=== PATIENT | female | born 1975 | race Caucasian/White ===

== ENCOUNTER → 2016-04-01 | Outpatient (CLI) | payer BC, OTHER ==
[~2016-04-01] MED LIST: CALC0.2510 PO; CIPR1TAB11 PO; DOXY100C76 PO; ENAL10TA88 PO; FERR325T51 PO; OXYC-643 PO; WARF5TAB90 PO
[2016-04-01 17:37] LABS: BLOOD UREA NITROGEN 55 mg/dl (7-18); BUN/CREATININE RATIO 13.8 (10-20); CALCIUM 8.4 mg/dl (8.5-10.1); CARBON DIOXIDE 19 mmol/L (21-32); CHLORIDE 110 mmol/L (98-107); GLUCOSE 78 mg/dl (70-99); PHOSPHORUS 4.1 mg/dl (2.5-4.9); POTASSIUM 5.2 mmol/L (3.5-5.1); SODIUM 139 mmol/L (136-145)
== END | disposition home or self-care (01) ==
LOC: C.LAB1850 13:50
PROVIDERS: ATTEND Internal Medicine
DX: N18.9 Chronic kidney disease, unspecified (principal)

== ENCOUNTER → 2016-05-02 | Outpatient (CLI) | payer BC, OTHER ==
[2016-05-02 17:46] LABS: INR 3.1 (0.9-1.1); PROTHROMBIN TIME (PATIENT) 35.3 SECONDS (9.0-12.0)
[2016-05-02 17:58] LABS: BLOOD UREA NITROGEN 60 mg/dl (7-18); BUN/CREATININE RATIO 15.4 (10-20); CALCIUM 9.6 mg/dl (8.5-10.1); CARBON DIOXIDE 20 mmol/L (21-32); CHLORIDE 110 mmol/L (98-107); GLUCOSE 83 mg/dl (70-99); PHOSPHORUS 5.1 mg/dl (2.5-4.9); POTASSIUM 5.2 mmol/L (3.5-5.1); SODIUM 141 mmol/L (136-145)
== END | disposition home or self-care (01) ==
LOC: C.LAB1850 17:03
PROVIDERS: ATTEND Internal Medicine
DX: N18.9 Chronic kidney disease, unspecified (principal); E21.3 Hyperparathyroidism, unspecified

== ENCOUNTER → 2016-09-05 | Outpatient (CLI) | payer BC, OTHER ==
[2016-09-05 18:15] LABS: BLOOD UREA NITROGEN 59 mg/dl (7-18); BUN/CREATININE RATIO 15.4 (10-20); CALCIUM 8.6 mg/dl (8.5-10.1); CARBON DIOXIDE 19 mmol/L (21-32); CHLORIDE 113 mmol/L (98-107); GLUCOSE 92 mg/dl (70-99); POTASSIUM 4.8 mmol/L (3.5-5.1); SODIUM 141 mmol/L (136-145)
[2016-09-05 18:16] LABS: PHOSPHORUS 5.9 mg/dl (2.5-4.9)
== END | disposition home or self-care (01) ==
LOC: C.LAB1850 16:40
PROVIDERS: ATTEND Physician Assistant
DX: N18.9 Chronic kidney disease, unspecified (principal); D64.9 Anemia, unspecified

== ENCOUNTER → 2016-10-10 | Outpatient (CLI) | payer BC, OTHER ==
[2016-10-10 15:10] LABS: BLOOD UREA NITROGEN 94 mg/dl (7-18); BUN/CREATININE RATIO 21.9 (10-20); CARBON DIOXIDE 19 mmol/L (21-32); CHLORIDE 111 mmol/L (98-107); GLUCOSE 121 mg/dl (70-99); PHOSPHORUS 5.4 mg/dl (2.5-4.9); POTASSIUM 5.5 mmol/L (3.5-5.1); SODIUM 139 mmol/L (136-145)
[2016-10-10 15:41] LABS: RATIO 2312.5 mcg/mg (0-30.0)
== END | disposition home or self-care (01) ==
LOC: C.LAB1850 13:34
PROVIDERS: ATTEND Internal Medicine
DX: R79.89 Other specified abnormal findings of blood chemistry (principal); N18.9 Chronic kidney disease, unspecified; D64.9 Anemia, unspecified

== ENCOUNTER → 2016-10-28 | Outpatient (CLI) | payer BC, OTHER ==
[2016-10-28 15:54] LABS: BASO % 0.2 %; BASO ABS # 0.01 K/uL (0-0.2); EOS % 1.7 %; HEMATOCRIT 24.9 % (37-47); IG% 1.4 %; LYMPH % 16.2 %; LYMPH ABS # 0.96 K/uL (1.2-3.4); MEAN CELL VOLUME 93.3 fL (80-100); MEAN CORPUSCULAR HEMOGLOBIN 30.7 pg (25-34); MEAN CORPUSCULAR HGB CONC 32.9 g/dl (32-36); MONO % 5.8 %; NEUT % 74.7 %; PLATELET COUNT 190 K/uL (130-400); RED BLOOD COUNT 2.67 M/uL (4.2-5.4); WHITE BLOOD COUNT 5.91 K/uL (4.8-10.8)
[2016-10-28 16:16] LABS: BLOOD UREA NITROGEN 61 mg/dl (7-18); BUN/CREATININE RATIO 16.2 (10-20); CARBON DIOXIDE 24 mmol/L (21-32); CHLORIDE 109 mmol/L (98-107); GLUCOSE 92 mg/dl (70-99); POTASSIUM 5.2 mmol/L (3.5-5.1); SODIUM 140 mmol/L (136-145)
[2016-10-28 16:21] LABS: FERRITIN 171.1 ng/ml (8.0-388.0); PHOSPHORUS 4.5 mg/dl (2.5-4.9); TOTAL IRON BINDING CAPACITY 217 mcg/dl (250-450)
[2016-10-28 16:28] LABS: COMPLETE YES
== END | disposition home or self-care (01) ==
LOC: C.LAB1850 15:05
PROVIDERS: ATTEND Physician Assistant
DX: N18.9 Chronic kidney disease, unspecified (principal)

== ENCOUNTER → 2016-11-18 | Outpatient (CLI) | payer BC, OTHER | END | disposition home or self-care (01) | LOC: C.LAB1850 14:12 | PROVIDERS: ATTEND Physician Assistant | DX: E21.3 Hyperparathyroidism, unspecified (principal) ==

== ENCOUNTER → 2017-01-10 | Outpatient (CLI) | payer BC, OTHER ==
[2017-01-10 13:57] LABS: BLOOD UREA NITROGEN 58 mg/dl (7-18); BUN/CREATININE RATIO 15.8 (10-20); CARBON DIOXIDE 18 mmol/L (21-32); CHLORIDE 112 mmol/L (98-107); CREATININE 3.66 mg/dl (0.60-1.20); GLUCOSE 81 mg/dl (70-99); PHOSPHORUS 5.1 mg/dl (2.5-4.9); POTASSIUM 5.7 mmol/L (3.5-5.1); SODIUM 139 mmol/L (136-145)
== END | disposition home or self-care (01) ==
LOC: C.LAB1850 10:19
PROVIDERS: ATTEND Physician Assistant
DX: M32.9 Systemic lupus erythematosus, unspecified (principal)

== ENCOUNTER → 2017-04-24 | Outpatient (CLI) | payer BC, OTHER ==
[~2017-04-24] MED LIST changes: -CIPR1TAB11 PO; -DOXY100C76 PO
[2017-04-24 18:04] LABS: ALBUMIN 3.4 gm/dl (3.4-5.0); BLOOD UREA NITROGEN 59 mg/dl (7-18); CARBON DIOXIDE 20 mmol/L (21-32); CREATININE 4.39 mg/dl (0.60-1.20); GLUCOSE 91 mg/dl (70-99); POTASSIUM 4.6 mmol/L (3.5-5.1); SODIUM 138 mmol/L (136-145)
[2017-04-24 18:09] LABS: PHOSPHORUS 5.6 mg/dl (2.5-4.9)
[2017-04-24 18:13] LABS: HEMATOCRIT 29.8 % (37-47); HEMOGLOBIN 10.3 g/dL (12.0-16.0); MEAN CELL VOLUME 89.5 fL (80-100); MEAN CORPUSCULAR HEMOGLOBIN 30.9 pg (25-34); MEAN CORPUSCULAR HGB CONC 34.6 g/dl (32-36); MEAN PLATELET VOLUME 11.2 fL (7.4-10.4); PLATELET COUNT 79 K/uL (130-400); RED CELL DISTRIBUTION WIDTH CV 13.8 % (11.5-14.5); RED CELL DISTRIBUTION WIDTH SD 45.5 fL (36.4-46.3); WHITE BLOOD COUNT 6.13 K/uL (4.8-10.8)
[2017-04-24 18:14] LABS: BASO % 0.5 %; BASO ABS # 0.03 K/uL (0-0.2); EOS ABS # 0.12 K/uL (0-0.5); IG# 0.02 K/uL (0.00-0.02); LYMPH % 24.3 %; LYMPH ABS # 1.49 K/uL (1.2-3.4); MONO % 5.2 %; MONO ABS # 0.32 K/uL (0.11-0.59); NEUT % 67.7 %; NEUT ABS # 4.15 K/uL (1.4-6.5)
== END | disposition home or self-care (01) ==
LOC: C.LAB1850 16:22
PROVIDERS: ATTEND Internal Medicine
DX: I10 Essential (primary) hypertension (principal)

== ENCOUNTER → 2017-04-25 | Outpatient (CLI) | payer BC, OTHER ==
--- NOTE | 2017-04-28 08:07 | MAMMOGRAPHY REPORT ---
BILATERAL DIGITAL SCREENING MAMMOGRAM TOMOSYNTHESIS WITH CAD: 04/25/2017 CLINICAL HISTORY: Routine screening. Patient has no complaints. TECHNIQUE: Breast tomosynthesis in addition to standard 2D mammography was performed. Current study was also evaluated with a Computer Aided Detection (CAD) system. COMPARISON: Comparison is made to exams dated: 02/23/2016 mammogram and 01/27/2015 mammogram - [facility]. BREAST COMPOSITION: There are scattered areas of fibroglandular density in both breasts. FINDINGS: There is a grouping of microcalcifications in the upper outer posterior right breast, for which additional spot magnification views are recommended. There are scattered vascular calcifications in both breasts. No other suspicious mass, architectural distortion or cluster of microcalcifications is seen. IMPRESSION: ACR BI-RADS CATEGORY 0: INCOMPLETE EVALUATION: NEED ADDITIONAL IMAGING EVALUATION The grouping of microcalcifications in the right upper outer posterior breast needs additional evalua tion. The patient will be called to schedule an appointment. Approximately 10% of breast cancers are not detected with mammography. A negative mammographic report should not delay biopsy if a clinically suggestive mass is present. Kathy Baeza M.D. ay/:04/25/2017 16:18:53 Senior Climate Advisor: Gladis PASTOR(Ketty)(Tracy), [facility] letter sent: Addl Imaging 0 BI-RADS Code: ACR BI-RADS Category 0: Incomplete Evaluation: Need Additional Imaging Evaluation
== END | disposition home or self-care (01) ==
LOC: C.MAMM 15:08
PROVIDERS: ATTEND Internal Medicine
DX: Z12.31 Encounter for screening mammogram for malignant neoplasm of breast (principal)

== ENCOUNTER → 2017-04-30 | Outpatient (CLI) | payer BC, OTHER | END | disposition home or self-care (01) | LOC: C.LAB1850 16:14 | PROVIDERS: ATTEND Internal Medicine | DX: R39.9 Unspecified symptoms and signs involving the genitourinary system (principal) ==

== ENCOUNTER → 2017-05-06 | Outpatient (CLI) | payer BC, OTHER | END | disposition home or self-care (01) | LOC: C.LAB1850 15:49 | PROVIDERS: ATTEND Internal Medicine | DX: R39.9 Unspecified symptoms and signs involving the genitourinary system (principal) ==

== ENCOUNTER → 2017-05-07 | Outpatient (CLI) | payer BC, OTHER ==
--- NOTE | 2017-05-08 08:04 | MAMMOGRAPHY REPORT ---
UNILATERAL RIGHT DIGITAL DIAGNOSTIC MAMMOGRAM: 05/07/2017 CLINICAL HISTORY: 42-year-old woman called back from screening mammography for a small grouping of li near microcalcifications in the upper outer posterior right breast. Patient is currently on the dinorah l transplant list. TECHNIQUE: Spot magnification right CC and MLO views were obtained. COMPARISON: Comparison is made to exams dated: 02/23/2016 mammogram, 04/25/2017 mammogram, and 2014 mammogram - [facility]. BREAST COMPOSITION: There are scattered areas of fibroglandular density in the right breast. FINDINGS: There are curvilinear vascular calcifications in the right upper outer posterior breast bu t there are adjacent linear microcalcifications in a somewhat linear distribution posterior to the va scular calcification. When comparing back to prior available mammograms, the nonvascular calcificati ons are new since 2014 and therefore indeterminate. No associated asymmetry, mass or architectural d istortion. Given that there are only approximately 4 calcifications in the grouping this is a low scott spicion although given the interval development of the remain indeterminate. We discussed options of follow-up imaging with spot magnification views versus tissue sampling and will opt to sample the ca lcifications at this time given the patient's impending renal transplant. IMPRESSION: ACR BI-RADS CATEGORY 4: SUSPICIOUS 1. Right breast stereotactic guided biopsy is recommended for 4 microcalcifications in a linear dist ribution in the upper outer posterior right breast. These results and recommendations were discussed with the patient at the time of the exam. Approximately 10% of breast cancers are not detected with mammography. A negative mammographic report should not delay biopsy if a clinically suggestive mass is present. Kathy Baeza M.D. ay/:05/07/2017 15:31:28 Prevention Rn: Gladis PASTOR(Ketty)(Tracy), [facility] letter sent: Abnormal 4/5 BI-RADS Code: ACR BI-RADS Category 4: Suspicious
== END | disposition home or self-care (01) ==
LOC: C.MAMM 14:05
PROVIDERS: ATTEND Internal Medicine
DX: R92.0 Mammographic microcalcification found on diagnostic imaging of breast (principal)

== ENCOUNTER → 2017-05-14 | Outpatient (CLI) | payer BC, OTHER ==
--- NOTE | 2017-05-14 14:57 | Discharge Instructions ---
Discharge Instructions Procedure Procedure Date: May 14, 2017. Reason for visit: Right Calcs. Discharge Discharge Date: May 14, 2017. Discharge Diagnosis: post right breast stereotactic guided biopsy Instructions Activity Recommendations: Additional Limitations (see below) Return to School/Work: no limitations Recommended Home Diet: No Limitations Provider Instructions: ACTIVITY RECOMMENDATIONS: * No lifting, pushing, pulling or exercising the affected side for three days. RETURN TO SCHOOL/WORK: * You may return to work/school after the procedure, but do not perform any strenuous activities for 24 to 48 hours. MEDICATIONS: * Tylenol (two 325 mg) every four to six hours if needed for mild pain (if not allergic to Tylenol). DIET: * Resume previous diet. SPECIAL CARE INSTRUCTIONS: * Keep biopsy site dry for 24 hours. May shower after 24 hours, but do not soak (bathe) incision. * May remove Tegaderm (plastic patch) tomorrow AFTER showering. * Leave the steri-strips on for one week. Allow the steri-strips to fall off by themselves. If not off after one week, you may remove them. You may place a Bandaid crosswise over the strips, if desired. * Apply ice 10 minutes on and 10 minutes off as needed. * Wear a bra at bedtime to sleep more comfortably for 2-3 days. * Your referring physician should have the results after approximately 5 to 7 business days. * Call for unusual bleeding, fever, drainage, etc or if you have any questions call [phone] during normal business hours or after hours call Dr Baeza, . FOLLOW UP VISIT: Follow-up with Referring Physician as scheduled. Allergies Coded Allergies: Sulfamethoxazole w/Trimethoprim (Verified Allergy, Mild, RASH, 01/30/17) Penicillins (Verified Allergy, Unknown, 04/07/09) Cephalexin (Verified Adverse Reaction, Unknown, GI SYMPTOMS, 03/27/16) effects lupus [place] Recommendations: Call your doctor if: * Temperature above 101 degrees * Pain not relieved by pain medicine ordered * There is increased drainage or redness from any incision * You have any unanswered questions or concerns. Your Doctors Instructions noted above were prepared by provider Kathy Baeza. Patient Signature Section: Patient Instructions Signature Page Jayla Casillas Patient (or Guardian) Signature/Date: I have read and understand the instructions given to me by my caregivers. Caregiver/RN/Doctor Signature/Date: The above-named patient and/or guardian has received patient instructions on this date. + Original Patient Signature Page (only) stays with chart. Please make copy for patient.
== END | disposition home or self-care (01) ==
LOC: C.MAMM 14:18
PROVIDERS: ATTEND Internal Medicine
DX: R92.0 Mammographic microcalcification found on diagnostic imaging of breast (principal)

== ENCOUNTER → 2017-06-03 | Outpatient (CLI) | payer BC, OTHER ==
[~2017-06-03] MED LIST changes: +ATROPINE SULFATE 0.1 MG/ML 5ML SYR ONE; +DOBUTamine HCL 12.5 MG/ML 20 ML VIAL ONE; +METOPROLOL TARTRATE 1 MG/ML VIAL ONE
--- NOTE | 2017-06-03 17:15 | DOBUTAMINE ECHO ---
*NOTICE TO RECEIVING REPUBLICAN AGENCY This information is strictly Confidential and protected under [place] law. [place] law prohibits you from making any further disclosure of this information unless further disclosure is expressly permitted by the written consent of the person to whom it pertains or is authorized by law. A general authorization for the release of medical or other information is not sufficient for this purpose. Hospital accepts no responsibility if the information is made available to any other person, INCLUDING THE PATIENT. Interpretation Summary * Name: DANYELL SANDS Study Date: 06/03/2017 11:02 AM BP: 153/87 mmHg * Patient Location: [facility] HR: 57 * : 1975 (M/d/yyyy) Gender: Female Height: 66 in * Age: 42 yrs Ethnicity: [place] Weight: 160 lb * Ordering Physician: Jamie Victoria * Referring Physician: John Esteves * Performed By: Neelima Conroy RDCS * * Reason For Study: PRE-OP EVAL RENAL TRANSPLANT * BSA: 1.8 m2 * -- Conclusions -- * 1. Negative dobutamine stress echocardiogram for myocardial ischemia at 85% maximum predicted heart rate. * 2. No dobutamine induced chest pain. * 3. No EKG changes. * 4. Baseline echocardiogram notes normal left ventricular systolic function. Procedure Details * DOBUTAMINE ECHO, CPT#07580 Left Ventricle * The left ventricle is normal in size. * There is mild concentric left ventricular hypertrophy. * Left ventricular systolic function is normal. * Resting wall motion: Normal. Stress wall motion: Appropriate increase in Left ventricular systolic function and decrease in cavity size. No stress induced segmental wall motion abnormalities. Stress Parameters * Normal baseline electrocardiogram. * Stress ECG: No ST changes. No arrhythmias. * Rest heart rate was '57' BPM. * Rest blood pressure was '153/87' * Maximum heart rate achieved was 151 bpm. * Maximum heart rate was 85 % of maximum age-predicted heart rate. * Maximum blood pressure was '256/128' * Maximum Dobutamine infusion rate was '40' mcg/kg/min. * A total of .5 mg of intravenous Atropine was used to supplement Dobutamine for heart rate response. * Dobutamine infusion was terminated due to achieving target heart rate
== END | disposition home or self-care (01) ==
LOC: C.CPL 10:51
PROVIDERS: ATTEND Internal Medicine
DX: Z01.818 Encounter for other preprocedural examination (principal)

== ENCOUNTER → 2017-06-11 | Outpatient (CLI) | payer BC, OTHER ==
[~2017-06-11] MED LIST changes: -ATROPINE SULFATE 0.1 MG/ML 5ML SYR ONE; -DOBUTamine HCL 12.5 MG/ML 20 ML VIAL ONE; -METOPROLOL TARTRATE 1 MG/ML VIAL ONE
== END | disposition home or self-care (01) ==
LOC: C.LAB1850 16:18
PROVIDERS: ATTEND Internal Medicine
DX: R39.9 Unspecified symptoms and signs involving the genitourinary system (principal)

== ENCOUNTER → 2017-10-24 | Outpatient (CLI) | payer BC, OTHER ==
[2017-10-24 15:45] LABS: BLOOD UREA NITROGEN 60 mg/dl (7-18); CALCIUM 8.5 mg/dl (8.5-10.1); CARBON DIOXIDE 19 mmol/L (21-32); CREATININE 4.47 mg/dl (0.60-1.20); GLUCOSE 94 mg/dl (70-99); PHOSPHORUS 4.8 mg/dl (2.5-4.9); POTASSIUM 4.5 mmol/L (3.5-5.1); SODIUM 139 mmol/L (136-145)
== END | disposition home or self-care (01) ==
LOC: C.LAB1850 13:37
PROVIDERS: ATTEND Physician Assistant
DX: N18.9 Chronic kidney disease, unspecified (principal)

== ENCOUNTER 2019-02-15 10:05 | Inpatient (IN) ==
[2019-02-15] MEDS ORDERED: HYDROmorphone INJ 1 MG/ML SYRINGE IV STA (10:20)
[2019-02-15] MEDS ORDERED: SODIUM CHLORIDE 0.9% 1000ML 1,000 ML IV PRN (11:07)
[2019-02-15] MEDS ORDERED: HEPARIN SOD (PORCINE) 1000 UNIT/ML 10 ML VIAL IV ONE (11:07)
[2019-02-15 11:31] LABS: Hematocrit (blood only) 35.7 % (37-47); Hemoglobin 11.4 g/dL (12.0-16.0); Mean Corpuscular Hemoglobin 30.1 pg (25-34); Mean Corpuscular Hgb Conc 31.9 g/dL (32-36); Mean Corpuscular Volume 94.2 fL (80-100); RDW Coefficient of Variation 19.1 % (11.5-14.5); RDW Standard Deviation 61.1 fL (36.4-46.3); Red Blood Count 3.79 M/uL (4.2-5.4)
[2019-02-15 11:32] LABS: Basophils # (auto) 0.01 K/uL (0-0.2); Basophils % (auto) 0.2 %; Eosinophils # (auto) 0.06 K/uL (0-0.5); Eosinophils % (auto) 1.2 %; Immature Granulocytes # (auto) 0.05 K/uL (0.00-0.02); Lymphocytes # (auto) 0.66 K/uL (1.2-3.4); Lymphocytes % (auto) 12.9 %; Monocytes # (auto) 0.61 K/uL (0.11-0.59); Neutrophils # (auto) 3.71 K/uL (1.4-6.5); Neutrophils % (auto) 72.7 %; Platelet Count 55 K/uL (130-400)
[2019-02-15 12:11] LABS: Alanine Aminotransferase 30 U/L (12-78); Albumin Globulin Ratio 0.6 (0.9-2); Albumin Level 2.8 gm/dl (3.4-5.0); Alkaline Phosphatase 93 U/L (45-117); BUN Creatinine Ratio 3.8 (10-20); Bilirubin,Total 0.6 mg/dl (0.2-1); Blood Urea Nitrogen 20 mg/dl (7-18); Calcium 8.5 mg/dl (8.5-10.1); Carbon Dioxide 27 mmol/L (21-32); Chloride 97 mmol/L (98-107); Creatinine Clr Calc Pharmacy 12.8 ml/min; Est GFR (African American) 10.8; Est GFR (Non-African American) 9.3; Globulin 4.6 gm/dl (2.5-4.0); Glucose 75 mg/dl (70-99); Lipase 66 U/L (73-393); Phosphorus 3.9 mg/dl (2.5-4.9); Sodium 131 mmol/L (136-145); Total Protein 7.4 gm/dl (6.4-8.2); Troponin I < 0.015 ng/ml (0-0.045)
--- NOTE | 2019-02-15 12:25 | XRay Report ---
PA CHEST RADIOGRAPH AND UPRIGHT AND SUPINE AP RADIOGRAPHS OF THE ABDOMEN CLINICAL HISTORY: Pd cath, L CP COMPARISON STUDY: KUB January 14, 2019. Chest CT February 14, 2019. FINDINGS: Right internal jugular dual lumen catheter is noted. Peritoneal dialysis catheter is noted . This is coiled within the right hemipelvis. A small pleural effusion with left basilar opacity is u nchanged. There is no evidence for pulmonary edema. No free air is present. Calcified granulomas with in the spleen are noted. There are bilateral hip arthroplasties. Mild to moderate stool within colon and rectum is noted. IMPRESSION: 1. No free air or evidence of bowel obstruction. 2. Small left pleural effusion with left basilar opacity that favors atelectasis. Electronically signed by: Wilder Lloyd M.D. 02/15/2019 12:23 PM
[2019-02-15] MEDS ORDERED: HYDROmorphone INJ 0.5 MG/0.5 ML SYR IV STA (12:34)
[2019-02-15 12:51] LABS: Potassium 3.6 mmol/L (3.5-5.1)
[2019-02-15] MEDS ORDERED: LORazepam 0.25 MG/0.5 ML VIAL IV STA (13:36)
--- NOTE | 2019-02-15 13:48 | Emergency Department Note ---
Entered by Ella Corral acting as a scribe for History of Present Illness General Chief complaint: Abdominal Pain Stated complaint: ABD PAIN, SENT BY Time Seen by Provider: 02/15/19 10:13 Source: patient History of Present Illness Onset (ago): day(s) 3 Location: abdomen Radiation: other (collar bone) Severity: similar to prior episodes Pain Consistency: + other (worsening) Maximum Pain Intensity: 10 Quality: + other (abdominal pain) Relieved By: not by medication (pain medication) Exacerbated By: + other (deep breathing) Associated symptoms: + other (abdominal pain); no cough, no nausea/vomiting, no rash and no shortness of breath Treatments prior to arrival: other (pain medication) The patient is a 44 year old female presenting to the Emergency Department complaining of worsening abdominal pain starting 3 days ago. The patient reports that the left side of her abdomen is painful. She states that this pain started in her collar bone and radiated down to her abdomen. She explains that deep breathing worsens her abdominal pain. She notes that she was in the hospital 1 day ago for this same pain and was given pain medication to take home. She adds that she took this pain medication BISQUE PLACER today and that it didnt improve her pain. The patient reports that when she came into the ED 1 day ago for abdominal pain she received blood work and imaging. She states that she is a dialysis patient and went to dialysis this morning BISQUE PLACER but wasnt able to last through her entire treatment. She notes that she was last dialyzed on 02/13/19. The patient denies rash, shortness of breath, nausea, vomiting, cough and shortness of breath. Home Medications Home Medications Medication Instructions Recorded Confirmed Type alprazolam 0.25 mg PO TID PRN 10/02/18 02/15/19 History bupropion HCl 150 mg PO DAILY 10/02/18 02/15/19 History calcitriol 0.25 mcg PO DAILY 10/02/18 02/15/19 History sevelamer carbonate 1,600 mg PO TIDM 10/02/18 02/15/19 History enalapril maleate 20 mg tablet 20 mg PO BID #180 tab 01/08/19 02/15/19 Rx docusate sodium [Colace] 100 mg PO BID #60 cap 02/14/19 02/15/19 Rx doxycycline hyclate 100 mg PO BID 10 Days #20 tab 02/14/19 02/15/19 Rx oxycodone 5 mg PO Q6H PRN #14 tab 02/14/19 02/15/19 Rx sennosides [Senokot] 8.6 mg PO HS #30 tab 02/14/19 02/15/19 Rx Allergies Allergy/AdvReac Type Severity Reaction Status Date / Time Bactrim Allergy Mild RASH Verified 01/30/17 13:24 sulfamethoxazole Allergy Mild RASH Verified 02/15/19 10:12 trimethoprim Allergy Mild RASH Verified 02/15/19 10:12 Penicillins Allergy Unknown Unknown Verified 02/15/19 10:12 Sulfa (Sulfonamide Allergy Rash Verified 02/15/19 10:12 Antibiotics) cephalexin AdvReac Mild GI SYMPTOMS Verified 02/15/19 10:12 Past Med/Surg History Medical History Anemia (Acute) Cellulitis of left leg (Acute) Chronic kidney disease (Chronic) 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) Elevated INR (Acute) End stage renal disease Epistaxis GI bleed (Acute) Hypertension (Chronic) Hypertension (Chronic) Lupus (Chronic) Lupus (systemic lupus erythematosus) (Chronic) Renal failure (Chronic) Traumatic wound (Acute) Surgical History History of hip replacement (Chronic) S/P arteriovenous (AV) fistula creation (Resolved) S/P bilateral hip replacements (Resolved) S/P (Resolved) Social History Preferred Language: Wolof Communication Ability: Effective Visual Impairment: Limited Hearing Ability: Normal Mechanical Meter Tester Required: No Beliefs That Will Affect Care: None marital status: seperated Current Living Situation: Family Current Living Situation Comment: daughter and fried current occupational status: disabled Feels Safe at Home: Yes Safety Concerns: Feels Safe At This Time Smoking Status: Never smoker Second Hand Exposure: No ; Hx Alcohol Use: No Hx Substance Use: No Review of Systems See HPI for pertinent positives & negatives. and A total of 10 systems reviewed and were otherwise negative Physical Exam Vital Signs Vital Signs - 24 hr 02/15/19 10:08 02/15/19 11:32 12/16/19 13:30 Temperature 36.5 C Temperature Source Oral Pulse Rate 111 H Pulse Rate [Right Finger] 97 H 89 Pulse Rhythm [Right Finger] Regular Respiratory Rate 20 20 20 Respiratory Effort / Characteristics Non-Labored Non-Labored Spontaneous Non-Labored Spontaneous Respiratory Depth Normal Normal Normal Respiratory Pattern Regular Blood Pressure 133/81 Blood Pressure [Right Arm] 121/81 118/75 Blood Pressure Mean 98 Blood Pressure Mean [Right Arm] 94 89 Blood Pressure Position Sitting Blood Pressure Position [Right Arm] Lying Lying Pulse Oximetry 97 95 97 Oxygen Delivery Method Room Air Room Air Room Air Sepsis Recent Fever Within 48 Hours No Sepsis New/Unexplained Change in Mental Status No Sepsis Action Taken by Nursing No Action Required GENERAL: Patient appears uncomfortable. Awake, alert. HENT: Normocephalic, atraumatic. EYES: Normal conjunctiva. Sclera non-icteric. RESPIRATORY: Clear to auscultation. Normal respiratory effort. CARDIAC: Normal rate. Normal rhythm. Extremities warm and well perfused. GI: Lower abdominal PD catheter in place. Soft, non-distended. No tenderness to palpation. No rebound or guarding. MUSCULOSKELETAL: Atraumatic. Left chest wall tenderness. Right upper chest port. There is no CVA tenderness to palpation. LOWER EXTREMITIES: Calves are equal size bilaterally and non-tender. No edema NEURO: Normal sensorium. No sensory or motor deficits noted. No facial droop. SKIN: Warm and dry. No rash or jaundice noted. Course Course 1015: The patient was evaluated in room A11B, and a complete history and physical examination were performed. 1055: I discussed the patients case with Dr. Victoria Mens Locker Room Attendant. 1130: I discussed the patients case with Deloris Delcid PA-C Vascular surgery. 1230: I reevaluated the patient at this time. I updated her. 1239: I discussed the patients case with Dr. Escobar CRAFT hospitalist. He will evaluate the patient for further management. Administered Medications Discontinued Medications Hydromorphone HCl (Dilaudid) 1 mg IV NOW STA Stop: 02/15/19 10:21 Last Admin: 02/15/19 11:17 Dose: 1 mg Documented by: [id number] Hydromorphone HCl (Dilaudid) 0.5 mg IV NOW STA Stop: 02/15/19 12:35 Last Admin: 02/15/19 12:49 Dose: 0.5 mg Documented by: [id number] Lorazepam (Ativan) 0.25 mg in 0.5 mls @ 0.5 mls/min IV NOW STA Stop: 02/15/19 13:37 Last Admin: 02/15/19 14:23 Dose: 0.5 mls/min Documented by: [id number] Medical Decision Making Differential Diagnosis Differential diagnoses includes but is not limited to acute coronary syndrome, myocardial infarction, pericarditis, pulmonary embolus, aortic dissection, pneumonia, pneumothorax, musculoskeletal, shingles, esophageal. Medical Records Attestation: I reviewed the patient's medical records. Home Medications Current Medication List: was personally reviewed by me Laboratory Data Attestation: I reviewed the patient's lab results. Result diagrams: 02/15/19 11:02/15/19 12:28 Lab Results 02/15/19 02/15/19 02/15/19 Range/Units 11:19 11:19 12:28 WBC 5.10 (4.8-10.8) K/uL RBC 3.79 L (4.2-5.4) M/uL Hgb 11.4 L (12.0-16.0) g/dL Hct 35.7 L (37-47) % MCV 94.2 (80-100) fL MCH 30.1 (25-34) pg MCHC 31.9 L (32-36) g/dL RDW Std Deviation 61.1 H (36.4-46.3) fL RDW Coeff of Negrito 19.1 H (11.5-14.5) % Plt Count 55 L (130-400) K/uL MPV 11.0 H (7.4-10.4) fL Immature Gran % (Auto) 1.0 % Neut % (Auto) 72.7 % Lymph % (Auto) 12.9 % [place] % (Auto) 12.0 % Eos % (Auto) 1.2 % Baso % (Auto) 0.2 % Immature Gran # (Auto) 0.05 H (0.00-0.02) K/uL Neut # (Auto) 3.71 (1.4-6.5) K/uL Lymph # (Auto) 0.66 L (1.2-3.4) K/uL [place] # (Auto) 0.61 H (0.11-0.59) K/uL Eos # (Auto) 0.06 (0-0.5) K/uL Baso # (Auto) 0.01 (0-0.2) K/uL Sodium 131 L (136-145) mmol/L Potassium 3.6 (3.5-5.1) mmol/L Chloride 97 L (98-107) mmol/L Carbon Dioxide 27 (21-32) mmol/L Anion Gap 7.0 (3-11) BUN 20 H (7-18) mg/dl Creatinine 5.16 H* D (0.6-1.2) mg/dl Est Cr Clr Drug Dosing 12.8 ml/min Est GFR ( Amer) 10.8 Est GFR (Non-Af Amer) 9.3 BUN/Creatinine Ratio 3.8 L (10-20) Glucose 75 (70-99) mg/dl Calcium 8.5 (8.5-10.1) mg/dl Phosphorus 3.9 (2.5-4.9) mg/dl Magnesium 2.0 (1.8-2.4) mg/dl Total Bilirubin 0.6 (0.2-1) mg/dl AST 19 (15-37) U/L ALT 30 (12-78) U/L Alkaline Phosphatase 93 (45-117) U/L Troponin I < 0.015 (0-0.045) ng/ml Total Protein 7.4 (6.4-8.2) gm/dl Albumin 2.8 L (3.4-5.0) gm/dl Globulin 4.6 H (2.5-4.0) gm/dl Albumin/Globulin Ratio 0.6 L (0.9-2) Lipase 66 L (73-393) U/L Imaging Data Radiologist's Impression: Radiology results as stated below per my review and the radiologist's interpretation: PA CHEST RADIOGRAPH AND UPRIGHT AND SUPINE AP RADIOGRAPHS OF THE ABDOMEN CLINICAL HISTORY: Pd cath, L CP COMPARISON STUDY: KUB January 14, 2019. Chest CT February 14, 2019. FINDINGS: Right internal jugular dual lumen catheter is noted. Peritoneal dialysis catheter is noted. This is coiled within the right hemipelvis. A small pleural effusion with left basilar opacity is unchanged. There is no evidence for pulmonary edema. No free air is present. Calcified granulomas within the spleen are noted. There are bilateral hip arthroplasties. Mild to moderate stool within colon and rectum is noted. IMPRESSION: 1. No free air or evidence of bowel obstruction. 2. Small left pleural effusion with left basilar opacity that favors atelectasis. Electronically signed by: Wilder Lloyd M.D. 02/15/2019 12:23 PM ECG Data Attestation: I personally reviewed and interpreted this ECG as follows: Indication: + abdominal pain Rate (beats per minute): 97 Rhythm: + normal sinus ECG ST segments: no ST depression and no ST elevation ECG Findings: no PVCs Comparison ECG Date: from (02/14/19) Change: no significant change Blood Pressure Blood Pressure Findings: Elevated blood pressure Blood Pressure Disposition: further management by hospitalist RIANNA Narrative Patient is a 44-year-old female with a past medical history of end-stage renal disease, lupus presenting today referred by her doctor due to left lower rib pain and problems with her dialysis catheter. Was evaluated here last night in the emergency department for similar pain complaints. Had a CT of the chest at that time without acute findings of PE; was some question of atelectasis greater on the left and was empirically started on antibiotics for this. Laboratory studies last night showed no significant leukocytosis and baseline if actually somewhat improved anemia. Has stigmata of mild electrolyte abnormalities and creatinine elevation and consistent with her history of end-stage renal disease. Evidently tunnel catheter is not working for dialysis today. Dr. Victoria states he already talked to the vascular team about this patient will need admitted for this to be corrected and also for pain control. He did recommend a two-view abdominal x-ray which was obtained showing no acute discontinuity of the gregorio lysis catheter, PD catheter not currently being utilized. Basic repeat laboratory studies were obtained here without significant abnormality beyond known dialysis changes. Do not see an emergent indication for dialysis at this point.. Discussed with the vascular surgeon physician curriculum assistant who states as nonemergent need, they can evaluate for replacement and repair tomorrow. Discussed with the hospitalist for admission for need for dialysis as well as pain control. Given additional Dilaudid here for pain control. Hospitalist contacted. Impression & Plan Left-sided chest wall pain, Hemodialysis catheter malfunction Discharge Plan Visit Data *Final* Discharge Date/Time: 02/15/19 15:52 Chief Complaint: Abdominal Pain Stated Complaint: ABD PAIN, SENT BY ED Provider: Alex Bee Discharge Problem: Left-sided chest wall pain, Hemodialysis catheter malfunction Patient Disposition: Admitted As Inpatient Discharge Instructions Interventions: ED Discharge Assessment Last Done: 02/15/19 15:52 Discharge Problem: Hemodialysis catheter malfunction Qualifiers: Encounter type: initial encounter Qualified Code(s): T82.41XA - Breakdown (mechanical) of vascular dialysis catheter, initial encounter The scribe's documentation has been prepared under my direction and personally reviewed by me in its entirety. I confirm that the note above accurately reflects all work, treatment, procedures, and medical decision making performed by me.
--- NOTE | 2019-02-15 14:36 | History & Physical Report ---
Date of Service February 15, 2019 Assessment & Plan (1) Hemodialysis catheter malfunction: 44-year-old female was admitted on 15 February 2019 for a clotted dialysis catheter. Hemodialysis catheter malfunction, ESRD: Has a tunneled right IJ catheter placed in October 2018. Reportedly nonfunctional after attempted dialysis earlier this morning. Still does make urine. - In ED, admit K 3.6. Given a dose of heparin 4000 units IV x 1 (? at time of attempted dialysis earlier this am). - Formal consult to vascular surgery and nephrology. Continue home sevelamer here. NPO at midnight for planned surgery tomorrow. Keep on heparin. Chest pain versus muscle spasm: New onset three days prior. Primarily under her left costal margin. Denies known fevers, cough, shortness of breath. Do not suspect current infection. Do suspect musculoskeletal component, though why exactly there is unclear. Perhaps it is related to attempted access of her peritoneal dialysis catheter this past Friday. - In ED yesterday (15Dec), negative TnI. CTA chest showed no evidence of PE but positive bibasilar atelectasis greater on the left. Blood cultures drawn then are pending. ? diagnosis of PNA, started on doxycycline. - In ED today, afebrile, borderline tachycardia, with a rather normal BP + room SpO2. Troponin negative. Admit EKG NSR 97 with normal intervals. Chest X-ray with abdomen notes no free air or evidence of bowel obstruction. - In ED, treated with Dilaudid. - Continue symptomatic control with small doses of morphine and lorazepam. Watch for respiratory issues. Discontinuing doxycycline. Acute on chronic thrombocytopenia: Admit platelets 55. INR 1.0. Monitor for now. Hyponatremia: Admit sodium 131. May be due to volume shifts pre-dialysis. Monitor for now. Ongoing medical issues: - Hypertension: Continue home enalapril. - Lupus, antiphospholipid syndrome: No known acute issues. - Anemia of chronic disease: Admit hemoglobin 11.4. - Recent cellulitis of left leg: Patient notes has completely resolved. - PMH right foot wound, MRSA infection: Underwent epidermal grafting in late October 2018. Followed by wound clinic. Previously followed by ID. Presently appears healed. - Depression: Continue home bupropion and as needed alprazolam. Code status: Full code. Diet: Renal, then NPO at midnight. DVT prophy: Heparin as above. PT/OT: Deferred. Disbo: Admit to [facility] telemetry. (2) End stage renal disease: (3) Left-sided chest wall pain: (4) Thrombocytopenia: (5) Hyponatremia: (6) Hypertension: (7) Lupus: (8) Antiphospholipid antibody syndrome: (9) Anemia: (10) Depression: History of Present Illness Primary Care Provider: Jamie Victoria MD 44-year-old female presents with a second time for evaluation of left-sided chest pain as well as now concerns for hemodialysis catheter obstruction. - Patient states that this past Friday 13Dec there was some attempt in accessing her peritoneal dialysis catheter. Although the details are unclear, patient says it was not successful. Normally she states she gets hemodialysis through her tunneled right IJ catheter on Friday, , and Friday. [Most recent dialysis this past Friday 14Dec.] - She says beginning Friday evening she began to feel some pain along her left collarbone. By Friday this transitioned to underneath her left ribcage where the pain has remained ever since. She says that it feels like waves of muscle spasms that get quite severe, taking her breath away. Feels worse with movement, nothing makes it better. She denies any history of the same. No known radiation or central chest symptoms. Denies recent concurrent fever, cough, shortness of breath, or other concurrent symptoms. At home initially she tried some Percocet and an undetermined muscle relaxer without any relief. - Patient says she presented to the emergency department last night for evaluation of this pain. [At present, related ED notes are not available in the EMR.] Per the patient, she was ultimately diagnosed with pneumonia and placed on doxycycline. Patient says she does not think she has pneumonia as she denies any particular respiratory symptoms. This morning, patient says she was due to have [id number] dialysis due to the contrast load from her CTA chest. At that time she was told the dialysis catheter was not working and referred here for further care. - At present, patient says she continues to get severe waves of left subcostal chest pain that feels like a spasm. She denies any new or interval symptoms to include vomiting, diarrhea, abdominal pain, extremity pain or muscle spasms, or other acute concerns. - Past medical history includes ESRD, anemia of chronic disease, GI bleed, traumatic wounds, lupus, hypertension, antiphospholipid antibody syndrome, hyperparathyroidism, depression, epistaxis - Past surgical history includes , AV fistula placement, bilateral hip replacement - Social history includes former smoker. Denies alcohol use. Is disabled and lives with a friend. Allergies Allergy/AdvReac Type Severity Reaction Status Date / Time Bactrim Allergy Mild RASH Verified 01/30/17 13:24 sulfamethoxazole Allergy Mild RASH Verified 02/15/19 10:12 trimethoprim Allergy Mild RASH Verified 02/15/19 10:12 Penicillins Allergy Unknown Unknown Verified 02/15/19 10:12 Sulfa (Sulfonamide Allergy Rash Verified 02/15/19 10:12 Antibiotics) cephalexin AdvReac Mild GI SYMPTOMS Verified 02/15/19 10:12 Home Medications Home Medications Medication Instructions Recorded Confirmed Type alprazolam 0.25 mg PO TID PRN 10/02/18 02/15/19 History bupropion HCl 150 mg PO DAILY 10/02/18 02/15/19 History calcitriol 0.25 mcg PO DAILY 10/02/18 02/15/19 History sevelamer carbonate 1,600 mg PO TIDM 10/02/18 02/15/19 History enalapril maleate 20 mg tablet 20 mg PO BID #180 tab 01/08/19 02/15/19 Rx docusate sodium [Colace] 100 mg PO BID #60 cap 02/14/19 02/15/19 Rx doxycycline hyclate 100 mg PO BID 10 Days #20 tab 02/14/19 02/15/19 Rx oxycodone 5 mg PO Q6H PRN #14 tab 02/14/19 02/15/19 Rx sennosides [Senokot] 8.6 mg PO HS #30 tab 02/14/19 02/15/19 Rx Past Med/Surg History Medical History Anemia (Acute) Cellulitis of left leg (Acute) Chronic kidney disease (Chronic) 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) Elevated INR (Acute) End stage renal disease Epistaxis GI bleed (Acute) Hypertension (Chronic) Hypertension (Chronic) Lupus (Chronic) Lupus (systemic lupus erythematosus) (Chronic) Renal failure (Chronic) Traumatic wound (Acute) Surgical History History of hip replacement (Chronic) S/P arteriovenous (AV) fistula creation (Resolved) S/P bilateral hip replacements (Resolved) S/P (Resolved) Social History Preferred Language: Macanese Communication Ability: Effective Visual Impairment: Limited Hearing Ability: Normal Environmental Marketer Required: No Beliefs That Will Affect Care: None marital status: seperated Current Living Situation: Family Current Living Situation Comment: daughter and fried current occupational status: disabled Feels Safe at Home: Yes Safety Concerns: Feels Safe At This Time Smoking Status: Never smoker Second Hand Exposure: No ; Hx Alcohol Use: No Hx Substance Use: No Review of Systems Review of Systems: Constitutional: Denies fevers, chills, focal weakness Eyes: Denies any visual loss or diplopia ENT: Denies any ear/nose/throat pain or difficulty speaking or swallowing Respiratory: Denies any dyspnea, cough, hemoptysis Cardiovascular: Positive left lower subcostal regional chest pain. Denies feeling of edema. Gastrointestinal: Denies any abdominal pain, nausea/vomiting/diarrhea Musculoskeletal: Denies any acute extremity pains, myalgias, or focal weakness Skin: Denies any known acute rashes or lesions Neuro: Denies any headache, acute focal weakness or numbness, or difficulties with speech or swallow. Physical Exam Physical Exam: GENERAL: Awake, alert, overall well-appearing but at times appears in severe pain and is crying. HENT: Normocephalic, atraumatic. Oropharynx unremarkable. EYES: Normal conjunctiva. Sclera non-icteric. NECK: Inspection normal. Supple and full ROM. No nuchal rigidity. CARDIAC: +S1S2 RRR, no murmurs. There is a tunneled hemodialysis catheter along the right sternal border with an overlying dressing. There is a peritoneal dialysis access site just to the left of this area. No rashes seen on the left chest wall / lower costal margin. RESPIRATORY: Very shallow respiratory effort (due to pain). Is clear to auscultation. GI: +BS, soft, non-distended. No tenderness to palpation. No rebound or gua rding. EXTREMITIES: No pedal edema or calf tenderness. Moving all extremities naturally and easily. There are areas on the bilateral distal extremities as well as feet consistent with long-term healed wounds/scars. NEURO: No gross neuro deficits. Results & Data Vital Signs (Past 12 Hours) Vital Signs Temp Pulse Pulse Resp BP BP Pulse Ox 02/15/19 11:32 97 H 20 121/81 95 02/15/19 10:08 36.5 C 111 H 20 133/81 97 Laboratory Results 02/15/19 02/15/19 02/15/19 Range/Units 12:28 11:19 11:19 WBC 5.10 (4.8-10.8) K/uL RBC 3.79 L (4.2-5.4) M/uL Hgb 11.4 L (12.0-16.0) g/dL Hct 35.7 L (37-47) % MCV 94.2 (80-100) fL MCH 30.1 (25-34) pg MCHC 31.9 L (32-36) g/dL RDW Std Deviation 61.1 H (36.4-46.3) fL RDW Coeff of Negrito 19.1 H (11.5-14.5) % Plt Count 55 L (130-400) K/uL MPV 11.0 H (7.4-10.4) fL Immature Gran % (Auto) 1.0 % Neut % (Auto) 72.7 % Lymph % (Auto) 12.9 % Catron % (Auto) 12.0 % Eos % (Auto) 1.2 % Baso % (Auto) 0.2 % Immature Gran # (Auto) 0.05 H (0.00-0.02) K/uL Neut # (Auto) 3.71 (1.4-6.5) K/uL Lymph # (Auto) 0.66 L (1.2-3.4) K/uL Catron # (Auto) 0.61 H (0.11-0.59) K/uL Eos # (Auto) 0.06 (0-0.5) K/uL Baso # (Auto) 0.01 (0-0.2) K/uL Sodium 131 L (136-145) mmol/L Potassium 3.6 (3.5-5.1) mmol/L Chloride 97 L (98-107) mmol/L Carbon Dioxide 27 (21-32) mmol/L Anion Gap 7.0 (3-11) BUN 20 H (7-18) mg/dl Creatinine 5.16 H* D (0.6-1.2) mg/dl Est Cr Clr Drug Dosing 12.8 ml/min Est GFR ( Amer) 10.8 Est GFR (Non-Af Amer) 9.3 BUN/Creatinine Ratio 3.8 L (10-20) Glucose 75 (70-99) mg/dl Calcium 8.5 (8.5-10.1) mg/dl Phosphorus 3.9 (2.5-4.9) mg/dl Magnesium 2.0 (1.8-2.4) mg/dl Total Bilirubin 0.6 (0.2-1) mg/dl AST 19 (15-37) U/L ALT 30 (12-78) U/L Alkaline Phosphatase 93 (45-117) U/L Troponin I < 0.015 (0-0.045) ng/ml Total Protein 7.4 (6.4-8.2) gm/dl Albumin 2.8 L (3.4-5.0) gm/dl Globulin 4.6 H (2.5-4.0) gm/dl Albumin/Globulin Ratio 0.6 L (0.9-2) Lipase 66 L (73-393) U/L Medications Administered Discontinued Medications Hydromorphone HCl (Dilaudid) 1 mg IV NOW STA Stop: 02/15/19 10:21 Last Admin: 02/15/19 11:17 Dose: 1 mg Documented by: [id number] Hydromorphone HCl (Dilaudid) 0.5 mg IV NOW STA Stop: 02/15/19 12:35 Last Admin: 02/15/19 12:49 Dose: 0.5 mg Documented by: [id number] Lorazepam (Ativan) 0.25 mg in 0.5 mls @ 0.5 mls/min IV NOW STA Stop: 02/15/19 13:37 Last Admin: 02/15/19 14:23 Dose: 0.5 mls/min Documented by: [id number] Code Status & VTE Plan Code Status Full code VTE Prophylaxis Plan VTE Prophylaxis will be ordered: Yes Supervising Physician Co-Signing Physician Notes Patient was seen and examined by me personally. I reviewed the chart, the orders and discussed the case in detail with Dr. Mahad Moreno MD . I read this H&P and agree with its contents to entirety. Resident Activity Tracking Resident Involvement: Resident Care Provided Care Provided: Adult Hospital Medicine (1) Hemodialysis catheter malfunction Encounter type: initial encounter Qualified Code(s): T82.41XA - Breakdown (mechanical) of vascular dialysis catheter, initial encounter
[2019-02-15] MEDS ORDERED: HEPARIN SODIUM/DEXTROSE 25,000 UNITS/500 ML BAG IV SCH (16:33)
[2019-02-15] MEDS ORDERED: LORazepam 0.25 MG/0.5 ML VIAL IV PRN (16:33)
[2019-02-15] MEDS ORDERED: Heparin IV Standard *NO* Bolus IV SCH (16:50)
[2019-02-15] MEDS: SEVELAMER HCL 800 MG TABLET PO SCH (17:53)
[2019-02-15] MEDS: MoRPHine SULFATE 2 MG/ML CARP IV PRN ×2 (18:07→20:45)
--- NOTE | 2019-02-15 19:19 | Consultation Report ---
DATE OF CONSULTATION: 02/15/2019 RENAL CONSULTATION SUBJECTIVE: Ms. Casillas is a 44-year-old white female well known to me. I have cared for her for many years. She has a history of systemic lupus erythematosus diagnosed during her teenage years. She was initially evaluated at the [facility] and transferred [place] for maintenance dialysis. However, her systemic lupus was not treated at that time. Although she was started on dialysis at that time, I also treated her systemic lupus and she did get a reasonable remission, although she continued to have a degree of chronic renal insufficiency. Her treatment included immunosuppressive drugs and steroids. 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 Nonetheless, she was able to lead a reasonably active life. She was , although recently . She had 2 children. She continues to be active. Her chronic renal disease has been associated with hypertension, although that was always controlled with enalapril and diuretics. For many years, she has been anticoagulated with Coumadin because of her antiphospholipid syndrome. Over the course of the past few years, her renal function has begun to decline. Finally, she developed symptomatic uremia related to end-stage renal disease. She was begun on maintenance dialysis in October of this year. Her dialysis access has been a tunneled hemodialysis catheter in the right internal jugular vein. She has had attempts at AV fistulas in the past, but none of these have functioned as her venous system was seemingly inadequate and her arteries were felt to be small by surgery. It has been her desire to start on peritoneal dialysis and that has been her plan. She is also on the active transplant list at [facility]. She did have a peritoneal catheter placed at [facility] several weeks ago. However, that catheter has not functioned well. She is to have the catheter repositioned and perhaps exchanged in the near future. Dr. Sujit Casas is the surgeon at [facility] that has been helping to care for her. Ms. Casillas was dialyzed 3 times a week for 4 hours with each visit. She is dialyzed using a 180 dialyzer. She is anticoagulated with heparin at the onset of her treatment. She has been using Aranesp as SHE IS INTOLERANT TO THE USE OF A REGULAR ERYTHROPOIETIN. Her regular outpatient medications include alprazolam 0.25 mg t.i.d. p.r.n., bupropion 150 mg twice daily, calcitriol 0.25 mcg daily, enalapril 20 mg twice daily and sevelamer carbonate 800 mg 2 tablets with each meal. She also takes a multivitamin. Her current issues seem to begin on Friday, 02/12. She felt as if she had a discomfort in her left shoulder like there was a bubble in her left shoulder, chest and left upper quadrant of her abdomen. She assumed that this was related to attempts to use her peritoneal dialysis catheter. However, over the course of the next 24-36 hours, the pain became increasingly intense. It seemed to be worse when she was lying down. She would get relief when she was sitting up. The pain, again, was predominantly on the left side of her chest, including the left pectoral area as well as the left side of her ribs as well as the left upper quadrant of her abdomen extending around to the left flank area. No rashes were noted in that area. She was seen in the Emergency Room on the night of February 14. There was concern about the possibility of a pulmonary embolism. A CTA was done and showed no evidence of a pulmonary embolism. She continued to have fairly intense pain. Admission was advised. There was concern about pneumonia. She did receive reportedly 1 dose of an IV antibiotic. No antibiotics were prescribed as an outpatient. Again, she refused admission and was discharged from the Emergency Room with the proviso that she would go directly to dialysis which she did. At the dialysis unit, she continued to have significant pain and it did tend to increase as she was lying in the dialysis chair. Her tunneled hemodialysis catheter was not working. Because of the increase in pain and the need to change her catheter, it was decided that she should be admitted for pain control to change her catheter and possibly to check on the position of her peritoneal catheter to see why it was not working. The position of that catheter has been checked on multiple occasions and has always been coiled in her pelvis just on the right side. The remainder of her past history is documented on other admission notes. MEDICATIONS: Are listed as above. ALLERGIES: INCLUDE HISTORY OF ALLERGIES TO CEPHALOSPORINS, PENICILLINS, SULFA AND TRIMETHOPRIM. The remainder of her past medical history, family history, social history and review of systems is found elsewhere in the chart and I have nothing to add to that information. OBJECTIVE: GENERAL: On physical exam, she appears as a somewhat chronically ill, middle-aged woman who was intermittently crying with extreme discomfort particularly with any attempts to change position or any attempts to palpation of her left chest and left upper quadrant of her abdomen. VITAL SIGNS: Her blood pressure was 118/75, her pulse 89 and regular, respiratory rate 20 and nonlabored. She is afebrile (36.5). Her oxygen saturation is 97% on room air. SKIN: Shows scars from prior surgical procedures, particularly over her hips. She has a tunneled hemodialysis catheter in the right IJ exiting beneath the distal right clavicle. She has a peritoneal catheter implanted just beneath xiphisternum. Her skin turgor is normal. She has no rash or infiltrative skin disease other than some minimal changes of venous stasis dermatitis and livedo involving her distal lower extremities. LYMPHATICS: Show no palpable lymphadenopathy. HEAD: Normal. EYES: Grossly normal. The ocular fundi were not examined. EARS, NOSE, MOUTH, AND THROAT: All unremarkable. Her oral mucous membranes are moist. NECK: Supple. She has no jugular venous distention, carotid bruit or thyromegaly. CHEST: Shows some splinting on respirations on the left side because of pain. She has a few atelectatic rales at the left base. Her chest is otherwise clear. CARDIAC: Shows a regular rhythm. S1 and S2 seem normal. I hear no definite murmur or gallop. ABDOMEN: Tender in the left upper quadrant without guarding. From time to time, there is no tenderness at all. The remainder of her abdomen is soft and not particularly tender. She has no obvious organomegaly or mass. Bowel sounds are normal. I hear no abdominal bruits. EXTREMITIES: Show no cyanosis, clubbing or peripheral edema. She has minimal changes of livedo on her distal lower extremities. NEUROLOGIC: Shows no lateralizing changes. PERTINENT LABORATORY WORK: From today shows a white count of 5100 with an essentially normal differential. Her hemoglobin is 11.4 with a hematocrit of 35.7. Her platelet count is 55,000. Her clinical chemistries show a sodium of 131 mmol/L, potassium of 3.6 mmol/L, chloride of 97 mmol/L, and CO2 content of 27 mmol/L. Her BUN is 20 and her creatinine is 5.16. Her random blood sugar was 75. Her serum calcium is 8.5. Her phosphate 3.9. Her serum magnesium 2.0. Her total bilirubin 0.6. Her AST is 19, her ALT is 30 and her alkaline phosphatase 93. Her troponin is less than 0.015. Her total protein 7.4 with an albumin of 2.8. Her lipase is 66. Imaging studies done today and last night included chest x-ray, which showed no evidence of free air in the abdomen. She has a small left pleural effusion and a left basilar opacity consistent with atelectasis. Her abdominal films show her peritoneal catheter to be coiled in the right hemipelvis. A CTA of her chest done last night did not show evidence of a pulmonary embolism or significant pulmonary infiltrate. ASSESSMENT: A 44-year-old woman with a history of systemic lupus erythematosus since her teenage years. She now has end-stage renal disease. Her dialysis access has been through a tunneled hemodialysis catheter in the right internal jugular. It is currently nonfunctional and Dr. Quezada has been asked to see the patient to exchange the catheter. I was under the impression that this would be done today, but because of his scheduled, had to be put off until tomorrow. She has significant pain in her abdomen on the left side of her body. The etiology is unclear. With the current position of the catheter, I doubt that it has anything to do with her discomfort. Her abdomen is soft and I doubt that she has peritonitis. Additionally, the absence of fever or an elevated white count makes peritonitis most unlikely. Her pain does seem more musculoskeletal. She has no rashes to suggest herpes zoster. PLAN: Pain control with IV analgesics if necessary. Tomorrow morning, she will have a new tunneled dialysis catheter placed or her current one revised. Dialysis orders have been placed to be done as soon as this is complete. I have spoken with Dr. Casas at [facility]. Ms. Casillas is to go there possibly later this week to have her peritoneal dialysis catheter repositioned or possibly replaced. That remains an option, but not until we have reestablished access for hemodialysis. I suspect that injectable analgesics will be necessary to control her pain. Muscle relaxants might be helpful as well as local heat. She will continue with all of her routine outpatient oral medications. It is highly doubtful that any of them are contributing to her current discomfort. Thank you for allowing me to continue to participate in her inpatient care. I will follow her with you.
--- NOTE | 2019-02-15 19:37 | Billing Data ---
Date of Service February 15, 2019 Coding Level of Care Code 20949 Initial Inpt Care Lvl 2
[2019-02-15] MEDS: DOCUSATE SODIUM 100 MG CAP PO SCH (20:48)
[2019-02-15] MEDS: SENNA 8.6 MG TAB PO SCH (20:48)
[2019-02-15] MEDS: ENALAPRIL MALEATE 10 MG TAB PO SCH (20:49)
[2019-02-15 23:37] LABS: Partial Thromboplastin Ratio 2.4
[2019-02-15 23:44] LABS: Partial Thromboplastin Time 66.2 Seconds (21.0-31.0)
[2019-02-16 05:52] LABS: Hematocrit (blood only) 32.8 % (37-47); Hemoglobin 10.4 g/dL (12.0-16.0); Mean Corpuscular Hemoglobin 30.5 pg (25-34); Mean Corpuscular Hgb Conc 31.7 g/dL (32-36); Mean Corpuscular Volume 96.2 fL (80-100); RDW Coefficient of Variation 19.1 % (11.5-14.5); RDW Standard Deviation 64.6 fL (36.4-46.3); Red Blood Count 3.41 M/uL (4.2-5.4); White Blood Count 3.98 K/uL (4.8-10.8)
[2019-02-16] MEDS ORDERED: CLINDAMYCIN 600 MG/54 ML BAG IV SCH (06:00)
[2019-02-16 06:01] LABS: Mean Platelet Volume 10.2 fL (7.4-10.4); Platelet Count 63 K/uL (130-400)
[2019-02-16 06:12] LABS: Basophils # (auto) 0.01 K/uL (0-0.2); Basophils % (auto) 0.3 %; Immature Granulocytes # (auto) 0.05 K/uL (0.00-0.02); Immature Granulocytes % (auto) 1.3 %; Lymphocytes # (auto) 0.87 K/uL (1.2-3.4); Lymphocytes % (auto) 21.9 %; Monocytes # (auto) 0.39 K/uL (0.11-0.59); Monocytes % (auto) 9.8 %; Neutrophils # (auto) 2.66 K/uL (1.4-6.5); Neutrophils % (auto) 66.7 %
[2019-02-16 06:18] LABS: Partial Thromboplastin Ratio 4.8
[2019-02-16 06:27] LABS: Partial Thromboplastin Time 129.5 Seconds (21.0-31.0)
[2019-02-16 06:33] LABS: BUN Creatinine Ratio 4.4 (10-20); Calcium 8.9 mg/dl (8.5-10.1); Creatinine Clr Calc Pharmacy 9.8 ml/min; Est GFR (African American) 7.8; Est GFR (Non-African American) 6.7; Magnesium 2.2 mg/dl (1.8-2.4); Phosphorus 7.3 mg/dl (2.5-4.9); Potassium 4.2 mmol/L (3.5-5.1)
--- NOTE | 2019-02-16 07:26 | Consultation ---
Date of Consultation February 16, 2019 Assessment & Plan (1) Hemodialysis catheter malfunction: Patient for exchange of dialysis catheter today. I have discussed the risks options and benefits of the procedure with the patient. The patient understands the risks options and benefits and agrees to the procedure. Encounter type: initial encounter Qualified Code(s): T82.41XA - Breakdown (mechanical) of vascular dialysis catheter, initial encounter History of Present Illness Reason for Consultation: Malfunctioning permcath Attending Physician: Kishan Cody, History of Present Illness Patient with a permcath in place which in nonfunctional. Recommend exchange of the catheter. Allergies Allergy/AdvReac Type Severity Reaction Status Date / Time Bactrim Allergy Mild RASH Verified 01/30/17 13:24 sulfamethoxazole Allergy Mild RASH Verified 02/15/19 10:12 trimethoprim Allergy Mild RASH Verified 02/15/19 10:12 Penicillins Allergy Unknown Unknown Verified 02/15/19 10:12 Sulfa (Sulfonamide Allergy Rash Verified 02/15/19 10:12 Antibiotics) cephalexin AdvReac Mild GI SYMPTOMS Verified 02/15/19 10:12 Home Medications Home Medications Medication Instructions Recorded Confirmed Type alprazolam 0.25 mg PO TID PRN 10/02/18 02/15/19 History bupropion HCl 150 mg PO DAILY 10/02/18 02/15/19 History calcitriol 0.25 mcg PO DAILY 10/02/18 02/15/19 History sevelamer carbonate 1,600 mg PO TIDM 10/02/18 02/15/19 History enalapril maleate 20 mg tablet 20 mg PO BID #180 tab 01/08/19 02/15/19 Rx docusate sodium [Colace] 100 mg PO BID #60 cap 02/14/19 02/15/19 Rx doxycycline hyclate 100 mg PO BID 10 Days #20 tab 02/14/19 02/15/19 Rx oxycodone 5 mg PO Q6H PRN #14 tab 02/14/19 02/15/19 Rx sennosides [Senokot] 8.6 mg PO HS #30 tab 02/14/19 02/15/19 Rx Patient History Medical History Anemia (Acute) Cellulitis of left leg (Acute) Chronic kidney disease (Chronic) 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) Elevated INR (Acute) End stage renal disease Epistaxis GI bleed (Acute) Hypertension (Chronic) Hypertension (Chronic) Lupus (Chronic) Lupus (systemic lupus erythematosus) (Chronic) Renal failure (Chronic) Traumatic wound (Acute) Surgical History History of hip replacement (Chronic) S/P arteriovenous (AV) fistula creation (Resolved) S/P bilateral hip replacements (Resolved) S/P (Resolved) Social History Preferred Language: Mohawk Communication Ability: Effective Visual Impairment: Limited Hearing Ability: Normal Voice Studies Director Required: No Beliefs That Will Affect Care: None marital status: seperated Current Living Situation: Family Current Living Situation Comment: daughter and shelby current occupational status: disabled Feels Safe at Home: Yes Safety Concerns: Feels Safe At This Time Smoking Status: Never smoker Second Hand Exposure: No ; Hx Alcohol Use: No Hx Substance Use: No Review of Systems Review of Systems: All systems reviewed & are unremarkable except as noted in HPI & below left lower chest discomfort Physical Exam Respiratory: no respiratory distress Auscultation: lungs clear to auscultation bilaterally Cardiovascular: Rate/Rhythm: regular rate and regular rhythm Chest (Breasts): Additional Comments: permcath in place Gastrointestinal (Abdomen): Inspection/Auscultation: abdomen normal to inspection Percussion/Palpation: abdomen soft; abdomen nontender Neurologic: patellar DTR's 2+ bilat, sensation intact Psychiatric: Orientation: alert and oriented x 3 Results & Data Vital Signs (Past 12 Hours) Vital Signs Temp Pulse Pulse Resp BP Pulse Ox 02/16/19 04:58 37.0 C 81 20 141/95 H 97 02/16/19 00:37 85 02/15/19 23:51 37.0 C 78 18 126/86 96 02/15/19 19:51 37.2 C 97 H 20 140/99 98
[2019-02-16] MEDS ORDERED: HEPARIN SOD (PORCINE) 5,000 UNITS/ML VIAL ONE (07:33)
[2019-02-16] MEDS ORDERED: LIDOCAINE HCL 1% 20 ML VIAL ONE (07:33)
[2019-02-16] MEDS ORDERED: CLINDAMYCIN 600 MG in DEXTROSE 5% 50 ML IV ONE (07:33)
[2019-02-16] MEDS ORDERED: MIDAZOLAM HCL 1 MG/ML 2ML VIAL ONE (08:11)
[2019-02-16] MEDS ORDERED: fentaNYL citrate 100 MCG/2 ML VIAL ONE (08:11)
--- NOTE | 2019-02-16 08:40 | Procedure Note ---
Angiogram Post Procedure Fluoroscopy Time (minutes): 0.5 Radiation (mGy): 3.62 Contrast: 0cc Post Operative Report Pre & Post Diagnosis Operation Date: 02/16/19 08:00 Pre-Op Diagnosis: Malfunctioning Perm Catheter Post-Op Diagnosis: Malfunctioning Perm Catheter Procedure Operation Date: 02/16/19 08:00 Actual Procedures p Exchange of Perm Catheter; Insertion of Perm Catheter, Right Internal Jugular Approach, Ultrasound Localization of Right Internal Jugular Vein, Fluoroscopy for Positioning; Moderate Sedation From 0823 to (Right) - Edgardo Quezada MD Surgeon Edgardo Quezada MD Circuit Board Repair Technician Ya Leary MD Estimated Blood Loss 0 Findings Consistent with Post-Op Diagnosis Specimens None Anesthesia Type RN Sedation Complications none Disposition Accompanied Patient To Recovery: No Disposition: Recovery Room Indications Jayla Casillas is a 44-year-old female with malfunctioning permcath. She presents for permcath exchange. The procedure and its associated risks were discussed with patient and she wishes to proceed with the procedure. Surgical consent was obtained. Description of Procedure The patient was taken to the angio suite and placed in the supine position. The right side of the neck, chest wall and catheter were prepped and draped in a sterile manner. A timeout was performed. The patient's identity, procedure, and procedure site were verified. A wire was advanced through one of the ports of the permcath. It advanced without difficulty. Under fluoroscopic imaging the wire was advanced to the atriocaval junction. Local anesthesia was then accomplished. Using blunt dissection, the cuff of the permcath was freed up from the surrounding fibrous tissue. The permcath and cuff were completely removed. Over the wire a new permcath was placed. The permcath was advanced over a wire to a central position in the distal superior vena cava. The catheter was then sutured in place using nylon sutures. Both ports aspirated and flushed easily and were then packed with heparin. A sterile dressing was applied to the catheter. The patient left the angio suite in good condition and tolerated the procedure well. At the conclusion of the procedure all needle, sponge, and instrument counts were correct. Dr. Quezada was present and scrubbed for the entire procedure. I attest to the content of the Intraoperative Record and any orders documented therein. Any exceptions are noted below.
--- NOTE | 2019-02-16 08:44 | Post Operative Brief Note ---
Immediate Post Op Note v1 Date of Surgery February 16, 2019 Pre & Post Diagnosis Operation Date: 02/16/19 08:00 Pre-Op Diagnosis: Malfunctioning Perm Catheter Post-Op Diagnosis: Malfunctioning Perm Catheter I identified the patient and participated in the time-out.: Yes Procedure Operation Date: 02/16/19 08:00 Actual Procedures p Exchange of Perm Catheter; Fluoroscopy for Positioning; Moderate Sedation From 0823 to 0846(Right) - Edgardo Quezada MD Surgeon Edgardo Quezada MD Field Nurse Case Manager MD Meri Estimated Blood Loss 0 Findings Consistent with Post-Op Diagnosis Anesthesia Type RN Sedation Complications none Disposition Accompanied Patient To Recovery: No Disposition: Recovery Room
[2019-02-16] MEDS ORDERED: Nursing to Pharmacy Communication ONE (09:16)
[2019-02-16] MEDS: SEVELAMER HCL 800 MG TABLET PO SCH ×3 (09:47→17:45)
[2019-02-16] MEDS: CALCITRIOL 0.25 MCG CAPSULE PO SCH (09:48)
[2019-02-16] MEDS: BuPROPion SR 150 MG TABCR PO SCH (09:48)
[2019-02-16] MEDS: ENALAPRIL MALEATE 10 MG TAB PO SCH ×2 (09:48→20:45)
--- NOTE | 2019-02-16 09:50 | Progress Note ---
DATE: 02/16/2019 SUBJECTIVE: Mrs. Casillas seems more comfortable this morning. I cannot find documented in the chart that she has received any medications for pain since late last night when she did receive more pain. She also received Ativan last night. This morning, she did have her tunneled dialysis catheter changed by Dr. Quezada. I cannot find documentation that she was premedicated for that. She seems to be somewhat sleepy. She said that she spent the night sitting up to sleep. She is not complaining of any muscular pain or discomfort in the left flank or left chest currently. She denies having any shortness of breath. She has been eating. She has no abdominal pain and again no chest pain. She has no symptoms of uremia or volume overload. She is in isolation because of a history of an MRSA infection involving a wound that she had last summer. There has been no documentation that she is now clear of MRSA. OBJECTIVE: GENERAL: On physical exam when seen, she seems as if she was comfortable and well. She was lying in bed at about 30 degrees. VITAL SIGNS: Her blood pressure 120/86, her pulse 84 and regular, respiratory rate 20 and nonlabored, her pulse ox 94% on room air. She has a temperature of 37.1. SKIN: Warm and dry. She has no rash or infiltrative skin disease other than some minimal changes of venous stasis on her distal lower extremities and a pattern of livedo on her distal lower extremities as well. She has a PermCath in the right IJ exiting beneath the distal right clavicle. The dressing is minimally blood tinged. She has some minimal tenderness along the subcutaneous tunnel, but no obvious erythema. She also has a peritoneal dialysis catheter entering just beneath the xiphisternum. LYMPHATICS: Show no palpable adenopathy. HEAD: Normal. EYES: Grossly normal. The ocular fundi were not examined. EARS, NOSE, MOUTH, AND THROAT: Unremarkable. Oral mucous membranes are moist. NECK: Supple. There is no jugular venous distention, carotid bruit or thyromegaly. CHEST: Clear to auscultation. She has no wheezes, rales or rhonchi. CARDIAC: Shows a regular rhythm. S1 and S2 are normal. I hear no definite murmur or gallop. ABDOMEN: Soft. It is nontender. She has no obvious organomegaly or mass. Bowel sounds are present. There are no abdominal bruits. EXTREMITIES: Show no cyanosis or edema. NEUROLOGIC: Shows her to be a bit lethargic this morning, but she has no lateralizing neurologic changes. She is easily aroused and is oriented in 3 spheres. PERTINENT LABORATORY WORK: From today shows a white count of 3980. Her hemoglobin is 10.4, her hematocrit 32.8, her platelet count 63,000. Clinical chemistries from today show a sodium of 134 mmol/L, potassium 4.2 mmol/L, chloride is 97 mmol/L, and CO2 content 26 mmol/L. Her BUN is 29, creatinine 6.72. Her phosphate is 7.3. Her serum calcium is 8.9, her magnesium 2.2. ASSESSMENT: Seems to be stable at the current time. Apparently, she is not using that much in the way of analgesics at the current time and her pain seems to be lessened. PLAN: Hemodialysis this morning. We will assess her pain. I would then try to get her to ambulate. We can consider referring her to [place] for repositioning or replacement of her peritoneal catheter when we were sure that of her stability and comfort.
[2019-02-16] MEDS: DOCUSATE SODIUM 100 MG CAP PO SCH ×2 (09:51→20:44)
--- NOTE | 2019-02-16 10:20 | Post Anesthesia Assessment ---
Date of Service February 16, 2019 Post Sedation Assessment Vital Signs Temp Pulse Pulse Resp BP Pulse Ox 02/16/19 10:13 37.3 C 93 H 18 151/97 H 94 02/16/19 09:28 37.1 C 84 20 120/86 94 02/16/19 09:26 86 02/16/19 08:59 86 18 125/86 95 02/16/19 08:46 94 H 15 127/91 95 02/16/19 08:41 97 H 14 133/90 96 02/16/19 08:38 95 H 15 131/93 100 02/16/19 08:33 92 H 16 126/101 H 100 02/16/19 08:28 95 H 18 129/95 100 02/16/19 08:23 12 147/107 H 100 02/16/19 08:16 12 157/126 H 100 02/16/19 07:53 37.1 C 84 18 121/84 94 02/16/19 07:43 37 C 88 18 149/107 H 97 02/16/19 07:33 78 02/16/19 04:58 37.0 C 81 20 141/95 H 97 02/16/19 00:37 85 02/15/19 23:51 37.0 C 78 18 126/86 96 02/15/19 19:51 37.2 C 97 H 20 140/99 98 02/15/19 17:15 89 02/15/19 13:30 89 20 118/75 97 02/15/19 11:32 97 H 20 121/81 95 Recovery Score Activity: Moves 4 extremities Respiration: Deep Breath/Cough Circulation: +/-20% PreAnes Value Consciousness: Arouseable (by name) Oxygen Saturation: > 92% On Room Air Post Anesthesia Score: 9 Discharge Sedation Level of Care: Fast Track Phase II Post Sedation Plan On clinical assessment, the patient appears to have tolerated the sedation without complications. Patient is recovering as anticipated. Patient will continue to be monitored by nursing and may be discharged when sedation discharge criteria are met per below protocol. Upon Completions of procedure up to 15 minutes continue every 5 minute vital signs and the P.A.R. score; then discharge to a Phase I or Fast Track to Phase II per the following guidelines: * Discharge Patient to appropriate Phase II area if PAR is 8 or greater or return to pre- procedure baseline. The post - procedure orders will be as directed. * If PAR score is less than 8 or not return to pre-procedure baseline then patient will follow Phase I monitoring till PAR is reached for Phase II. The Phase I may be done in procedure room or may call to secure a Phase I area. * If naloxone or flumazenil are used for reversal, hold in Phase I for continued monitoring from when last reversal dose was given for a minimum of 60 minutes or longer pending the nurse and/or physician discretion of patient condition before discharge to Phase II. Please call the Sedation Physician to re-evaluate and complete post-note for discharge to Phase II area. Do NOT discharge from procedure sedation or Phase 1 until post- sedation evaluation note is complete by procedure /sedation MD Sedation Discharge Instructions to be given to the patient at discharge to home.
[2019-02-16] MEDS ORDERED: HEPARIN SOD (PORCINE) 1000 UNIT/ML 10 ML VIAL IV ONE (10:49)
[2019-02-16] MEDS ORDERED: SODIUM CHLORIDE 0.9% 1000ML 1,000 ML IV PRN (10:49)
[2019-02-16] MEDS ORDERED: KETOROLAC TROMETHAMINE 15 MG/ML VIAL IV ONE (11:22)
[2019-02-16] MEDS ORDERED: SODIUM CHLORIDE 0.65% NA SOLN 45 ML (OCEAN) ONE (20:11)
[2019-02-16] MEDS ORDERED: NURSING DECISION MEDICATION ONE (20:30)
[2019-02-16] MEDS ORDERED: SODIUM CHLORIDE 0.65% NA SOLN 45 ML (OCEAN) PRN (20:32)
--- NOTE | 2019-02-16 20:51 | Hospitalist Progress Note ---
Date of Service February 16, 2019 Assessment & Plan (1) Hemodialysis catheter malfunction: s/p exchange of catheter today by Dr Quezada. new catheter functioning well; had HD immediately following w/o incident. appreciate vascular consultation. (2) Left-sided chest wall pain: differential - pericarditis vs pain related to PD catheter as the latter is high up in the abdomen (diaphragmatic irritation? other?). pain is much worse laying down; improved w/ sitting up; pain is pleuritic. CTA chest was negative for PE. EKG w/o typical pericarditis findings however. echo ordered today - normal; no pericardial effusion. gave toradol 15mg IV x 1 with immediate relief of this pain. plan - check sed rate/crp in am. if markedly elevated then this could be pericarditis (early on you can have normal echo, normal EKG, etc). if any concern the PD catheter is the cause of pain strongly consider CT abd/pelvis. consider cardiology consultation. (3) PD catheter dysfunction: placed this fall at [facility] [place]. able to give fluid through the catheter but can't withdraw fluid. thus, catheter not being used for PD sessions at this time. see discussion above in "chest wall pain". (4) End stage renal disease: managed by Dr Victoria. schedule - //Fri. ESRD on basis of SLE. (5) Thrombocytopenia: 2nd to SLE? other? CBC am for stability. (6) Hyponatremia: 2nd ESRD status. follow. (7) Hypertension: controlled (8) Lupus: dx teenage years. currently not on treatment. check sed rate/crp am. (9) Antiphospholipid antibody syndrome: noted. apparently was on coumadin up until this fall - now off Rx. was on heparin infusion overnight - can d/c. if patient stays beyond tomorrow start DVT proph with heparin SC at minimum. (10) Anemia: likely multifactorial - ACD due to ESRD, ?SLE, other factors. (11) Depression: noted cont home meds (12) Pancytopenia: TSH this summer was wnl. B12 level 05/2018 was wnl. consider folate level. cause? SLE? liver disease? primary bone marrow? other? cbc am for stability. care d/w DR Victoria extensively total time today - 45 min Subjective I saw the patient this am while she was getting her HD session. The HD session was in her room as opposed to the HD unit. During the session she kept getting waves of pain over the left lower costal margin, just above the last rib. The pain was stabbing and would radiate through her body to the back. Episodes were sometimes grouped together, and sometimes by several minutes in duration. Episodes are brief (seconds). Denies any recent overuse injury, heavy lifting, etc. She reported the pain was quite severe with laying flat; pain would worsen within seconds of laying flat. Sitting up made the pain much better. Taking deep breaths made the pain worse. Denied any dermatomal distribution of the pain. No pain on the right chest. No true abdominal pain. Pain not worsened by eating. No nausea. Last BM 2 days ago. No obvious fevers or recent illness. Reports SLE "had been in remission" of late. Review of Systems Constitutional: no fever, no chills and no sweats Respiratory: + pain on inspiration; no cough, no dyspnea and no dyspnea on exertion Cardiovascular: as per Subjective / HPI; no orthopnea, no paroxysmal nocturnal dyspnea and no edema Gastrointestinal: no abdominal pain, no vomiting, no constipation and no diarrhea/loose stools Musculoskeletal: no radicular pain Integumentary: no rash Physical Exam Constitutional: + acute distress (due to pain over left chest near the costal margin ) and average body habitus; no altered mental status ENMT: external ear and nose normal, oropharynx normal Respiratory: normal respiratory effort, lungs clear to auscultation Cardiovascular: Rate/Rhythm: regular rate and regular rhythm Heart Sounds: normal S1 and normal S2; no murmur and no cardiac rub Vessels: posterior tibial pulses present and dorsalis pedis pulses present; no JVD Extremities: + vascular access device (right upper chest - clean); no edema Chest (Breasts): Additional Comments: no tenderness to palpation over left costal margin or lower chest Gastrointestinal (Abdomen): normal bowel sounds, soft, nontender, no hepatosplenomegaly PD catheter site - upper abdomen - clean Skin: no rashes, warm and dry Psychiatric: A+Ox3, euthymic affect Results & Data Vital Signs (Past 12 Hours) Vital Signs Temp Pulse Pulse Resp BP BP Pulse Ox 02/16/19 20:15 38.0 C H 97 H 17 123/82 97 02/16/19 15:00 36.9 C 93 H 18 115/85 98 02/16/19 14:30 37.2 C 96 H 121/72 02/16/19 14:15 95 H 121/75 02/16/19 14:00 97 H 129/80 02/16/19 13:40 89 136/87 02/16/19 13:20 87 135/85 02/16/19 13:00 92 H 130/85 02/16/19 12:40 89 136/89 02/16/19 12:20 91 H 129/80 02/16/19 12:00 99 H 147/93 H 02/16/19 11:40 99 H 150/97 H 02/16/19 11:20 93 H 119/64 02/16/19 11:00 97 H 137/73 02/16/19 10:44 90 149/92 H 02/16/19 10:15 89 166/102 H 02/16/19 10:13 37.3 C 93 H 18 151/97 H 94 02/16/19 10:00 37.3 C 94 H 02/16/19 09:28 37.1 C 84 20 120/86 94 02/16/19 09:26 86 02/16/19 08:59 86 18 125/86 95 Laboratory Results Laboratory Results - last 24 hr 02/15/19 02/16/19 02/16/19 23:04 05:34 05:34 WBC 3.98 L RBC 3.41 L Hgb 10.4 L Hct 32.8 L MCV 96.2 MCH 30.5 MCHC 31.7 L RDW Std Deviation 64.6 H RDW Coeff of [place]gr[place] 19.1 H Plt Count 63 L MPV 10.2 Immature Gran % (Auto) 1.3 Neut % (Auto) 66.7 Lymph % (Auto) 21.9 [place] % (Auto) 9.8 Eos % (Auto) 0.0 Baso % (Auto) 0.3 Immature Gran # (Auto) 0.05 H Neut # (Auto) 2.66 Lymph # (Auto) 0.87 L [place] # (Auto) 0.39 Eos # (Auto) 0.00 Baso # (Auto) 0.01 APTT 66.2 H* PTT Ratio 2.4 Sodium 134 L Potassium 4.2 D Chloride 97 L Carbon Dioxide 26 Anion Gap 11.0 BUN 29 H Creatinine 6.72 H* D Est Cr Clr Drug Dosing 9.8 Est GFR ( Amer) 7.8 Est GFR (Non-Af Amer) 6.7 BUN/Creatinine Ratio 4.4 L Glucose 81 Calcium 8.9 Phosphorus 7.3 H D Magnesium 2.2 02/16/19 05:34 WBC RBC Hgb Hct MCV MCH MCHC RDW Std Deviation RDW Coeff of [place] Plt Count MPV Immature Gran % (Auto) Neut % (Auto) Lymph % (Auto) [place] % (Auto) Eos % (Auto) Baso % (Auto) Immature Gran # (Auto) Neut # (Auto) Lymph # (Auto) [place] # (Auto) Eos # (Auto) Baso # (Auto) APTT 129.5 H* PTT Ratio 4.8 Sodium Potassium Chloride Carbon Dioxide Anion Gap BUN Creatinine Est Cr Clr Drug Dosing Est GFR ( Amer) Est GFR (Non-Af Amer) BUN/Creatinine Ratio Glucose Calcium Phosphorus Magnesium PG Care Time/CCT Total # of Minutes Spent Total Time Spent with Patient: Total time spent is greater than 50% in coordination of care (as documented) at patient's floor/unit and/or counseling patient: (1) Hemodialysis catheter malfunction Encounter type: initial encounter Qualified Code(s): T82.41XA - Breakdown (mechanical) of vascular dialysis catheter, initial encounter (2) Anemia Anemia type: other cause Other causes of anemia: other cause, not classified Qualified Code(s): D64.89 - Other specified anemias (3) Depression Depression Type: other depression Qualified Code(s): F32.89 - Other specified depressive episodes (4) Lupus Lupus erythematosus form: unspecified Qualified Code(s): L93.0 - Discoid lupus erythematosus (5) Hypertension Hypertension type: essential hypertension Qualified Code(s): I10 - Essential (primary) hypertension (6) PD catheter dysfunction Encounter type: sequela Qualified Code(s): T85.611S - Breakdown (mechanical) of intraperitoneal dialysis catheter, sequela
[2019-02-16] MEDS: SENNA 8.6 MG TAB PO SCH (21:35)
[2019-02-17] MEDS ORDERED: KETOROLAC TROMETHAMINE 15 MG/ML VIAL IV PRN
[2019-02-17 06:44] LABS: Hematocrit (blood only) 33.2 % (37-47); Hemoglobin 10.2 g/dL (12.0-16.0); Mean Corpuscular Hemoglobin 29.4 pg (25-34); Mean Corpuscular Hgb Conc 30.7 g/dL (32-36); Mean Corpuscular Volume 95.7 fL (80-100); RDW Standard Deviation 64.9 fL (36.4-46.3); Red Blood Count 3.47 M/uL (4.2-5.4); White Blood Count 4.18 K/uL (4.8-10.8)
[2019-02-17 06:47] LABS: Mean Platelet Volume 10.6 fL (7.4-10.4); Platelet Count 87 K/uL (130-400)
[2019-02-17 07:12] LABS: Immature Granulocytes # (auto) 0.03 K/uL (0.00-0.02); Immature Granulocytes % (auto) 0.7 %; Lymphocytes # (auto) 0.47 K/uL (1.2-3.4); Lymphocytes % (auto) 11.2 %; Monocytes # (auto) 0.14 K/uL (0.11-0.59); Monocytes % (auto) 3.3 %; Neutrophils # (auto) 3.54 K/uL (1.4-6.5); Neutrophils % (auto) 84.8 %
[2019-02-17] MEDS: DOCUSATE SODIUM 100 MG CAP PO SCH (08:26)
[2019-02-17] MEDS: ENALAPRIL MALEATE 10 MG TAB PO SCH (08:27)
[2019-02-17] MEDS: BuPROPion SR 150 MG TABCR PO SCH (08:27)
[2019-02-17] MEDS: SEVELAMER HCL 800 MG TABLET PO SCH (08:27)
[2019-02-17] MEDS: CALCITRIOL 0.25 MCG CAPSULE PO SCH (08:27)
--- NOTE | 2019-02-17 10:35 | Progress Note ---
DATE: 02/17/2019 SUBJECTIVE: Ms. Casillas is feeling perfectly fine this morning. She had a single dose of Toradol yesterday. Since that time, she has had no pain. It has certainly been well over 12 hours since she did have the discomfort. Changing of positions does not bring on the pain. She has no associated shortness of breath. She has not developed a rash. She has no symptoms of uremia or volume overload. She has no pulmonary, cardiac or GI symptoms. OBJECTIVE: GENERAL: On examination, she looks perfectly well and quite healthy and not at all chronically ill. She was certainly in no discomfort. VITAL SIGNS: Her blood pressure 134/90, her pulse 84 and regular, respiratory rate 16, her pulse ox 95% on room air. She is afebrile. SKIN: Shows no rash or infiltrative skin disease. She does have minimal changes of livedo on her distal lower extremities and some minor changes of venous stasis dermatitis on her distal lower extremities. Her PermCath site appears relatively dry, although there is a slight blood tinge on her dressing. She has the peritoneal dialysis catheter in place just beneath the xiphisternum. She has no palpable lymphadenopathy. HEAD: Normal. EYES: Grossly normal. The ocular fundi were not examined. EARS, NOSE, MOUTH, AND THROAT: Unremarkable. Oral mucous membranes are moist. NECK: Supple. She has no jugular venous distention, carotid bruit or thyromegaly. CHEST: Clear to auscultation. CARDIAC: Shows a regular rhythm. S1 and S2 are normal. I hear no murmur or gallop. She does not have a pericardial friction rub at least not one that I can hear. ABDOMEN: Nontender. She has no organomegaly or mass. Bowel sounds are normal. She has no peripheral edema. NEUROLOGIC: Shows no lateralizing changes. PERTINENT LABORATORY WORK: From today shows a white count of 4180 with 84.8% neutrophils, 11.2% lymphocytes, 3.3% monocytes. Her hemoglobin is 10.2 with a hematocrit of 33.2. Her platelet count is 87,000. Clinical chemistries were not drawn this morning. Other laboratory work shows a sedimentation rate that has varied between 70 and 81. Her C-reactive protein was 13.30. ASSESSMENT: Her pain is resolved. The etiology of the pain is not clear. The elevated sedimentation rate and C-reactive protein are certainly suggestive of an inflammatory disorder. It could be that some of her symptoms may be related to an impending flare of her systemic lupus. I think pericarditis as a cause of her pain is in my mind not terribly likely, particularly given the fact that no one has heard a pericardial friction rub and that her electrocardiogram did not show typical changes of pericarditis. Additionally, an echocardiogram done showed no fluid accumulation in the pericardial sac. RECOMMENDATIONS: I have followed her lupus activity profile as an outpatient in the past, but she has not had recent studies done. It may help to get a lupus activity profile. However, I think she can be discharged to home. I will follow her in the dialysis unit and make plans for her to go to [place] to have a peritoneal catheter taken care of. In the meantime, if it appears as if her laboratory studies confirm a flare of her lupus, we can deal with that at the time perhaps with immunosuppressive agents. No other immediate recommendations. However, other thoughts included the possibility of a thoracic spine lesion. However, I think that that is unlikely to come and go so dramatically and be present without a significant fever or some changes noted in the bones of her vertebral column on her chest x-ray. As noted, she can be discharged on her usual medications with a small supply of Toradol for her ____ she develop acute pain. She was told to contact me should that recur and we would consider placing her on steroids.
--- NOTE | 2019-02-17 10:56 | Discharge Summary ---
Date of Service date of admission - February 15, 2018 date of discharge - February 17, 2019 Admission HPI Per Admitting Provider 44-year-old female presents with a second time for evaluation of left-sided chest pain as well as now concerns for hemodialysis catheter obstruction. - Patient states that this past Friday 13De there was some attempt in accessing her peritoneal dialysis catheter. Although the details are unclear, patient says it was not successful. Normally she states she gets hemodialysis through her tunneled right IJ catheter on Friday, , and Friday. [Most recent dialysis this past Friday 14Dec.] - She says beginning Friday evening she began to feel some pain along her left collarbone. By Friday this transitioned to underneath her left ribcage where the pain has remained ever since. She says that it feels like waves of muscle spasms that get quite severe, taking her breath away. Feels worse with movement, nothing makes it better. She denies any history of the same. No known radiation or central chest symptoms. Denies recent concurrent fever, cough, shortness of breath, or other concurrent symptoms. At home initially she tried some Percocet and an undetermined muscle relaxer without any relief. - Patient says she presented to the emergency department last night for evaluation of this pain. [At present, related ED notes are not available in the EMR.] Per the patient, she was ultimately diagnosed with pneumonia and placed on doxycycline. Patient says she does not think she has pneumonia as she denies any particular respiratory symptoms. This morning, patient says she was due to have hhjawkv-gxlo-[id number] dialysis due to the contrast load from her CTA chest. At that time she was told the dialysis catheter was not working and referred here for further care. - At present, patient says she continues to get severe waves of left subcostal chest pain that feels like a spasm. She denies any new or interval symptoms to include vomiting, diarrhea, abdominal pain, extremity pain or muscle spasms, or other acute concerns. Principal Diagnosis hemodialysis catheter malfunction s/p replacement; left-sided chest pain - resolved, exact etiology uncertain Discharge Exam Constitutional average body habitus; no acute distress and no altered mental status ENMT external ear and nose normal, oropharynx normal Respiratory normal respiratory effort, lungs clear to auscultation Cardiovascular Rate/Rhythm: regular rate and regular rhythm Heart Sounds: normal S1 and normal S2; no murmur and no cardiac rub Vessels: posterior tibial pulses present and dorsalis pedis pulses present; no JVD Extremities: + vascular access device (right upper chest - clean); no edema Gastrointestinal (Abdomen) normal bowel sounds, soft, nontender, no hepatosplenomegaly PD catheter present; Skin no rashes, warm and dry Psychiatric A+Ox3, euthymic affect Discharge Data Allergies Allergy/AdvReac Type Severity Reaction Status Date / Time Bactrim Allergy Mild RASH Verified 01/30/17 13:24 sulfamethoxazole Allergy Mild RASH Verified 02/15/19 10:12 trimethoprim Allergy Mild RASH Verified 02/15/19 10:12 Penicillins Allergy Unknown Unknown Verified 02/15/19 10:12 Sulfa (Sulfonamide Allergy Rash Verified 02/15/19 10:12 Antibiotics) cephalexin AdvReac Mild GI SYMPTOMS Verified 02/15/19 10:12 Consultations Consult Nephrology - Misha Victoria MD Consult Vascular Surgery - Edgardo Quezada MD Procedures Performed Operation Date: 02/16/19 Actual Procedures Exchange of Perm Catheter, Right Internal Jugular Approach, Fluoroscopy for Positioning; Moderate Sedation From 0823 to 0846.(Left) - Edgardo Quezada MD Ordered Studies echocardiogram - * EF 60-65% * normal valve function * no pericardial effusion CTA chest - IMPRESSION: 1. No evidence of pulmonary embolus. 2. Bibasilar atelectasis greater on the left. Hospital Course (1) Hemodialysis catheter malfunction: s/p exchange of catheter by Dr Quezada during the admission. new catheter functioning well; had HD immediately following w/o incident. (2) Left-sided chest wall pain: Differential - pericarditis vs pain related to PD catheter as the latter is high up in the abdomen (diaphragmatic irritation? other?) vs pleurisy vs other. Pain was much worse laying down; improved w/ sitting up; pain was pleuritic. CTA chest was negative for PE. EKG w/o typical pericarditis findings however. Echo was normal; no pericardial effusion. Sed rate was 70; crp was 13.3. Gave toradol 15mg IV x 1 with immediate relief of this pain. Following relief of the pain the left-sided discomfort did not return. At discharge we recommended prn use of toradol orally for a few days. She will need close f/u to determine if the pain returns. In light of the high inflammatory markers I do question if she could have early pericarditis. Additionally, with her past history of Lupus, could she have an early Lupus flare? Again close f/u with her PCP, Dr Victoria, will be needed. (3) PD catheter dysfunction: Placed this fall at [facility] [place]. Able to give fluid through the catheter but can't withdraw fluid. Thus, catheter is not being used for PD sessions at this time. If patient's left sided chest pain persists could consider CT of abd/pelvis to determine if PD catheter is contributing to that pain. (4) End stage renal disease: managed by Dr Victoria. schedule - //Sat. ESRD on basis of SLE. (5) Thrombocytopenia: 2nd to SLE? other? Discharge platelet count - 87. (6) Hyponatremia: 2nd ESRD status. 131-134 while here. (7) Hypertension: controlled during the visit (8) Lupus: diagnosed in her teenage years. currently not on treatment. sed rate/crp both elevated - see discussion above in "chest pain". (9) Antiphospholipid antibody syndrome: apparently was on coumadin up until this fall - now off Rx. no evidence of PE on CTA chest. (10) Anemia: likely multifactorial - ACD due to ESRD, ?SLE, other factors. Hb 10.2 while here. (11) Depression: cont home meds (12) Pancytopenia: TSH this summer was wnl. B12 level 05/2018 was wnl. cause? SLE? liver disease? primary bone marrow? other? outpatient CBC needed for stability. Total Time Total Time Spent Total Time Spent (In Minutes): 40 Total Time Includes: Examination of the Patient, Discharge Planning, Medication Reconciliation and Communication With Other Providers Discharge Plan Discharge Items Patient Disposition: Home - Self-Care Reason For Visit: HEMODIALYSIS CATHETER MALFUNCTION, LEFT CHEST PAIN Discharge Diagnosis: 1. hemodialysis catheter malfunction - resolved. Removal of old catheter and placement of new one by Dr Edgardo Quezada. 2. left-sided chest pain - improved with anti-inflammatory medications. pericarditis? inflammation due to PD catheter? muscle strain? other? Activity: As commented below Activity Comment: avoid activities that might aggravate your chest wall discomfort Lifting: Gradually increase as tolerated Bathing Comment: keep HD and PD catheters clean/dry at all times Exercise/Sports: Gradually increase as tolerated Driving/Machine Use: Resume 1 day after discharge Non-emergency contact: Primary Care Provider, Surgeon and Paranormal Investigator Call non-emergency contact if: you have any medication questions, your symptoms worsen, your pain is not controlled, your pain is worsening, your pain is unusual for you, your pain is concerning for you and you have a fever Follow-up/Referrals: Jamie Victoria MD [Primary Care Provider] - (see Dr Victoria at dialysis on , 02/18/19 ) Diet: Dialysis Renal Fluids: 1500ml (6 cups) Addtl Attending Provider Instructions: You were seen and treated for a nonfunctioning dialysis catheter in your right chest as well as left-sided chest discomfort. The HD catheter was removed and exchanged by Dr Quezada on 02/16. The new catheter worked well during your dialysis session on that date. The left-sided chest pain improved with IV anti-inflammatory medication. We are sending you home with ketoralac 10mg every 12 hours as needed for pain; maximum duration 5 days of treatment. The pain could be inflammation of the sac of the heart (pericarditis) or a muscle strain on the chest wall or inflammation due to your peritoneal dialysis catheter vs some other entity. We checked your inflammatory markers (sed rate and crp) -- both were elevated. The echocardiogram was normal; we did not see fluid in the sac of the heart and your heart function was normal. Dr Victoria will follow-up with you to ensure the pain stays away. If it returns there will likely be additional work-up and investigation. We would also need to rule out active lupus. If the pain does return please take the ketoralac and let Dr Victoria know about the discomfort. Return to [facility] if -- * you have persistent fevers over 100.5 degrees * you have recurrent chest pain that does not respond/improve with the ketoralac * you have shortness of breath * you have severe abdominal pain * any other concerns Pending Studies at Discharge: No Stand-Alone Forms: Call Back Authorization, [facility], Smoking Cessation Medications and DC Order Prescriptions: Continued enalapril maleate 20 mg tablet 20 mg PO BID Qty: 180 RF: 1 oxycodone 5 mg tablet 5 mg PO Q6H PRN (Reason: pain) Qty: 14 RF: 0 sennosides [Senokot] 8.6 mg tablet 8.6 mg PO HS Qty: 30 RF: 0 docusate sodium [Colace] 100 mg capsule 100 mg PO BID Qty: 60 RF: 0 alprazolam 0.25 mg Tablet 0.25 mg PO TID PRN (Reason: Anxiety) RF: 0 bupropion HCl 150 mg Tablet Sustained-Release 12 Hr 150 mg PO DAILY RF: 0 calcitriol 0.25 mcg Capsule 0.25 mcg PO DAILY RF: 0 sevelamer carbonate 800 mg Tablet 1,600 mg PO TIDM RF: 0 Discontinued doxycycline hyclate 100 mg tablet 100 mg PO BID 10 Days Qty: 20 RF: 0 Discharge Orders: Discharge Order (Routine); Ordered 02/17/19 Ordered By: Jamie Bianchi Admission Data Admit Date/Time: 02/15/19 14:30 Attending Provider: Jamie Bianchi Admit Provider: Mahad Moreno Primary Care Provider: Jamie Vcitoria Other Providers: Kishan Cody ; Maxim Bridges ; Edgardo Quezada Other Interventions: Discharge Summary Assessment (RN) Last Done: 02/17/19 11:07 DC Date/Time DO NOT enter until pt leaves facility: 02/17/19 12:28
== END 2019-02-17 12:28 | disposition home or self-care (01) | DRG 314 ==
LOC: ED 10:05 → SUATTDRO 14:30 → 2N 14:30

== ENCOUNTER 2024-01-23 09:42 | Inpatient (IN) ==
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
[2024-01-23 11:01] LABS: Hematocrit (blood only) 30.1 % (37.0-47.0); Hemoglobin 10.1 g/dl (12.0-16.0); Mean Corpuscular Hemoglobin 32.2 pg (25.0-34.0); Mean Corpuscular Hgb Conc 33.6 g/dL (32.0-36.0); Mean Corpuscular Volume 95.9 fL (80.0-100.0); Mean Platelet Volume 11.9 fL (9.4-12.4); Platelet Count 36 K/uL (130-400); RDW Coefficient of Variation 14.4 % (11.5-14.5); RDW Standard Deviation 50.3 fL (36.4-46.3); Red Blood Count 3.14 M/uL (4.20-5.40); White Blood Count 6.89 K/ul (4.8-10.8)
[2024-01-23] MEDS: AMPICILLIN 2,000 MG in SODIUM CHLOR 0.9% MINI-B 100 ML IV STA (11:09)
[2024-01-23 11:15] LABS: Albumin Level 3.6 gm/dl (3.4-5.0); Bilirubin,Total 0.4 mg/dl (0.2-1.0); Calcium 8.7 mg/dl (8.6-10.3)
[2024-01-23 11:24] LABS: Albumin Globulin Ratio 1.3 (0.9-2); BUN Creatinine Ratio 4.1 (10-20); C Reactive Protein 10.44 mg/dl (0-0.5); Creatinine Clr Calc Pharmacy 7.7 ml/min; Globulin 2.7 gm/dl (2.5-4.0); Total Protein 6.3 gm/dl (6.0-8.3)
[2024-01-23 11:38] LABS: Basophils # (auto) 0.01 K/uL (0.00-0.20); Basophils % (auto) 0.1 %; Immature Granulocytes # (auto) 0.03 K/uL (0.01-0.20); Immature Granulocytes % (auto) 0.4 %; Lymphocytes # (auto) 0.29 K/uL (1.20-3.40); Lymphocytes % (auto) 4.2 %; Monocytes # (auto) 0.33 K/uL (0.11-0.59); Monocytes % (auto) 4.8 %; Neutrophils # (auto) 6.23 K/uL (1.40-6.50); Neutrophils % (auto) 90.5 %; Polychromasia 1+
[2024-01-23] MEDS: cefTRIAXone SODIUM 2,000 MG/50 ML BAG IV STA (12:13)
--- NOTE | 2024-01-23 13:50 | XCELERA ---
[id number]
[2024-01-23] MEDS ORDERED: GABAPENTIN 100 MG CAP PO PRN (14:35)
[2024-01-23] MEDS ORDERED: ALPRAZolam 0.25 MG TABLET PO PRN (14:35)
[2024-01-23] MEDS ORDERED: AMPICILLIN SOD 1 GM VIAL IV SCH (15:00)
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
[2024-01-23 18:21] VITALS: BP 145/100; TEMP 98.2
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
[2024-01-23] MEDS: HYDROXYCHLOROQUINE SULFATE 200 MG TAB PO SCH (20:12)
[2024-01-23] MEDS: CINACALCET HCL 30 MG TAB PO SCH (20:12)
[2024-01-23] MEDS: NEPHROCAPS PO SCH (20:12)
[2024-01-23] MEDS: Nursing to Pharmacy Communication SCH (20:14)
[2024-01-23 20:17] VITALS: PULSE 89; RESP 20; O2SAT 96
[2024-01-23] MEDS ORDERED: AMPICILLIN 2,000 MG in SODIUM CHLOR 0.9% MINI-B 100 ML IV SCH (21:00)
[2024-01-24 01:53] LABS: A calco-baum cmplx NotReported Not Detected (NotDetected); Bact fragilis Not Reported Not Detected (NotDetected); Blood Culture Id Panel See PCR Comment (NotDetected); C auris Not Reported Not Detected (NotDetected); Calbicans Not Reported Not Detected (NotDetected); Candida glabrata Not Reported Not Detected (NotDetected); Candida krusei Not Reported Not Detected (NotDetected); Cneoformans/gatti Not Reported Not Detected (NotDetected); Cparapsilosis Not Reported Not Detected (NotDetected); E cloacae compx Not Reported Not Detected (NotDetected); Efaecalis Not Reported DETECTED (NotDetected); Efaecium Not Reported Not Detected (NotDetected); Enterobacterales Not Reported Not Detected (NotDetected); Escherichia coli Not Reported Not Detected (NotDetected); H influenzae Not Reported Not Detected (NotDetected); K aerogenes Not Reported Not Detected (NotDetected); Koxytoca Not Reported Not Detected (NotDetected); Kpneumoniae grp Not Reported Not Detected (NotDetected); Lmonocyt Not Reported Not Detected (NotDetected); N meningitidis Not Reported Not Detected (NotDetected); P aeruginosa Not Reported Not Detected (NotDetected); Proteus spp Not Reported Not Detected (NotDetected); Salmonella spp Not Reported Not Detected (NotDetected); Staph lugdunensis Not Reported Not Detected (NotDetected); Staph spp. Not Reported Not Detected (NotDetected); Staphaureus Not Reported Not Detected (NotDetected); Staphepi Not Reported Not Detected (NotDetected); Stenmaltophilia Not Reported Not Detected (NotDetected); Strep agal(GrpB) Not Reported Not Detected (NotDetected); Strep pneum Not Reported Not Detected (NotDetected); Strep pyog (GrpA) Not Reported Not Detected (NotDetected); Strep spp Not Reported Not Detected (NotDetected); VanAB Resistant Gene VRE Not Detected (NotDetected)
[2024-01-24 02:09] LABS: Enterococcus faecalis DETECTED (NotDetected)
--- NOTE | 2024-01-24 07:21 | Hospitalist Progress Note ---
Date of Service January 24, 2024 Assessment & Plan Plan (1) Enterococcus faecalis infection: Plan: Patient with fever 99 F, rigors 1 day prior to evaluation Blood cultures outpatient positive for GPC, PCR positive for Enterococcus faecalis Procalcitonin 4.61, CRP 10.44 with additional underlying chronic osteo as noted. No leukocytosis. VSS and normotensive Received ampicillin/Rocephin on admission Echo is pending. Repeat blood cultures are pending. If no valve vegetation is seen reasonable to pursue ampicillin therapy alone. Note that TTE is not sufficient to exclude endocarditis, if patient were to have persistently positive cultures despite antibiotic therapy and appropriate catheter management would need follow-up for PHYLLIS Right IJ tunneled catheter is without erythema, warmth, tenderness, crepitus, or discharge. Continue ampicillin. Will need her tunnel catheter exchanged +/- line holiday however this does not need to be done emergently as patient is not septic, does not appear toxic, and line is intact and well-appearing as noted Patient wished to be seen by vascular surgery at our institution. Has had line management done in [place] in the past. Have reached out to [facility] vascular [facility]. Patient may have expedited outpatient follow-up versus elective transfer, will continue to coordinate (2) Lupus (systemic lupus erythematosus): Plan: History of SLE and lupus nephritis with ESRD Continue hydroxychloroquine. This was recently dose reduced with next levels due in March No signs of acute lupus flare on admission No acute change in management (3) End stage renal disease: Plan: 5 days a week dialysis through her right tunneled IJ catheter Discussed with Dr. Cook who follows her as an outpatient. Generally patient does well and could likely go several days without dialysis when optimized if needed for a line holiday. Potassium 3.0, repletion deferred due to ESRD. No critical volume overload; no need for acute dialysis at time of admission Nephrology consulted to follow while inpatient (4) Chronic osteomyelitis: Plan: Surgical pathology report from [facility] system 01/24: Chronic osteomyelitis's, fibroadipose tissue with chronic reactive changes. Patient with a prior wound culture 12/2023 from the left toe with commensal skin lexy. No other microbiology data available - Patient has discussed revision/amputation with her tallow refiner and would like to pursue 6 to 8-week treatment of antibiotics first if at all possible. ID consulted Likely/possible source of her bacteremia Plan DVT prophylaxis: Heparin Disposition: Medical telemetry due to ESRD with electrolyte abnormalities CODE STATUS: Full code Diet: Dialysis Admission and Anticipated Discharge Date Admission Date: January 23, 2024 Subjective Pt is a 48 yo female with history of SLE with complications of ESRD requiring 5 d/wk dialysis and chronic osteomyelitis. Pt presents to ED with signs of infection and cultures found Gram Pos cocci. Pt was started on IV ampicillin and ceftriaxone. Ceftriaxone was discontinued as vegetation was not found on echocardiogram.. Review of Systems Review of Systems: As per HPI Results & Data Results & Data Vital Signs (Past 12 Hours) Vital Signs Pulse Resp Pulse Ox O2 Del Method 01/23/24 20:00 89 20 96 Room Air
--- OUTSIDE RECORDS SUMMARY | 2024-01-24 07:31 | External Medical Summary | Continuity of Care Document ---
Author Name Unknown Organization [id number] Address [address] [place] [address] [id number] Care Team Providers Care Debt Collection Specialist Name Role Phone Georgie Schwarz Primary Care Physician [phone] [id number] Date(s): 01/19/24 - 01/19/24 [facility] [place] [id number] Medicine [address] [place] [id number] Encounter Diagnosis S/P foot surgery, left(Discharge Diagnosis) - 01/19/24 Discharge Disposition: Home or Self Care Attending Physician: RONDA Patterson Christina L Referring Physician: MD Chong, Georgie Puentes Allergies, Adverse Reactions, Alerts Substance Criticality Severity Reaction Reaction Severity Status penicillins "agitates lupus" A ctive Keflex "agitates lupus" Act erica Bactrim itchining Active Assessment and Plan Extracted from: Title:Follow Up Visit Author:RONDA Patterson, Patt Siu Date:01/19/24 1.S/P foot surgery, left Discussed with patient theresult of chronic osteomyelitisI discussed with herthelikely need for a distal Symes amputationfor removal of the distal phalanxof the left great toe,it is not that she was totally opposed to it but shewould really like to perhaps have a different optionwhich I can understand,I did hear her concerns and [place] the [place] chronic osteo with IV antibioticsbut we did have also a very open discussion that this may not beviable and that the only option would jocelyn remove the distal phalanxof theleft great toe,patientwasnot open to the idea yet today about a distal Symes amputation becauseit will leave her without a toenail on the great toebut after our discussion further she states that she is open to it if that is the best and most recommended option she just simply wants a second opinion with which I canunderstand. Discussed with patient she can return to her supportive shoe gear Biopsy confirming chronic osteomyelitis dressings removed and incisions cleanedwith Hibiclens dressings re appliedconsisting ofOPTi lock foamdressing sutures removedwithout complications patient to wear supportive shoe no calf pain noted and discussed signs of a DVT continue Tylenol/ibuprofen for pain follow Erica 11 at 11:15 AM Medications ALPRAZolam 0.25 mg oral tablet Start: 06/02/23 8:41:00 AM EDT, 30 each, 0 Refill(s), TAKE 1 TABLET BY MOUTH DAILY NEEDED FOR ANXIETY Start Date: 06/02/23 Status: Ordered gabapentin 100 mg oral capsule Start: 06/02/23 8:41:00 AM EDT, 90 each, 0 Refill(s), TAKE 1-3 CAPSULES BY MOUTH DAILY Start Date: 06/02/23 Status: Ordered hydroxychloroquine 200 mg oral tablet Start: 06/02/23 8:42:00 AM EDT, 1 tab daily except Fri and Friday 2 caps Start Date: 06/02/23 Status: Ordered Medical Marijuana Start: 11/27/23 12:37:00 PM EDT, 1 inh, inhaled Start Date: 11/27/23 Status: Ordered Naprosyn 500 mg oral tablet Start: 11/15/13 12:58:45 PM EDT, See Instructions, Disp# 60, Refills: 1, TAKE 1 TAB TWICE A DAY, Pharmacy: [facility]/pharmacy #[id number], TAKE 1 TAB TWICE A DAY Start Date: 11/15/13 Status: Ordered ProRenal Vital oral tablet Start: 05/16/21 8:00:00 PM EDT, PO, 1 Unknown, 0 Refill(s), Take 1 tablet by mouth daily. Start Date: 05/16/21 Status: Ordered Mental Status 01/19/24 Barriers to Learning one year None evide nt Mandatory Health Literacy Documentation Yes Health Literacy Communication Barriers N ever Primary Language Lao Problem List Condition Confirmation Course Effective Dates Status Health St atus Informant Callus Confirmed Active Cellulitis of left toe Confirmed Active H/O: artificial joint Confirmed Active Hip joint effusion Confirmed Active Hip pain Confirmed Active S/P matrixectomy of toe of left foot Confirmed Active S/P foot surgery, left Confirmed Active HTN (hypertension) Confirmed Active Ingrown left big toenail Confirmed Active Ingrown toenail of left foot Confirmed Active Loosening of prosthetic hip Confirmed Active Toe pain, left Confirmed Active Pre-op exam Confirmed Active Lupus Confirmed Active Diagnosis Diagnosis Type Effective Dates Health Status Cl inical Service Informant S/P foot surgery, left Discharge Diagnosis 01/19/24 Non-Specified Procedures Procedure Date Related Diagnosis Body Site Status Insertion permcath 10/02/18 Comple aaron delivery Complet ed Hip replacement 1 Complet ed 1Left hip done in 1998, right hip pain in 1997 and revised in 2008 Social History Social History Type Response Smoking Status Former Smoker, quit > 1 yr Sex Female Sex Representation Female (finding) Ortho Outpt Note * RONDA Patterson Christina L: PERFORM Event Display: Ortho Outpt Note Authored Date: [id number] Chief Complaint left great toe follow-up Primary Care Provider MD Chong, Georgie Puentes Subjective Patient is a very pleasant 48-year-old female presenting today for follow- upfrom her left hallux bone biopsy, I did obtain more bonefor biopsy [place] is coming back positive for chronic osteomyelitis. -Patient is doing wellinfection has resolved she is completing antibioticsbone biopsy result hardcopy printed and given to patient. Review of Systems Joint swelling depression anxiety allergies to medicationsprevious bloodtransfusion Objective Physical Exam Problem focused left foot: Dorsalis pedis pulse was difficult to palpate but was palpable 1 out of 4, posterior tibial pulse palpable 1 out of 4,capillary refill time is less than 3 seconds skin turgor was good to all digitsof the left footthere is significant blue discoloration secondary to patient's known history of lupus. Pedal hair was present. Gross sensation intact all digits of the left foot. Left hallux and has had resolution of the erythema and swellinghistory of partial nail avulsion with phenol of both medial and lateral nail borderdo not feel therehas been any reoccurrence of the infected toenail. Bone biopsy showing chronic osteomyelitis Images 2024-01-19 13:22:41 Assessment/Plan 1.S/P foot surgery, left Discussed with patient theresult of chronic osteomyelitisI discussed with herthelikely needfor a distal Symes amputationfor removal of the distal phalanxof the left great toe,it is notthat she was totally opposed to it but shewould really like to perhaps have a different optionwhich I can understand,I did hear her concerns and placedan evaluation [place] infectious [place] the [place] of her chronic osteo with IV antibioticsbut we did have also a very open discussion that this may not beviable and that the only option would jocelyn remove the distal phalanxof theleft great toe,patientwasnot open to the idea yet today about a distal Symes amputation becauseit will leave her without a toenail on the great toebut after our discussion further she states that she is open to it if that is the best and most recommended option she just simply wants a second opinion with which I canunderstand. Discussed with patient she can return to her supportive shoe gear Biopsy confirming chronic osteomyelitis dressings removed and incisions cleanedwith Hibiclens dressings re appliedconsisting ofOPTi lock foamdressing sutures removedwithout complications patient to wear supportive shoe no calf pain noted and discussed signs of a DVT continue Tylenol/ibuprofen for pain follow Erica 11 at 11:15 AM Electronic Signature on File CC: Heriberto Weston III, MD, PhD [address] [place] [id number] Electronically Reviewed/Signed by: Myra Patterson DPM Author Signature Dt/Tm:01/19/2024 01:33 PM Division of Sports Medicine CLR Patient Care team information Care Team Personnel Name: MD Schwarz Jenna Lynn Position: Referring Member Role: Primary Care Provider [place] [facility] [place] [facility] [address], [address] [address] [place] Name: JUDITH Delcid Lynn Position: Physician Inventory Manager Exempt - Vasc Surg Member Role: Lifetime Relationship Address: [address] [place] [id number] [place] Care Team Related Persons Name: YI SANDS
[2024-01-24] MEDS ORDERED: buPROPion SR 150 MG TABCR PO SCH (09:00)
[2024-01-24] MEDS ORDERED: HYDROXYCHLOROQUINE SULFATE 200 MG TAB PO SCH (09:00)
[2024-01-24] MEDS ORDERED: PANTOprazole 40 MG TAB PO SCH (09:00)
[2024-01-24] MEDS ORDERED: SERTRALINE HCL 50 MG TABLET PO SCH (09:00)
--- NOTE | 2024-01-24 09:54 | Discharge Summary ---
Discharge Summary Date of Service January 24, 2024 Principal Dx & Hospital Course #1 = Principal Diagnosis (1) Enterococcus faecalis infection: Notified in AM 01/23 that patient had been transferred previous evening by private vehicle to [facility] facility, discharge order not entered. Patient had been accepted to [facility] and was pending transport by BLS when bed and transport was available; was admitted to hospitalist service for treatment of Enterococcal bacteremia and remained in ER as an inpatient bed hold.Reviewed ER documentation, Patient did request to go to private vehicle with her daughter who is a nurse, was evaluated and discharged from the ER. Discharge order entered retrospectively. Last note copied below Patient with fever 99 F, rigors 1 day prior to evaluation Blood cultures outpatient positive for GPC, PCR positive for Enterococcus faecalis Procalcitonin 4.61, CRP 10.44 with additional underlying chronic osteo as noted. No leukocytosis. VSS and normotensive Received ampicillin/Rocephin on admission Echo is pending. Repeat blood cultures are pending. - ID was consulted If no valve vegetation is seen reasonable to pursue ampicillin therapy alone. Note that TTE is not sufficient to exclude endocarditis, if patient were to have persistently positive cultures despite antibiotic therapy and appropriate catheter management would need follow-up for PHYLLIS Right IJ tunneled catheter is without erythema, warmth, tenderness, crepitus, or discharge. Continue ampicillin. Will need her tunnel catheter exchanged +/- line holiday however this does not need to be done emergently as patient is not septic, does not appear toxic, and line is intact and well-appearing as noted Patient wished to be seen by vascular surgery at our institution. Has had line management done in [place] in the past. Patient accepted for transfer to [facility] pending bed and transport availability. Admitted to hospitalist service for treatment until transport and bed are available. (2) Lupus (systemic lupus erythematosus): History of SLE and lupus nephritis with ESRD Continue hydroxychloroquine. This was recently dose reduced with next levels due in March No signs of acute lupus flare on admission No acute change in management (3) End stage renal disease: 5 days a week dialysis through her right tunneled IJ catheter Discussed with Dr. Cook who follows her as an outpatient. Generally patient does well and could likely go several days without dialysis when optimized if needed for a line holiday. Potassium 3.0, repletion deferred due to ESRD. No critical volume overload; no need for acute dialysis at time of admission Nephrology consulted to follow while inpatient and for ongoing HD (4) Chronic osteomyelitis: Surgical pathology report from [facility] 01/24: Chronic osteomyelitis's, fibroadipose tissue with chronic reactive changes. Patient with a prior wound culture 12/2023 from the left toe with commensal skin lexy. No other microbiology data available - Patient has discussed revision/amputation with her single pass soil stabilizer operator and would like to pursue 6 to 8-week treatment of antibiotics first if at all possible. ID consulted Likely/possible source of her bacteremia. No abdominal pain/sx. Plan DVT prophylaxis: Heparin Disposition: Medical telemetry due to ESRD with electrolyte abnormalities CODE STATUS: Full code Diet: Dialysis Admission HPI Per Admitting Provider Jayla is a 48yo F history of severe lupus flare 30 years ago which lead to ESRD 2/2 systemic lupus. Has progressed to home dialysis therapy, deferred AV fistulas int he past. Has been using a permcath for the duration of her dialysis needs. Recently has been treated for LEFT hallux osteomyelitis at toe site. Had a bone biopsy reportedly in [facility], by report positive for chronic osteo. Came in for dialysis yesterday with low grade fevers, rigors. Toe reportedly looked OK. Temp 99*F Blood cultures sent --> E faecalis. Gets dailysis at least 5 days a week at home. Patient seen at the bedside. She reports that she has been evaluated for left hallux osteomyelitis which initially had a part of the toenail revised, subsequently had half her toenail remove, but has a continually worsening redness/wound despite clindamycin which was subsequently found to have chronic osteomyelitis after a podiatry evaluation with bone marrow biopsy. Pt notes she has had a right hallux corn, but NO infection/concerns of the right foot/toes. She reports that she gets home dialysis 5 days a week through tunneled catheter. This was last exchanged 1 year ago by [facility] ("Dr. Molina, I think Akil sounds right"). She reports her catheter site is "great ". She has not had any pain, tenderness, erythema, discharge, purulence at her catheter site h as not had no pain or discomfort with treatments. She did have a borderline fever of 99 at dialysis yesterday with low-grade fever, and some shakes. This resulted in her blood cultures drawn and subs equently returned positive for gram-positive cocci with PCR positive for E faecalis and was referred to the ER for further treatment. No chest pain, chest pressure, shortness of breath, difficulty breathing. No abdominal pain. No dysuria. No fever day of admission. Left toe continues to be dark and "does not look great "but she denies pain and notes that she has neuropathy in her foot. She has a history of systemic lupus on Plaquenil recently dose reduced. Also takes alprazolam, Wellbutrin. Tx 1x 7 day course of clindamycin in October, and completed a second 10 day course of TID clindamycin this past Friday NO PCN allergy. Did not take penicillin as she said aspirin and penicillin with her initial lupus flare as causative agents for her renal failure and avoided this since childhood however subsequently had allergy testing and has no underlying penicillin allergy +some itching with keflex. Feels her anxiety is reasonably well-controlled currently, she had sertraline added to her bupropion. Also takes alprazolam as needed but has not needed this recently Medical History: Reviewed Medications: Reviewed Surgical History: Reviewed Family history: Reviewed Allergies: Reviewed Social History: No tobacco/ETOH use Code Status: Full Code Discharge Exam Pt discharged from ER evening prior. See communication note and same day H&P exam Discharge Plan Discharge Items Patient Disposition: Transfer Acute Care Hospital Reason For Visit: E. FAECALIS BACTEREMIA Discharge Diagnosis: E. Faecalis bacteremia Activity: As commented below Non-emergency contact: Primary Care Provider Call non-emergency contact if: your symptoms worsen Follow-up/Referrals: Georgie Schwarz MD [Primary Care Provider] - Diet: Dialysis Renal Addtl Attending Provider Instructions: (1) Enterococcus faecalis infection: Plan: Patient with fever 99 F, rigors 1 day prior to evaluation Blood cultures outpatient positive for GPC, PCR positive for Enterococcus faecalis Procalcitonin 4.61, CRP 10.44 with additional underlying chronic osteo as noted. No leukocytosis. VSS and normotensive Received ampicillin/Rocephin on admission Echo is pending. Repeat blood cultures are pending. If no valve vegetation is seen reasonable to pursue ampicillin therapy alone. Note that TTE is not sufficient to exclude endocarditis, if patient were to have persistently positive cultures despite antibiotic therapy and appropriate catheter management would need follow-up for PHYLLIS Right IJ tunneled catheter is without erythema, warmth, tenderness, crepitus, or discharge. Continue ampicillin. Will need her tunnel catheter exchanged +/- line holiday however this does not need to be done emergently as patient is not septic, does not appear toxic, and line is intact and well-appearing as noted Patient wished to be seen by vascular surgery at our institution. Has had line management done in [place] in the past. Have reached out to [facility] vascular surgery. Patient may have expedited outpatient follow-up versus elective transfer, will continue to coordinate (2) Lupus (systemic lupus erythematosus): Plan: History of SLE and lupus nephritis with ESRD Continue hydroxychloroquine. This was recently dose reduced with next levels due in March No signs of acute lupus flare on admission No acute change in management (3) End stage renal disease: Plan: 5 days a week dialysis through her right tunneled IJ catheter Discussed with Dr. Cook who follows her as an outpatient. Generally patient does well and could likely go several days without dialysis when optimized if needed for a line holiday. Potassium 3.0, repletion deferred due to ESRD. No critical volume overload; no need for acute dialysis at time of admission Nephrology consulted to follow while inpatient (4) Chronic osteomyelitis: Plan: Surgical pathology report from [facility] system 01/24: Chronic osteomyelitis's, fibroadipose tissue with chronic reactive changes. Patient with a prior wound culture 12/2023 from the left toe with commensal skin lexy. No other microbiology data available - Patient has discussed revision/amputation with her single pass soil stabilizer operator and would like to pursue 6 to 8-week treatment of antibiotics first if at all possible. ID consulted Likely/possible source of her bacteremia Pending Studies at Discharge: No Stand-Alone Forms: My [facility] SSEV Skilled Items Patient informed of condition?: No DNR: No Discharge Level of Care: Other Communicable Disease: No Discharge Prognosis: Stable Lines: Thakkar Urinary Catheter: No Medications and DC Order Prescriptions: Continued alprazolam [Xanax] 0.25 mg tablet 0.25 mg PO DAILY PRN (Reason: anxiety) Qty: 30 0RF ProRenal 8 mg iron-800 mcg-1,000 unit tablet 1 tab PO QAM pantoprazole 40 mg tablet,delayed release (DR/EC) 40 mg PO DAILY cinacalcet 30 mg tablet 30 mg PO .3X WEEK Medical Marijuana 1 dose inhalation DIRECTED PRN (Reason: Pain) Rx Instructions: PER PT "USES 1-2 X DAILY" bupropion HCl [Wellbutrin SR] 150 mg tablet sustained-release 12 hr 150 mg PO QAM gabapentin 100 mg capsule 100 - 300 mg PO DAILY PRN (Reason: Pain) hydroxychloroquine [Plaquenil] 200 mg tablet 200 mg PO QAM Rx Instructions: 2 p.o. every Friday and Friday and 1 p.o. daily all other days. sertraline 50 mg tablet 50 mg PO QAM Patient Comments: Discharge Orders: Discharge Order (Routine); Ordered 01/24/24 Ordered By: Farrukh Charles Admission Data Admit Date/Time: 01/23/24 13:49 Attending Provider: Farrukh Charles Admit Provider: Farrukh Charles Primary Care Provider: Georgie Schwarz Other Providers: Cande Vicente; Syl Mojica; Perla Ramirez; Dexter Purcell; Kimmy Alexander; Laura Preston; Farrukh Charles; Anuj Russo Hospital Stay Data Consultations 01/23/24 10:53 Consult Infectious Diseases Routine 01/23/24 11:09 ED Decision to Admit Stat 01/23/24 13:06 Consult Nephrology Routine Pending Results Patient Have Any Pending Studies at Discharge: No Discharge Instructions Given to Patient (Per Discharging Provider) (1) Enterococcus faecalis infection: Plan: Patient with fever 99 F, rigors 1 day prior to evaluation Blood cultures outpatient positive for GPC, PCR positive for Enterococcus faecalis Procalcitonin 4.61, CRP 10.44 with additional underlying chronic osteo as noted. No leukocytosis. VSS and normotensive Received ampicillin/Rocephin on admission Echo is pending. Repeat blood cultures are pending. If no valve vegetation is seen reasonable to pursue ampicillin therapy alone. Note that TTE is not sufficient to exclude endocarditis, if patient were to have persistently positive cultures despite antibiotic therapy and appropriate catheter management would need follow-up for PHYLLIS Right IJ tunneled catheter is without erythema, warmth, tenderness, crepitus, or discharge. Continue ampicillin. Will need her tunnel catheter exchanged +/- line holiday however this does not need to be done emergently as patient is not septic, does not appear toxic, and line is intact and well-appearing as noted Patient wished to be seen by vascular surgery at our institution. Has had line management done in [place] in the past. Have reached out to [facility] vascular surgery. Patient may have expedited outpatient follow-up versus elective transfer, will continue to coordinate (2) Lupus (systemic lupus erythematosus): Plan: History of SLE and lupus nephritis with ESRD Continue hydroxychloroquine. This was recently dose reduced with next levels due in March No signs of acute lupus flare on admission No acute change in management (3) End stage renal disease: Plan: 5 days a week dialysis through her right tunneled IJ catheter Discussed with Dr. Cook who follows her as an outpatient. Generally patient does well and could likely go several days without dialysis when optimized if needed for a line holiday. Potassium 3.0, repletion deferred due to ESRD. No critical volume overload; no need for acute dialysis at time of admission Nephrology consulted to follow while inpatient (4) Chronic osteomyelitis: Plan: [facility]: Chronic osteomyelitis's, fibroadipose tissue with chronic reactive changes. Patient with a prior wound culture 12/2023 from the left toe with commensal skin lexy. No other microbiology data available - Patient has discussed revision/amputation with her single pass soil stabilizer operator and would like to pursue 6 to 8-week treatment of antibiotics first if at all possible. ID consulted Likely/possible source of her bacteremia Total Time Total Time Spent Total Time Spent (In Minutes): None Coding Level of Care Code None Diagnoses Enterococcus faecalis infection A49.8 Systemic lupus erythematosus, unspecified SLE type, unspecified organ involvement status M32.9 Systemic lupus erythematosus organ involvement: unspecified Systemic lupus erythematosus type: unspecified End stage renal disease N18.6 Chronic osteomyelitis M86.60
== END 2024-01-23 23:59 | disposition short-term general hospital (02) | DRG 871 ==
LOC: ED 09:42 → EDINP 13:49

== ENCOUNTER 2025-01-06 08:27 | Inpatient (IN) ==
--- NOTE | 2025-01-06 09:06 | Emergency Department Note ---
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 right atrium. Fluid and extensive stranding adjacent to catheter is again noted, involving the right upper chest, lower neck as well as the upper mediastinum. No fluid collection is present to suggest abscess. There is no soft tissue gas. Asymmetric enlargement and edema within the right sternocleidomastoid muscle are noted. Prominent adjacent lymph nodes are reactive. Of note, there is severe narrowing of the distal right internal jugular vein, just above the catheter insertion site. The mid right internal jugular vein is patent. There is decreased opacification of the right brachiocephalic vein adjacent to the catheter. Size of the heart is normal. There is no pericardial effusion. No consolidation is identified to suggest pneumonia. There is no pneumothorax or pleural effusion. Calcified granulomas within the spleen are incidentally noted. IMPRESSION: 1. Fluid and extensive stranding adjacent to the right internal jugular dialysis catheter suggestive of cellulitis. Stranding and fluid within the upper mediastinum may represent developing mediastinitis. Sterile edema could appear similar however an infectious process is the diagnosis of exclusion. No fluid collection to suggest abscess. No soft tissue gas. Asymmetric enlargement and edema within the right sternocleidomastoid muscle suggestive of infectious myositis. 2. Patent right mid internal jugular vein. Severe narrowing of the distal right internal jugular vein, just above the catheter insertion site. Decreased opacification of the right brachiocephalic vein could represent thrombus or mixing artifact. ACT 112: Negative or not required by law. Electronically signed by: Wilder Lloyd M.D. 01/06/2025 11:42 AM Discharge Plan Visit Data Chief Complaint: Infection Stated Complaint: CENTRAL VENOUS CATHETER PROBLEM ED Provider: Mary Mann Discharge Problem: Acute mediastinitis, Infection of dialysis vascular access, Cellulitis of chest wall, Elevated troponin Patient Disposition: Admitted As Inpatient Condition: Serious Forms Stand Alone Forms: [facility] [employer] Prescriptions Prescriptions: No Action ondansetron 8 mg tablet,disintegrating 8 mg PO DAILY PRN (Reason: nausea and vomiting) 3 Days Qty: 30 1RF Patient Comments: 01/06- last filled 06/14 29 30 day supply #30 hydroxychloroquine [Plaquenil] 200 mg tablet 200 mg PO QAM Qty: 120 0RF Rx Instructions: 2 p.o. every Friday and Friday and 1 p.o. daily all other days. ProRenal 8 mg iron-800 mcg-1,000 unit tablet 1 tab PO QAM Patient Comments: 01/06- otc unable to verify alprazolam [Xanax] 0.25 mg tablet 0.25 mg PO DAILY PRN (Reason: anxiety) Qty: 30 0RF Patient Comments: 01/06- last filled 03/19 30 day supply #30 hydrocodone-acetaminophen 5-325 mg tablet 1 tab PO BID PRN (Reason: severe pain) Qty: 20 0RF Patient Comments: 01/06- last filled 10/22 10 day supply #20 cinacalcet 30 mg tablet 0 mg PO .3X WEEK Patient Comments: 01/06- last filled 07/29 30 day supply #30 midodrine 5 mg tablet 5 mg PO UD ferric citrate [Auryxia] 210 mg iron tablet 210 mg PO TIDM sertraline 50 mg tablet 0 mg PO DAILY Patient Comments: 01/06- last filled 08/30 30 day supply #30 Medical Marijuana 1 dose inhalation DIRECTED PRN (Reason: Pain) Patient Comments: 01/06- unable to verify Rx Instructions: PER PT "USES 1-2 X DAILY" bupropion HCl [Wellbutrin SR] 150 mg tablet sustained-release 12 hr 0 mg PO QAM Patient Comments: 01/06- last filled 08/30 30 day supply #60 Referrals Referrals: Georgie Barrera MD [Primary Care Provider] -
--- NOTE | 2025-01-06 09:22 | XRay Report ---
XR chest 1V portable CLINICAL HISTORY: Sepsis COMPARISON STUDY: 07/17/2022 FINDINGS: Stable dialysis catheter. Heart size and pulmonary vasculature are normal. No consolidation or pleural effusion. No pneumothorax. IMPRESSION: No acute findings. ACT 112: Negative or not required by law. Electronically signed by: Wilfredo Glover M.D. 01/06/2025 9:20 AM
[2025-01-06 09:38] LABS: Hematocrit (blood only) 30.9 % (37.0-47.0); Hemoglobin 10.5 g/dl (12.0-16.0); Immature Granulocytes # (auto) 0.03 K/uL (0.01-0.20); Immature Granulocytes % (auto) 0.4 %; Mean Corpuscular Hemoglobin 32.5 pg (25.0-34.0); Mean Corpuscular Volume 95.7 fL (80.0-100.0); Platelet Count 56 K/uL (130-400); RDW Standard Deviation 48.2 fL (36.4-46.3); Red Blood Count 3.23 M/uL (4.20-5.40); White Blood Count 8.23 K/ul (4.8-10.8)
[2025-01-06 09:57] LABS: Alanine Aminotransferase 9 U/L (7-52); Albumin Level 3.8 gm/dl (3.4-5.0); Alkaline Phosphatase 105 U/L (34-104); Anion Gap 13 (3-11); Bilirubin,Total 0.5 mg/dl (0.2-1.0); Blood Urea Nitrogen 47 mg/dl (6-23); Calcium 8.2 mg/dl (8.6-10.3); Carbon Dioxide 23 mmol/L (21-32); Chloride 94 mmol/L (98-107); Creatinine Clr Calc Pharmacy 8.4 ml/min; Glucose 102 mg/dl (70-99(Fasting)); Magnesium 2.2 mg/dl (1.7-2.4); Potassium 3.8 mmol/L (3.5-5.1); Sodium 130 mmol/L (136-145); Total Protein 7.2 gm/dl (6.0-8.3)
--- NOTE | 2025-01-06 10:01 | CT Scan Report ---
CT OF THE CHEST WITHOUT IV CONTRAST CLINICAL HISTORY: swelling + erythema around dialysis catheter COMPARISON STUDY: Chest CT August 08, 2022. Chest radiograph performed earlier today. CT DOSE: 236.13 mGy.cm TECHNIQUE: Axial images of the chest were obtained without IV contrast. Images were reviewed in the axial, sagittal, and coronal planes. IV contrast was not administered for this examination. Automat ed exposure control was utilized for the study. A dose lowering technique was utilized adhering to t he principles of ALARA. FINDINGS: Dual lumen right internal jugular catheter is in place. The tip is within the right atrium . The catheter is intact. Note is made of fluid and extensive stranding adjacent to the catheter whic h involves the right upper chest wall, right lower neck and mediastinum. No soft tissue gas is presen t. No associated fluid collection is identified on unenhanced exam. Prominent adjacent lymph nodes ar e likely reactive. However, there is asymmetric enlargement of the adjacent portion of the right ster nocleidomastoid mastoid muscle. There is mild asymmetric prominence of the mid right internal jugular vein on image 6 of 64. Attenuation appears to be within normal limits. Prominent bilateral retropect oral lymph nodes are unchanged. Size of the heart is normal. There is no pericardial effusion. There is no consolidation to suggest pneumonia. No pneumothorax or pleural effusion is present. There are n o pulmonary nodules. Calcified granulomas within the spleen are incidentally noted. Visualized portio ns of the kidneys are atrophic. 9 mm hyperdense left renal lesion is partially imaged. This was shown to represent a proteinaceous cyst on prior abdominal CT. IMPRESSION: 1. Fluid and extensive stranding adjacent to the right internal jugular dialysis catheter. Inflammati on involves the right upper chest, lower neck and mediastinum. The findings suggest an infectious pro cess with cellulitis and developing mediastinitis. Associated infectious myositis of the right sterno cleidomastoid mastoid muscle. No fluid collection identified on unenhanced exam to suggest abscess. 2. Asymmetric prominence of the mid right internal jugular vein. The appearance is not strongly sugge stive of thrombosis however right internal jugular ultrasound is recommended to exclude this possibil ity. ACT 112: Negative or not required by law. Electronically signed by: Wilder Lloyd M.D. 01/06/2025 9:59 AM
[2025-01-06] MEDS ORDERED: VANCOMYCIN CONSULT ACTIVE PRN (10:07)
[2025-01-06] MEDS: PIPERACILLIN/TAZOBACTAM 4.5 GM/100 ML BAG IV ONE (10:44)
[2025-01-06] MEDS: OPTIRAY 320 100ml IV ONE (11:25)
--- NOTE | 2025-01-06 11:44 | CT Scan Report ---
CT SCAN OF THE CHEST WITH IV CONTRAST CLINICAL HISTORY: Swelling and erythema around dialysis catheter. Possible mediastinitis. COMPARISON STUDY: CT of the chest August 08, 2022. Noncontrast chest CT performed earlier today. TECHNIQUE: Following the IV administration of 94 cc of Optiray 320, CT scan of the thorax was perform ed from the thoracic inlet to the upper abdomen. Images are reviewed in the axial, sagittal, and param nal planes. IV contrast was administered without complication. A dose lowering technique was utilize d adhering to the principles of ALARA. CT DOSE: 444.38 mGy.cm FINDINGS: Dual lumen right internal jugular dialysis catheter is intact. The tip is within the right atrium. Fluid and extensive stranding adjacent to catheter is again noted, involving the right upper chest, lower neck as well as the upper mediastinum. No fluid collection is present to suggest abscess . There is no soft tissue gas. Asymmetric enlargement and edema within the right sternocleidomastoid muscle are noted. Prominent adjacent lymph nodes are reactive. Of note, there is severe narrowing of the distal right internal jugular vein, just above the catheter insertion site. The mid right interna l jugular vein is patent. There is decreased opacification of the right brachiocephalic vein adjacent to the catheter. Size of the heart is normal. There is no pericardial effusion. No consolidation is identified to suggest pneumonia. There is no pneumothorax or pleural effusion. Calcified granulomas w ithin the spleen are incidentally noted. IMPRESSION: 1. Fluid and extensive stranding adjacent to the right internal jugular dialysis catheter suggestive of cellulitis. Stranding and fluid within the upper mediastinum may represent developing mediastiniti s. Sterile edema could appear similar however an infectious process is the diagnosis of exclusion. No fluid collection to suggest abscess. No soft tissue gas. Asymmetric enlargement and edema within the right sternocleidomastoid muscle suggestive of infectious myositis. 2. Patent right mid internal jugular vein. Severe narrowing of the distal right internal jugular vein , just above the catheter insertion site. Decreased opacification of the right brachiocephalic vein c ould represent thrombus or mixing artifact. ACT 112: Negative or not required by law. Electronically signed by: Wilder Lloyd M.D. 01/06/2025 11:42 AM
[2025-01-06] MEDS: VANCOMYCIN HCL 1,250 MG in SODIUM CHLORIDE 0.9% 500 ML IV ONE (11:47)
--- NOTE | 2025-01-06 12:49 | Electrocardiogram Report ---
Test Reason : Blood Pressure : */* mmHG Vent. Rate : 79 BPM Atrial Rate : 79 BPM P-R Int : 154 ms QRS Dur : 74 ms QT Int : 390 ms P-R-T Axes : 67 76 60 degrees QTcB Int : 447 ms Normal sinus rhythm Normal ECG When compared with ECG of 08-Oct-2022 09:55, No significant change was found Confirmed by Abel Ocasio ([id number]) on 01/06/2025 12:48:50 PM Referred By: REFERRED SELF Confirmed By: Abel Ocasio
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
[2025-01-06] MEDS ORDERED: DexMEDEtomidine HCL IV 100 MCG/ML VIAL IV ONE (13:50)
[2025-01-06] MEDS ORDERED: ONDANSETRON INJ 2 MG/ML 2 ML VIAL ONE (13:50)
[2025-01-06] MEDS ORDERED: PROPOFOL IV EMULSION 10 MG/ML 20 ML VIAL IV ONE ×2 (13:50→14:44)
[2025-01-06] MEDS ORDERED: MIDAZOLAM HCL 1 MG/ML 2ML VIAL ONE ×2 (13:50→14:05)
[2025-01-06] MEDS ORDERED: LIDOCAINE 2% 2 ML VIAL/AMP(20MG/ML) INFIL ONE (13:50)
[2025-01-06] MEDS ORDERED: ATROPINE SULFATE 0.1 MG/ML 10ML SYR IV PRN (14:09)
[2025-01-06] MEDS ORDERED: ONDANSETRON INJ 2 MG/ML 2 ML VIAL IV PRN (14:09)
[2025-01-06] MEDS ORDERED: SODIUM CHLORIDE 0.9% 1,000 ML IV SCH (14:15)
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
[2025-01-06] MEDS: BUPIVACAINE 0.25% PF 30 ML VIAL ONE (14:55)
[2025-01-06] MEDS: LIDOCAINE 1% LOCAL 20 ML VIAL ONE (14:55)
--- NOTE | 2025-01-06 14:57 | Post Operative Brief Note ---
Immediate Post Op Note Date of Surgery January 06, 2025 Pre & Post Diagnosis Operation Date: 01/06/25 15:55 Pre-Op Diagnosis: (1) Central line insertion site infection (2) Cellulitis of chest wall (3) Mediastinitis due to infection Post-Op Diagnosis: (1) Central line insertion site infection (2) Cellulitis of chest wall (3) Mediastinitis due to infection I identified the patient and participated in the time-out.: Yes Procedure Operation Date: 01/06/25 15:55 Actual Procedures p Right Removal Infected Tunneled Central Line(Right) - Jimmy Zheng MD s with Incision and Drainage of Abscess(Not Applicable) - Jimmy Zheng MD Surgeon Jimmy Zheng MD Recreation Engineer Carmen Avila PA-C Estimated Blood Loss 10 Findings Consistent with Post-Op Diagnosis Specimens Central line tract swab for culture central line tip Anesthesia Type MAC Complications none Disposition Accompanied Patient To Recovery: Yes Disposition: Surgical ICU
--- NOTE | 2025-01-06 15:41 | Operative Report ---
PG Post Operative Report Pre & Post Diagnosis Operation Date: 01/06/25 15:55 Pre-Op Diagnosis: (1) Central line insertion site infection (2) Cellulitis of chest wall (3) Mediastinitis due to infection Post-Op Diagnosis: (1) Central line insertion site infection (2) Cellulitis of chest wall (3) Mediastinitis due to infection I identified the patient and participated in the time-out.: Yes Procedure Operation Date: 01/06/25 15:55 Actual Procedures p Right Removal Infected Tunneled Central Line(Right) - Jimmy Zheng MD s with Incision and Drainage of Abscess - Jimmy Zheng MD Surgeon Jimmy Zheng MD Lab Support Service Tech Carmen Avila PA-C Estimated Blood Loss 10 Findings Consistent with Post-Op Diagnosis Specimens Swab of catheter tract for culture Line tip for culture Anesthesia Type MAC Complications none Disposition Accompanied Patient To Recovery: Yes Disposition: Surgical ICU Indications 49-year-old patient on hemodialysis with right internal jugular tunneled catheter exiting out the chest wall. Approximate 24-hour history of erythema fluctuance and pain associated to catheter exit site. Patient had also developed odynophagia over the last 24 hours. She is brought to the operating room for catheter removal. Risk goals and alternatives were discussed with the patient understood and gave consent to proceed. Description of Procedure A timeout was performed and the patient was identified the procedure verified. Monitored anesthetic care was provided. The right chest and neck were prepped and draped in usual sterile fashion. A mixture of 1% lidocaine and quarter percent Marcaine was used and the exit site of the catheter as well as the associated tissues were anesthetized. The cuff was easily freed up and the catheter was removed intact uneventfully. There was some fat necrosis and purulent drainage from the catheter site. The abscess cavity was 1 x 2 cm wide and approximately 3 to 4 mm deep. I unroofed this by incising the skin along the tract. A culture of this area was taken and the tip of the line was sent for culture as well. Necrotic tissue was debrided involving skin and subcutaneous tissue as well as underlying muscle. The fascia was not involved. Hemostasis was achieved. The wound was packed with gauze and covered with a Bioclusive dressing. The patient was taken the recovery room in stable condition having tolerated the procedure well without immediate complication. I attest to the content of the Intraoperative Record and any orders documented therein. Any exceptions are noted below.
[2025-01-06] MEDS ORDERED: ALBUMIN HUMAN 5% 12.5 GM/250 ML VIAL IV ONE (15:44)
[2025-01-06] MEDS: ALBUMIN 5% 250 ML IV ONE (15:48)
[2025-01-06] MEDS: PHENYLEPHRINE 100MCG/ML 5ML SYR IV PRN (16:15)
--- NOTE | 2025-01-06 17:06 | Anesthesiology Progress Note ---
Date of Service January 06, 2025 Anesthesia Post Procedure Vital Signs Vital Signs: Temp Pulse Pulse Resp BP BP BP 01/06/25 16:30 37.2 C 01/06/25 16:25 76 17 73/49 L 01/06/25 16:15 75 17 78/44 L 01/06/25 16:05 72 17 78/41 L 01/06/25 15:55 78 17 76/53 L 01/06/25 15:45 77 17 99/62 L 01/06/25 15:35 81 17 100/63 01/06/25 15:25 69 17 86/52 L 01/06/25 15:15 72 17 81/51 L 01/06/25 15:06 37.2 C 75 16 86/53 L 01/06/25 13:58 36.7 C 92 H 18 125/88 01/06/25 12:00 78 14 97/70 L 01/06/25 11:00 70 16 101/65 01/06/25 10:45 114/77 01/06/25 10:45 114/77 01/06/25 10:45 114/77 01/06/25 10:45 114/77 01/06/25 10:45 79 19 01/06/25 10:42 82 17 01/06/25 10:30 92/75 L 01/06/25 10:30 92/75 L 01/06/25 10:30 92/75 L 01/06/25 10:30 92/75 L 01/06/25 10:30 92/75 L 01/06/25 10:30 81 20 01/06/25 10:21 68 15 01/06/25 10:15 105/69 01/06/25 10:15 105/69 01/06/25 10:15 105/69 01/06/25 10:15 105/69 01/06/25 10:15 105/69 01/06/25 10:15 68 14 01/06/25 10:12 73 13 01/06/25 10:00 98/64 L 01/06/25 10:00 98/64 L 01/06/25 10:00 98/64 L 01/06/25 10:00 98/64 L 01/06/25 10:00 98/64 L 01/06/25 10:00 72 14 01/06/25 09:54 70 16 11/06/25 09:53 75 01/06/25 09:50 93/63 L 01/06/25 09:50 93/63 L 01/06/25 09:50 93/63 L 01/06/25 09:47 01/06/25 08:38 36.8 C 90 20 86/62 L Pulse Ox O2 Del Method O2 Flow Rate 01/06/25 16:30 01/06/25 16:25 100 Room Air 01/06/25 16:15 100 Room Air 01/06/25 16:05 100 Room Air 01/06/25 15:55 99 Room Air 01/06/25 15:45 100 Room Air 01/06/25 15:35 100 Room Air 01/06/25 15:25 100 Oxymask 5 01/06/25 15:15 100 Oxymask 5 01/06/25 15:06 100 Oxymask 5 01/06/25 13:58 96 Room Air 01/06/25 12:00 94 Room Air 01/06/25 11:00 94 Room Air 01/06/25 10:45 01/06/25 10:45 01/06/25 10:45 01/06/25 10:45 01/06/25 10:45 94 01/06/25 10:42 97 01/06/25 10:30 01/06/25 10:30 01/06/25 10:30 01/06/25 10:30 01/06/25 10:30 01/06/25 10:30 01/06/25 10:21 99 01/06/25 10:15 01/06/25 10:15 01/06/25 10:15 01/06/25 10:15 01/06/25 10:15 01/06/25 10:15 98 01/06/25 10:12 98 01/06/25 10:00 01/06/25 10:00 01/06/25 10:00 01/06/25 10:00 01/06/25 10:00 01/06/25 10:00 97 01/06/25 09:54 97 01/06/25 09:53 01/06/25 09:50 01/06/25 09:50 01/06/25 09:50 01/06/25 09:47 98 Room Air 01/06/25 08:38 99 Room Air Pain Intensity Chest: Pain Intensity: 8 Transfer of Care Handoff Completed per policy Notes Mental Status: alert / awake / arousable and participated in evaluation Patient Amnestic to Procedure: Yes Nausea / Vomiting: adequately controlled Pain: adequately controlled Airway Patency, RR, SpO2: stable & adequate BP & HR: see Notes below Hydration State: stable & adequate Anesthetic Complications: no major complications apparent and Pt Satisfied with anesthetic care Notes: In recovery, patient was reported to have low BP. Upon arrival to PACU, patient supine and conversant without complaint. Denied dizziness, lightheadedness. No CP or SOB. She states her blood pressure today has been running low (90's/60's). Given her dialysis status, did not want to fluid overload patient so instead ordered 250ml of 5% albumin. Also ensured there was an order of phenylephrine doses if needed. Patient required two doses of this. Patient slated to go to ICU and it's possible she may require vasoactive ggt to maintain blood pressure if she is/becomes septic.
--- NOTE | 2025-01-06 17:50 | Pharmacy Report ---
Pharmacy PK ABX Note - Date of Service January 06, 2025 - Assessment and Plan Assessment * 49 year old F w ESRD on HD receiving pip/tazo and vancomycin for treatment of acute mediastinitis, cellulitis of chest wall, and infection of dialysis vascular access and is now s/p removal of infected tunneled central line 01/06 * Pertinent microbiologic data includes: nasal MRSA swab, blood cultures, and intraoperative culture pending Plan Vancomycin * Loading dose: 1250 mg IV x 1 * Will dose via level given ESRD/HD, with target pre-HD level 15-20 mcg/mL * Random level ordered for: 01/07 w AM labs Pharmacy will continue to follow and will adjust dose/frequency as necessary. Thank you. Pharmacy has transitioned to AUC monitoring for vancomycin. AUC/CAPRICE is the preferred PK/PD target and is associated with decreased risk of nephrotoxicity compared to traditional trough targets.
[2025-01-06] MEDS: PIPERACILLIN/TAZOBACTAM 4.5 GM/100 ML BAG IV SCH (17:54)
[2025-01-06 18:20] LABS: Anion Gap 12.0 (3-11); Blood Urea Nitrogen 52.0 mg/dl (6-23); Calcium 8.4 mg/dl (8.6-10.3); Carbon Dioxide 23.0 mmol/L (21-32); Chloride 95.0 mmol/L (98-107); Creatinine Clr Calc Pharmacy 7.7 ml/min; Glucose 85.0 mg/dl (70-99(Fasting)); Potassium 3.8 mmol/L (3.5-5.1); Sodium 130.0 mmol/L (136-145)
[2025-01-06] MEDS: HEPARIN SOD 5,000 UNIT/0.5 ML VIAL SQ SCH (20:19)
[2025-01-06] MEDS ORDERED: MELATONIN 3 MG TAB PO PRN (21:16)
[2025-01-06] MEDS: SODIUM CHLORIDE 0.9% 500 ML IV ONE (21:38)
[2025-01-06] MEDS: PREGABALIN 25 MG CAP PO SCH (21:39)
[2025-01-06] MEDS: GABAPENTIN 300 MG CAP PO SCH (21:39)
[2025-01-07] MEDS: ACETAMINOPHEN 325 MG TAB PO PRN (00:11)
[2025-01-07] MEDS: SODIUM CHLORIDE 0.9% 500 ML IV ONE (04:21)
[2025-01-07] MEDS ORDERED: STAT IV Infusion **Titration per Protocol STA (05:00)
[2025-01-07] MEDS: NOREPINEPHRINE/D5W 4 MG/250 ML PLCT IV SCH (05:14)
[2025-01-07 05:17] LABS: Hematocrit (blood only) 26.3 % (37.0-47.0); Hemoglobin 8.8 g/dl (12.0-16.0); Immature Granulocytes # (auto) 0.03 K/uL (0.01-0.20); Immature Granulocytes % (auto) 0.5 %; Mean Corpuscular Hemoglobin 32.1 pg (25.0-34.0); Mean Corpuscular Volume 96.0 fL (80.0-100.0); Platelet Count 52 K/uL (130-400); RDW Standard Deviation 48.3 fL (36.4-46.3); Red Blood Count 2.74 M/uL (4.20-5.40); White Blood Count 5.88 K/ul (4.8-10.8)
[2025-01-07 05:33] LABS: Magnesium 2.0 mg/dl (1.7-2.4)
[2025-01-07 06:13] LABS: Anion Gap 15.0 (3-11); Blood Urea Nitrogen 55.0 mg/dl (6-23); Calcium 8.2 mg/dl (8.6-10.3); Carbon Dioxide 18.0 mmol/L (21-32); Chloride 98.0 mmol/L (98-107); Creatinine Clr Calc Pharmacy 7.3 ml/min; Glucose 81.0 mg/dl (70-99(Fasting)); Potassium 3.7 mmol/L (3.5-5.1); Sodium 131.0 mmol/L (136-145)
[2025-01-07] MEDS: HYDROXYCHLOROQUINE SULFATE 200 MG TAB PO SCH (09:11)
[2025-01-07] MEDS: POLYETHYLENE (MIRALAX) 17 GM PACK PO SCH (09:11)
[2025-01-07] MEDS: NEPHROCAPS PO SCH (09:11)
[2025-01-07] MEDS: FERROUS SULFATE 325 MG TAB PO SCH (09:13)
--- NOTE | 2025-01-07 09:13 | Vascular Surgery Progress Note ---
Date of Service January 07, 2025 Assessment & Plan (1) Central line insertion site infection: Plan: -Presented with erythema, edema along tunneled catheter, consistent with cellulitis,mediastinitis, now PPD 1 s/p tunneled line removal and I&D right chest wall along the tract. -improved edema and erythema after removal and antibiotics -wound dressing changed this morning, no concerns regarding wound at this time, continue changing daily and as needed. -Continue antibiotics per primary team -Follow up on blood cultures, line cultures. (2) Cellulitis of chest wall: Plan: -Associated with HD line, which is now removed -Continue antibiotics per primary team -Follow up on blood cultures, wound/line cultures (3) Mediastinitis due to infection: Plan: -HD line now removed, continue antibiotics per primary team, follow up on wound cultures, blood cultures, line cultures Admission and Anticipated Discharge Date Admission Date: January 06, 2025 Subjective Doing well this morning. States chest and neck feel less painful and less swollen. Easier to move neck. Did have 2 fevers yesterday evening. Remains on vanco and Zosyn. Blood cultures and cultures from OR pending. Physical Exam Physical Exam: WDWN, in no distress right chest and neck edema improved from prior exam, and overlying erythema improved from prior exam. Less tender to palpation over chest, shoulder and neck on the right. Right chest wall dressing with serosanguinous draingage-this was removed. Wound bed red with bleeding, no purulent material noted. Wound redressed with 4x4 and tegaderm. Results & Data Vital Signs (Past 12 Hours) Vital Signs Temp Pulse Resp BP Pulse Ox O2 Del Method 01/07/25 08:15 82 16 Room Air 01/07/25 08:15 106/69 01/07/25 08:00 86 12 01/07/25 08:00 110/74 01/07/25 07:45 84 17 Room Air 01/07/25 07:45 106/74 01/07/25 07:30 85 12 99 01/07/25 07:30 110/65 01/07/25 07:30 110/65 01/07/25 07:30 110/65 01/07/25 07:30 110/65 01/07/25 07:15 83 16 99 Room Air 01/07/25 07:15 103/65 01/07/25 07:00 101/66 01/07/25 07:00 83 16 97 Room Air 01/07/25 06:45 80 17 100 Room Air 01/07/25 06:45 100/65 01/07/25 06:00 80 14 01/07/25 06:00 10501/07/25 06:00 10501/07/25 06:00 10501/07/25 06:00 10501/07/25 06:00 10501/07/25 05:51 78 14 99 01/07/25 05:45 81 13 100 01/07/25 05:45 105/72 01/07/25 05:45 105/72 01/07/25 05:45 105/72 01/07/25 05:45 105/72 01/07/25 05:45 105/72 01/07/25 05:42 82 17 99 01/07/25 05:30 82 14 01/07/25 05:30 99/64 L 01/07/25 05:30 99/64 L 01/07/25 05:30 99/64 L 01/07/25 05:30 99/64 L 01/07/25 05:30 99/64 L 01/07/25 05:21 79 16 01/07/25 05:15 83 17 01/07/25 05:15 79/46 L 01/07/25 05:15 79/46 L 01/07/25 05:15 79/46 L 01/07/25 05:15 79/46 L 01/07/25 05:15 79/46 L 01/07/25 05:12 86 13 01/07/25 05:00 90 17 01/07/25 05:00 75/50 L 01/07/25 05:00 75/50 L 01/07/25 05:00 75/50 L 01/07/25 05:00 75/50 L 01/07/25 05:00 75/50 L 01/07/25 04:51 85 16 01/07/25 04:43 36.8 C 01/07/25 04:42 80 15 01/07/25 04:38 82/47 L 01/07/25 04:38 82/47 L 01/07/25 04:38 82/47 L 01/07/25 04:38 82/47 L 01/07/25 04:38 82/47 L 01/07/25 04:36 82 15 01/07/25 04:35 82/46 L 01/07/25 04:35 82/46 L 01/07/25 04:35 82/46 L 01/07/25 04:35 82/46 L 01/07/25 04:33 87 15 01/07/25 04:30 93 H 14 01/07/25 04:23 80/50 L 01/07/25 04:23 80/50 L 01/07/25 02:51 100 H 18 99 01/07/25 02:42 94 H 19 98 01/07/25 02:30 92 H 16 98 01/07/25 02:21 94 H 19 99 01/07/25 02:12 93 H 20 98 01/07/25 02:00 89/49 L 01/07/25 02:00 89/49 L 01/07/25 02:00 89/49 L 01/07/25 02:00 89/49 L 01/07/25 02:00 97 H 22 93 01/07/25 01:51 90 20 98 01/07/25 01:42 91 H 23 98 01/07/25 01:30 94 H 23 98 01/07/25 01:21 93 H 18 98 01/07/25 01:12 95 H 19 98 01/07/25 01:00 92/48 L 01/07/25 01:00 92/48 L 01/07/25 01:00 92/48 L 01/07/25 01:00 92/48 L 01/07/25 01:00 93 H 19 96 01/07/25 00:51 93 H 19 96 01/07/25 00:42 92 H 36 H 96 01/07/25 00:30 96 H 18 96 01/07/25 00:21 92 H 19 97 01/07/25 00:12 105 H 17 97 01/07/25 00:01 81/50 L 01/07/25 00:01 81/50 L 01/07/25 00:01 81/50 L 01/07/25 00:01 81/50 L 01/07/25 00:01 81/50 L 01/07/25 00:00 95 H 13 97 01/06/25 23:55 38.5 C H 01/06/25 23:51 94 H 11 L 99 01/06/25 23:42 97 H 21 97 01/06/25 23:30 92 H 39 H 97 01/06/25 23:21 94 H 25 H 98 01/06/25 23:12 88 32 H 99 01/06/25 23:00 88/53 L 01/06/25 23:00 88/53 L 01/06/25 23:00 88/53 L 01/06/25 23:00 88/53 L 01/06/25 23:00 88/53 L 01/06/25 23:00 92 H 25 H 98 01/06/25 22:51 92 H 27 H 98 01/06/25 22:42 92 H 22 98 01/06/25 22:30 90 33 H 99 01/06/25 22:21 83 35 H 100 01/06/25 22:12 88 26 H 98 01/06/25 22:00 89/53 L 01/06/25 22:00 89/53 L 01/06/25 22:00 89/53 L 01/06/25 22:00 89/53 L 01/06/25 22:00 89/53 L 01/06/25 22:00 90 21 100 01/06/25 21:51 84 37 H 97 01/06/25 21:42 90 18 100 01/06/25 21:30 87 18 99 01/06/25 21:21 88 15 98 01/06/25 21:12 87 18 98 PG Care Time/CCT Total # of Minutes Spent Total Time Spent with Patient: Total time spent is greater than 50% in coordination of care (as documented) at patient's floor/unit and/or counseling patient: (1) Central line insertion site infection Encounter type: initial encounter Qualified Code(s): T80.212A - Local infection due to central venous catheter, initial encounter
[2025-01-07] MEDS ORDERED: MIDODRINE HCL 2.5 MG TAB PO SCH (09:15)
[2025-01-07] MEDS ORDERED: CINACALCET HCL 30 MG TAB PO SCH (09:15)
[2025-01-07] MEDS: CINACALCET HCL 30 MG TAB PO SCH (10:12)
[2025-01-07] MEDS: GABAPENTIN 100 MG CAP PO SCH (10:12)
--- NOTE | 2025-01-07 11:31 | Critical Care Progress Note ---
Date of Service January 07, 2025 Assessment & Plan (1) Acute mediastinitis: (2) Cellulitis of chest wall: (3) Infection of dialysis vascular access: (4) Elevated troponin: (5) Lupus (systemic lupus erythematosus): (6) End stage renal disease: (7) Thrombocytopenia: Plan Patient is a 49-year-old female with a history of ESRD on HD (home dialysis 5 days weekly), SLE on Plaquenil, hypertension and anemia. The patient presented to the emergency department today for evaluation of right chest wall pain, erythema and edema at the area of her dialysis catheter site. CT imaging of the chest with IV contrast. This showed extensive stranding adjacent to the right internal jugular dialysis catheter suggestive of cellulitis, stranding within the upper mediastinum representing mediastinitis. No fluid collection appreciated. No soft tissue gas. Asymmetric enlargement and edema of the right sternocleidomastoid muscle suggestive of myositis. IJ was patent however there was severe narrowing of the distal right IJ just above the catheter insertion site. Decreased opacification within the right brachiocephalic vein which could represent thrombus or mixing artifact. Thoracic surgery at [facility] was called, they recommended antibiotics and no transfer for mediastinitis. Vascular surgery was consulted for removal of indwelling catheter. Pulmonary/critical care was consulted due to mediastinitis and need for ICU level of care. The patient went to the OR on 01/06/2025 for dialysis catheter removal. Cultures were obtained. They are growing Staph aureus from the catheter tunnel site. The patient remains on broad-spectrum antibiotics. Nephrology has evaluated the patient, are hopeful for a line free weekend as long as labs do not significantly worsen. Patient is requesting at her home medications be resumed today. She did require some low-dose norepinephrine however she was not on her home midodrine which has been resumed. Reason Critically Ill: Acute mediastinitis Catheter associated infection of indwelling dialysis catheter of right chest wall, removed by vascular surgery 01/06/2025, cultures with Staph aureus Chest wall cellulitis Myositis involving the sternocleidomastoid muscle Sepsis Immunocompromised with SLE on Plaquenil (no longer taking Plaquenil per patient, makes her face well) ESRD with home dialysis Thrombocytopenia Mood disorder Neuro: Nonfocal neurologic exam. Awake and alert. No concerns at this time. Will resume Wellbutrin, Xanax, gabapentin and Lyrica. Cardiac: EKG close shows sinus rhythm without ST elevation or depression. Troponin is elevated. Imaging concerning of mediastinitis. Thoracic surgery does not think it is necessary to transfer her to [facility] at this time and recommend IV antibiotics. Possible brachiocephalic thrombus on imaging. Could be a septic thrombus. Monitor on telemetry. If there are changes in rhythm then repeat EKG. Low threshold for repeat CT imaging of the chest to rule out abscess or worsening mediastinitis. Had some hypotension overnight, required low-dose Levophed. We are resuming her home midodrine today. Respiratory: Airways are patent. I reviewed her CT extensively. No stridor on exam. GI: No GI concerns at this time. Patient has a low sodium low potassium diet. GI prophylaxis not indicated. RENAL/LYTES: ESRD on home dialysis 5 days weekly. The patient most recently did dialysis 01/05/2025. Nephrology has been consulted, appreciate assistance with case. Tentative plan is to wait till Friday for dialysis. We will follow labs daily. Ideally the patient should have a line holiday after dialysis catheter is removed. However we will place a temporary dialysis catheter when nephrology thinks dialysis is indicated. : No [place] catheter indicated. ESRD on HD. ENDO: Blood glucose acceptable. Monitor every 6 hours. HEME: Thrombocytopenia. Fairly stable. No active bleeding. ID: Previously on Plaquenil for SLE, patient is refusing to take this medication. Apparently makes her face well. Catheter site infection of indwelling dialysis catheter on right chest, significant cellulitis, myositis and mediastinitis appreciated on imaging. Possible septic thrombus also appreciated. Thus far cultures are positive for Staph aureus from the catheter tract. Catheter was removed by vascular surgery 01/06/2025. Continue vancomycin and Zosyn, de-escalate as appropriate based on antibiotics. Would recommend infectious disease consult given the catheter infection as well as the possible mediastinitis. Feeding: Low sodium and low potassium diet. Fluids: No maintenance fluids Analgesia: Resume home gabapentin and Lyrica. Activity: May get out of bed, may work with PT and OT. Thromboprophylaxis: Place SCDs Ulcer prophylaxis: Not indicated at this time. Glycemic control: Blood glucose acceptable, monitor every 6 Bowels: MiraLAX daily. Indwelling catheters: Peripheral IVs Antibiotics: Vancomycin and Zosyn Plan: Patient remain in the ICU today. We will try to wean off Levophed as tolerated. We have resumed her home midodrine. Cultures so far growing Staph aureus, additional blood cultures are pending. Sensitivities are pending and further dental fixation is pending. Labs are acceptable today, discussed the case with nephrology at bedside. No immediate indication for dialysis. Will continue to monitor. Vascular surgery removed catheter yesterday, appreciate assistance with case. Resuming home medications today. Patient is not taking Plaquenil. I have personally spent 55 minutes of critical care time in the direct management of this patient. This is a life/limb threatening event. This includes time spent evaluating patient, direct bedside care, chart review, placing orders, interpretation of diagnostic studies, discussion with consultants, patient, and family members, as well as other required patient management activities. This time is exclusive of all separately billable procedures, and teaching time and separate from and in addition to any other critical care service time. Admission and Anticipated Discharge Date Admission Date: January 06, 2025 Subjective Past 24-hour events: Admitted to the ICU yesterday afternoon. Patient presented with catheter associated infection and concern for mediastinitis on imaging. Had indwelling hemodialysis catheter removed by vascular surgery yesterday. Had hypotension overnight requiring low-dose Levophed. Rounding: Patient overall is feeling better today. She is requesting a regular diet. Less pain in her chest. No substernal chest pain appreciated. Sinus rhythm on the monitor. We discussed her home medications, she normally takes gabapentin and then also Lyrica, on Wellbutrin, Xanax and midodrine. We will resume these home indications. Cultures from the central line tract growing Staph aureus. Sensitivities pending. Patient is also refusing her Plaquenil. She does not want to take this anymore. She says it makes her face well. Intake: 2391 mL Output: 10 mL Net: +2381 mL Mechanical ventilation: None, on nasal cannula Feeding: Regular diet, low sodium and low potassium. IV infusions: Norepinephrine Indwelling catheters: Peripheral IVs only Laboratory: CBC: WBC 5.8, hemoglobin 8.8, platelet 52 Chemistry: Sodium 131, potassium 3.7, chloride 98, bicarb 18, BUN 55, creatinine 8.89, glucose 81, lactate 0.8, calcium 8.2, phosphorus 5.2, magnesium 2.0, random cortisol 9.25 Micro: MRSA nares negative, Staph aureus from dialysis catheter tract Review of Systems Review of Systems: Negative except as in HPI. Physical Exam Physical Exam: Physical examination: General: Appears comfortable, appears stated age, resting in bed. HEENT: Normocephalic, atraumatic. Slight edema and erythema appreciated of the right neck. No stridor appreciated. Skin: Significant erythema and edema involving the right upper chest wall. Cardiovascular: Heart is a regular rate and rhythm, no murmurs appreciated on my exam. No significant lower extremity edema. No obvious arrhythmias on telemetry. Lungs: Clear bilaterally, no wheezing appreciated. No crackles. Nontachypneic. Resting comfortably on nasal cannula. Abdomen: Nondistended, nontender to palpation. No masses appreciated. Musculoskeletal: Normal muscle mass and tone. No gross joint deformity abnormalities. No effusions appreciated. Neurologic: Awake and alert, oriented. CN II through XII are grossly intact. Speech is fluent. Nonfocal exam. Psychiatric: appropriate and cooperative during my exam. Results & Data Results & Data Vital Signs (Past 12 Hours) Vital Signs Temp Pulse Resp BP Pulse Ox O2 Del Method O2 Del Method 01/07/25 10:27 Room Air 01/07/25 09:21 36.9 C 01/07/25 08:15 82 16 Room Air 01/07/25 08:15 106/69 01/07/25 08:00 86 12 01/07/25 08:00 110/01/07/25 07:45 84 17 Room Air 01/07/25 07:45 106/01/07/25 07:30 85 12 99 01/07/25 07:30 110/65 01/07/25 07:30 110/65 01/07/25 07:30 110/65 01/07/25 07:30 110/65 01/07/25 07:15 83 16 99 Room Air 01/07/25 07:15 103/65 01/07/25 07:00 101/66 01/07/25 07:00 83 16 97 Room Air 01/07/25 06:45 80 17 100 Room Air 01/07/25 06:45 100/65 01/07/25 06:00 80 14 01/07/25 06:00 10501/07/25 06:00 01/07/25 06:00 10501/07/25 06:00 10501/07/25 06:00 10501/07/25 05:51 78 14 99 01/07/25 05:45 81 13 100 01/07/25 05:45 105/72 01/07/25 05:45 105/72 01/07/25 05:45 105/72 01/07/25 05:45 105/72 01/07/25 05:45 105/72 01/07/25 05:42 82 17 99 01/07/25 05:30 82 14 01/07/25 05:30 99/64 L 01/07/25 05:30 99/64 L 01/07/25 05:30 99/64 L 01/07/25 05:30 99/64 L 01/07/25 05:30 99/64 L 01/07/25 05:21 79 16 01/07/25 05:15 83 17 01/07/25 05:15 79/46 L 01/07/25 05:15 79/46 L 01/07/25 05:15 79/46 L 01/07/25 05:15 79/46 L 01/07/25 05:15 79/46 L 01/07/25 05:12 86 13 01/07/25 05:00 90 17 01/07/25 05:00 75/50 L 01/07/25 05:00 75/50 L 01/07/25 05:00 75/50 L 01/07/25 05:00 75/50 L 01/07/25 05:00 75/50 L 01/07/25 04:51 85 16 01/07/25 04:43 36.8 C 01/07/25 04:42 80 15 01/07/25 04:38 82/47 L 01/07/25 04:38 82/47 L 01/07/25 04:38 82/47 L 01/07/25 04:38 82/47 L 01/07/25 04:38 82/47 L 01/07/25 04:36 82 15 01/07/25 04:35 82/46 L 01/07/25 04:35 82/46 L 01/07/25 04:35 82/46 L 01/07/25 04:35 82/46 L 01/07/25 04:33 87 15 01/07/25 04:30 93 H 14 01/07/25 04:23 80/50 L 01/07/25 04:23 80/50 L 01/07/25 02:51 100 H 18 99 01/07/25 02:42 94 H 19 98 01/07/25 02:30 92 H 16 98 01/07/25 02:21 94 H 19 99 01/07/25 02:12 93 H 20 98 01/07/25 02:00 89/49 L 01/07/25 02:00 89/49 L 01/07/25 02:00 89/49 L 01/07/25 02:00 89/49 L 01/07/25 02:00 97 H 22 93 01/07/25 01:51 90 20 98 01/07/25 01:42 91 H 23 98 01/07/25 01:30 94 H 23 98 01/07/25 01:21 93 H 18 98 01/07/25 01:12 95 H 19 98 01/07/25 01:00 92/48 L 01/07/25 01:00 92/48 L 01/07/25 01:00 92/48 L 01/07/25 01:00 92/48 L 01/07/25 01:00 93 H 19 96 01/07/25 00:51 93 H 19 96 01/07/25 00:42 92 H 36 H 96 01/07/25 00:30 96 H 18 96 01/07/25 00:21 92 H 19 97 01/07/25 00:12 105 H 17 97 01/07/25 00:01 81/50 L 01/07/25 00:01 81/50 L 01/07/25 00:01 81/50 L 01/07/25 00:01 81/50 L 01/07/25 00:01 81/50 L 01/07/25 00:00 95 H 13 97 01/06/25 23:55 38.5 C H 01/06/25 23:51 94 H 11 L 99 01/06/25 23:42 97 H 21 97 01/06/25 23:30 92 H 39 H 97 01/06/25 23:21 94 H 25 H 98 Coding Level of Care Code 55093 CRITICAL CARE 1ST 30-74M Diagnoses Acute mediastinitis J98.51 Cellulitis of chest wall L03.313 Infection of dialysis vascular access T82.7XXA Elevated troponin R79.89 Lupus (systemic lupus erythematosus) M32.9 End stage renal disease N18.6 Thrombocytopenia D69.6
[2025-01-07] MEDS: VANCOMYCIN 750 MG in SODIUM CHLORIDE 0.9% 250 ML IV ONE (11:48)
[2025-01-07] MEDS: MIDODRINE HCL 2.5 MG TAB PO SCH (11:51)
--- NOTE | 2025-01-07 12:09 | Hospitalist Progress Note ---
Date of Service January 07, 2025 Assessment & Plan (1) Cellulitis of chest wall: (2) Infection of dialysis vascular access: (3) Acute mediastinitis: (4) Mediastinitis due to infection: (5) Central line insertion site infection: (6) Elevated troponin: Plan This is a 49 year old female with a PMH of ESRD on HD, SLE on plaquenil, HTN, anemia - coming in with venous catheter infection/cellulitis, mediastinitis, R SCM myositis Septic shock 2/2 central line associated infection with mediastinitis and right SCM myositis S/p infected tunneled catheter removal 01/09. pain improving, remains with erythema over the right chest wall and neck Continue Zosyn/vancomycin Remains on Levophed 0.05. 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 Phenylephrine was weaned 01/06 Midodrine restarted 01/07 1059: Staph aureus. Sensitivities to follow. Continued on Zosyn/vancomycin pending speciations ESRD on hemodialysis Nephrology following Holding on central access for as long as possible for line holiday after line associated infection, anticipate temporary HD cath when dialysis is required possibly 01/10. 01/07 volume status reasonable, potassium 3.7, BUN 55, creatinine 8.9. She is with metabolic anion gap acidosis bicarb 18, AG 15. 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 Troponin 293, repeat 242 around admission in the setting of sepsis. Suspect demand and likely with some degree of impaired clearance. EKG normal sinus rhythm and no territorial ST/T wave changes Chronic Thrombocytopenia -Continue monitoring, PLT 52K without active bleed Chronic, immune. 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 Trend daily Acute on chronic anemia Hemoglobin fluctuating around 910. 8.8 on 01/07 Continue to monitor Likely with underlying medical renal disease Patient does also endorse some hand paresthesias. MCV is upper limit of normal. B12 pending. She also has a history of iron deficiency superimposed on her renal disease. Ferritin/transferrin saturation pending. Ferritin may be elevated as an acute phase reactant Ferric citrate continued both for anemia, and also as a phosphate binder Anxiety/depression Alprazolam daily continued Bupropion 150 mg daily resumed, continue Sertraline 50 mg daily resumed, continue DVT prophylaxis: Heparin subcu continued. Thrombocytopenia stable Admission and Anticipated Discharge Date Admission Date: January 06, 2025 Subjective Seen at the bedside. She reports she has less/overall improved pain overlying her chest at her prior catheter site this morning. She denies fever/chills this morning. Denies shortness of breath. Denies lightheadedness/dizziness. Denies shaking chills/rigors She is curious to know the results of her cultures, the results at time of morning reassessment. Was seen in conjunction with ICU provider, home p.o. medications have been resumed. Slightly limited historian of doses and meds however was verified with external refill prescription. Remains on Levophed Midodrine restarted Pressor titration pending. Remains under ICU care Physical Exam Physical Exam: General: A&Ox3. NAD. Cooperative. HEENT: Atraumatic, normocephalic. Vision and hearing grossly intact. Pupils equal and reactive to light. Thorax: Dressing overlying prior port site C/D/I. Minimal pain on palpation. Remains with erythema of the right upper chest and some of the right neck Pulm: CTAB A&P. -wheezes, -rales, -rhonchi. Symmetrical chest rise. No increase in work of breathing. No respiratory distress. Cardiac: RRR, -mrg. Radial pulses intact and symmetrical. Abdominal: Nontender, nondistended, soft. Extremities: Warm, dry. Does endorse some paresthesias in her palm/hands bilaterally however cap refill is less than 2 seconds in the thumb and palm bilaterally, recycling director strength 5/5, sensation is intact to soft touch, radial pulses intact palpation. Results & Data Results & Data Vital Signs (Past 12 Hours) Vital Signs Temp Pulse Resp BP Pulse Ox O2 Del Method O2 Del Method 01/07/25 10:27 Room Air 01/07/25 09:21 36.9 C 01/07/25 08:15 82 16 Room Air 01/07/25 08:15 106/69 01/07/25 08:00 86 12 01/07/25 08:00 110/74 01/07/25 07:45 84 17 Room Air 01/07/25 07:45 106/74 01/07/25 07:30 85 12 99 01/07/25 07:30 110/65 01/07/25 07:30 110/65 01/07/25 07:30 110/65 01/07/25 07:30 110/65 01/07/25 07:15 83 16 99 Room Air 01/07/25 07:15 103/65 01/07/25 07:00 101/66 01/07/25 07:00 83 16 97 Room Air 01/07/25 06:45 80 17 100 Room Air 01/07/25 06:45 100/65 01/07/25 06:00 80 14 01/07/25 06:00 105/65 01/07/25 06:00 105/65 01/07/25 06:00 105/65 01/07/25 06:00 105/65 01/07/25 06:00 105/65 01/07/25 05:51 78 14 99 01/07/25 05:45 81 13 100 01/07/25 05:45 105/72 01/07/25 05:45 105/72 01/07/25 05:45 105/72 01/07/25 05:45 105/72 01/07/25 05:45 105/72 01/07/25 05:42 82 17 99 01/07/25 05:30 82 14 01/07/25 05:30 99/64 L 01/07/25 05:30 99/64 L 01/07/25 05:30 99/64 L 01/07/25 05:30 99/64 L 01/07/25 05:30 99/64 L 01/07/25 05:21 79 16 01/07/25 05:15 83 17 01/07/25 05:15 79/46 L 01/07/25 05:15 79/46 L 01/07/25 05:15 79/46 L 01/07/25 05:15 79/46 L 01/07/25 05:15 79/46 L 01/07/25 05:12 86 13 01/07/25 05:00 90 17 01/07/25 05:00 75/50 L 01/07/25 05:00 75/50 L 01/07/25 05:00 75/50 L 01/07/25 05:00 75/50 L 01/07/25 05:00 75/50 L 01/07/25 04:51 85 16 01/07/25 04:43 36.8 C 01/07/25 04:42 80 15 01/07/25 04:38 82/47 L 01/07/25 04:38 82/47 L 01/07/25 04:38 82/47 L 01/07/25 04:38 82/47 L 01/07/25 04:38 82/47 L 01/07/25 04:36 82 15 01/07/25 04:35 82/46 L 01/07/25 04:35 82/46 L 01/07/25 04:35 82/46 L 01/07/25 04:35 82/46 L 01/07/25 04:33 87 15 01/07/25 04:30 93 H 14 01/07/25 04:23 80/50 L 01/07/25 04:23 80/50 L 01/07/25 02:51 100 H 18 99 01/07/25 02:42 94 H 19 98 01/07/25 02:30 92 H 16 98 01/07/25 02:21 94 H 19 99 01/07/25 02:12 93 H 20 98 01/07/25 02:00 89/49 L 01/07/25 02:00 89/49 L 01/07/25 02:00 89/49 L 01/07/25 02:00 89/49 L 01/07/25 02:00 97 H 22 93 01/07/25 01:51 90 20 98 01/07/25 01:42 91 H 23 98 01/07/25 01:30 94 H 23 98 01/07/25 01:21 93 H 18 98 01/07/25 01:12 95 H 19 98 01/07/25 01:00 92/48 L 01/07/25 01:00 92/48 L 01/07/25 01:00 92/48 L 01/07/25 01:00 92/48 L 01/07/25 01:00 93 H 19 96 01/07/25 00:51 93 H 19 96 01/07/25 00:42 92 H 36 H 96 01/07/25 00:30 96 H 18 96 01/07/25 00:21 92 H 19 97 01/07/25 00:12 105 H 17 97 01/07/25 00:01 81/50 L 01/07/25 00:01 81/50 L 01/07/25 00:01 81/50 L 01/07/25 00:01 81/50 L 01/07/25 00:01 81/50 L 01/07/25 00:00 95 H 13 97 PG Care Time/CCT Total # of Minutes Spent Total Time Spent with Patient: Total time spent is greater than 50% in coordination of care (as documented) at patient's floor/unit and/or counseling patient: Coding Level of Care Code 46703 SUB INP/OBS CARE 3/50MIN Diagnoses Cellulitis of chest wall L03.313 Infection of dialysis vascular access T82.7XXA Acute mediastinitis J98.51 Mediastinitis due to infection J98.51 Infection of central venous catheter insertion site, initial encounter T80.212A Encounter type: initial encounter Elevated troponin R79.89 (5) Central line insertion site infection Encounter type: initial encounter Qualified Code(s): T80.212A - Local infection due to central venous catheter, initial encounter
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
--- NOTE | 2025-01-07 14:11 | Pharmacy Report ---
Pharmacy PK ABX Note - Date of Service January 07, 2025 - Assessment and Plan Assessment 01/07 * Catheter tip growing S. aureus with sensitivities to follow. Blood cultures pending. * No replacement of access for HD planned today, anticipate restarting early next week * Will dose vancomycin by levels for now, Random level 16.2 mcg/mL this AM 01/06 * 49 year old F w ESRD on HD receiving pip/tazo and vancomycin for treatment of acute mediastinitis, cellulitis of chest wall, and infection of dialysis vascular access and is now s/p removal of infected tunneled central line 01/06 * Pertinent microbiologic data includes: nasal MRSA swab, blood cultures, and intraoperative culture pending Plan Vancomycin * Loading dose: 1250 mg IV x 1 * Will dose via level given ESRD/HD, with target pre-HD level 15-20 mcg/mL * Redosed with 750 mg/mL x 1 * Random level ordered for: 01/08 w AM labs Pharmacy will continue to follow and will adjust dose/frequency as necessary. Thank you. Pharmacy has transitioned to AUC monitoring for vancomycin. AUC/CAPRICE is the preferred PK/PD target and is associated with decreased risk of nephrotoxicity compared to traditional trough targets.
[2025-01-07] MEDS: PREGABALIN 75 MG CAP PO SCH (21:53)
[2025-01-07] MEDS: HYDROmorphone INJ 0.5 MG/0.5 ML SYR IV PRN (21:53)
[2025-01-07 22:02] LABS: Hep B Surface Ag with confirm Negative (Negative)
[2025-01-07] MEDS: diphenhydrAMINE Capsule 25 MG CAP PO ONE (23:01)
[2025-01-08 04:11] LABS: Hematocrit (blood only) 25.1 % (37.0-47.0); Hemoglobin 8.6 g/dl (12.0-16.0); Immature Granulocytes # (auto) 0.02 K/uL (0.01-0.20); Immature Granulocytes % (auto) 0.4 %; Mean Corpuscular Hemoglobin 32.7 pg (25.0-34.0); Mean Corpuscular Volume 95.4 fL (80.0-100.0); Platelet Count 62 K/uL (130-400); RDW Standard Deviation 48.3 fL (36.4-46.3); Red Blood Count 2.63 M/uL (4.20-5.40); White Blood Count 5.32 K/ul (4.8-10.8)
[2025-01-08 04:32] LABS: Alanine Aminotransferase 6 U/L (7-52); Albumin Globulin Ratio 1.0 (0.9-2); Albumin Level 3.0 gm/dl (3.4-5.0); Alkaline Phosphatase 71 U/L (34-104); Anion Gap 14 (3-11); Bilirubin,Total 0.4 mg/dl (0.2-1.0); Blood Urea Nitrogen 66 mg/dl (6-23); Calcium 7.5 mg/dl (8.6-10.3); Carbon Dioxide 19 mmol/L (21-32); Chloride 97 mmol/L (98-107); Creatinine Clr Calc Pharmacy 6.1 ml/min; Globulin 2.9 gm/dl (2.5-4.0); Glucose 82 mg/dl (70-99(Fasting)); Iron 15 mcg/dl (35-150); Magnesium 2.2 mg/dl (1.7-2.4); Potassium 4.0 mmol/L (3.5-5.1); Sodium 130 mmol/L (136-145); Total Protein 5.9 gm/dl (6.0-8.3); Transferrin < 95 mg/dl (200-360)
[2025-01-08 04:53] LABS: Ferritin 539.0 ng/ml (8-388)
--- NOTE | 2025-01-08 08:06 | Nephrology Progress Note ---
Date of Service January 08, 2025 Assessment & Plan (1) End stage renal disease: Plan: * THC removed 01/06/25. Volume status and electrolyte balance remain acceptable at this time * No acute indication for CHARGING MANIPULATOR at this time. Hopefully will be able to monitor over weekend and pursue new IJ THC early next week * Document strict I/O's. * BMP in a.m. (2) Infection of dialysis vascular access: Plan: * IJ THC removed 01/06 with debridement of right chest wall * IJ THC was culture positive for MSSA (3) Anemia in chronic kidney disease: Plan: * Chronic, stable. Will monitor and consider EFRAIN with next HD (4) Systemic lupus erythematosus: Plan: * Maintained on hydroxychloroquine. (5) Secondary hyperparathyroidism of renal origin: Plan: * Continue calcitriol and cinacalcet per home dose. * Auryxia 1 tablet TID with meals. Admission and Anticipated Discharge Date Admission Date: January 06, 2025 Subjective Mrs. Casillas was evaluated in the ICU this morning. She indicated that she feels well. She denied fever, angina or dyspnea. Review of Systems Constitutional: no fever Eyes: no problem reported Ear, Nose, Mouth, Throat: no problem reported Respiratory: no dyspnea Cardiovascular: no chest pain and no edema Gastrointestinal: no abdominal pain, no nausea, no vomiting and no diarrhea/loose stools Physical Exam Constitutional: not in distress Eyes: PERRL, conjunctivae normal, anicteric sclerae ENMT: external ear and nose normal, oropharynx normal Neck: trachea midline, no thyromegaly Respiratory: normal respiratory effort, lungs clear to auscultation Cardiovascular: RRR, no murmur, no edema R IJ THC has been removed. Chest site w/ clean, dry dressing in place Gastrointestinal (Abdomen): normal bowel sounds, soft, nontender, no hepato splenomegaly Musculoskeletal: Extremities: no cyanosis and no clubbing Skin: no rashes, warm and dry Neurologic: no focal motor deficits Results & Data Vital Signs (Past 12 Hours) Vital Signs Temp Pulse Pulse Resp BP BP Pulse Ox 01/08/25 07:10 36.6 C 65 14 93/67 L 98 01/08/25 06:00 68 12 01/08/25 06:00 87/58 L 01/08/25 06:00 87/58 L 01/08/25 06:00 87/58 L 01/08/25 06:00 87/58 L 01/08/25 06:00 87/58 L 01/08/25 05:00 68 13 01/08/25 05:00 100/62 01/08/25 05:00 10062 01/08/25 05:00 10062 01/08/25 05:00 100/62 01/08/25 05:00 62 01/08/25 04:00 84/58 L 01/08/25 04:00 84/58 L 01/08/25 04:00 84/58 L 01/08/25 04:00 84/58 L 01/08/25 04:00 84/58 L 01/08/25 04:00 84/58 L 01/08/25 04:00 84/58 L 01/08/25 04:00 84/58 L 01/08/25 04:00 84/58 L 01/08/25 04:00 64 12 01/08/25 04:00 36.9 C 66 16 95 01/08/25 03:05 78/53 L 01/08/25 03:05 78/53 L 01/08/25 03:05 78/53 L 01/08/25 03:05 78/53 L 01/08/25 03:05 78/53 L 01/08/25 03:03 67 12 01/08/25 03:00 78/52 L 01/08/25 03:00 78/52 L 01/08/25 03:00 78/52 L 01/08/25 03:00 78/52 L 01/08/25 03:00 78/52 L 01/08/25 03:00 78/52 L 01/08/25 03:00 78/52 L 01/08/25 03:00 66 13 01/08/25 02:30 67 13 01/08/25 02:30 76/53 L 01/08/25 02:30 76/53 L 01/08/25 02:30 76/53 L 01/08/25 02:30 76/53 L 01/08/25 02:30 76/53 L 01/08/25 02:00 78/52 L 01/08/25 02:00 78/52 L 01/08/25 02:00 78/52 L 01/08/25 02:00 78/52 L 01/08/25 02:00 78/52 L 01/08/25 02:00 69 12 01/08/25 01:30 71 13 01/08/25 01:30 87/53 L 01/08/25 01:30 87/53 L 01/08/25 01:30 87/53 L 01/08/25 01:30 87/53 L 01/08/25 01:30 87/53 L 01/08/25 01:00 75 15 01/08/25 01:00 95/65 L 01/08/25 01:00 95/65 L 01/08/25 01:00 95/65 L 01/08/25 01:00 95/65 L 01/08/25 01:00 95/65 L 01/08/25 00:30 90/57 L 01/08/25 00:30 90/57 L 01/08/25 00:30 90/57 L 01/08/25 00:30 90/57 L 01/08/25 00:30 90/57 L 01/08/25 00:30 90/57 L 01/08/25 00:30 90/57 L 01/08/25 00:30 90/57 L 01/08/25 00:30 90/57 L 01/08/25 00:30 90/57 L 01/08/25 00:30 90/57 L 01/08/25 00:30 90/57 L 01/08/25 00:30 69 13 01/08/25 00:00 72 01/08/25 00:00 73 14 01/08/25 00:00 87/57 L 01/08/25 00:00 87/57 L 01/08/25 00:00 87/57 L 01/08/25 00:00 87/57 L 01/08/25 00:00 87/57 L 01/08/25 00:00 37.1 C 73 13 94 01/07/25 23:30 92/52 L 01/07/25 23:30 92/52 L 01/07/25 23:30 92/52 L 01/07/25 23:30 92/52 L 01/07/25 23:30 92/52 L 01/07/25 23:30 74 14 01/07/25 23:00 92/55 L 01/07/25 23:00 92/55 L 01/07/25 23:00 92/55 L 01/07/25 23:00 92/55 L 01/07/25 23:00 92/55 L 01/07/25 23:00 79 15 01/07/25 22:30 82 15 01/07/25 22:30 87/51 L 01/07/25 22:30 87/51 L 01/07/25 22:30 87/51 L 01/07/25 22:30 87/51 L 01/07/25 22:30 87/51 L 01/07/25 22:00 85 17 01/07/25 22:00 89/46 L 01/07/25 22:00 89/46 L 01/07/25 22:00 89/46 L 01/07/25 22:00 89/46 L 01/07/25 22:00 89/46 L 01/07/25 21:30 91/60 L 01/07/25 21:30 91/60 L 01/07/25 21:30 91/60 L 01/07/25 21:30 91/60 L 01/07/25 21:30 91/60 L 01/07/25 21:30 85 19 01/07/25 21:00 89 18 01/07/25 21:00 99/64 L 01/07/25 21:00 99/64 L 01/07/25 21:00 99/64 L 01/07/25 21:00 99/64 L 01/07/25 21:00 99/64 L 01/07/25 20:30 89 12 01/07/25 20:30 100/64 O2 Del Method 01/08/25 07:10 Room Air 01/08/25 06:00 01/08/25 06:00 01/08/25 06:00 01/08/25 06:00 01/08/25 06:00 01/08/25 06:00 01/08/25 05:00 01/08/25 05:00 01/08/25 05:00 01/08/25 05:00 01/08/25 05:00 01/08/25 05:00 01/08/25 04:00 01/08/25 04:00 01/08/25 04:00 01/08/25 04:00 01/08/25 04:00 01/08/25 04:00 01/08/25 04:00 01/08/25 04:00 01/08/25 04:00 01/08/25 04:00 01/08/25 04:00 Room Air 01/08/25 03:05 01/08/25 03:05 01/08/25 03:05 01/08/25 03:05 01/08/25 03:05 01/08/25 03:03 01/08/25 03:00 01/08/25 03:00 01/08/25 03:00 01/08/25 03:00 01/08/25 03:00 01/08/25 03:00 01/08/25 03:00 01/08/25 03:00 01/08/25 02:30 01/08/25 02:30 01/08/25 02:30 01/08/25 02:30 01/08/25 02:30 01/08/25 02:30 01/08/25 02:00 01/08/25 02:00 01/08/25 02:00 01/08/25 02:00 01/08/25 02:00 01/08/25 02:00 01/08/25 01:30 01/08/25 01:30 01/08/25 01:30 01/08/25 01:30 01/08/25 01:30 01/08/25 01:30 01/08/25 01:00 01/08/25 01:00 01/08/25 01:00 01/08/25 01:00 01/08/25 01:00 01/08/25 01:00 01/08/25 00:30 01/08/25 00:30 01/08/25 00:30 01/08/25 00:30 01/08/25 00:30 01/08/25 00:30 01/08/25 00:30 01/08/25 00:30 01/08/25 00:30 01/08/25 00:30 01/08/25 00:30 01/08/25 00:30 01/08/25 00:30 01/08/25 00:00 01/08/25 00:00 01/08/25 00:00 01/08/25 00:00 01/08/25 00:00 01/08/25 00:00 01/08/25 00:00 01/08/25 00:00 Room Air 01/07/25 23:30 01/07/25 23:30 01/07/25 23:30 01/07/25 23:30 01/07/25 23:30 01/07/25 23:30 01/07/25 23:00 01/07/25 23:00 01/07/25 23:00 01/07/25 23:00 01/07/25 23:00 01/07/25 23:00 01/07/25 22:30 01/07/25 22:30 01/07/25 22:30 01/07/25 22:30 01/07/25 22:30 01/07/25 22:30 01/07/25 22:00 01/07/25 22:00 01/07/25 22:00 01/07/25 22:00 01/07/25 22:00 01/07/25 22:00 01/07/25 21:30 01/07/25 21:30 01/07/25 21:30 01/07/25 21:30 01/07/25 21:30 01/07/25 21:30 01/07/25 21:00 01/07/25 21:00 01/07/25 21:00 01/07/25 21:00 01/07/25 21:00 01/07/25 21:00 01/07/25 20:30 01/07/25 20:30 Laboratory Results Laboratory Results - last 24 hr 01/07/25 01/08/25 20:10 03:48 WBC 5.32 RBC 2.63 L Hgb 8.6 L Hct 25.1 L MCV 95.4 MCH 32.7 MCHC 34.3 RDW Std Deviation 48.3 H RDW Coeff of Negrito 13.7 Plt Count 62 L MPV 12.2 Immature Gran % (Auto) 0.4 Neut % (Auto) 82.1 Lymph % (Auto) 11.8 Bowman % (Auto) 5.5 Eos % (Auto) 0.0 Baso % (Auto) 0.2 Neut # (Auto) 4.37 Lymph # (Auto) 0.63 L Bowman # (Auto) 0.29 Eos # (Auto) 0.00 Baso # (Auto) 0.01 Immature Gran # (Auto) 0.02 Sodium 130 L Potassium 4.0 Chloride 97 L Carbon Dioxide 19 L Anion Gap 14 H BUN 66 H Creatinine 10.64 H* D Est Cr Clr Drug Dosing 6.1 eGFR 4.00 BUN/Creatinine Ratio 6.2 L Glucose 82 Calcium 7.5 L Phosphorus 5.9 H Magnesium 2.2 Iron 15 L TIBC TNP Transferrin < 95 L Transferrin % Sat TNP Ferritin 539.0 H Total Bilirubin 0.4 AST 9 L ALT 6 L Alkaline Phosphatase 71 Total Protein 5.9 L Albumin 3.0 L Globulin 2.9 Albumin/Globulin Ratio 1.0 Vitamin B12 322 Random Vancomycin 24.5 H Hep Bs Antigen Negative Hep Bs Antibody Immune Hep Bs Antibody, Quant 130.00 Microbiology 01/06/25 Unknown Gram Stain - Final A-Port Aerobic and Anaerobic Culture - Preliminary Staphylococcus aureus 01/06/25 10:25 Aerobic Blood Culture - Preliminary Blood No growth in Aerobic bottle after 24 hours. Anaerobic Blood Culture - Final 01/06/25 09:21 Aerobic Blood Culture - Preliminary Blood No growth in Aerobic bottle after 24 hours. Anaerobic Blood Culture - Preliminary No growth in Anaerobic bottle after 24 hours. PG Care Time/CCT Total # of Minutes Spent Total Time Spent with Patient: 50 minutes provided to review progress notes, laboratory data, blood and catheter tip cultures, interview and examine patient, discussed timing of dialysis catheter replacement with patient, discuss POC with ICU attending, order follow-up laboratory studies for am, update medical record. 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
[2025-01-08] MEDS: HYDROXYCHLOROQUINE SULFATE 200 MG TAB PO SCH (08:30)
--- NOTE | 2025-01-08 10:02 | Critical Care Progress Note ---
Date of Service January 08, 2025 Assessment & Plan (1) Acute mediastinitis: (2) Cellulitis of chest wall: (3) Infection of dialysis vascular access: (4) Elevated troponin: (5) Lupus (systemic lupus erythematosus): (6) End stage renal disease: (7) Thrombocytopenia: Plan Patient is a 49-year-old female with a history of ESRD on HD (home dialysis 5 days weekly), SLE on Plaquenil, hypertension and anemia. The patient presented to the emergency department today for evaluation of right chest wall pain, erythema and edema at the area of her dialysis catheter site. CT imaging of the chest with IV contrast. This showed extensive stranding adjacent to the right internal jugular dialysis catheter suggestive of cellulitis, stranding within the upper mediastinum representing mediastinitis. No fluid collection appreciated. No soft tissue gas. Asymmetric enlargement and edema of the right sternocleidomastoid muscle suggestive of myositis. IJ was patent however there was severe narrowing of the distal right IJ just above the catheter insertion site. Decreased opacification within the right brachiocephalic vein which could represent thrombus or mixing artifact. Thoracic surgery at [facility] was called, they recommended antibiotics and no transfer for mediastinitis. Vascular surgery was consulted for removal of indwelling catheter. Pulmonary/critical care was consulted due to mediastinitis and need for ICU level of care. The patient went to the OR on 01/06/2025 for dialysis catheter removal. Cultures were obtained. They are growing Staph aureus from the catheter tunnel site. The patient remains on broad-spectrum antibiotics. Nephrology has evaluated the patient, are hopeful for a line free weekend as long as labs do not significantly worsen. Patient is requesting at her home medications be resumed today. She did require some low-dose norepinephrine however she was not on her home midodrine which has been resumed. Patient has been weaned off of pressors. Overall she is feeling better. Nephrology is following along, no indications for dialysis yet. Are hoping to wait till early next week. Blood cultures are negative. Her wound culture from the tract of the fistula is growing MSSA. Reason Critically Ill: Acute mediastinitis Catheter associated infection with MSSA of indwelling dialysis catheter of right chest wall, removed by vascular surgery 01/06/2025, cultures with Staph aureus Chest wall cellulitis Myositis involving the sternocleidomastoid muscle Sepsis Immunocompromised with SLE on Plaquenil (no longer taking Plaquenil per patient, makes her face well) ESRD with home dialysis Thrombocytopenia Mood disorder Neuro: Nonfocal neurologic exam. Awake and alert. No concerns at this time. Will resume Wellbutrin, Xanax, gabapentin and Lyrica. Cardiac: EKG close shows sinus rhythm without ST elevation or depression. Troponin mildly elevated on admission. Imaging concerning of mediastinitis. Thoracic surgery does not think it is necessary to transfer her to [facility] at this time and recommend IV antibiotics. Possible brachiocephalic thrombus on imaging. Could be a septic thrombus. Monitor on telemetry. If there are changes in rhythm then repeat EKG. Patient was having some sinus arrhythmia. EKG shows lower voltage. Sinus rhythm with PACs. Ijcbe-rn-egas ultrasound without evidence of pericardial effusion. I will repeat a CT of the chest for monitoring of mediastinitis. Continue midodrine. If there is progression of mediastinitis then patient would need to be transferred for thoracic surgery. Respiratory: Airways are patent. I reviewed her CT extensively. No stridor on exam. GI: No GI concerns at this time. Patient has a low sodium low potassium diet. GI prophylaxis not indicated. RENAL/LYTES: ESRD on home dialysis 5 days weekly. The patient most recently did dialysis 01/05/2025. Nephrology has been consulted, appreciate assistance with case. Tentative plan is to wait till Friday or Friday for dialysis. We will follow labs daily. Ideally the patient should have a line holiday after dialysis catheter is removed. However we will place a temporary dialysis catheter when nephrology thinks dialysis is indicated. : No [place] catheter indicated. ESRD on HD. ENDO: Blood glucose acceptable. Monitor every 6 hours. HEME: Thrombocytopenia. Fairly stable. No active bleeding. ID: Previously on Plaquenil for SLE, patient is refusing to take this medication. Apparently makes her face well. Catheter site infection of indwelling dialysis catheter on right chest, significant cellulitis, myositis and mediastinitis appreciated on imaging. Possible septic thrombus also appreciated. Culture is positive for MSSA from catheter tract. Blood cultures negative. Catheter was removed by vascular surgery 01/06/2025. Was on vancomycin and Zosyn empirically. We will de-escalate to Ancef [address] today for evaluation of mediastinitis. Feeding: Low sodium and low potassium diet. Fluids: No maintenance fluids Analgesia: Continue home gabapentin and Lyrica. Activity: May get out of bed, may work with PT and OT. Thromboprophylaxis: Place SCDs Ulcer prophylaxis: Not indicated at this time. Glycemic control: Blood glucose acceptable, monitor every 6 Bowels: MiraLAX daily. Indwelling catheters: Peripheral IVs Antibiotics: Ancef Plan: Patient can likely transfer out of ICU today. We will obtain a CT chest without contrast to evaluate for progression of mediastinitis. If this is progressing then she would need transferred for thoracic surgery. We have transition antibiotics to Ancef 1 g daily based on sensitivities from culture. Continue to monitor on telemetry. Follow daily labs. Follow nephrology recommendations. I have personally spent 55 minutes of critical care time in the direct management of this patient. This is a life/limb threatening event. This includes time spent evaluating patient, direct bedside care, chart review, placing orders, interpretation of diagnostic studies, discussion with consultants, patient, and family members, as well as other required patient management activities. This time is exclusive of all separately billable procedures, and teaching time and separate from and in addition to any other critical care service time. Admission and Anticipated Discharge Date Admission Date: January 06, 2025 Subjective Past 24-hour events: Patient did well overnight. Tolerating diet well. Cultures positive for MSSA. Blood cultures are negative however. Rounding: Patient is having less pain in her chest and neck. It is still erythematous, slightly tender to palpation and warm to touch. Still some edema present but significantly improved. No fevers or chills. Tolerated breakfast this morning. No chest pain. EKG was sinus rhythm and PACs. Lower voltage EKG however. Bedside POCUS does not show evidence of significantly sized pericardial effusion. Intake: 1738 mL Output: 1 mL Net: 1737 mL Mechanical ventilation: None, on room air Feeding: Low-sodium, low-salt regular diet IV infusions: None Indwelling catheters: Peripheral IVs Laboratory: CBC: WBC 5.3, hemoglobin 8.6, platelet 62 Chemistry: Sodium 130, potassium 4.0, chloride 97, bicarb 19, anion gap 14, BUN 66, creatinine 10.64, glucose 82, calcium 7.5, phosphorus 5.9 Micro: Blood cultures negative to date, right central line tract culture with MSSA Review of Systems Review of Systems: Negative except as in HPI. Physical Exam Physical Exam: Physical examination: General: Appears comfortable, appears stated age, resting in bed. HEENT: Normocephalic, atraumatic. Slight edema and erythema appreciated of the right neck. No stridor appreciated. Skin: Significant erythema and edema involving the right upper chest wall. Cardiovascular: Heart is a regular rate and rhythm, no murmurs appreciated on my exam. No significant lower extremity edema. No obvious arrhythmias on telemetry. Lungs: Clear bilaterally, no wheezing appreciated. No crackles. Nontachypneic. Resting comfortably on nasal cannula. Abdomen: Nondistended, nontender to palpation. No masses appreciated. Musculoskeletal: Normal muscle mass and tone. No gross joint deformity abnormalities. No effusions appreciated. Neurologic: Awake and alert, oriented. CN II through XII are grossly intact. Speech is fluent. Nonfocal exam. Psychiatric: appropriate and cooperative during my exam. Results & Data Results & Data Vital Signs (Past 12 Hours) Vital Signs Temp Pulse Pulse Resp BP BP Pulse Ox 01/08/25 07:10 36.6 C 65 14 93/67 L 98 01/08/25 06:00 68 12 01/08/25 06:00 87/58 L 01/08/25 06:00 87/58 L 01/08/25 06:00 87/58 L 01/08/25 06:00 87/58 L 01/08/25 06:00 87/58 L 01/08/25 05:00 68 13 01/08/25 05:00 100/62 01/08/25 05:00 100/62 01/08/25 05:00 100/62 01/08/25 05:00 100/62 01/08/25 05:00 100/62 01/08/25 04:00 84/58 L 01/08/25 04:00 84/58 L 01/08/25 04:00 84/58 L 01/08/25 04:00 84/58 L 01/08/25 04:00 84/58 L 01/08/25 04:00 84/58 L 01/08/25 04:00 84/58 L 01/08/25 04:00 84/58 L 01/08/25 04:00 84/58 L 01/08/25 04:00 64 12 01/08/25 04:00 36.9 C 66 16 95 01/08/25 03:05 78/53 L 01/08/25 03:05 78/53 L 01/08/25 03:05 78/53 L 01/08/25 03:05 78/53 L 01/08/25 03:05 78/53 L 01/08/25 03:03 67 12 01/08/25 03:00 78/52 L 01/08/25 03:00 78/52 L 01/08/25 03:00 78/52 L 01/08/25 03:00 78/52 L 01/08/25 03:00 78/52 L 01/08/25 03:00 78/52 L 01/08/25 03:00 78/52 L 01/08/25 03:00 66 13 01/08/25 02:30 67 13 01/08/25 02:30 76/53 L 01/08/25 02:30 76/53 L 01/08/25 02:30 76/53 L 01/08/25 02:30 76/53 L 01/08/25 02:30 76/53 L 01/08/25 02:00 78/52 L 01/08/25 02:00 78/52 L 01/08/25 02:00 78/52 L 01/08/25 02:00 78/52 L 01/08/25 02:00 78/52 L 01/08/25 02:00 69 12 01/08/25 01:30 71 13 01/08/25 01:30 87/53 L 01/08/25 01:30 87/53 L 01/08/25 01:30 87/53 L 01/08/25 01:30 87/53 L 01/08/25 01:30 87/53 L 01/08/25 01:00 75 15 01/08/25 01:00 95/65 L 01/08/25 01:00 95/65 L 01/08/25 01:00 95/65 L 01/08/25 01:00 95/65 L 01/08/25 01:00 95/65 L 01/08/25 00:30 90/57 L 01/08/25 00:30 90/57 L 01/08/25 00:30 90/57 L 01/08/25 00:30 90/57 L 01/08/25 00:30 90/57 L 01/08/25 00:30 90/57 L 01/08/25 00:30 90/57 L 01/08/25 00:30 90/57 L 01/08/25 00:30 90/57 L 01/08/25 00:30 90/57 L 01/08/25 00:30 90/57 L 01/08/25 00:30 90/57 L 01/08/25 00:30 69 13 01/08/25 00:00 72 01/08/25 00:00 73 14 01/08/25 00:00 87/57 L 01/08/25 00:00 87/57 L 01/08/25 00:00 87/57 L 01/08/25 00:00 87/57 L 01/08/25 00:00 87/57 L 01/08/25 00:00 37.1 C 73 13 94 01/07/25 23:30 92/52 L 01/07/25 23:30 92/52 L 01/07/25 23:30 92/52 L 01/07/25 23:30 92/52 L 01/07/25 23:30 92/52 L 01/07/25 23:30 74 14 01/07/25 23:00 92/55 L 01/07/25 23:00 92/55 L 01/07/25 23:00 92/55 L 01/07/25 23:00 92/55 L 01/07/25 23:00 92/55 L 01/07/25 23:00 79 15 01/07/25 22:30 82 15 01/07/25 22:30 87/51 L 01/07/25 22:30 87/51 L 01/07/25 22:30 87/51 L 01/07/25 22:30 87/51 L 01/07/25 22:30 87/51 L 01/07/25 22:00 85 17 01/07/25 22:00 89/46 L 01/07/25 22:00 89/46 L 01/07/25 22:00 89/46 L 01/07/25 22:00 89/46 L 01/07/25 22:00 89/46 L O2 Del Method 01/08/25 07:10 Room Air 01/08/25 06:00 01/08/25 06:00 01/08/25 06:00 01/08/25 06:00 01/08/25 06:00 01/08/25 06:00 01/08/25 05:00 01/08/25 05:00 01/08/25 05:00 01/08/25 05:00 01/08/25 05:00 01/08/25 05:00 01/08/25 04:00 01/08/25 04:00 01/08/25 04:00 01/08/25 04:00 01/08/25 04:00 01/08/25 04:00 01/08/25 04:00 01/08/25 04:00 01/08/25 04:00 01/08/25 04:00 01/08/25 04:00 Room Air 01/08/25 03:05 01/08/25 03:05 01/08/25 03:05 01/08/25 03:05 01/08/25 03:05 01/08/25 03:03 01/08/25 03:00 01/08/25 03:00 01/08/25 03:00 01/08/25 03:00 01/08/25 03:00 01/08/25 03:00 01/08/25 03:00 01/08/25 03:00 01/08/25 02:30 01/08/25 02:30 01/08/25 02:30 01/08/25 02:30 01/08/25 02:30 01/08/25 02:30 01/08/25 02:00 01/08/25 02:00 01/08/25 02:00 01/08/25 02:00 01/08/25 02:00 01/08/25 02:00 01/08/25 01:30 01/08/25 01:30 01/08/25 01:30 01/08/25 01:30 01/08/25 01:30 01/08/25 01:30 01/08/25 01:00 01/08/25 01:00 01/08/25 01:00 01/08/25 01:00 01/08/25 01:00 01/08/25 01:00 01/08/25 00:30 01/08/25 00:30 01/08/25 00:30 01/08/25 00:30 01/08/25 00:30 01/08/25 00:30 01/08/25 00:30 01/08/25 00:30 01/08/25 00:30 01/08/25 00:30 01/08/25 00:30 01/08/25 00:30 01/08/25 00:30 01/08/25 00:00 01/08/25 00:00 01/08/25 00:00 01/08/25 00:00 01/08/25 00:00 01/08/25 00:00 01/08/25 00:00 01/08/25 00:00 Room Air 01/07/25 23:30 01/07/25 23:30 01/07/25 23:30 01/07/25 23:30 01/07/25 23:30 01/07/25 23:30 01/07/25 23:00 01/07/25 23:00 01/07/25 23:00 01/07/25 23:00 01/07/25 23:00 01/07/25 23:00 01/07/25 22:30 01/07/25 22:30 01/07/25 22:30 01/07/25 22:30 01/07/25 22:30 01/07/25 22:30 01/07/25 22:00 01/07/25 22:00 01/07/25 22:00 01/07/25 22:00 01/07/25 22:00 01/07/25 22:00 Diagnostic Findings EKG with lower voltage. No heart block. [id number] ultrasound without evidence of large pericardial effusion. Coding Level of Care Code 83613 CRITICAL CARE 1ST 30-74M Diagnoses Acute mediastinitis J98.51 Cellulitis of chest wall L03.313 Infection of dialysis vascular access T82.7XXA Elevated troponin R79.89 Lupus (systemic lupus erythematosus) M32.9 End stage renal disease N18.6 Thrombocytopenia D69.6
--- NOTE | 2025-01-08 10:50 | CT Scan Report ---
CT OF THE CHEST WITHOUT IV CONTRAST CLINICAL HISTORY: Mediastinitis. COMPARISON STUDY: Chest CTs January 06, 2025. CT DOSE: 256.88 mGy.cm TECHNIQUE: Axial images of the chest were obtained without IV contrast. Images were reviewed in the axial, sagittal, and coronal planes. IV contrast was not administered for this examination. Automat ed exposure control was utilized for the study. A dose lowering technique was utilized adhering to t he principles of ALARA. FINDINGS: The right internal jugular catheter has been removed since CT of January 06, 2025. There i s a subtle intraluminal density, measuring approximately 1 cm, which contains a small focus of calcif ication within the right brachiocephalic vein on image 67 of 261. This may represent a fibrin sheath. Skin/subcutaneous soft tissue thickening at the site of catheter is noted. No fluid collection is id entified. Right lower neck and mediastinal stranding and fluid have mildly improved since CT of 2024. Asymmetric right breast edema and skin thickening has mildly increased. There is no soft tissue gas. There is no pneumothorax. Small right and trace left pleural effusions have developed. A ssociated subpleural opacity represents atelectasis. There is no consolidation to suggest pneumonia. Prominent upper mediastinal and bilateral retropectoral lymph nodes are again noted. IMPRESSION: 1. Interval removal of the right internal jugular dialysis catheter. Possible small fibrin sheath wit hin the right brachiocephalic vein. 2. Skin/subcutaneous thickening at catheter site without associated fluid collection. Right lower ne ck/upper mediastinal edema and stranding, mildly improved since CT of January 06, 2025. Increase in e xtent of right breast edema and skin thickening suggestive of cellulitis. No associated fluid collect ion. No soft tissue gas. 3. Interval development of small right and trace left pleural effusions. Associated subpleural opacit ies consistent with atelectasis. ACT 112: Negative or not required by law. Electronically signed by: Wilder Lloyd M.D. 01/08/2025 10:47 AM
--- NOTE | 2025-01-08 12:34 | Hospitalist Progress Note ---
Date of Service January 08, 2025 Assessment & Plan (1) Cellulitis of chest wall: (2) Infection of dialysis vascular access: (3) Acute mediastinitis: (4) Mediastinitis due to infection: (5) Central line insertion site infection: (6) Elevated troponin: Plan This is a 49 year old female with a PMH of ESRD on HD, SLE on plaquenil, HTN, anemia - coming in with venous catheter infection/cellulitis, mediastinitis, R SCM myositis Septic shock 2/2 central line associated infection with mediastinitis and right SCM myositis S/p infected tunneled catheter removal 01/09. pain improving, remains with erythema over the right chest wall and neck Midodrine continued Levophed weaned and discontinued. Normotensive on assessment approximately noon 01/08 Port cultures are positive for MSSA. Vancomycin and Zosyn have been discontinued. Patient has been transitioned to cefazolin renally dosed. Continue to hold Plaquenil - Blood cultures remain negative to date Given MSSA line associated infection limited echo for endocarditis screen is pending ESRD on hemodialysis Nephrology following Holding on central access for as long as possible for line holiday after line associated infection, anticipate temporary HD cath when dialysis is required possibly 01/10. 01/07 volume status reasonable, potassium 3.7, BUN 55, creatinine 8.9. She is with metabolic anion gap acidosis bicarb 18, AG 15. Cinacalcet continued Goal for line holiday over the weekend. Next dialysis anticipated 01/10. Volume status adequate. Potassium 4.0. BUN 66. 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 Troponin 293, repeat 242 around admission in the setting of sepsis. Suspect demand and likely with some degree of impaired clearance. EKG normal sinus rhythm and no territorial ST/T wave changes Chronic Thrombocytopenia -Continue monitoring, PLT 52K without active bleed Chronic, immune. 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 Trend daily Acute on chronic anemia Hemoglobin fluctuating around 910. Remained stable 01/08 Continue to monitor Likely with underlying medical renal disease Ferric citrate continued both for anemia, and also as a phosphate binder Anxiety/depression Alprazolam daily continued Bupropion 150 mg daily resumed, continued Sertraline 50 mg daily resumed, continued DVT prophylaxis: Heparin subcu continued. Thrombocytopenia stable Admission and Anticipated Discharge Date Admission Date: January 06, 2025 Subjective Seen at bedside this morning. Continues to have some pain in her right chest wall but greatly improved from prior. Erythema is greatly improved, resolving. She denies fever/chills/sweats. Was weaned from Levophed earlier. At time of bedside reassessment BP is normal. PCT remains elevated however this has impaired clearance due to her renal status. Repeat CTchest with subcu thickening but no fluid collection. Mediastinal edema and stranding is improving compared to prior. Right breast edema and skin thickening is slightly increased and suggestive of cellulitis. No soft tissue gas or fluid. Discussed with assistant program director, stable for downgrade Physical Exam Physical Exam: General: A&Ox3. NAD. Cooperative. HEENT: Atraumatic, normocephalic. Vision and hearing grossly intact. Pupils equal and reactive to light. Thorax: Dressing overlying prior port site C/D/I. Minimal pain on palpation. Remains with erythema of the right upper chest and some of the right neck, greatly improved today. Tenderness to palpation persists but also greatly improved Pulm: CTAB A&P. -wheezes, -rales, -rhonchi. Symmetrical chest rise. No increase in work of breathing. No respiratory distress. Cardiac: RRR, -mrg. Radial pulses intact and symmetrical. Abdominal: Nontender, nondistended, soft. Extremities: Warm, dry. Moves all extremities equally. Cap refill brisk Results & Data Results & Data Vital Signs (Past 12 Hours) Vital Signs Temp Pulse Pulse Resp BP BP Pulse Ox 01/08/25 10:00 01/08/25 08:00 01/08/25 07:10 36.6 C 65 14 93/67 L 98 01/08/25 06:00 68 12 01/08/25 06:00 87/58 L 01/08/25 06:00 87/58 L 01/08/25 06:00 87/58 L 01/08/25 06:00 87/58 L 01/08/25 06:00 87/58 L 01/08/25 05:00 68 13 01/08/25 05:00 100/62 01/08/25 05:00 100/62 01/08/25 05:00 100/62 01/08/25 05:00 100/62 01/08/25 05:00 100/62 01/08/25 04:00 84/58 L 01/08/25 04:00 84/58 L 01/08/25 04:00 84/58 L 01/08/25 04:00 84/58 L 01/08/25 04:00 84/58 L 01/08/25 04:00 84/58 L 01/08/25 04:00 84/58 L 01/08/25 04:00 84/58 L 01/08/25 04:00 84/58 L 01/08/25 04:00 64 12 01/08/25 04:00 36.9 C 66 16 95 01/08/25 03:05 78/53 L 01/08/25 03:05 78/53 L 01/08/25 03:05 78/53 L 01/08/25 03:05 78/53 L 01/08/25 03:05 78/53 L 01/08/25 03:03 67 12 01/08/25 03:00 78/52 L 01/08/25 03:00 78/52 L 01/08/25 03:00 78/52 L 01/08/25 03:00 78/52 L 01/08/25 03:00 78/52 L 01/08/25 03:00 78/52 L 01/08/25 03:00 78/52 L 01/08/25 03:00 66 13 01/08/25 02:30 67 13 01/08/25 02:30 76/53 L 01/08/25 02:30 76/53 L 01/08/25 02:30 76/53 L 01/08/25 02:30 76/53 L 01/08/25 02:30 76/53 L 01/08/25 02:00 78/52 L 01/08/25 02:00 78/52 L 01/08/25 02:00 78/52 L 01/08/25 02:00 78/52 L 01/08/25 02:00 78/52 L 01/08/25 02:00 69 12 01/08/25 01:30 71 13 01/08/25 01:30 87/53 L 01/08/25 01:30 87/53 L 01/08/25 01:30 87/53 L 01/08/25 01:30 87/53 L 01/08/25 01:30 87/53 L 01/08/25 01:00 75 15 01/08/25 01:00 95/65 L 01/08/25 01:00 95/65 L 01/08/25 01:00 95/65 L 01/08/25 01:00 95/65 L 01/08/25 01:00 95/65 L 01/08/25 00:30 90/57 L 01/08/25 00:30 90/57 L 01/08/25 00:30 90/57 L 01/08/25 00:30 90/57 L 01/08/25 00:30 90/57 L 01/08/25 00:30 90/57 L 01/08/25 00:30 90/57 L 01/08/25 00:30 90/57 L 01/08/25 00:30 90/57 L 01/08/25 00:30 90/57 L 01/08/25 00:30 90/57 L 01/08/25 00:30 90/57 L 01/08/25 00:30 69 13 O2 Del Method O2 Del Method 01/08/25 10:00 Room Air 01/08/25 08:00 Room Air 01/08/25 07:10 Room Air 01/08/25 06:00 01/08/25 06:00 01/08/25 06:00 01/08/25 06:00 01/08/25 06:00 01/08/25 06:00 01/08/25 05:00 01/08/25 05:00 01/08/25 05:00 01/08/25 05:00 01/08/25 05:00 01/08/25 05:00 01/08/25 04:00 01/08/25 04:00 01/08/25 04:00 01/08/25 04:00 01/08/25 04:00 01/08/25 04:00 01/08/25 04:00 01/08/25 04:00 01/08/25 04:00 01/08/25 04:00 01/08/25 04:00 Room Air 01/08/25 03:05 01/08/25 03:05 01/08/25 03:05 01/08/25 03:05 01/08/25 03:05 01/08/25 03:03 01/08/25 03:00 01/08/25 03:00 01/08/25 03:00 01/08/25 03:00 01/08/25 03:00 01/08/25 03:00 01/08/25 03:00 01/08/25 03:00 01/08/25 02:30 01/08/25 02:30 01/08/25 02:30 01/08/25 02:30 01/08/25 02:30 01/08/25 02:30 01/08/25 02:00 01/08/25 02:00 01/08/25 02:00 01/08/25 02:00 01/08/25 02:00 01/08/25 02:00 01/08/25 01:30 01/08/25 01:30 01/08/25 01:30 01/08/25 01:30 01/08/25 01:30 01/08/25 01:30 01/08/25 01:00 01/08/25 01:00 01/08/25 01:00 01/08/25 01:00 01/08/25 01:00 01/08/25 01:00 01/08/25 00:30 01/08/25 00:30 01/08/25 00:30 01/08/25 00:30 01/08/25 00:30 01/08/25 00:30 01/08/25 00:30 01/08/25 00:30 01/08/25 00:30 01/08/25 00:30 01/08/25 00:30 01/08/25 00:30 01/08/25 00:30 PG Care Time/CCT Total # of Minutes Spent Total Time Spent with Patient: Total time spent is greater than 50% in coordination of care (as documented) at patient's floor/unit and/or counseling patient: Coding Level of Care Code 29039 SUB INP/OBS CARE 3/50MIN Diagnoses Cellulitis of chest wall L03.313 Infection of dialysis vascular access T82.7XXA Acute mediastinitis J98.51 Mediastinitis due to infection J98.51 Infection of central venous catheter insertion site, initial encounter T80.212A Encounter type: initial encounter Elevated troponin R79.89 (5) Central line insertion site infection Encounter type: initial encounter Qualified Code(s): T80.212A - Local infection due to central venous catheter, initial encounter
--- NOTE | 2025-01-08 14:49 | XCELERA ---
[id number] [id number]
[2025-01-09 04:28] LABS: Hematocrit (blood only) 25.9 % (37.0-47.0); Hemoglobin 8.8 g/dl (12.0-16.0); Immature Granulocytes # (auto) 0.02 K/uL (0.01-0.20); Immature Granulocytes % (auto) 0.4 %; Mean Corpuscular Hemoglobin 32.4 pg (25.0-34.0); Mean Corpuscular Volume 95.2 fL (80.0-100.0); Platelet Count 75 K/uL (130-400); RDW Standard Deviation 46.9 fL (36.4-46.3); Red Blood Count 2.72 M/uL (4.20-5.40); White Blood Count 4.84 K/ul (4.8-10.8)
[2025-01-09 04:45] LABS: Anion Gap 15.0 (3-11); Blood Urea Nitrogen 81.0 mg/dl (6-23); Calcium 7.6 mg/dl (8.6-10.3); Carbon Dioxide 19.0 mmol/L (21-32); Chloride 97.0 mmol/L (98-107); Creatinine Clr Calc Pharmacy 5.3 ml/min; Glucose 82.0 mg/dl (70-99(Fasting)); Magnesium 2.3 mg/dl (1.7-2.4); Potassium 4.3 mmol/L (3.5-5.1); Sodium 131.0 mmol/L (136-145)
--- NOTE | 2025-01-09 08:57 | Nephrology Progress Note ---
Date of Service January 09, 2025 Assessment & Plan (1) End stage renal disease: Plan: * THC removed 01/06/25. 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 Continue to monitor over weekend. * Will consult vascular surgery to assess patient on 01/10/25 for new IJ THC * Document strict I/O's. * BMP, CBC in a.m. (2) Infection of dialysis vascular access: Plan: * IJ THC removed 01/06 with debridement of right chest wall * IJ THC was culture positive for MSSA * Blood cultures x2 negative * 01/08/25 TTE: no vegetation * Patient remains on IV Cefazolin (3) Anemia in chronic kidney disease: Plan: * Chronic, stable. Will monitor and consider EFRAIN with next HD (4) Systemic lupus erythematosus: Plan: * Maintained on hydroxychloroquine. (5) Secondary hyperparathyroidism of renal origin: Plan: * Continue calcitriol and cinacalcet per home dose. * Auryxia 1 tablet TID with meals. Admission and Anticipated Discharge Date Admission Date: January 06, 2025 Subjective Mrs. Casillas was evaluated in the ICU this morning. She reports that the cellulitis involving her R chest wall is subjectively improved. She denied fever, angina or dyspnea. Review of Systems Constitutional: no fever Eyes: no problem reported Ear, Nose, Mouth, Throat: no problem reported Respiratory: no dyspnea Cardiovascular: no chest pain and no edema Gastrointestinal: no abdominal pain, no nausea, no vomiting and no diarrhea/loose stools Physical Exam Constitutional: not in distress Eyes: PERRL, conjunctivae normal, anicteric sclerae ENMT: external ear and nose normal, oropharynx normal Neck: trachea midline, no thyromegaly Respiratory: normal respiratory effort, lungs clear to auscultation Cardiovascular: RRR, no murmur, no edema Gastrointestinal (Abdomen): normal bowel sounds, soft, nontender, no hepatosplenomegaly Musculoskeletal: Extremities: no cyanosis and no clubbing Skin: no rashes, warm and dry Neurologic: no focal motor deficits Results & Data Vital Signs (Past 12 Hours) Vital Signs Temp Pulse Pulse Resp BP Pulse Ox O2 Del Method 01/09/25 08:41 36.7 C 75 14 121/73 97 Room Air 01/09/25 03:59 36.8 C 68 15 104/68 95 Room Air 01/09/25 00:00 66 01/09/25 00:00 36.8 C 66 15 111/71 94 Room Air Laboratory Results Laboratory Results - last 24 hr 01/08/25 01/09/25 10:15 03:53 WBC 4.84 RBC 2.72 L Hgb 8.8 L Hct 25.9 L MCV 95.2 MCH 32.4 MCHC 34.0 RDW Std Deviation 46.9 H RDW Coeff of Negrito 13.6 Plt Count 75 L MPV 11.9 Immature Gran % (Auto) 0.4 Neut % (Auto) 80.8 Lymph % (Auto) 11.6 Hamilton % (Auto) 7.0 Eos % (Auto) 0.0 Baso % (Auto) 0.2 Neut # (Auto) 3.91 Lymph # (Auto) 0.56 L Hamilton # (Auto) 0.34 Eos # (Auto) 0.00 Baso # (Auto) 0.01 Immature Gran # (Auto) 0.02 ESR 58 H Sodium 131 L Potassium 4.3 Chloride 97 L Carbon Dioxide 19 L Anion Gap 15 H BUN 81 H Creatinine 12.16 H* D Est Cr Clr Drug Dosing 5.3 eGFR 3.40 BUN/Creatinine Ratio 6.7 L Glucose 82 Calcium 7.6 L Phosphorus 6.9 H Magnesium 2.3 C-Reactive Protein 26.62 H Procalcitonin 5.27 H PG Care Time/CCT Total # of Minutes Spent Total Time Spent with Patient: 50 minutes provided to review progress notes, laboratory data, blood and catheter tip cultures, review echocardiogram results, interview and examine patient, discussed timing of dialysis catheter replacement with patient, order follow up vascular surgery consultation for Friday, order follow-up laboratory studies for , update medical record. 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
--- NOTE | 2025-01-09 10:44 | Hospitalist Progress Note ---
Date of Service January 09, 2025 Assessment & Plan (1) Cellulitis of chest wall: (2) Infection of dialysis vascular access: (3) Acute mediastinitis: (4) Mediastinitis due to infection: (5) Central line insertion site infection: (6) Elevated troponin: Plan This is a 49 year old female with a PMH of ESRD on HD, SLE on plaquenil, HTN, anemia - coming in with venous catheter infection/cellulitis, mediastinitis, R SCM myositis Septic shock 2/2 central line associated infection with mediastinitis and right SCM myositis S/p infected tunneled catheter removal 01/09. pain improving, remains with erythema over the right chest wall and neck Midodrine continued Remains off vasopressors, downgraded Port cultures are positive for MSSA. Vancomycin and Zosyn have been discontinued. Patient has been transitioned to cefazolin renally dosed. - Blood cultures remain negative to date Limited TTE without evidence of any valvular involvement Given associated mediastinitis and MSSA associated line infection would favor at least 4-week antibiotic course of therapy. Generally given the extent of her disease would treat with IV. ID consulted for final duration/further recommendations. ESRD on hemodialysis Nephrology following Goal for line holiday over the weekend. Next dialysis anticipated 01/10 or 01/11 with dialysis catheter placement 01/10. Volume status adequate. Potassium 4.3. Rising BUN/creatinine, monitor for acidemia. 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 Troponin 293, repeat 242 around admission in the setting of sepsis. Suspect demand and likely with some degree of impaired clearance. EKG normal sinus rhythm and no territorial ST/T wave changes Chronic Thrombocytopenia -Continue monitoring, platelet count remained stable Chronic, immune. 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 Trend daily Acute on chronic anemia Hemoglobin fluctuating around 910. Remained stable Continue to monitor 2/2 underlying medical renal disease Ferric citrate continued both for anemia, and also as a phosphate binder Anxiety/depression Alprazolam daily continued Bupropion 150 mg daily resumed, continued Sertraline 50 mg daily resumed, continued DVT prophylaxis: Heparin subcu continued. Thrombocytopenia stable Admission and Anticipated Discharge Date Admission Date: January 06, 2025 Subjective Seen at bedside today. Still remains somewhat tender in the chest improvement prior but unchanged over the last day. Erythema has resolved. No fevers or chills. No dyspnea. No shaking chills/rigors Patient is following with nephrology. Volume status acceptable. Potassium 4.3, BUN is rising and 81, creatinine 12. Anticipated for line placement after weekend holiday and HD either 01/10 or 01/11. Physical Exam Physical Exam: General: A&Ox3. NAD. Cooperative. HEENT: Atraumatic, normocephalic. Vision and hearing grossly intact. Pupils equal and reactive to light. Thorax: Dressing overlying prior port site C/D/I. Erythema has resolved. Tenderness overall improved from peak illness, some residual tenderness persists. No crepitus Pulm: CTAB A&P. -wheezes, -rales, -rhonchi. Symmetrical chest rise. No increase in work of breathing. No respiratory distress. Cardiac: RRR, -mrg. Radial pulses intact and symmetrical. Abdominal: Nontender, nondistended, soft. Extremities: Warm, dry. Moves all extremities equally. Cap refill brisk Results & Data Results & Data Vital Signs (Past 12 Hours) Vital Signs Temp Pulse Pulse Resp BP Pulse Ox O2 Del Method 01/09/25 08:41 36.7 C 75 14 121/73 97 Room Air 01/09/25 03:59 36.8 C 68 15 104/68 95 Room Air 01/09/25 00:00 66 01/09/25 00:00 36.8 C 66 15 111/71 94 Room Air PG Care Time/CCT Total # of Minutes Spent Total Time Spent with Patient: Total time spent is greater than 50% in coordination of care (as documented) at patient's floor/unit and/or counseling patient: Coding Level of Care Code 69077 SUB INP/OBS CARE 3/50MIN Diagnoses Cellulitis of chest wall L03.313 Infection of dialysis vascular access T82.7XXA Acute mediastinitis J98.51 Mediastinitis due to infection J98.51 Infection of central venous catheter insertion site, initial encounter T80.212A Encounter type: initial encounter Elevated troponin R79.89 (5) Central line insertion site infection Encounter type: initial encounter Qualified Code(s): T80.212A - Local infection due to central venous catheter, initial encounter
--- NOTE | 2025-01-09 11:34 | Vascular Surgery Progress Note ---
Date of Service January 09, 2025 Assessment & Plan (1) Infection of dialysis vascular access: Plan: Would prefer to continue line holiday as long as she does not need acute dialysis. Next step would be tunneled left sided line for longterm access. Had long discussion with her about AV fistula access. At this time she is refusing, but will continue this discussion with her. Admission and Anticipated Discharge Date Admission Date: January 06, 2025 Subjective s/p removal of infected right tunneled central line 01/06/25. Erythema resolving. Patient is feeling much better. Soreness/tenderness around catheter much improved now with catheter removed. Physical Exam Physical Exam: Decreased swelling along anterior right chest wall. Minimal drainage from wound. Results & Data Vital Signs (Past 12 Hours) Vital Signs Temp Pulse Pulse Resp BP Pulse Ox O2 Del Method 01/09/25 08:41 36.7 C 75 14 121/73 97 Room Air 01/09/25 03:59 36.8 C 68 15 104/68 95 Room Air 01/09/25 00:00 66 01/09/25 00:00 36.8 C 66 15 111/71 94 Room Air PG Care Time/CCT Total # of Minutes Spent Total Time Spent with Patient: Total time spent is greater than 50% in coordination of care (as documented) at patient's floor/unit and/or counseling patient:
[2025-01-09] MEDS: FERRIC CITRATE 210 MG TAB PO SCH (17:36)
[2025-01-10 04:58] LABS: Hematocrit (blood only) 25.8 % (37.0-47.0); Hemoglobin 8.9 g/dl (12.0-16.0); Mean Corpuscular Hemoglobin 32.1 pg (25.0-34.0); Mean Corpuscular Volume 93.1 fL (80.0-100.0); Platelet Count 98 K/uL (130-400); RDW Standard Deviation 46.7 fL (36.4-46.3); Red Blood Count 2.77 M/uL (4.20-5.40); White Blood Count 4.59 K/ul (4.8-10.8)
[2025-01-10 05:20] LABS: Anion Gap 16.0 (3-11); Blood Urea Nitrogen 89.0 mg/dl (6-23); Calcium 7.2 mg/dl (8.6-10.3); Carbon Dioxide 18.0 mmol/L (21-32); Chloride 98.0 mmol/L (98-107); Creatinine Clr Calc Pharmacy 4.2 ml/min; Glucose 94.0 mg/dl (70-99(Fasting)); Potassium 3.9 mmol/L (3.5-5.1); Sodium 132.0 mmol/L (136-145)
[2025-01-10 05:29] LABS: INR 1.0 (0.9-1.1); Prothrombin Time 10.7 Seconds (9.0-12.0)
--- NOTE | 2025-01-10 08:48 | Nephrology Progress Note ---
Date of Service January 10, 2025 Assessment & Plan (1) End stage renal disease: Plan: * THC removed 01/06/25. Volume status and electrolyte balance remain acceptable at this time * No acute indication for SERVER ADMINISTRATOR at this time. Continue to monitor * I have spoken to vascular surgery this morning. Recommendation was to continue IV antibiotics and plan new IJ THC Friday01/12/25 * Document strict I/O's. * BMP, CBC in a.m. (2) Infection of dialysis vascular access: Plan: * IJ THC removed 01/06 with debridement of right chest wall * IJ THC was culture positive for MSSA * Blood cultures x2 negative * 01/08/25 TTE: no vegetation * Patient remains on IV Cefazolin (3) Anemia in chronic kidney disease: Plan: * Chronic, stable. Will monitor and consider EFRAIN with next HD (4) Systemic lupus erythematosus: Plan: * Maintained on hydroxychloroquine. (5) Secondary hyperparathyroidism of renal origin: Plan: * Continue calcitriol and cinacalcet per home dose. * Auryxia 1 tablet TID with meals. Admission and Anticipated Discharge Date Admission Date: January 06, 2025 Subjective Mrs. Casillas was evaluated in her hospital room this morning. She reports that the cellulitis involving her R chest wall is subjectively improved. She denied fever, angina or dyspnea. Review of Systems Constitutional: no fever Eyes: no problem reported Ear, Nose, Mouth, Throat: no problem reported Respiratory: no dyspnea Cardiovascular: no chest pain and no edema Gastrointestinal: no abdominal pain, no nausea, no vomiting and no diarrhea/loose stools Physical Exam Constitutional: not in distress Eyes: PERRL, conjunctivae normal, anicteric sclerae ENMT: external ear and nose normal, oropharynx normal Neck: trachea midline, no thyromegaly Respiratory: normal respiratory effort, lungs clear to auscultation Cardiovascular: RRR, no murmur, no edema Gastrointestinal (Abdomen): normal bowel sounds, soft, nontender, no hepatosplenomegaly Musculoskeletal: Extremities: no cyanosis and no clubbing Skin: no rashes, warm and dry Neurologic: no focal motor deficits Results & Data Vital Signs (Past 12 Hours) Vital Signs Temp Pulse Pulse Resp BP Pulse Ox O2 Del Method 01/10/25 04:00 36.6 C 69 15 114/76 99 Room Air 01/10/25 00:00 71 01/10/25 00:00 36.6 C 72 15 122/84 99 Room Air Laboratory Results Laboratory Results - last 24 hr 01/10/25 04:25 WBC 4.59 L RBC 2.77 L Hgb 8.9 L Hct 25.8 L MCV 93.1 MCH 32.1 MCHC 34.5 RDW Std Deviation 46.7 H RDW Coeff of Negrito 13.5 Plt Count 98 L MPV 11.7 PT 10.7 INR 1.0 Sodium 132 L Potassium 3.9 Chloride 98 Carbon Dioxide 18 L Anion Gap 16 H BUN 89 H Creatinine 14.23 H* D Est Cr Clr Drug Dosing 4.2 eGFR 2.82 BUN/Creatinine Ratio 6.3 L Glucose 94 Calcium 7.2 L PG Care Time/CCT Total # of Minutes Spent Total Time Spent with Patient: 50 minutes provided to review progress notes, laboratory data, echocardiogram results, interview and examine patient, discussed timing of dialysis catheter replacement with vascular surgery, order follow-up laboratory studies for am, update medical record. 

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
[2025-01-10] MEDS ORDERED: MIDODRINE HCL 2.5 MG TAB PO PRN (11:26)
--- NOTE | 2025-01-10 11:42 | Vascular Surgery Progress Note ---
Date of Service January 10, 2025 Assessment & Plan (1) Infection of dialysis vascular access: Plan: Blood cultures remain negative and in discussions with Nephrology, she will need dialysis Friday/Friday. Will plan for left sided tunneled dialysis catheter placement Friday morning, first case, with anesthesia. Continue antibiotics per primary team. Admission and Anticipated Discharge Date Admission Date: January 06, 2025 Subjective Doing well this morning. Right neck and chest feel much better. Remains afebrile. No HD required over the weekend. Blood cultures remain negative. Culture from OR positive for staph aureus. Physical Exam Physical Exam: WDWN, in no distress right chest and neck edema mostly resolved from prior exam, with small amount of edema noted at top of chest/shoulder area, with no erythema or warmth appreciated. No tenderness to palpation over chest, shoulder and neck on the right. Right chest wall dressing clean dry and intact, Dressing removed at bedside Wound bed red with bleeding, no purulent material noted. Wound redressed with 4x4 and tegaderm. Results & Data Vital Signs (Past 12 Hours) Vital Signs Temp Pulse Pulse Resp BP Pulse Ox O2 Del Method 01/10/25 08:00 36.8 C 77 16 131/94 99 Room Air 01/10/25 04:00 36.6 C 69 15 114/76 99 Room Air 01/10/25 00:00 71 01/10/25 00:00 36.6 C 72 15 122/84 99 Room Air Laboratory Results 01/06/25 Unknown Gram Stain - Final A-Port Aerobic and Anaerobic Culture - Preliminary Staphylococcus aureus 01/10/25 04:25 WBC 4.59 L RBC 2.77 L Hgb 8.9 L Hct 25.8 L MCV 93.1 MCH 32.1 MCHC 34.5 RDW Std Deviation 46.7 H RDW Coeff of Negrito 13.5 Plt Count 98 L MPV 11.7 PT 10.7 INR 1.0 Sodium 132 L Potassium 3.9 Chloride 98 Carbon Dioxide 18 L Anion Gap 16 H BUN 89 H Creatinine 14.23 H* D Est Cr Clr Drug Dosing 4.2 eGFR 2.82 BUN/Creatinine Ratio 6.3 L Glucose 94 Calcium 7.2 L Medications Administered Home Medications Medication Instructions Recorded Confirmed Last Taken vit B complx, C-iron 8 mg-folic 1 tab PO QAM 09/29/23 11/06/25 07/04/24 09:00 acid 800 mcg-D3 1,000 unit-zinc tablet (ProRenal) Medical Marijuana 1 dose inhalation DIRECTED PRN 09/04/23 01/06/25 01/01/24 22:00 Pain bupropion HCl 150 mg tablet,12 hr 0 mg PO QAM 01/01/24 01/06/25 Unknown sustained-release (Wellbutrin SR) cinacalcet 30 mg tablet 0 mg PO .3X WEEK 01/23/24 01/06/25 Unknown alprazolam 0.25 mg tablet (Xanax) 0.25 mg PO DAILY PRN anxiety #30 03/19/24 01/06/25 Unknown tabs ondansetron 8 mg disintegrating 8 mg PO DAILY PRN nausea and 05/26/24 01/06/25 Unknown tablet vomiting 3 days #30 tabs hydrocodone 5 mg-acetaminophen 325 1 tab PO BID PRN severe pain #20 10/22/24 01/06/25 Unknown mg tablet tabs hydroxychloroquine 200 mg tablet 200 mg PO QAM #120 tabs 12/23/24 01/06/25 Unknown (Plaquenil) ferric citrate 210 mg iron tablet 210 mg PO TIDM 01/06/25 01/06/25 Unknown (Auryxia) midodrine 5 mg tablet 5 mg PO UD 01/06/25 01/06/25 Unknown sertraline 50 mg tablet 0 mg PO DAILY 01/06/25 01/06/25 Unknown Active Medications Generic Name Dose Route Start Last Admin Trade Name Freq PRN Reason Stop Dose Admin Acetaminophen 650 mg 01/06/25 23:56 01/07/25 00:11 Acetaminophen 325 Mg Tab PO 02/05/25 23:55 650 mg Q4H PRN Administration Pain or Fever Bupropion HCl 150 mg 01/07/25 09:45 01/10/25 08:48 Bupropion Sr 150 Mg Tabcr PO 02/06/25 09:44 150 mg BID KAJAL Administration Cinacalcet 30 mg 01/07/25 09:45 01/09/25 08:45 Cinacalcet Hcl 30 Mg Tab PO 02/06/25 09:44 30 mg Q48H KAJAL Administration Ferric Citrate 210 mg 01/09/25 17:00 01/10/25 08:47 Ferric Citrate 210 Mg Tab PO 02/08/25 16:59 210 mg TIDM KAJAL Administration Gabapentin 100 mg 01/07/25 09:45 01/10/25 08:48 Gabapentin 100 Mg Cap PO 02/06/25 09:44 100 mg QAM KAJAL Administration Heparin Sodium (Porcine) 5,000 units 01/06/25 21:00 01/10/25 08:49 Heparin Sod 5,000 Unit/0.5 Ml Vial SQ 02/05/25 20:59 5,000 units Q12 KAJAL Administration Hydromorphone HCl 0.5 mg 01/06/25 17:17 01/09/25 00:21 Hydromorphone Inj 0.5 Mg/0.5 Ml Syr IV 01/20/25 17:16 0.5 mg Q6H PRN Administration Pain Hydroxychloroquine Sulfate 400 mg 01/07/25 09:00 01/10/25 08:48 Hydroxychloroquine Sulfate 200 Mg Tab PO 02/06/25 08:59 400 mg [id number] KAJAL Administration Hydroxychloroquine Sulfate 200 mg 01/08/25 09:00 01/09/25 08:44 Hydroxychloroquine Sulfate 200 Mg Tab PO 02/07/25 08:59 Not Given [id number] KAJAL Cefazolin Sodium 1,000 mg in 7.5 mls @ 2.5 mls/min 01/08/25 10:00 01/09/25 21:44 Ancef 1000mg IV 01/15/25 09:59 2.5 mls/min QPM KAJAL Administration Polyethylene Glycol 17 gm 01/07/25 09:00 01/10/25 08:46 Polyethylene (Miralax) 17 Gm Pack PO 02/06/25 08:59 Not Given DAILY KAJAL Pregabalin 75 mg 01/07/25 21:00 01/09/25 21:47 Pregabalin 75 Mg Cap PO 02/06/25 20:59 75 mg HS KAJAL Administration Vitamin B Complex/Folic Acid 1 cap 01/07/25 09:00 01/10/25 08:48 Nephrocaps PO 02/06/25 08:59 1 cap QAM KAJAL Administration PG Care Time/CCT Total # of Minutes Spent Total Time Spent with Patient: Total time spent is greater than 50% in coordination of care (as documented) at patient's floor/unit and/or counseling patient:
--- NOTE | 2025-01-10 11:56 | Hospitalist Progress Note ---
Date of Service January 10, 2025 Assessment & Plan (1) Cellulitis of chest wall: (2) Infection of dialysis vascular access: (3) Acute mediastinitis: (4) Mediastinitis due to infection: (5) Central line insertion site infection: (6) Elevated troponin: Plan This is a 49 year old female with a PMH of ESRD on HD, SLE on plaquenil, HTN, anemia - coming in with venous catheter infection/cellulitis, mediastinitis, R SCM myositis Septic shock 2/2 central line associated infection with mediastinitis and right SCM myositis S/p infected tunneled catheter removal 01/09. pain improving, remains with erythema over the right chest wall and neck Midodrine continued Remains off vasopressors, downgraded Port cultures are positive for MSSA. Vancomycin and Zosyn have been discontinued. Patient has been transitioned to cefazolin renally dosed. - Blood cultures remain negative to date Limited TTE without evidence of any valvular involvement Given associated mediastinitis and MSSA associated line infection would favor at least 4-week antibiotic course of therapy. Generally given the extent of her disease would treat with IV. - ID has seen patient, final recs pending, continue cefazolin, serial inflammatory markers ESRD on hemodialysis Nephrology following Goal for line holiday over the weekend. Next dialysis anticipated 01/10 or 01/11 with dialysis catheter placement 01/10. Volume status adequate. Potass ium 4.3. Rising BUN/creatinine, monitor for acidemia. 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 Troponin 293, repeat 242 around admission in the setting of sepsis. Suspect demand and likely with some degree of impaired clearance. EKG normal sinus rhythm and no territorial ST/T wave changes Chronic Thrombocytopenia -Continue monitoring, platelet count remained stable Chronic, immune. 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 Trend daily Acute on chronic anemia Hemoglobin fluctuating around 910. Remained stable Continue to monitor 2/2 underlying medical renal disease Ferric citrate continued both for anemia, and also as a phosphate binder Anxiety/depression Alprazolam daily continued Bupropion 150 mg daily resumed, continued Sertraline 50 mg daily resumed, continued DVT prophylaxis: Heparin subcu continued. Thrombocytopenia stable Admission and Anticipated Discharge Date Admission Date: January 06, 2025 Subjective Doing well this morning. No new complaints or concerns. No fevers or chills. Appetite has been low pretty much at her recent baseline. Making a small amount of urine with bowel movements which is unusual for her. Discussed her negative blood cultures thus far. Antibiotic selection. Plan for catheter reinsertion. Physical Exam Physical Exam: General: A&Ox3. NAD. Cooperative. HEENT: Atraumatic, normocephalic. Vision and hearing grossly intact. Pupils equal and reactive to light. Chest: Dressing overlying prior port site C/D/I. No Erythema Pulm: CTAB A&P. -wheezes, -rales, -rhonchi. Symmetrical chest rise. No increase in work of breathing. No respiratory distress. Cardiac: RRR, -mrg. Radial pulses intact and symmetrical. Abdominal: Nontender, nondistended, soft. Extremities: Trace edema bilaterally, Warm, dry. Moves all extremities equally. Cap refill brisk Results & Data Results & Data Vital Signs (Past 12 Hours) Vital Signs Temp Pulse Pulse Resp BP Pulse Ox O2 Del Method 01/10/25 08:00 36.8 C 77 16 131/94 99 Room Air 01/10/25 04:00 36.6 C 69 15 114/76 99 Room Air 01/10/25 00:00 71 01/10/25 00:00 36.6 C 72 15 122/84 99 Room Air Laboratory Results 01/06/25 Unknown Gram Stain - Final A-Port Aerobic and Anaerobic Culture - Preliminary Staphylococcus aureus 01/10/25 04:25 WBC 4.59 L RBC 2.77 L Hgb 8.9 L Hct 25.8 L MCV 93.1 MCH 32.1 MCHC 34.5 RDW Std Deviation 46.7 H RDW Coeff of Negrito 13.5 Plt Count 98 L MPV 11.7 PT 10.7 INR 1.0 Sodium 132 L Potassium 3.9 Chloride 98 Carbon Dioxide 18 L Anion Gap 16 H BUN 89 H Creatinine 14.23 H* D Est Cr Clr Drug Dosing 4.2 eGFR 2.82 BUN/Creatinine Ratio 6.3 L Glucose 94 Calcium 7.2 L PG Care Time/CCT Total # of Minutes Spent Total Time Spent with Patient: Total time spent is greater than 50% in coordination of care (as documented) at patient's floor/unit and/or counseling patient: Coding Level of Care Code 69261 SUB INP/OBS CARE 2/35MIN Diagnoses Cellulitis of chest wall L03.313 Infection of dialysis vascular access T82.7XXA Acute mediastinitis J98.51 Mediastinitis due to infection J98.51 Infection of central venous catheter insertion site, initial encounter T80.212A Encounter type: initial encounter Elevated troponin R79.89 (5) Central line insertion site infection Encounter type: initial encounter Qualified Code(s): T80.212A - Local infection due to central venous catheter, initial encounter
[2025-01-11 07:06] LABS: Hematocrit (blood only) 25.3 % (37.0-47.0); Hemoglobin 8.8 g/dl (12.0-16.0); Mean Corpuscular Hemoglobin 32.0 pg (25.0-34.0); Mean Corpuscular Volume 92.0 fL (80.0-100.0); Platelet Count 105 K/uL (130-400); RDW Standard Deviation 45.8 fL (36.4-46.3); Red Blood Count 2.75 M/uL (4.20-5.40); White Blood Count 3.55 K/ul (4.8-10.8)
[2025-01-11 07:28] LABS: Anion Gap 18.0 (3-11); Blood Urea Nitrogen 89.0 mg/dl (6-23); Calcium 7.9 mg/dl (8.6-10.3); Carbon Dioxide 18.0 mmol/L (21-32); Chloride 98.0 mmol/L (98-107); Creatinine Clr Calc Pharmacy 4.0 ml/min; Glucose 77.0 mg/dl (70-99(Fasting)); Potassium 4.1 mmol/L (3.5-5.1); Sodium 134.0 mmol/L (136-145)
--- NOTE | 2025-01-11 09:10 | Nephrology Progress Note ---
Date of Service January 11, 2025 Assessment & Plan (1) End stage renal disease: Plan: * THC removed 01/06/25. Volume status and electrolyte balance remain acceptable at this time * No acute indication for CLOTH DRIER at this time. Continue to monitor * I have spoken to vascular surgery. Recommendation was to continue IV antibiotics and plan new IJ THC Friday morning 01/12/25 * Will plan HD following IJ THC insertion tomorrow * Document strict I/O's. * BMP, CBC in a.m. (2) Infection of dialysis vascular access: Plan: * IJ THC removed 01/06 with debridement of right chest wall * IJ THC was culture positive for MSSA * Blood cultures x2 negative * 01/08/25 TTE: no vegetation * Patient remains on IV Cefazolin * Case discussed via secure text with ID oracle consultant. Dr. Vicente recommends midline catheter and daily IV cefazolin x4 weeks vs one injection of long acting dalbavancin. I discussed these options with the patient and her (by telephone) this morning. Mrs. Casillas reports that she has had a midline catheter in the past. She understands that this may limit her options for AVF in the future. She prefers IV Cefazolin over the long acting antibiotic due to a h/o drug intolerances. Dr. Vicente updated via secure text regarding the patient's decision. (3) Anemia in chronic kidney disease: Plan: * Chronic, stable. Will monitor and consider EFRAIN with next HD (4) Systemic lupus erythematosus: Plan: * Maintained on hydroxychloroquine. (5) Secondary hyperparathyroidism of renal origin: Plan: * Continue calcitriol and cinacalcet per home dose. * Auryxia 1 tablet TID with meals. Admission and Anticipated Discharge Date Admission Date: January 06, 2025 Subjective Mrs. Casillas was evaluated in her hospital room this morning. She reports that the cellulitis involving her R chest wall is subjectively improved. She denied fever, angina or dyspnea. Review of Systems Constitutional: no fever Eyes: no problem reported Ear, Nose, Mouth, Throat: no problem reported Respiratory: no dyspnea Cardiovascular: no chest pain and no edema Gastrointestinal: no abdominal pain, no nausea, no vomiting and no diarrhea/loose stools Physical Exam Constitutional: not in distress Eyes: PERRL, conjunctivae normal, anicteric sclerae ENMT: external ear and nose normal, oropharynx normal Neck: trachea midline, no thyromegaly Respiratory: normal respiratory effort, lungs clear to auscultation Cardiovascular: RRR, no murmur, no edema Gastrointestinal (Abdomen): normal bowel sounds, soft, nontender, no hepatosplenomegaly Musculoskeletal: Extremities: no cyanosis and no clubbing Skin: no rashes, warm and dry Neurologic: no focal motor deficits Results & Data Vital Signs (Past 12 Hours) Vital Signs Temp Pulse Pulse Resp BP Pulse Ox O2 Del Method 01/11/25 07:55 36.6 C 71 122/81 98 Room Air 01/11/25 06:54 36.3 C L 72 18 129/78 97 Room Air 01/11/25 02:15 36.8 C 66 18 104/65 98 Room Air 01/10/25 23:05 36.8 C 72 18 101/68 96 Room Air 01/10/25 21:45 71 Laboratory Results Laboratory Results - last 24 hr 01/11/25 06:30 WBC 3.55 L RBC 2.75 L Hgb 8.8 L Hct 25.3 L MCV 92.0 MCH 32.0 MCHC 34.8 RDW Std Deviation 45.8 RDW Coeff of Negrito 13.5 Plt Count 105 L MPV 11.1 Sodium 134 L Potassium 4.1 Chloride 98 Carbon Dioxide 18 L Anion Gap 18 H BUN 89 H Creatinine 15.10 H* D Est Cr Clr Drug Dosing 4.0 eGFR 2.62 BUN/Creatinine Ratio 5.9 L Glucose 77 Calcium 7.9 L PG Care Time/CCT Total # of Minutes Spent Total Time Spent with Patient: 50 minutes provided to review progress notes, laboratory data, interview and examine patient, discuss antibiotic options with patient, coordinate hospital after care w/ ID oracle consultant, order follow-up laboratory studies for am, update medical record. 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
--- NOTE | 2025-01-11 09:13 | Vascular Surgery Progress Note ---
Date of Service January 11, 2025 Assessment & Plan (1) Infection of dialysis vascular access: Plan: Blood cultures remain negative Plan for left sided tunneled HD catheter tomorrow morning, first case, with anesthesia. Consent obtained this morning and is in chart. Continue antibiotics per primary team. Admission and Anticipated Discharge Date Admission Date: January 06, 2025 Subjective Doing well, transferred out of ICU. Blood cultures remain negative. Afebrile overnight and vitals stable. Physical Exam Physical Exam: WDWN, in no distress right chest and neck edema resolved, with only small amount of edema noted at top of chest/shoulder area, No tenderness to palpation over chest, shoulder and neck on the right, improving. Right chest wall dressing clean dry and intact, Dressing removed at bedside no purulent material noted. Wound redressed with gauze and tegaderm. Results & Data Vital Signs (Past 12 Hours) Vital Signs Temp Pulse Pulse Resp BP Pulse Ox O2 Del Method 01/11/25 07:55 36.6 C 71 122/81 98 Room Air 01/11/25 06:54 36.3 C L 72 18 129/78 97 Room Air 01/11/25 02:15 36.8 C 66 18 104/65 98 Room Air 01/10/25 23:05 36.8 C 72 18 101/68 96 Room Air 01/10/25 21:45 71 Laboratory Results 01/06/25 Unknown Gram Stain - Final A-Port Aerobic and Anaerobic Culture - Final Staphylococcus aureus 01/11/25 06:30 WBC 3.55 L RBC 2.75 L Hgb 8.8 L Hct 25.3 L MCV 92.0 MCH 32.0 MCHC 34.8 RDW Std Deviation 45.8 RDW Coeff of Negrito 13.5 Plt Count 105 L MPV 11.1 Sodium 134 L Potassium 4.1 Chloride 98 Carbon Dioxide 18 L Anion Gap 18 H BUN 89 H Creatinine 15.10 H* D Est Cr Clr Drug Dosing 4.0 eGFR 2.62 BUN/Creatinine Ratio 5.9 L Glucose 77 Calcium 7.9 L Medications Administered Home Medications Medication Instructions Recorded Confirmed Last Taken vit B complx, C-iron 8 mg-folic 1 tab PO QAM 11/29/22 01/06/25 09/04/23 09:00 acid 800 mcg-D3 1,000 unit-zinc tablet (ProRenal) Medical Marijuana 1 dose inhalation DIRECTED PRN 09/04/23 01/06/25 01/01/24 22:00 Pain bupropion HCl 150 mg tablet,12 hr 0 mg PO QAM 01/01/24 01/06/25 Unknown sustained-release (Wellbutrin SR) cinacalcet 30 mg tablet 0 mg PO .3X WEEK 01/23/24 01/06/25 Unknown alprazolam 0.25 mg tablet (Xanax) 0.25 mg PO DAILY PRN anxiety #30 03/19/24 01/06/25 Unknown tabs ondansetron 8 mg disintegrating 8 mg PO DAILY PRN nausea and 05/26/24 01/06/25 Unknown tablet vomiting 3 days #30 tabs hydrocodone 5 mg-acetaminophen 325 1 tab PO BID PRN severe pain #20 10/22/24 01/06/25 Unknown mg tablet tabs hydroxychloroquine 200 mg tablet 200 mg PO QAM #120 tabs 12/23/24 01/06/25 Unknown (Plaquenil) ferric citrate 210 mg iron tablet 210 mg PO TIDM 01/06/25 01/06/25 Unknown (Auryxia) midodrine 5 mg tablet 5 mg PO UD 01/06/25 01/06/25 Unknown sertraline 50 mg tablet 0 mg PO DAILY 01/06/25 01/06/25 Unknown Active Medications Generic Name Dose Route Start Last Admin Trade Name Freq PRN Reason Stop Dose Admin Acetaminophen 650 mg 01/06/25 23:56 01/07/25 00:11 Acetaminophen 325 Mg Tab PO 02/05/25 23:55 650 mg Q4H PRN Administration Pain or Fever Alprazolam 0.25 mg 01/07/25 09:10 01/11/25 08:57 Alprazolam 0.25 Mg Tablet PO 02/06/25 09:09 0.25 mg DAILY PRN Administration anxiety Bupropion HCl 150 mg 01/07/25 09:45 01/11/25 07:47 Bupropion Sr 150 Mg Tabcr PO 02/06/25 09:44 150 mg BID KAJAL Administration Cinacalcet 30 mg 01/07/25 09:45 01/11/25 07:46 Cinacalcet Hcl 30 Mg Tab PO 02/06/25 09:44 30 mg Q48H KAJAL Administration Ferric Citrate 210 mg 01/09/25 17:00 01/11/25 07:44 Ferric Citrate 210 Mg Tab PO 02/08/25 16:59 210 mg TIDM KAJAL Administration Gabapentin 100 mg 01/07/25 09:45 01/11/25 07:46 Gabapentin 100 Mg Cap PO 02/06/25 09:44 100 mg QAM KAJAL Administration Heparin Sodium (Porcine) 5,000 units 01/06/25 21:00 01/11/25 07:47 Heparin Sod 5,000 Unit/0.5 Ml Vial SQ 02/05/25 20:59 5,000 units Q12 KAAJL Administration Hydromorphone HCl 0.5 mg 01/06/25 17:17 01/09/25 00:21 Hydromorphone Inj 0.5 Mg/0.5 Ml Syr IV 01/20/25 17:16 0.5 mg Q6H PRN Administration Pain Hydroxychloroquine Sulfate 400 mg 01/07/25 09:00 01/10/25 08:48 Hydroxychloroquine Sulfate 200 Mg Tab PO 02/06/25 08:59 400 mg [id number] KAJAL Administration Hydroxychloroquine Sulfate 200 mg 01/08/25 09:00 01/11/25 07:45 Hydroxychloroquine Sulfate 200 Mg Tab PO 02/07/25 08:59 Not Given [id number] KAJAL Cefazolin Sodium 1,000 mg in 7.5 mls @ 2.5 mls/min 01/08/25 10:00 01/10/25 20:50 Ancef 1000mg IV 01/15/25 09:59 2.5 mls/min QPM KAJAL Administration Polyethylene Glycol 17 gm 01/07/25 09:00 01/11/25 07:45 Polyethylene (Miralax) 17 Gm Pack PO 02/06/25 08:59 Not Given DAILY KAJAL Pregabalin 75 mg 01/07/25 21:00 01/10/25 20:03 Pregabalin 75 Mg Cap PO 02/06/25 20:59 75 mg HS KAJAL Administration Vitamin B Complex/Folic Acid 1 cap 01/07/25 09:00 01/11/25 07:46 Nephrocaps PO 02/06/25 08:59 1 cap QAM KAJAL Administration PG Care Time/CCT Total # of Minutes Spent Total Time Spent with Patient: Total time spent is greater than 50% in coordination of care (as documented) at patient's floor/unit and/or counseling patient:
--- NOTE | 2025-01-11 10:02 | Electrocardiogram Report ---
Test Reason : Blood Pressure : */* mmHG Vent. Rate : 69 BPM Atrial Rate : 69 BPM P-R Int : 166 ms QRS Dur : 80 ms QT Int : 414 ms P-R-T Axes : 65 67 69 degrees QTcB Int : 443 ms Sinus rhythm with Premature atrial complexes Low voltage QRS Borderline ECG When compared with ECG of 06-Jan-2025 09:47, Premature atrial complexes are now Present Confirmed by Heriberto Roland ([id number]) on 01/11/2025 10:02:17 AM Referred By: REFERRED SELF Confirmed By: Heriberto Roland
[2025-01-11] MEDS: ONDANSETRON INJ 2 MG/ML 2 ML VIAL IV PRN (11:20)
--- NOTE | 2025-01-11 15:52 | Infectious Disease Progress Nt ---
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, s/p 4 weeks ampicillin) #Bilateral hip replacements #Antibiotic allergies: cephalexin (rash hand itching in the past; got renal failure while on high-dose PCN in the past; allergy testing negative) tolerates ceftriaxone and ampicillin; Bactrim (rash) Micro: 01/06 R central line tract cx: MSSA 01/06 BCx x2: NGTD Abx: Cefazolin 01/08 - present Vanc 01/06 - 01/07 Zosyn 01/06 - 01/08 49 yo F with history of SLE c/b severe flare 30 years ago resulting in ESRD on home HD 5 days a week via TDC, bilateral hip replacements, E faecalis bacteremia (01/2024) suspected due to L hallux osteomyelitis (pt declined hallux amputation) vs TDC infection s/p line exchange treated with ampicillin 2 g BID x 4 weeks via midline followed by ~1 week amoxicillin, who presented on 01/06 with pain, swelling, erythema around her TDC site, found to have MSSA TDC infection with mediastinitis. On presentation, she was afebrile (became febrile to 38.5 later), HR 90, BP 86/62. Labs with WBC 8.23, pt 56 (chronic thrombocytopenia). CT chest with IV contrast showed fluid and extensive stranding adjacent to R internal jugular dialysis catheter suggestive of cellulitis. Stranding and fluid within the upper mediastinum may represent developing mediastinitis. No fluid collection to suggest abscess. No soft tissue gas. Asymmetric enlargement and edema within R sternocleidomastoid muscle suggestive of infectious myositis. ED spoke with Vladimir Katz regarding the mediastinitis--due to no abscess, thoracic surgery recommended medical management. Pt started on vanc, Zosyn. Vascular surgery removed the tunneled central line on 01/06/25. Per operative note, there was some fat necrosis and purulent drainage from the catheter site. Abscess cavity was 1 x 2 cm wide and ~3-4 mm deep. A culture from the central line tract grew MSSA, and antibiotics were narrowed to cefazolin. Blood cultures are NGTD. Pt had an ED presentation 10/18/24 with drainage from TDC site. Wound culture grew MSSA, blood cultures negative, and pt was treated with doxycycline x 7 days and her symptoms resolved. Discussion: Pt with complicated TDC infection with tunnel infection infection c/b mediastinitis. S/p TDC removal with operative culture growing MSSA. BCx NG. Symptoms improved. Repeat CT chest without contrast on 01/08 showed skin/subcutaneous thickening at catheter site without associated fluid collection. R lower neck/upper mediastinal edema and stranding, mildly improved. Increase in extent of R breast edema and skin thickening suggestive of cellulitis. Vascular surgery plans to place L sided TDC on 01/12/25. With complicated MSSA infection, favor IV antibiotics on discharge. Unable to administer antibiotics with HD, as pt does home HD 5 days a week. Considered midline for daily cefazolin, vs a one time dose of dalbavancin. Discussed with nephrology, who discussed with the patient. Pt expressed preference for midline for cefazolin. Recommendations: - Continue cefazolin 1 g qPM (given after HD on dialysis days) - Given complicated infection, will recommend 4 weeks of IV antibiotics, but could consider early switch to PO antibiotics as outpatient. (Note reported allergy to cephalexin and sulfa.) Pt will need midline for home IV antibiotics--this has been cleared by nephrology. - Check weekly CBC with diff, CMP while on cefazolin to monitor for toxicity. See below for fax number for lab results - See below antibiotic discharge summary. I will arrange follow-up with telemedicine [facility] clinic Will sign off. Infectious Diseases [facility] Antibiotic Discharge Plan: Diagnosis: MSSA TDC tunnel infection c/b mediastinitis Organism: MSSA Antibiotic: cefazolin 1 g IV daily (given after HD on dialysis days) Start of therapy: 01/06/25 End of therapy: 02/02/25 Labs should be faxed to:[facility] office attention [facility] [phone] Labs needed and frequency: CBC with diff, CMP weekly Please follow up with [facility] Clinic Address [address] [place] [address] Office (P) [phone] Appointment-time frame: ~01/26/25 Admission and Anticipated Discharge Date Admission Date: January 06, 2025 Subjective This patient recommendation is based on a telemedicine consult request which was completed asynchronously through chart review and information provided by the primary physician. The patient was not seen or examined today. The evaluation is consultative in nature and all patient care and treatment decisions can either b e accepted or rejected by the patient's primary hospital-based treating physician using their own independent medical judgment for their patient. Time Spent Reviewing Chart: 11 - 20 minutes No acute events Results & Data Vital Signs (Past 12 Hours) Vital Signs Temp Pulse Pulse Resp BP Pulse Ox O2 Del Method 01/11/25 15:13 36.6 C 80 16 110/73 98 Room Air 01/11/25 14:33 76 01/11/25 11:49 36.7 C 78 16 126/77 98 Room Air 01/11/25 08:00 67 01/11/25 07:55 36.6 C 71 122/81 98 Room Air 01/11/25 06:54 36.3 C L 72 18 129/78 97 Room Air
--- NOTE | 2025-01-11 17:14 | Hospitalist Progress Note ---
Date of Service January 11, 2025 Assessment & Plan (1) Cellulitis of chest wall: (2) Infection of dialysis vascular access: (3) Acute mediastinitis: (4) Mediastinitis due to infection: (5) Central line insertion site infection: (6) Elevated troponin: Plan This is a 49 year old female with a PMH of ESRD on HD, SLE on plaquenil, HTN, anemia - coming in with venous catheter infection/cellulitis, mediastinitis, R SCM myositis Septic shock 2/2 central line associated infection with mediastinitis and right SCM myositis S/p infected tunneled catheter removal 01/09. pain improving, remains with erythema over the right chest wall and neck Midodrine continued Remains off vasopressors, downgraded Port cultures are positive for MSSA. Vancomycin and Zosyn have been discontinued. Patient has been transitioned to cefazolin renally dosed. - Blood cultures remain negative to date Limited TTE without evidence of any valvular involvement Given associated mediastinitis and MSSA associated line infection would favor at least 4-week antibiotic course of therapy. Generally given the extent of her disease would treat with IV. - ID has seen patient, final recs pending, continue cefazolin, serial inflammatory markers stable - TDC placement tomorrow AM NPO at midnight #Emotional lability/depression - Consult to U liaison per patient request. No current SI or decompensated symptoms ESRD on hemodialysis Nephrology following Goal for line holiday over the weekend. Next dialysis anticipated 01/10 or 01/11 with dialysis catheter placement 01/10. Volume status adequate. Potassium 4.3. Rising BUN/creatinine, monitor for acidemia. Clinically she feels well and asymptomatic other than some residual chest wall discomfort on 01/09 - Making a small amount of urine, tentative TDC placement first thing Friday AM - daily lytes - AM TDC placement as above SLE Patient reports she no longer wishes to take her Plaquenil Chronic peripheral neuropathy Suspected due to SLE versus microvascular disease Gabapentin was stopped as an outpatient and she was transitioned to pregabalin 75 mg daily Patient reports she was still taking gabapentin [employer] Continued on gabapentin 100 mg every morning, pregabalin at bedtime B12 normal - No changes Demand ischemia No ongoing chest pain. Troponin 293, repeat 242 around admission in the setting of sepsis. Suspect demand and likely with some degree of impaired clearance. EKG normal sinus rhythm and no territorial ST/T wave changes Chronic Thrombocytopenia -Continue monitoring, platelet count remained stable Chronic, immune. 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 Trend daily Acute on chronic anemia Hemoglobin fluctuating around 910. Remained stable Continue to monitor 2/2 underlying medical renal disease Ferric citrate continued both for anemia, and also as a phosphate binder Anxiety/depression Alprazolam daily continued Bupropion 150 mg daily resumed, continued Sertraline 50 mg daily resumed, continued - See U consult as above DVT prophylaxis: Heparin subcu continued. Thrombocytopenia stable Admission and Anticipated Discharge Date Admission Date: January 06, 2025 Subjective Doing okay this morning. Per nursing reports she has been quite emotionally labile. Very depressed very disinterested. Crying at times. During my visits he seems to be euthymic. Cites no specific events or triggers. Otherwise we discussed replacement of the tunneled catheter tomorrow. Resumption of dialysis. She denies any fever chills or other new or different concerning symptoms. No events or concerns per nursing staff Physical Exam Physical Exam: General: A&Ox3. NAD. Cooperative. HEENT: Atraumatic, normocephalic. Vision and hearing grossly intact. Pupils equal and reactive to light. Chest: Dressing overlying prior port site C/D/I. No Erythema Pulm: CTAB A&P. -wheezes, -rales, -rhonchi. Symmetrical chest rise. No increase in work of breathing. No respiratory distress. Cardiac: RRR, -mrg. Radial pulses intact and symmetrical. Abdominal: Nontender, nondistended, soft. Extremities: Trace edema bilaterally, Warm, dry. Moves all extremities equally. Cap refill brisk Results & Data Results & Data Vital Signs (Past 12 Hours) Vital Signs Temp Pulse Pulse Resp BP Pulse Ox O2 Del Method 01/11/25 15:13 36.6 C 80 16 110/73 98 Room Air 01/11/25 14:33 76 01/11/25 11:49 36.7 C 78 16 126/77 98 Room Air 01/11/25 08:00 67 01/11/25 07:55 36.6 C 71 122/81 98 Room Air 01/11/25 06:54 36.3 C L 72 18 129/78 97 Room Air Laboratory Results 01/06/25 09:21 Aerobic Blood Culture - Final Blood No growth in Aerobic bottle after 5 days. Anaerobic Blood Culture - Final No growth in Anaerobic bottle after 5 days. 01/06/25 Unknown Gram Stain - Final A-Port Aerobic and Anaerobic Culture - Final Staphylococcus aureus 01/11/25 06:30 WBC 3.55 L RBC 2.75 L Hgb 8.8 L Hct 25.3 L MCV 92.0 MCH 32.0 MCHC 34.8 RDW Std Deviation 45.8 RDW Coeff of Negrito 13.5 Plt Count 105 L MPV 11.1 Sodium 134 L Potassium 4.1 Chloride 98 Carbon Dioxide 18 L Anion Gap 18 H BUN 89 H Creatinine 15.10 H* D Est Cr Clr Drug Dosing 4.0 eGFR 2.62 BUN/Creatinine Ratio 5.9 L Glucose 77 Calcium 7.9 L PG Care Time/CCT Total # of Minutes Spent Total Time Spent with Patient: Total time spent is greater than 50% in coordination of care (as documented) at patient's floor/unit and/or counseling patient: Coding Level of Care Code 76013 SUB INP/OBS CARE MIN Diagnoses Cellulitis of chest wall L03.313 Infection of dialysis vascular access T82.7XXA Acute mediastinitis J98.51 Mediastinitis due to infection J98.51 Infection of central venous catheter insertion site, initial encounter T80.212A Encounter type: initial encounter Elevated troponin R79.89 (5) Central line insertion site infection Encounter type: initial encounter Qualified Code(s): T80.212A - Local infection due to central venous catheter, initial encounter
[2025-01-12] MEDS ORDERED: ATROPINE SULFATE 0.1 MG/ML 10ML SYR IV PRN (06:50)
[2025-01-12] MEDS ORDERED: ONDANSETRON INJ 2 MG/ML 2 ML VIAL IV PRN (06:50)
[2025-01-12 06:51] LABS: Hematocrit (blood only) 24.7 % (37.0-47.0); Hemoglobin 8.5 g/dL (12.0-16.0); Mean Corpuscular Hemoglobin 31.7 pg (25.0-34.0); Mean Corpuscular Volume 92.2 fL (80.0-100.0); Platelet Count 108 K/uL (130-400); RDW Standard Deviation 46.8 fL (36.4-46.3); Red Blood Count 2.68 M/uL (4.20-5.40); White Blood Count 3.35 K/ul (4.8-10.8)
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
[2025-01-12] MEDS ORDERED: SODIUM CHLORIDE 0.9% 1,000 ML IV PRN (07:00)
[2025-01-12] MEDS ORDERED: PROPOFOL IV EMULSION 10 MG/ML 20 ML VIAL IV ONE ×2 (07:01→08:34)
[2025-01-12] MEDS ORDERED: LIDOCAINE 2% 2 ML VIAL/AMP(20MG/ML) INFIL ONE (07:01)
[2025-01-12] MEDS ORDERED: MIDAZOLAM HCL 1 MG/ML 2ML VIAL ONE ×2 (07:01)
[2025-01-12] MEDS ORDERED: DexMEDEtomidine HCL IV 100 MCG/ML VIAL IV ONE (07:01)
[2025-01-12] MEDS ORDERED: ONDANSETRON INJ 2 MG/ML 2 ML VIAL ONE (07:01)
[2025-01-12 07:26] LABS: Anion Gap 18.0 (3-11); Blood Urea Nitrogen 99.0 mg/dl (6-23); Calcium 7.5 mg/dl (8.6-10.3); Carbon Dioxide 18.0 mmol/L (21-32); Chloride 99.0 mmol/L (98-107); Creatinine Clr Calc Pharmacy 3.7 ml/min; Glucose 85.0 mg/dl (70-99(Fasting)); Magnesium 2.6 mg/dl (1.7-2.4); Potassium 4.1 mmol/L (3.5-5.1); Sodium 135.0 mmol/L (136-145)
--- NOTE | 2025-01-12 07:39 | History & Physical Bridge Note ---
Date of Service January 12, 2025 History & Physical Bridge Note I have examined the patient, reviewed the History & Physical and in the interval since the performance of the History & Physical I have noted the following changes of clinical significance: no changes noted. Plan for insertion of left internal jugular tunneled central venous line this morning.
[2025-01-12] MEDS: LIDOCAINE 1% LOCAL 20 ML VIAL ONE (08:38)
[2025-01-12] MEDS: OPTIRAY 300 IV PRN (08:40)
--- NOTE | 2025-01-12 08:52 | Nephrology Progress Note ---
Date of Service January 12, 2025 Assessment & Plan (1) End stage renal disease: Plan: * THC removed 01/06/25. Volume status and electrolyte balance remain acceptable at this time * New IJ THC to be placed today. Will plan HD following catheter insertion * HD orders have been entered into the EMR and HD RN notified * Document strict I/O's. * BMP, CBC in a.m. (2) Infection of dialysis vascular access: Plan: * IJ THC removed 01/06 with debridement of right chest wall * IJ THC was culture positive for MSSA * Blood cultures x2 negative * 01/08/25 TTE: no vegetation * Patient remains on IV Cefazolin * ID senior research consultant recommends midline catheter and daily IV cefazolin x4 weeks (3) Anemia in chronic kidney disease: Plan: * Chronic, stable. Will monitor and consider EFRAIN with next HD (4) Systemic lupus erythematosus: Plan: * Maintained on hydroxychloroquine. (5) Secondary hyperparathyroidism of renal origin: Plan: * Continue calcitriol and cinacalcet per home dose. * Auryxia 1 tablet TID with meals. Admission and Anticipated Discharge Date Admission Date: January 06, 2025 Subjective Mrs. Casillas was evaluated in her hospital room this morning. She was awaiting IJ THC placement. She denied fever, angina or dyspnea. Review of Systems Constitutional: no fever Eyes: no problem reported Ear, Nose, Mouth, Throat: no problem reported Respiratory: no dyspnea Cardiovascular: no chest pain and no edema Gastrointestinal: no abdominal pain, no nausea, no vomiting and no diarrhea/loose stools Physical Exam Constitutional: not in distress Eyes: PERRL, conjunctivae normal, anicteric sclerae ENMT: external ear and nose normal, oropharynx normal Neck: trachea midline, no thyromegaly Respiratory: normal respiratory effort, lungs clear to auscultation Cardiovascular: RRR, no murmur, no edema Gastrointestinal (Abdomen): normal bowel sounds, soft, nontender, no hepatosplenomegaly Musculoskeletal: Extremities: no cyanosis and no clubbing Skin: no rashes, warm and dry Neurologic: no focal motor deficits Results & Data Vital Signs (Past 12 Hours) Vital Signs Temp Pulse Pulse Resp BP Pulse Ox O2 Del Method 01/12/25 07:44 36.7 C 72 18 102/68 97 Room Air 01/12/25 07:33 36 C L 75 18 141/87 H 99 Room Air 01/12/25 02:56 36.5 C 98 H 16 113/73 97 Room Air 01/11/25 22:36 36.4 C L 80 18 128/77 96 Room Air 01/11/25 22:30 78 Laboratory Results Laboratory Results - last 24 hr 01/12/25 06:29 WBC 3.35 L RBC 2.68 L Hgb 8.5 L Hct 24.7 L MCV 92.2 MCH 31.7 MCHC 34.4 RDW Std Deviation 46.8 H RDW Coeff of Negrito 13.9 Plt Count 108 L MPV 10.8 Sodium 135 L Potassium 4.1 Chloride 99 Carbon Dioxide 18 L Anion Gap 18 H BUN 99 H Creatinine 16.22 H* D Est Cr Clr Drug Dosing 3.7 eGFR 2.41 BUN/Creatinine Ratio 6.1 L Glucose 85 Calcium 7.5 L Magnesium 2.6 H C-Reactive Protein 4.81 H Procalcitonin Pending PG Care Time/CCT Total # of Minutes Spent Total Time Spent with Patient: 50 minutes provided to review progress notes, laboratory data, interview and examine patient, coordinate new IJ THC insertion w/ vascular surgery, coordinate HD w/ chemical production machine operator RN, order follow-up laboratory studies for am, update medical record. 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
--- NOTE | 2025-01-12 08:53 | Post Operative Brief Note ---
Immediate Post Op Note Date of Surgery January 12, 2025 Pre & Post Diagnosis Operation Date: 01/12/25 07:30 Pre-Op Diagnosis: NEED FOR DIALYSIS ACCESS Post-Op Diagnosis: NEED FOR DIALYSIS ACCESS I identified the patient and participated in the time-out.: Yes Procedure Operation Date: 01/12/25 07:30 Actual Procedures p PermCath Insertion,Left Jugular Approach,Ultrasound Localization of Left Internal Jugular Vein, Fluroscopy for Positioning(Left) - Jimmy Zheng MD Surgeon Jimmy Zheng MD College Basketball Coach Carmen Avila PA-C Estimated Blood Loss 5 Findings Consistent with Post-Op Diagnosis Anesthesia Type MAC Complications none Disposition Accompanied Patient To Recovery: Yes Disposition: Recovery Room
--- NOTE | 2025-01-12 09:26 | XRay Report ---
XR chest 1V portable HISTORY: 49 years-old Female s/p HD line placement status post placement of left-sided dual-lumen ca theter COMPARISON: 01/06/2025 TECHNIQUE: AP view of the chest FINDINGS: Status post placement of a left-sided dual lumen catheter, distal tip in the expected location of the mid SVC. The previously noted right-sided catheter has been removed. No postprocedural pneumothorax. No pleural effusion, airspace consolidation or pulmonary edema. Bones of the chest appear grossly in tact. IMPRESSION: Status post placement of a dual-lumen hemodialysis catheter. No postprocedural pneumothor ax. ACT 112: Negative or not required by law. The above report was generated using voice recognition software. It may contain grammatical, syntax o r spelling errors. Electronically signed by: Ulises Trimble M.D. 01/12/2025 9:24 AM
[2025-01-12] MEDS: OPTIRAY 320 100ml IV ONE (10:25)
--- NOTE | 2025-01-12 11:08 | CT Scan Report ---
CHEST CT WITH CONTRAST CT DOSE: 773.63 mGy.cm HISTORY: Status post placement of a left-sided hemodialysis catheter s/p HD line placement, eval for chest hematoma TECHNIQUE: Multiaxial CT images of the chest were performed following the IV administration of 93 cc of Optiray. A dose lowering technique was utilized adhering to the principles of ALARA. COMPARISON: Chest radiograph of same day, chest CT 01/08/2025 FINDINGS: Unremarkable thyroid. No pathologically enlarged lymph nodes. The heart is normal in size. [id number] coronary artery calcifications. Normal caliber thoracic aorta. There is patency of t he innominate and imaged subclavian arteries. Unremarkable pulmonary artery. There is evidence of justice or right IJ hemodialysis catheter removal. There is a fluid-filled tract at the site of prior cathete r placement within the right upper chest. There is marked narrowing involving the right IJ and brachi ocephalic veins with possible fibrin sheath versus thrombus again noted within this area. Status post placement of a left IJ hemodialysis catheter which appears to be in satisfactory position, distal ti p is in the mid SVC. There is blood and air within the mediastinum, most pronounced in the anterior p revascular distribution. There is irregular outpouching involving the inferior aspect of the left bra chiocephalic vein measuring 2.1 x 2.0 x 3.1 cm (image 85 series 4 and image 32 of series 400). Areas of active extravasation noted adjacent to this outpouching. A smaller outpouching of the brachycephal ic vein noted on image 82 series 4. Ill-defined hematoma within the mediastinum measures up to approx imately 4.5 cm on image 98. Small pleural effusions with dependent bibasilar consolidation. There is no pneumothorax. No suspicio us pulmonary nodules. Central airways are patent. No acute upper abdominal abnormality. Severely atro phic kidneys. Calcified granulomata of the spleen. Upper chest wall subcutaneous edema. No discrete f luid collection. IMPRESSION: 1. Status post placement of a left IJ dual-lumen hemodialysis catheter with distal tip within the SVC . 2. Acute injury of the left brachiocephalic vein with 3 cm outpouching/partially contained perforatio n of the vessel with adjacent active extravasation, adjacent mediastinal hematoma and small amount of anterior pneumomediastinum. 3. Prior right IJ hemodialysis catheter removal with marked narrowing of the right internal jugular v ein and brachiocephalic vein as above. 4. Small pleural effusions with dependent bibasilar atelectasis. ACT 112: Negative or not required by law. Electronically signed by: Ulises Trimble M.D. 01/12/2025 11:06 AM
--- NOTE | 2025-01-12 11:18 | Operative Report ---
PG Post Operative Report Pre & Post Diagnosis Operation Date: 01/12/25 07:30 Pre-Op Diagnosis: NEED FOR DIALYSIS ACCESS Post-Op Diagnosis: NEED FOR DIALYSIS ACCESS I identified the patient and participated in the time-out.: Yes Procedure Operation Date: 01/12/25 07:30 Actual Procedures p PermCath Insertion,Left Jugular Approach,Ultrasound Localization of Right Internal Jugular Vein, Fluroscopy for Positioning(Left) - Jimmy Zheng MD Surgeon Jimmy Zheng MD Partnership Manager Carmen Avila PA-C Estimated Blood Loss 5 Findings Consistent with Post-Op Diagnosis Specimens None Anesthesia Type MAC Complications none Disposition Accompanied Patient To Recovery: Yes Disposition: Recovery Room Indications Patient with infected dialysis catheter removed last week. Now with need for new tunneled dialysis catheter. Description of Procedure A timeout was performed and the patient was identified and the procedure verified. Monitored anesthetic care was provided by the anesthesia team. The left neck was prepped and draped in the usual sterile fashion. The left internal jugular vein was identified with ultrasound and compressed easily. It was accessed with a micropuncture needle and a mandril wire was inserted. A 5Fr microsheath was inserted. There was poor blood return and venography was performed showing a small amount of extravasation. The sheath was withdrawn until aspiration of blood was confirmed and injection confirmed placement within the left internal jugular vein. A 0.035" guidewire was inserted into the SVC under fluoroscopic control. The microsheath was reinserted over the wire and the wire was removed with good flow noted. Venography confirmed placement of the sheath in the brachiocephalic vein. A Super Stiff Amplatz wire was inserted into the IVC under fluoroscopic control and the dilator/peel-away sheath was inserted under fluoroscopic control. The wire was removed and injection confirmed positioning within the brachiocephalic vein. A separate counterincision was made on the left chest and a subcutaneous tunnel was created between the two incisions. A 23cm Glidepath catheter was brought through the tunnel and the cuff was inserted subcutaneously. It was placed into the peelaway sheath under fluoroscopic control and the sheath was removed. There was no kink in the catheter. Venography through both ports showed appropriate placement at the RA/SVC junction. It was then sutured to the skin and the puncture site was closed with subcuticular suture and skin glue. The patient was taken to the recovery room in stable condition having tolerated procedure well without immediate complication. I attest to the content of the Intraoperative Record and any orders documented therein. Any exceptions are noted below.
--- NOTE | 2025-01-12 11:34 | Vascular Surgery Progress Note ---
Date of Service January 12, 2025 Assessment & Plan (1) Infection of dialysis vascular access: Plan: s/p LIJ dialysis catheter placement. Extravasation likely from wire/microsheath perforation at LIJ/brachiocephalic vein junction. Discussed with CT surgery at [facility]. Venous injury likely to resolve with increased intrathoracic pressure (BiPAP) but would be best served by transfer to center with cardiac surgery capability should she develop worsening symptoms. Discussed with Drs. Russo (Nephrology) and Shauna (hospitalist). No acute need for dialysis. Family (Steven - daughter [phone]) and ex- (Dio [phone]) informed. Admission and Anticipated Discharge Date Admission Date: January 06, 2025 Subjective Patient developed 7/10 chest pain in PACU. Given challenges with wire access into SVC proceeded with CT scan. This shows extravasation at junction of left IJ and brachiocephalic vein with associated mediastinal hematoma. Over the past 30-40 minutes her pain has improved, hemodynamics remain stable (p80-90, BP 130-140/80). No difficulty breathing. Physical Exam Physical Exam: Trachea midline. No drainage or hematoma on chest wall. Results & Data Vital Signs (Past 12 Hours) Vital Signs Temp Pulse Pulse Resp BP Pulse Ox O2 Del Method 01/12/25 11:20 89 24 136/89 98 Room Air 01/12/25 11:05 91 H 15 153/81 H 97 Room Air 01/12/25 10:50 89 19 130/88 95 Room Air 01/12/25 10:33 92 H 24 132/90 95 Room Air 01/12/25 10:00 89 22 147/93 H 96 Room Air 01/12/25 09:50 94 H 20 118/81 96 Room Air 01/12/25 09:40 84 20 125/90 96 Room Air 01/12/25 09:30 76 19 122/95 97 Room Air 01/12/25 09:20 36.6 C 77 21 109/76 97 Room Air 01/12/25 09:10 76 16 108/74 96 Room Air 01/12/25 09:00 70 13 102/73 99 Oxymask 01/12/25 08:54 36.3 C L 74 11 L 98/75 L 100 Oxymask 01/12/25 08:00 68 01/12/25 07:44 36.7 C 72 18 102/68 97 Room Air 01/12/25 07:33 36 C L 75 18 141/87 H 99 Room Air 01/12/25 02:56 36.5 C 98 H 16 113/73 97 Room Air O2 Flow Rate 01/12/25 11:20 01/12/25 11:05 01/12/25 10:50 01/12/25 10:33 01/12/25 10:00 01/12/25 09:50 01/12/25 09:40 01/12/25 09:30 01/12/25 09:20 01/12/25 09:10 01/12/25 09:00 4 01/12/25 08:54 4 01/12/25 08:00 01/12/25 07:44 01/12/25 07:33 01/12/25 02:56 Laboratory Results Platelet count was 75K on 01/09 but 108K this morning. Diagnostic Findings CT findings as noted. PG Care Time/CCT Total # of Minutes Spent Total Time Spent with Patient: Total time spent is greater than 50% in coordination of care (as documented) at patient's floor/unit and/or counseling patient:
[2025-01-12 12:01] LABS: Hematocrit (blood only) 28.7 % (37.0-47.0); Hemoglobin 9.8 g/dL (12.0-16.0); Immature Granulocytes # (auto) 0.08 K/uL (0.01-0.20); Immature Granulocytes % (auto) 1.3 %; Mean Corpuscular Hemoglobin 31.6 pg (25.0-34.0); Mean Corpuscular Volume 92.6 fL (80.0-100.0); Platelet Count 146 K/uL (130-400); RDW Standard Deviation 47.4 fL (36.4-46.3); Red Blood Count 3.10 M/uL (4.20-5.40); White Blood Count 6.12 K/ul (4.8-10.8)
--- NOTE | 2025-01-12 12:18 | Discharge Summary ---
Discharge Summary Date of Service January 12, 2025 Principal Dx & Hospital Course #1 = Principal Diagnosis (1) Cellulitis of chest wall: (2) Infection of dialysis vascular access: (3) Acute mediastinitis: (4) Mediastinitis due to infection: (5) Central line insertion site infection: (6) Elevated troponin: Plan This is a 49 year old female with a PMH of ESRD on HD, SLE on plaquenil, HTN, anemia - coming in with venous catheter infection/cellulitis, mediastinitis, R SCM myositis Septic shock 2/2 central line associated infection with mediastinitis and right SCM myositis S/p infected tunneled catheter removal 01/09. pain improving, remains with erythema over the right chest wall and neck Midodrine continued Remains off vasopressors, downgraded Port cultures are positive for MSSA. Vancomycin and Zosyn have been discontinued. Patient has been transitioned to cefazolin renally dosed. - Blood cultures remain negative to date Limited TTE without evidence of any valvular involvement Given associated mediastinitis and MSSA associated line infection would favor at least 4-week antibiotic course of therapy. Generally given the extent of her disease would treat with IV. - ID has seen patient, final recs pending, continue cefazolin, serial inflammatory markers stable - TDC placement tomorrow AM NPO at midnight #Emotional lability/depression - Consult to U liaison per patient request. No current SI or decompensated symptoms ESRD on hemodialysis Nephrology following Goal for line holiday over the weekend. Next dialysis anticipated 01/10 or 01/11 with dialysis catheter placement 01/10. Volume status adequate. Potassium 4.3. Rising BUN/creatinine, monitor for acidemia. 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 Troponin 293, repeat 242 around admission in the setting of sepsis. Suspect demand and likely with some degree of impaired clearance. EKG normal sinus rhythm and no territorial ST/T wave changes Chronic Thrombocytopenia -Continue monitoring, platelet count remained stable Chronic, immune. 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 Trend daily Acute on chronic anemia Hemoglobin fluctuating around 910. Remained stable Continue to monitor 2/2 underlying medical renal disease Ferric citrate continued both for anemia, and also as a phosphate binder Anxiety/depression Alprazolam daily continued Bupropion 150 mg daily resumed, continued Sertraline 50 mg daily resumed, continued - See BHU consult as above DVT prophylaxis: Heparin subcu continued. Thrombocytopenia stable Admission HPI Per Admitting Provider This is a 49 year old female with a PMH of ESRD on HD, SLE on plaquenil, HTN, anemia - coming in with central venous catheter pain at the R chest wall with surrounding erythema and swelling. She states she first noticed this last evening; felt feverish, but no recorded temps. Denies any substernal chest pain, no shortness of breath. On arrival here, had a CT done which showed R internal jugular dialysis catheter stranding/fluid consistent with cellulitis. There is also concern for mediastinitis as well as infectious myositis of the R SCM. ER spoke with Vladimir Katz regarding the mediastinitis. Due to no abscess, thoracic surgery there recommended against transfer and "medical management" with abx. Vascular surgery here saw patient and plan to remove the dialysis catheter. Started on Vanc/Zosyn. Discharge Plan Discharge Items Patient Disposition: Transfer Acute Care Hospital Reason For Visit: MEDIASTINITIS, VENOUS CATHETER INFECTION Discharge Diagnosis: Subclavian Perforation Condition on Discharge: Serious Activity: As commented below Non-emergency contact: Primary Care Provider Call non-emergency contact if: you have any medication questions, your symptoms worsen and your pain is not controlled Follow-up/Referrals: Georgie Barrera MD [Primary Care Provider] - Diet: Nothing by Mouth Addtl Attending Provider Instructions: See Vascular Surgery Pending Studies at Discharge: No Stand-Alone Forms: My [facility] Skilled Items Patient informed of condition?: Yes DNR: No Discharge Level of Care: Other Communicable Disease: No Discharge Prognosis: Other Lines: Peripheral IV Urinary Catheter: Yes Medications and DC Order Prescriptions: No Action ondansetron 8 mg tablet,disintegrating 8 mg PO DAILY PRN (Reason: nausea and vomiting) 3 Days Qty: 30 1RF Patient Comments: 01/06- last filled 06/14 29 30 day supply #30 hydroxychloroquine [Plaquenil] 200 mg tablet 200 mg PO QAM Qty: 120 0RF Rx Instructions: 2 p.o. every Friday and Friday and 1 p.o. daily all other days. ProRenal 8 mg iron-800 mcg-1,000 unit tablet 1 tab PO QAM Patient Comments: 01/06- otc unable to verify alprazolam [Xanax] 0.25 mg tablet 0.25 mg PO DAILY PRN (Reason: anxiety) Qty: 30 0RF Patient Comments: 01/06- last filled 03/19 30 day supply #30 hydrocodone-acetaminophen 5-325 mg tablet 1 tab PO BID PRN (Reason: severe pain) Qty: 20 0RF Patient Comments: 01/06- last filled 10/22 10 day supply #20 cinacalcet 30 mg tablet 0 mg PO .3X WEEK Patient Comments: 01/06- last filled 07/29 30 day supply #30 midodrine 5 mg tablet 5 mg PO UD ferric citrate [Auryxia] 210 mg iron tablet 210 mg PO TIDM sertraline 50 mg tablet 0 mg PO DAILY Patient Comments: 01/06- last filled 08/30 30 day supply #30 Medical Marijuana 1 dose inhalation DIRECTED PRN (Reason: Pain) Patient Comments: 01/06- unable to verify Rx Instructions: PER PT "USES 1-2 X DAILY" bupropion HCl [Wellbutrin SR] 150 mg tablet sustained-release 12 hr 0 mg PO QAM Patient Comments: 01/06- last filled 08/30 30 day supply #60 Discharge Orders: Discharge Order (Routine); Ordered 01/12/25 Ordered By: Andi Villatoro Admission Data Admit Date/Time: 01/06/25 13:22 Attending Provider: Andi Villatoro Admit Provider: Magda Lew Primary Care Provider: Georgie Barrera Other Providers: Magda Lew; Cristal Celeste Kevin C.; Jimmy Zheng; Cande Vicente; Syl Mojica; Perla Ramirez; Dexter Purcell; Kimmy Alexander; Laura Preston; [facility]; Shyla Erazo; Wilfredo Loera; Aaliyah Hopkins; Tammie Campuzano; Arik Felix; Travis Ariza; Zoey Jacques; Emi Clay Hospital Stay Data Consultations 01/06/25 12:21 ED Decision to Admit Stat 01/06/25 12:50 Consult Correspondence Coordinator Stat 01/07/25 10:29 Consult Nephrology Routine 01/09/25 09:58 Consult Vascular Surgery Routine 01/10/25 10:00 Consult Infectious Diseases Routine 01/11/25 22:40 Consult Psychiatry Routine 01/12/25 12:14 Radiology Transfer Of Images Stat Procedures Performed Operation Date: 01/12/25 07:30 Actual Procedures p PermCath Insertion,Left Jugular Approach,Ultrasound Localization of Right Internal Jugular Vein, Fluroscopy for Positioning(Left) - Jimmy Zheng MD Diagnostic Imagining Performed 01/06/25 09:06 CT chest without contrast [CT chest diagnostic wo con] Stat 01/06/25 10:55 CT chest diagnostic w con Stat 01/08/25 10:08 CT chest diagnostic wo con Urgent 01/12/25 07:16 EV cvc insrt tunnel wo prt/nurse healthcare manager Routine US EV guide vascular access Routine 01/12/25 10:07 CT chest diagnostic w con Stat Pending Results Patient Have Any Pending Studies at Discharge: No Discharge Instructions Given to Patient (Per Discharging Provider) See Vascular Surgery Coding Diagnoses Cellulitis of chest wall L03.313 Infection of dialysis vascular access T82.7XXA Acute mediastinitis J98.51 Mediastinitis due to infection J98.51 Infection of central venous catheter insertion site, initial encounter T80.212A Encounter type: initial encounter Elevated troponin R79.89
--- NOTE | 2025-01-12 12:37 | Vascular Surgery Progress Note ---
Date of Service January 12, 2025 Assessment & Plan (1) Infection of dialysis vascular access: Plan: See above. Admission and Anticipated Discharge Date Admission Date: January 06, 2025 Subjective Patient is refusing transfer. I believe she is competent to make this decision. Ex- at bedside. Discussed with daughter. She has asked that decision maker should she be not able to make decisions is her daughter Kayley [phone] (called - no answer). Will proceed with BiPAP and ICU observation for now. Should she decompensate may need to urgently transfer to center with cardiac surgery capabilities and patient understands that. Results & Data Vital Signs (Past 12 Hours) Vital Signs Temp Pulse Pulse Resp BP Pulse Ox O2 Del Method 01/12/25 12:15 124 H 25 H 157/91 H 96 Room Air 01/12/25 12:00 100 H 13 135/99 94 Room Air 01/12/25 11:50 101 H 21 152/93 H 99 Room Air 01/12/25 11:35 98 H 22 98 Room Air 01/12/25 11:33 105 H 28 H 100 01/12/25 11:20 89 24 136/89 98 Room Air 01/12/25 11:05 91 H 15 153/81 H 97 Room Air 01/12/25 10:50 89 19 130/88 95 Room Air 01/12/25 10:33 92 H 24 132/90 95 Room Air 01/12/25 10:00 89 22 147/93 H 96 Room Air 01/12/25 09:50 94 H 20 118/81 96 Room Air 01/12/25 09:40 84 20 125/90 96 Room Air 01/12/25 09:30 76 19 122/95 97 Room Air 01/12/25 09:20 36.6 C 77 21 109/76 97 Room Air 01/12/25 09:10 76 16 108/74 96 Room Air 01/12/25 09:00 70 13 102/73 99 Oxymask 01/12/25 08:54 36.3 C L 74 11 L 98/75 L 100 Oxymask 01/12/25 08:00 68 01/12/25 07:44 36.7 C 72 18 102/68 97 Room Air 01/12/25 07:33 36 C L 75 18 141/87 H 99 Room Air 01/12/25 02:56 36.5 C 98 H 16 113/73 97 Room Air O2 Flow Rate FiO2 01/12/25 12:15 01/12/25 12:00 01/12/25 11:50 01/12/25 11:35 01/12/25 11:33 30 01/12/25 11:20 01/12/25 11:05 01/12/25 10:50 01/12/25 10:33 01/12/25 10:00 01/12/25 09:50 01/12/25 09:40 01/12/25 09:30 01/12/25 09:20 01/12/25 09:10 01/12/25 09:00 4 01/12/25 08:54 4 01/12/25 08:00 01/12/25 07:44 01/12/25 07:33 01/12/25 02:56 PG Care Time/CCT Total # of Minutes Spent Total Time Spent with Patient: Total time spent is greater than 50% in coordination of care (as documented) at patient's floor/unit and/or counseling patient:
--- NOTE | 2025-01-12 13:39 | Anesthesiology Progress Note ---
Date of Service January 12, 2025 Anesthesia Post Procedure Vital Signs Vital Signs: Temp Pulse Pulse Resp BP Pulse Ox O2 Del Method 01/12/25 13:00 90 24 134/97 100 BiPAP 01/12/25 12:45 91 H 20 131/97 98 BiPAP 01/12/25 12:30 93 H 22 128/96 95 BiPAP 01/12/25 12:15 124 H 25 H 157/91 H 96 Room Air 01/12/25 12:00 100 H 13 135/99 94 Room Air 01/12/25 11:50 101 H 21 152/93 H 99 Room Air 01/12/25 11:35 98 H 22 98 Room Air 01/12/25 11:33 105 H 28 H 100 01/12/25 11:20 89 24 136/89 98 Room Air 01/12/25 11:05 91 H 15 153/81 H 97 Room Air 01/12/25 10:50 89 19 130/88 95 Room Air 01/12/25 10:33 92 H 24 132/90 95 Room Air 01/12/25 10:00 89 22 147/93 H 96 Room Air 01/12/25 09:50 94 H 20 118/81 96 Room Air 01/12/25 09:40 84 20 125/90 96 Room Air 01/12/25 09:30 76 19 122/95 97 Room Air 01/12/25 09:20 36.6 C 77 21 109/76 97 Room Air 01/12/25 09:10 76 16 108/74 96 Room Air 01/12/25 09:00 70 13 102/73 99 Oxymask 01/12/25 08:54 36.3 C L 74 11 L 98/75 L 100 Oxymask 01/12/25 08:00 68 01/12/25 07:44 36.7 C 72 18 102/68 97 Room Air 01/12/25 07:33 36 C L 75 18 141/87 H 99 Room Air 01/12/25 02:56 36.5 C 98 H 16 113/73 97 Room Air 01/11/25 22:36 36.4 C L 80 18 128/77 96 Room Air 01/11/25 22:30 78 01/11/25 19:07 36.7 C 76 18 128/87 100 Room Air 01/11/25 15:13 36.6 C 80 16 110/73 98 Room Air 01/11/25 14:33 76 O2 Flow Rate FiO2 01/12/25 13:00 01/12/25 12:45 01/12/25 12:30 01/12/25 12:15 01/12/25 12:00 01/12/25 11:50 01/12/25 11:35 01/12/25 11:33 30 01/12/25 11:20 01/12/25 11:05 01/12/25 10:50 01/12/25 10:33 01/12/25 10:00 01/12/25 09:50 01/12/25 09:40 01/12/25 09:30 01/12/25 09:20 01/12/25 09:10 01/12/25 09:00 4 01/12/25 08:54 4 01/12/25 08:00 01/12/25 07:44 01/12/25 07:33 01/12/25 02:56 01/11/25 22:36 01/11/25 22:30 01/11/25 19:07 01/11/25 15:13 01/11/25 14:33 Pain Intensity Chest: Pain Intensity: 3 Left Neck: Pain Intensity: 4 Transfer of Care Handoff Completed per policy Notes Mental Status: alert / awake / arousable Patient Amnestic to Procedure: Yes Nausea / Vomiting: adequately controlled Pain: adequately controlled and see Notes below Airway Patency, RR, SpO2: see Notes below BP & HR: stable & adequate and see Notes below Hydration State: stable & adequate and see Notes below Anesthetic Complications: no major complications apparent, see Notes below and Pt Satisfied with anesthetic care Notes: Patient was initially set to discharge to dialysis following procedure however prior to transport, patient noted substernal chest pain radiating to the back. patient evaluated by Dr Johnson who ordered EKG and didn't note any changes. Given pain out of proportion with expectation, stat CT chest ordered which revealed active extravasation into mediastinum. Surgeon aware and began transfer of patient to facility with cardiac ICU care. Patient stable in ICU, anxious but no respiratoroy distress.
--- NOTE | 2025-01-12 13:49 | XRay Report ---
XR chest 1V portable CLINICAL HISTORY: placed on BiPAP, eval for lung injury COMPARISON STUDY: Chest radiograph and chest CT performed earlier today. FINDINGS: A left internal jugular dual lumen catheter remains in place. Upper mediastinal widening ap pears similar to CT performed earlier today. There is no pneumothorax. There are trace bilateral pleu ral effusions. Linear lower lobe densities favor atelectasis. There is no consolidation to suggest pn eumonia. There is no evidence for pulmonary edema. Cardiac size is normal. IMPRESSION: 1. No pneumothorax. 2. Dual lumen left internal jugular dialysis catheter in place. No significant change in upper media stinal widening related to mediastinal hematoma since CT performed earlier today. 3. Trace bilateral pleural effusions. Lower lung opacities consistent with atelectasis. ACT 112: Negative or not required by law. Electronically signed by: Wilder Lloyd M.D. 01/12/2025 1:48 PM
[2025-01-12] MEDS: EPOETIN ALFA 10,000 UNITS/ML VIAL IV ONE (14:18)
[2025-01-12] MEDS: HEPARIN SOD (PORCINE) 5,000 UNITS/ML VIAL ONE (14:19)
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
--- NOTE | 2025-01-12 16:19 | Hospitalist Progress Note ---
Date of Service January 12, 2025 Assessment & Plan (1) Cellulitis of chest wall: (2) Infection of dialysis vascular access: (3) Acute mediastinitis: (4) Mediastinitis due to infection: (5) Central line insertion site infection: (6) Elevated troponin: Plan Plan This is a 49 year old female with a PMH of ESRD on HD, SLE on plaquenil, HTN, anemia - coming in with venous catheter infection/cellulitis, mediastinitis, R SCM myositis #Subcalvian Perforation -See Vascular Surgery Notes, advised transport to [facility] for definitive vascular/cardiothoracic stabilization. Patient refused transfer, maintains demonstrated capacity to make this decision. Understands the risks. Sites rational reasons for declining transport -Transfer to ICU for close monitoring, repeat x-ray in hour to rule out pneumothorax, repeat CT scan in the morning per vascular surgery to assess for stability, assess sooner if clinically she declines Septic shock 2/2 central line associated infection with mediastinitis and right SCM myositis S/p infected tunneled catheter removal 01/09. pain improving, remains with erythema over the right chest wall and neck Midodrine continued Remains off vasopressors, downgraded Port cultures are positive for MSSA. Vancomycin and Zosyn have been discontinued. Patient has been transitioned to cefazolin renally dosed. - Blood cultures remain negative to date Limited TTE without evidence of any valvular involvement Given associated mediastinitis and MSSA associated line infection would favor at least 4-week antibiotic course of therapy. Generally given the extent of her disease would treat with IV. - ID has seen patient, final recs pending, continue cefazolin, serial inflammatory markers stable - Tunneled dialysis catheter placed as above, in place and functional, no immediate need for dialysis per nephrology, plan for tomorrow morning - Continue cefazolin as above #Emotional lability/depression - Consult to BHU liaison per patient request. No current SI or decompensated symptoms - BHU liaison to see the patient on arrival to ICU ESRD on hemodialysis Nephrology following Goal for line holiday over the weekend. Next dialysis anticipated 01/10 or 01/11 with dialysis catheter placement 01/10. Volume status adequate. Potassium 4.3. Rising BUN/creatinine, monitor for acidemia. 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 Troponin 293, repeat 242 around admission in the setting of sepsis. Suspect demand and likely with some degree of impaired clearance. EKG normal sinus rhythm and no territorial ST/T wave changes - No further testing required at this time Chronic Thrombocytopenia -Continue monitoring, platelet count remained stable Chronic, immune. 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 Trend daily - Will continue to monitor Daily Acute on chronic anemia Hemoglobin fluctuating around 910. Remained stable Continue to monitor 2/2 underlying medical renal disease Ferric citrate continued both for anemia, and also as a phosphate binder - Stable, a.m. labs Anxiety/depression Alprazolam daily continued Bupropion 150 mg daily resumed, continued Sertraline 50 mg daily resumed, continued - See BHU consult as above DVT prophylaxis: -hold heparin for the short term, SCDs Admission and Anticipated Discharge Date Admission Date: January 06, 2025 Subjective Doing okay this morning prior to procedure. After the placement of catheter she was very emotionally labile. Tearful but alert, appropriate. Lengthy discussion with the patient in regards to declined the transfer to tertiary care or cardiothoracic monitoring. She was very clear she did not want to go to an ambulance did not want to be in a facility far from her home. Asked specifically if she did want to declined transfer because she wanted to . She stated very clearly no. Her ex was at the bedside during this evaluation. Otherwise pain in the chest had improved after procedure. Pain at the wound site still minimal manage. Plan for transfer to ICU as noted below Physical Exam Physical Exam: General: A&Ox3. NAD. Cooperative. HEENT: Atraumatic, normocephalic. Vision and hearing grossly intact. Pupils equal and reactive to light. TDC in upper left neck, CDI Chest: Dressing overlying prior port site C/D/I. No Erythema Pulm: CTAB A&P. -wheezes, -rales, -rhonchi. Symmetrical chest rise. No increase in work of breathing. No respiratory distress. Cardiac: RRR, -mrg. Radial pulses intact and symmetrical. Abdominal: Nontender, nondistended, soft. Extremities: Trace edema bilaterally, Warm, dry. Moves all extremities equally. Cap refill brisk Results & Data Results & Data Vital Signs (Past 12 Hours) Vital Signs Temp Pulse Pulse Resp BP Pulse Ox O2 Del Method 01/12/25 14:15 86 22 100 01/12/25 13:30 87 01/12/25 13:00 90 24 134/97 100 BiPAP 01/12/25 12:45 91 H 20 131/97 98 BiPAP 01/12/25 12:30 93 H 22 128/96 95 BiPAP 01/12/25 12:15 124 H 25 H 157/91 H 96 Room Air 01/12/25 12:00 100 H 13 135/99 94 Room Air 01/12/25 11:50 101 H 21 152/93 H 99 Room Air 01/12/25 11:35 98 H 22 98 Room Air 01/12/25 11:33 105 H 28 H 100 01/12/25 11:20 89 24 136/89 98 Room Air 01/12/25 11:05 91 H 15 153/81 H 97 Room Air 01/12/25 10:50 89 19 130/88 95 Room Air 01/12/25 10:33 92 H 24 132/90 95 Room Air 01/12/25 10:00 89 22 147/93 H 96 Room Air 01/12/25 09:50 94 H 20 118/81 96 Room Air 01/12/25 09:40 84 20 125/90 96 Room Air 01/12/25 09:30 76 19 122/95 97 Room Air 01/12/25 09:20 36.6 C 77 21 109/76 97 Room Air 01/12/25 09:10 76 16 108/74 96 Room Air 01/12/25 09:00 70 13 102/73 99 Oxymask 01/12/25 08:54 36.3 C L 74 11 L 98/75 L 100 Oxymask 01/12/25 08:00 68 01/12/25 07:44 36.7 C 72 18 102/68 97 Room Air 01/12/25 07:33 36 C L 75 18 141/87 H 99 Room Air O2 Flow Rate FiO2 01/12/25 14:15 21 01/12/25 13:30 01/12/25 13:00 01/12/25 12:45 01/12/25 12:30 01/12/25 12:15 01/12/25 12:00 01/12/25 11:50 01/12/25 11:35 01/12/25 11:33 30 01/12/25 11:20 01/12/25 11:05 01/12/25 10:50 01/12/25 10:33 01/12/25 10:00 01/12/25 09:50 01/12/25 09:40 01/12/25 09:30 01/12/25 09:20 01/12/25 09:10 01/12/25 09:00 4 01/12/25 08:54 4 01/12/25 08:00 01/12/25 07:44 01/12/25 07:33 PG Care Time/CCT Total # of Minutes Spent Total Time Spent with Patient: Total time spent is greater than 50% in coordination of care (as documented) at patient's floor/unit and/or counseling patient: Coding Level of Care Code 15299 SUB INP/OBS CARE 3/50MIN Diagnoses Cellulitis of chest wall L03.313 Infection of dialysis vascular access T82.7XXA Acute mediastinitis J98.51 Mediastinitis due to infection J98.51 Infection of central venous catheter insertion site, initial encounter T80.212A Encounter type: initial encounter Elevated troponin R79.89 (5) Central line insertion site infection Encounter type: initial encounter Qualified Code(s): T80.212A - Local infection due to central venous catheter, initial encounter
[2025-01-13 05:03] LABS: Hematocrit (blood only) 25.2 % (37.0-47.0); Hemoglobin 8.5 g/dL (12.0-16.0); Mean Corpuscular Hemoglobin 31.4 pg (25.0-34.0); Mean Corpuscular Volume 93.0 fL (80.0-100.0); Platelet Count 123 K/uL (130-400); RDW Standard Deviation 48.3 fL (36.4-46.3); Red Blood Count 2.71 M/uL (4.20-5.40); White Blood Count 5.86 K/ul (4.8-10.8)
[2025-01-13 05:28] LABS: Anion Gap 20.0 (3-11); Blood Urea Nitrogen 100.0 mg/dl (6-23); Calcium 7.9 mg/dl (8.6-10.3); Carbon Dioxide 16.0 mmol/L (21-32); Chloride 95.0 mmol/L (98-107); Creatinine Clr Calc Pharmacy 3.4 ml/min; Glucose 57.0 mg/dl (70-99(Fasting)); Potassium 4.6 mmol/L (3.5-5.1); Sodium 131.0 mmol/L (136-145)
[2025-01-13] MEDS ORDERED: GLUCOSE 10 TAB/TUBE PO PRN (05:36)
[2025-01-13] MEDS ORDERED: GLUCAGON FOR INJ 1 MG VIAL SQ PRN (05:36)
[2025-01-13] MEDS ORDERED: GLUCOSE 40% GEL 15 GM TUBE PO PRN (05:36)
[2025-01-13] MEDS ORDERED: CARBOHYDRATES FOR HYPOGLYCEMIA PO PRN (05:36)
[2025-01-13] MEDS: DEXTROSE 50% 50 ML SYRINGE IV PRN (05:45)
--- NOTE | 2025-01-13 07:42 | Vascular Surgery Progress Note ---
Date of Service January 13, 2025 Assessment & Plan (1) Infection of dialysis vascular access: Plan: Repeat Chest CT pending this morning. If no evidence of ongoing extravasation can proceed with dialysis later this morning. Admission and Anticipated Discharge Date Admission Date: January 06, 2025 Subjective No reported problems overnight. Compliant with BiPAP. Comfortable this am. No chest pain. Physical Exam Physical Exam: HR 70-80s. [id number]. No difficulty breathing. Results & Data Vital Signs (Past 12 Hours) Vital Signs Temp Pulse Resp BP Pulse Ox O2 Del Method O2 Flow Rate 01/13/25 07:02 79 15 100 01/13/25 06:00 76 12 100 01/13/25 06:00 134/85 01/13/25 05:00 78 17 98 01/13/25 05:00 151/94 H 01/13/25 04:14 119/81 01/13/25 04:12 73 5 L 99 01/13/25 04:00 83 19 75 L 01/13/25 03:00 73 8 L 100 01/13/25 03:00 118/82 01/13/25 02:21 81 18 100 01/13/25 02:00 72 11 L 01/13/25 02:00 125/82 01/13/25 01:00 74 10 L 100 01/13/25 01:00 139/92 01/13/25 00:37 143/91 H 01/13/25 00:36 82 18 83 L 01/13/25 00:00 75 12 100 01/13/25 00:00 107/74 01/13/25 00:00 84 01/12/25 23:00 72 14 98 01/12/25 23:00 112/74 01/12/25 22:49 84 18 99 12 01/12/25 22:00 86 17 100 01/12/25 21:30 120/81 01/12/25 21:30 74 3 L 01/12/25 21:00 139/108 H 01/12/25 21:00 79 23 98 01/12/25 20:30 36.4 C L 132/87 01/12/25 20:00 BiPAP FiO2 01/13/25 07:02 21 01/13/25 06:00 01/13/25 06:00 01/13/25 05:00 01/13/25 05:00 01/13/25 04:14 01/13/25 04:12 01/13/25 04:00 01/13/25 03:00 01/13/25 03:00 01/13/25 02:21 21 01/13/25 02:00 01/13/25 02:00 01/13/25 01:00 01/13/25 01:00 01/13/25 00:37 01/13/25 00:36 01/13/25 00:00 01/13/25 00:00 01/13/25 00:00 01/12/25 23:00 01/12/25 23:00 01/12/25 22:49 01/12/25 22:00 01/12/25 21:30 01/12/25 21:30 01/12/25 21:00 01/12/25 21:00 01/12/25 20:30 01/12/25 20:00 PG Care Time/CCT Total # of Minutes Spent Total Time Spent with Patient: Total time spent is greater than 50% in coordination of care (as documented) at patient's floor/unit and/or counseling patient:
--- NOTE | 2025-01-13 08:59 | Nephrology Progress Note ---
Date of Service January 13, 2025 Assessment & Plan (1) End stage renal disease: Plan: * THC removed 01/06/25. Volume status and electrolyte balance remain acceptable at this time * New IJ THC placed 01/12/25 am. Procedure complicated by microperforation of brachiocephalic vein and mediastinal hematoma * Patient is scheduled for follow up chest CT this morning * Patient appears comfortable w/ breathing, she denies dyspnea. SaO2 97% on BiPAP therapy. Will hold HD today, await CT results, provide IV NaHCO3 for management of metabolic acidosis. POC discussed w/ primary service, surgery and patient this am * BMP, CBC qAM, reassess for HD in am (2) Infection of dialysis vascular access: Plan: * IJ THC removed 01/06 with debridement of right chest wall * IJ THC was culture positive for MSSA * Blood cultures x2 negative * 01/08/25 TTE: no vegetation * Patient remains on IV Cefazolin * ID construction consultant recommends midline catheter and daily IV cefazolin x4 weeks (3) Anemia in chronic kidney disease: Plan: * Hgb stable at 8.5 (4) Systemic lupus erythematosus: Plan: * Maintained on hydroxychloroquine. (5) Secondary hyperparathyroidism of renal origin: Plan: * Continue calcitriol and cinacalcet per home dose. * Auryxia 1 tablet TID with meals. Admission and Anticipated Discharge Date Admission Date: January 06, 2025 Subjective Ms. Casillas was evaluated in the ICU this morning. She declined transfer to tertiary care facility yesterday. staff therapist reports that she was hemodynamically stable overnight. She remains on BiPAP to increase intrathoracic pressure. Ms. Casillas states that she is comfortable when lying still but did experience chest discomfort when sitting up for physical examination earlier this morning. Dilaudid was administered and she is now subjectively improved. Review of Systems Constitutional: no fever Eyes: no problem reported Ear, Nose, Mouth, Throat: no problem reported Respiratory: no dyspnea Cardiovascular: no chest pain and no edema Gastrointestinal: no abdominal pain, no nausea, no vomiting and no diarrhea/loose stools Physical Exam Constitutional: not in distress remains on BiPAP therapy Eyes: PERRL, conjunctivae normal, anicteric sclerae ENMT: external ear and nose normal, oropharynx normal Neck: trachea midline, no thyromegaly Respiratory: normal respiratory effort, lungs clear to auscultation Cardiovascular: RRR, no murmur, no edema Gastrointestinal (Abdomen): normal bowel sounds, soft, nontender, no hepatosplenomegaly Musculoskeletal: Extremities: no cyanosis and no clubbing Skin: no rashes, warm and dry Neurologic: no focal motor deficits Results & Data Vital Signs (Past 12 Hours) Vital Signs Temp Pulse Resp BP Pulse Ox O2 Del Method O2 Flow Rate 01/13/25 08:35 36.9 C 01/13/25 08:25 BiPAP 01/13/25 08:00 91 H 18 156/93 H 97 BiPAP 01/13/25 08:00 156/93 H 01/13/25 08:00 156/93 H 01/13/25 08:00 156/93 H 01/13/25 08:00 156/93 H 01/13/25 08:00 82 12 99 01/13/25 07:02 79 15 100 01/13/25 07:00 78 14 99 01/13/25 07:00 156/99 H 01/13/25 07:00 156/99 H 01/13/25 07:00 156/99 H 01/13/25 07:00 156/99 H 01/13/25 07:00 156/99 H 01/13/25 06:00 76 12 100 01/13/25 06:00 134/85 01/13/25 05:00 78 17 98 01/13/25 05:00 151/94 H 01/13/25 04:14 119/81 01/13/25 04:12 73 5 L 99 01/13/25 04:00 83 19 75 L 01/13/25 03:00 73 8 L 100 01/13/25 03:00 118/82 01/13/25 02:21 81 18 100 01/13/25 02:00 72 11 L 01/13/25 02:00 125/82 01/13/25 01:00 74 10 L 100 01/13/25 01:00 139/92 01/13/25 00:37 143/91 H 01/13/25 00:36 82 18 83 L 01/13/25 00:00 75 12 100 01/13/25 00:00 107/74 01/13/25 00:00 84 01/12/25 23:00 72 14 98 01/12/25 23:00 112/74 01/12/25 22:49 84 18 99 12 01/12/25 22:00 86 17 100 01/12/25 21:30 120/81 01/12/25 21:30 74 3 L 01/12/25 21:00 139/108 H 01/12/25 21:00 79 23 98 FiO2 01/13/25 08:35 01/13/25 08:25 01/13/25 08:00 01/13/25 08:00 01/13/25 08:00 01/13/25 08:00 01/13/25 08:00 01/13/25 08:00 01/13/25 07:02 21 01/13/25 07:00 01/13/25 07:00 01/13/25 07:00 01/13/25 07:00 01/13/25 07:00 01/13/25 07:00 01/13/25 06:00 01/13/25 06:00 01/13/25 05:00 01/13/25 05:00 01/13/25 04:14 01/13/25 04:12 01/13/25 04:00 01/13/25 03:00 01/13/25 03:00 01/13/25 02:21 21 01/13/25 02:00 01/13/25 02:00 01/13/25 01:00 01/13/25 01:00 01/13/25 00:37 01/13/25 00:36 01/13/25 00:00 01/13/25 00:00 01/13/25 00:00 01/12/25 23:00 01/12/25 23:00 01/12/25 22:49 01/12/25 22:00 01/12/25 21:30 01/12/25 21:30 01/12/25 21:00 01/12/25 21:00 Laboratory Results Laboratory Results WBC 5.86 K/ul (4.8-10.8) 01/13/25 04:40 RBC 2.71 M/uL (4.20-5.40) L 01/13/25 04:40 Hgb 8.5 g/dL (12.0-16.0) L 01/13/25 04:40 Hct 25.2 % (37.0-47.0) L 01/13/25 04:40 MCV 93.0 fL (80.0-100.0) 01/13/25 04:40 MCH 31.4 pg (25.0-34.0) 01/13/25 04:40 MCHC 33.7 g/dL (32.0-36.0) 01/13/25 04:40 RDW Std Deviation 48.3 fL (36.4-46.3) H 01/13/25 04:40 RDW Coeff of Negrito 14.1 % (11.5-14.5) 01/13/25 04:40 Plt Count 123 K/uL (130-400) L 01/13/25 04:40 MPV 10.7 fL (9.4-12.4) 01/13/25 04:40 Immature Gran % (Auto) 1.3 % 01/12/25 11:37 Neut % (Auto) 64.9 % 01/12/25 11:37 Lymph % (Auto) 23.9 % 01/12/25 11:37 [place] % (Auto) 5.9 % 01/12/25 11:37 Eos % (Auto) 3.3 % 01/12/25 11:37 Baso % (Auto) 0.7 % 01/12/25 11:37 Neut # (Auto) 3.98 K/uL (1.40-6.50) 01/12/25 11:37 Lymph # (Auto) 1.46 K/uL (1.20-3.40) 01/12/25 11:37 [place] # (Auto) 0.36 K/uL (0.11-0.59) 01/12/25 11:37 Eos # (Auto) 0.20 K/uL (0.00-0.50) 01/12/25 11:37 Baso # (Auto) 0.04 K/uL (0.00-0.20) 01/12/25 11:37 Immature Gran # (Auto) 0.08 K/uL (0.01-0.20) 01/12/25 11:37 ESR 58 mm/hr (0-30) H 01/08/25 10:15 PT 10.7 Seconds (9.0-12.0) 01/10/25 04:25 INR 1.0 (0.9-1.1) 01/10/25 04:25 Sodium 131 mmol/L (136-145) L 01/13/25 04:40 Potassium 4.6 mmol/L (3.5-5.1) 01/13/25 04:40 Chloride 95 mmol/L (98-107) L 01/13/25 04:40 Carbon Dioxide 16 mmol/L (21-32) L 01/13/25 04:40 Anion Gap 20 (3-11) H 01/13/25 04:40 BUN 100 mg/dl (6-23) H 01/13/25 04:40 Creatinine 17.66 mg/dl (0.6-1.2) H* D 01/13/25 04:40 Est Cr Clr Drug Dosing 3.4 ml/min 01/13/25 04:40 eGFR 2.17 01/13/25 04:40 BUN/Creatinine Ratio 5.7 (10-20) L 01/13/25 04:40 Glucose 57 mg/dl (70-99(Fasting)) L 01/13/25 04:40 POC Glucose 129 mg/dl (70-99) H 01/13/25 06:01 Lactate 0.8 mmol/L (0.4-2.0) 01/07/25 05:05 Calcium 7.9 mg/dl (8.6-10.3) L 01/13/25 04:40 Phosphorus 6.9 mg/dl (2.5-4.9) H 01/09/25 03:53 Magnesium 2.6 mg/dl (1.7-2.4) H 01/12/25 06:29 Iron 15 mcg/dl (35-150) L 01/08/25 03:48 TIBC TNP 01/08/25 03:48 Transferrin < 95 mg/dl (200-360) L 01/08/25 03:48 Transferrin % Sat TNP 01/08/25 03:48 Ferritin 539.0 ng/ml (8-388) H 01/08/25 03:48 Total Bilirubin 0.4 mg/dl (0.2-1.0) 01/08/25 03:48 Direct Bilirubin TNP 01/06/25 09:21 AST 9 U/L (13-39) L 01/08/25 03:48 ALT 6 U/L (7-52) L 01/08/25 03:48 Alkaline Phosphatase 71 U/L (34-104) 01/08/25 03:48 Troponin I High Sens 242.9 pg/ml (0-14) H* 01/06/25 11:27 C-Reactive Protein 4.81 mg/dl (0-0.5) H 01/12/25 06:29 Total Protein 5.9 gm/dl (6.0-8.3) L 01/08/25 03:48 Albumin 3.0 gm/dl (3.4-5.0) L 01/08/25 03:48 Globulin 2.9 gm/dl (2.5-4.0) 01/08/25 03:48 Albumin/Globulin Ratio 1.0 (0.9-2) 01/08/25 03:48 Vitamin B12 322 pg/ml (180-914) 01/08/25 03:48 Procalcitonin 3.54 ng/ml (0-0.5) H 01/12/25 06:29 Random Cortisol 9.25 mcg/dl 01/07/25 05:06 Nasal Screen MRSA (PCR) Negative (Negative) 01/06/25 Unknown Random Vancomycin 24.5 mcg/ml (10-20) H 01/08/25 03:48 Hep Bs Antigen Negative (Negative) 01/07/25 20:10 Hep Bs Antibody Immune 01/07/25 20:10 Hep Bs Antibody, Quant 130.00 mIU/mL (>or=10mIU/mL Immune) 01/07/25 20:[address] 01/12/25 10:[address] WITH CONTRAST CT DOSE: 773.63 mGy.cm HISTORY: Status post placement of a left-sided hemodialysis catheter s/p HD line placement, eval for chest hematoma TECHNIQUE: Multiaxial CT images of the chest were performed following the IV administration of 93 cc of Optiray. A dose lowering technique was utilized adhering to the principles of ALARA. COMPARISON: Chest radiograph of same day, chest CT 01/08/2025 FINDINGS: Unremarkable thyroid. No pathologically enlarged lymph nodes. The heart is normal in size. Demu-dy-smguocpm coronary artery calcifications. Normal caliber thoracic aorta. There is patency of the innominate and imaged subclavian arteries. Unremarkable pulmonary artery. There is evidence of prior right IJ hemodialysis catheter removal. There is a fluid-filled tract at the site of prior catheter placement within the right upper chest. There is marked narrowing involving the right IJ and brachiocephalic veins with possible fibrin sheath versus thrombus again noted within this area. Status post placement of a left IJ hemodialysis catheter which appears to be in satisfactory position, distal tip is in the mid SVC. There is blood and air within the mediastinum, most pronounced in the anterior prevascular distribution. There is irregular outpouching involving the inferior aspect of the left brachiocephalic vein measuring 2.1 x 2.0 x 3.1 cm (image 85 series 4 and image 32 of series 400). Areas of active extravasation noted adjacent to this outpouching. A smaller outpouching of the brachycephalic vein noted on image 82 series 4. Ill-defined hematoma within the mediastinum measures up to approximately 4.5 cm on image 98. Small pleural effusions with dependent bibasilar consolidation. There is no pneumothorax. No suspicious pulmonary nodules. Central airways are patent. No acute upper abdominal abnormality. Severely atrophic kidneys. Calcified granulomata of the spleen. Upper chest wall subcutaneous edema. No discrete fluid collection. IMPRESSION: 1. Status post placement of a left IJ dual-lumen hemodialysis catheter with distal tip within the SVC. 2. Acute injury of the left brachiocephalic vein with 3 cm outpouching/partially contained perforation of the vessel with adjacent active extravasation, adjacent mediastinal hematoma and small amount of anterior pneumomediastinum. 3. Prior right IJ hemodialysis catheter removal with marked narrowing of the right internal jugular vein and brachiocephalic vein as above. 4. Small pleural effusions with dependent bibasilar atelectasis. ACT 112: Negative or not required by law. Electronically signed by: Ulises Trimble M.D. 01/12/2025 11:06 AM Chest X-Ray 01/12/25 12:50 XR chest 1V portable CLINICAL HISTORY: placed on BiPAP, eval for lung injury COMPARISON STUDY: Chest radiograph and chest CT performed earlier today. FINDINGS: A left internal jugular dual lumen catheter remains in place. Upper mediastinal widening appears similar to CT performed earlier today. There is no pneumothorax. There are trace bilateral pleural effusions. Linear lower lobe densities favor atelectasis. There is no consolidation to suggest pneumonia. There is no evidence for pulmonary edema. Cardiac size is normal. IMPRESSION: 1. No pneumothorax. 2. Dual lumen left internal jugular dialysis catheter in place. No significant change in upper mediastinal widening related to mediastinal hematoma since CT performed earlier today. 3. Trace bilateral pleural effusions. Lower lung opacities consistent with atelectasis. ACT 112: Negative or not required by law. Electronically signed by: Wilder Lloyd M.D. 01/12/2025 1:48 PM PG Care Time/CCT Total # of Minutes Spent Total Time Spent with Patient: 50 minutes provided to review progress notes, laboratory data, interview and examine patient, discuss POC w/ primary service and surgery, order follow-up laboratory studies for am, update medical record. 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
[2025-01-13] MEDS: OPTIRAY 320 100ml IV ONE (11:30)
--- NOTE | 2025-01-13 11:57 | CT Scan Report ---
CT OF THE CHEST WITH AND WITHOUT CONTRAST CLINICAL HISTORY: Evaluate mediastinal hematoma. COMPARISON STUDY: Chest CT and chest radiograph January 12, 2025. TECHNIQUE: Axial images of the chest were obtained before and after intravenous administration of 94 cc Optiray 320 IV. Sagittal and coronal reformats were viewed. A dose lowering technique was utilized adhering to the principles of ALARA. FINDINGS: Previous right internal jugular catheter tract site is unchanged in appearance since CT of January 12, 2025. Left internal jugular dual lumen catheter is in place. The tip remains within the SVC. Mediastinal hemorrhage has moderately decreased in amount since CT of January 12, 2025. An outp ouching of contrast arising from the inferior aspect of the left brachiocephalic vein on image 82 of 269 has slightly decreased in size and opacification has diminished. This now measures 1.9 x 1.8 cm, previously 2.1 x 2 cm. Adjacent smaller outpouching on image 82 is similar to prior exam. Minimal pne umomediastinum has slightly decreased. Body wall edema, including lower neck and upper chest wall str anding has mildly increased. No well-defined fluid collections are present. Prominent bilateral retro pectoral lymph nodes remain unchanged. Size of the heart is normal. Trace pericardial effusion is sim ilar to prior exam. Small bilateral pleural effusions have slightly increased. Associated subpleural opacities favor atelectasis. There is no consolidation to suggest pneumonia. No pulmonary emboli are identified. Bilateral renal atrophy is incidentally noted within the visualized upper abdomen. IMPRESSION: 1. Moderate decrease in the amount of mediastinal hemorrhage since CT of January 12, 2025. Slight de crease in size and opacification of the outpouching/partially contained perforation of the left brach iocephalic vein prior CT. 2. Left internal jugular dual lumen catheter in place. Tip within the SVC. 3. Slight increase in diffuse body wall edema, including lower neck and upper chest wall stranding. 4. Slight increase in small bilateral pleural fusions. Associated subpleural opacities represent atel ectasis. ACT 112: Negative or not required by law. Electronically signed by: Wilder Lloyd M.D. 01/13/2025 11:55 AM
--- NOTE | 2025-01-13 14:18 | Hospitalist Progress Note ---
Date of Service January 13, 2025 Assessment & Plan (1) Cellulitis of chest wall: (2) Infection of dialysis vascular access: (3) Acute mediastinitis: (4) Mediastinitis due to infection: (5) Central line insertion site infection: (6) Elevated troponin: Plan Plan This is a 49 year old female with a PMH of ESRD on HD, SLE on plaquenil, HTN, anemia - coming in with venous catheter infection/cellulitis, mediastinitis, R SCM myositis #Subcalvian Perforation -See Vascular Surgery Notes, advised transport to [facility] for definitive vascular/cardiothoracic stabilization. Patient refused transfer, maintains demonstrated capacity to make this decision. Understands the risks. Sites rational reasons for declining transport -Transfer to ICU for close monitoring, repeat x-ray in hour to rule out pneumothorax, repeat CT scan in the morning per vascular surgery to assess for stability, assess sooner if clinically she declines - Stable repeat CT Septic shock 2/2 central line associated infection with mediastinitis and right SCM myositis S/p infected tunneled catheter removal 01/09. pain improving, remains with erythema over the right chest wall and neck Midodrine continued Remains off vasopressors, downgraded Port cultures are positive for MSSA. Vancomycin and Zosyn have been discontinued. Patient has been transitioned to cefazolin renally dosed. - Blood cultures remain negative to date Limited TTE without evidence of any valvular involvement Given associated mediastinitis and MSSA associated line infection would favor at least 4-week antibiotic course of therapy. Generally given the extent of her disease would treat with IV. - ID has seen patient, final recs pending, continue cefazolin, serial inflammatory markers stable - Tunneled dialysis catheter placed as above, in place and functional, no immediate need for dialysis per nephrology, plan for tomorrow morning - Continue cefazolin as above no changes at this time, #Emotional lability/depression - Consult to BHU liaison per patient request. No current SI or decompensated symptoms - BHU liaison to see the patient on arrival to ICU - Will start mirtazapine 7.5 mg nightly likely tomorrow night ESRD on hemodialysis Nephrology following Goal for line holiday over the weekend. Next dialysis anticipated 01/10 or 01/11 with dialysis catheter placement 01/10. Volume status adequate. Potassium 4.3. Rising BUN/creatinine, monitor for acidemia. 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 Troponin 293, repeat 242 around admission in the setting of sepsis. Suspect demand and likely with some degree of impaired clearance. EKG normal sinus rhythm and no territorial ST/T wave changes - No further testing required at this time Chronic Thrombocytopenia -Continue monitoring, platelet count remained stable Chronic, immune. 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 Trend daily - Will continue to monitor Daily Acute on chronic anemia Hemoglobin fluctuating around 910. Remained stable Continue to monitor 2/2 underlying medical renal disease Ferric citrate continued both for anemia, and also as a phosphate binder - Stable, a.m. labs Anxiety/depression Alprazolam daily continued Bupropion 150 mg daily resumed, continued Sertraline 50 mg daily resumed, continued - See BHU consult as above DVT prophylaxis: -hold heparin for the short term, SCDs Admission and Anticipated Discharge Date Admission Date: January 06, 2025 Subjective Doing okay this morning. Chest pain is intermittent but responds well to medications. She has had no shortness of breath. Tolerates the BiPAP on an intermittent basis but for the most part continues to use it. Ex- has been visiting with her and she has been doing better from a mood stability standpoint with his presence. Overall no new events or concerns. Awaiting CT scan later this morning. Will continue to manage her closely in ICU setting until scans are complete. Physical Exam Physical Exam: General: A&Ox3. NAD. Cooperative. HEENT: BiPAP in place, minimal leaks, atraumatic, normocephalic. Vision and hearing grossly intact. Pupils equal and reactive to light. TDC in upper left neck, CDI Chest: Dressing overlying prior port site C/D/I. No Erythema Pulm: CTAB A&P. -wheezes, -rales, -rhonchi. Symmetrical chest rise. No increase in work of breathing. No respiratory distress. Cardiac: RRR, -mrg. Radial pulses intact and symmetrical. Abdominal: Nontender, nondistended, soft. Extremities: Trace edema bilaterally, Warm, dry. Moves all extremities equally. Cap refill brisk Results & Data Results & Data Vital Signs (Past 12 Hours) Vital Signs Temp Pulse Resp BP Pulse Ox O2 Del Method FiO2 01/13/25 14:03 93 H 15 99 21 01/13/25 11:00 147/89 H 01/13/25 11:00 147/89 H 01/13/25 11:00 147/89 H 01/13/25 11:00 147/89 H 01/13/25 11:00 81 5 L 100 01/13/25 10:00 88 16 96 01/13/25 10:00 171/105 H 01/13/25 10:00 171/105 H 01/13/25 10:00 171/105 H 01/13/25 10:00 171/105 H 01/13/25 09:00 84 12 97 01/13/25 09:00 132/90 01/13/25 09:00 132/90 01/13/25 09:00 132/90 01/13/25 09:00 132/90 01/13/25 09:00 132/90 01/13/25 08:35 36.9 C 01/13/25 08:25 BiPAP 01/13/25 08:00 156/93 H 01/13/25 08:00 156/93 H 01/13/25 08:00 156/93 H 01/13/25 08:00 156/93 H 01/13/25 08:00 91 H 18 156/93 H 97 BiPAP 01/13/25 08:00 156/93 H 01/13/25 08:00 156/93 H 01/13/25 08:00 156/93 H 01/13/25 08:00 156/93 H 01/13/25 08:00 82 12 99 01/13/25 07:02 79 15 100 21 01/13/25 07:00 78 14 99 01/13/25 07:00 156/99 H 11/13/25 07:00 156/99 H 01/13/25 07:00 156/99 H 01/13/25 07:00 156/99 H 01/13/25 07:00 156/99 H 01/13/25 06:00 76 12 100 01/13/25 06:00 134/85 01/13/25 05:00 78 17 98 01/13/25 05:00 151/94 H 01/13/25 04:14 119/81 01/13/25 04:12 73 5 L 99 01/13/25 04:00 83 19 75 L 01/13/25 03:00 73 8 L 100 01/13/25 03:00 118/82 01/13/25 02:21 81 18 100 21 Laboratory Results 01/13/25 01/13/25 01/13/25 13:01 12:38 12:38 WBC RBC Hgb Hct MCV MCH MCHC RDW Std Deviation RDW Coeff of Negrito Plt Count MPV Sodium Potassium Chloride Carbon Dioxide Anion Gap BUN Creatinine Est Cr Clr Drug Dosing eGFR BUN/Creatinine Ratio Glucose POC Glucose 120 H 56 L* 56 L* Calcium 01/13/25 01/13/25 06:01 04:40 WBC 5.86 RBC 2.71 L Hgb 8.5 L Hct 25.2 L MCV 93.0 MCH 31.4 MCHC 33.7 RDW Std Deviation 48.3 H RDW Coeff of Negrito 14.1 Plt Count 123 L MPV 10.7 Sodium 131 L Potassium 4.6 Chloride 95 L Carbon Dioxide 16 L Anion Gap 20 H BUN 100 H Creatinine 17.66 H* D Est Cr Clr Drug Dosing 3.4 eGFR 2.17 BUN/Creatinine Ratio 5.7 L Glucose 57 L POC Glucose 129 H Calcium 7.9 L Diagnostic Findings Chest CT 01/13/25 07:00 CT OF THE CHEST WITH AND WITHOUT CONTRAST CLINICAL HISTORY: Evaluate mediastinal hematoma. COMPARISON STUDY: Chest CT and chest radiograph January 12, 2025. TECHNIQUE: Axial images of the chest were obtained before and after intravenous administration of 94 cc Optiray 320 IV. Sagittal and coronal reformats were viewed. A dose lowering technique was utilized adhering to the principles of ALARA. FINDINGS: Previous right internal jugular catheter tract site is unchanged in appearance since CT of January 12, 2025. Left internal jugular dual lumen catheter is in place. The tip remains within the SVC. Mediastinal hemorrhage has moderately decreased in amount since CT of January 12, 2025. An outpouching of contrast arising from the inferior aspect of the left brachiocephalic vein on image 82 of 269 has slightly decreased in size and opacification has diminished. This now measures 1.9 x 1.8 cm, previously 2.1 x 2 cm. Adjacent smaller outpouching on image 82 is similar to prior exam. Minimal pneumomediastinum has slightly decreased. Body wall edema, including lower neck and upper chest wall stranding has mildly increased. No well-defined fluid collections are present. Prominent bilateral retropectoral lymph nodes remain unchanged. Size of the heart is normal. Trace pericardial effusion is similar to prior exam. Small bilateral pleural effusions have slightly increased. Associated subpleural opacities favor atelectasis. There is no consolidation to suggest pneumonia. No pulmonary emboli are identified. Bilateral renal atrophy is incidentally noted within the visualized upper abdomen. IMPRESSION: 1. Moderate decrease in the amount of mediastinal hemorrhage since CT of January 12, 2025. Slight decrease in size and opacification of the outpouching/partially contained perforation of the left brachiocephalic vein prior CT. 2. Left internal jugular dual lumen catheter in place. Tip within the SVC. 3. Slight increase in diffuse body wall edema, including lower neck and upper chest wall stranding. 4. Slight increase in small bilateral pleural fusions. Associated subpleural opacities represent atelectasis. ACT 112: Negative or not required by law. Electronically signed by: Wilder Lloyd M.D. 01/13/2025 11:55 AM PG Care Time/CCT Total # of Minutes Spent Total Time Spent with Patient: Total time spent is greater than 50% in coordination of care (as documented) at patient's floor/unit and/or counseling patient: Coding Level of Care Code 55906 SUB INP/OBS CARE MIN Diagnoses Cellulitis of chest wall L03.313 Infection of dialysis vascular access T82.7XXA Acute mediastinitis J98.51 Mediastinitis due to infection J98.51 Infection of central venous catheter insertion site, initial encounter T80.212A Encounter type: initial encounter Elevated troponin R79.89 (5) Central line insertion site infection Encounter type: initial encounter Qualified Code(s): T80.212A - Local infection due to central venous catheter, initial encounter
--- NOTE | 2025-01-13 14:20 | Hospitalist Progress Note ---
Date of Service January 13, 2025 Assessment & Plan (1) Cellulitis of chest wall: (2) Infection of dialysis vascular access: (3) Acute mediastinitis: (4) Mediastinitis due to infection: (5) Central line insertion site infection: (6) Elevated troponin: Plan Plan This is a 49 year old female with a PMH of ESRD on HD, SLE on plaquenil, HTN, anemia - coming in with venous catheter infection/cellulitis, mediastinitis, R SCM myositis #Subcalvian Perforation -See Vascular Surgery Notes, advised transport to [facility] for definitive vascular/cardiothoracic stabilization. Patient refused transfer, maintains demonstrated capacity to make this decision. Understands the risks. Sites rational reasons for declining transport -Transfer to ICU for close monitoring, repeat x-ray in hour to rule out pneumothorax, repeat CT scan in the morning per vascular surgery to assess for stability, assess sooner if clinically she declines - Stable repeat CT Septic shock 2/2 central line associated infection with mediastinitis and right SCM myositis S/p infected tunneled catheter removal 01/09. pain improving, remains with erythema over the right chest wall and neck Midodrine continued Remains off vasopressors, downgraded Port cultures are positive for MSSA. Vancomycin and Zosyn have been discontinued. Patient has been transitioned to cefazolin renally dosed. - Blood cultures remain negative to date Limited TTE without evidence of any valvular involvement Given associated mediastinitis and MSSA associated line infection would favor at least 4-week antibiotic course of therapy. Generally given the extent of her disease would treat with IV. - ID has seen patient, final recs pending, continue cefazolin, serial inflammatory markers stable - Tunneled dialysis catheter placed as above, in place and functional, no immediate need for dialysis per nephrology, plan for tomorrow morning - Continue cefazolin as above no changes at this time, #Emotional lability/depression - Consult to BHU liaison per patient request. No current SI or decompensated symptoms - BHU liaison to see the patient on arrival to ICU - Will start mirtazapine 7.5 mg nightly likely tomorrow night ESRD on hemodialysis Nephrology following Goal for line holiday over the weekend. Next dialysis anticipated 01/10 or 01/11 with dialysis catheter placement 01/10. Volume status adequate. Potassium 4.3. Rising BUN/creatinine, monitor for acidemia. 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 Troponin 293, repeat 242 around admission in the setting of sepsis. Suspect demand and likely with some degree of impaired clearance. EKG normal sinus rhythm and no territorial ST/T wave changes - No further testing required at this time Chronic Thrombocytopenia -Continue monitoring, platelet count remained stable Chronic, immune. 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 Trend daily - Will continue to monitor Daily Acute on chronic anemia Hemoglobin fluctuating around 910. Remained stable Continue to monitor 2/2 underlying medical renal disease Ferric citrate continued both for anemia, and also as a phosphate binder - Stable, a.m. labs Anxiety/depression Alprazolam daily continued Bupropion 150 mg daily resumed, continued Sertraline 50 mg daily resumed, continued - See BHU consult as above DVT prophylaxis: -hold heparin for the short term, SCDs Admission and Anticipated Discharge Date Admission Date: January 06, 2025 Results & Data Results & Data Vital Signs (Past 12 Hours) Vital Signs Temp Pulse Resp BP Pulse Ox O2 Del Method FiO2 01/13/25 14:03 93 H 15 99 21 01/13/25 11:00 147/89 H 01/13/25 11:00 147/89 H 01/13/25 11:00 147/89 H 01/13/25 11:00 147/89 H 01/13/25 11:00 81 5 L 100 01/13/25 10:00 88 16 96 01/13/25 10:00 171/105 H 01/13/25 10:00 171/105 H 01/13/25 10:00 171/105 H 01/13/25 10:00 171/105 H 01/13/25 09:00 84 12 97 01/13/25 09:00 132/90 01/13/25 09:00 132/90 01/13/25 09:00 132/90 01/13/25 09:00 132/90 01/13/25 09:00 132/90 01/13/25 08:35 36.9 C 01/13/25 08:25 BiPAP 01/13/25 08:00 156/93 H 01/13/25 08:00 156/93 H 01/13/25 08:00 156/93 H 01/13/25 08:00 156/93 H 01/13/25 08:00 91 H 18 156/93 H 97 BiPAP 01/13/25 08:00 156/93 H 01/13/25 08:00 156/93 H 01/13/25 08:00 156/93 H 01/13/25 08:00 156/93 H 01/13/25 08:00 82 12 99 01/13/25 07:02 79 15 100 21 01/13/25 07:00 78 14 99 01/13/25 07:00 156/99 H 01/13/25 07:00 156/99 H 01/13/25 07:00 156/99 H 01/13/25 07:00 156/99 H 01/13/25 07:00 156/99 H 01/13/25 06:00 76 12 100 01/13/25 06:00 134/85 01/13/25 05:00 78 17 98 01/13/25 05:00 151/94 H 01/13/25 04:14 119/81 01/13/25 04:12 73 5 L 99 01/13/25 04:00 83 19 75 L 01/13/25 03:00 73 8 L 100 01/13/25 03:00 118/82 01/13/25 02:21 81 18 100 21 PG Care Time/CCT Total # of Minutes Spent Total Time Spent with Patient: Total time spent is greater than 50% in coordination of care (as documented) at patient's floor/unit and/or counseling patient: Coding Diagnoses Cellulitis of chest wall L03.313 Infection of dialysis vascular access T82.7XXA Acute mediastinitis J98.51 Mediastinitis due to infection J98.51 Infection of central venous catheter insertion site, initial encounter T80.212A Encounter type: initial encounter Elevated troponin R79.89 (5) Central line insertion site infection Encounter type: initial encounter Qualified Code(s): T80.212A - Local infection due to central venous catheter, initial encounter
--- NOTE | 2025-01-13 16:42 | Critical Care Progress Note ---
Date of Service January 13, 2025 Assessment & Plan (1) Mediastinal hematoma: Plan: * Venous perforation around junction of Left IJ and Brachiocephalic Vein during insertion of dialysis catheter. * Will use BiPAP hoping to tamponade the injured vein by increasing intrathoracic pressure (at recommendations of Vascular Surgery). * Will consider transfer to center with CT surgery service if there is any indication of deterioration. * Will consider intubation and mechanical ventilation if it is felt that this would make it safer for transport. (2) Lupus (systemic lupus erythematosus): (3) End stage renal disease: (4) Thrombocytopenia: Plan Need for ICU: patient sustained vascular injury during insertion of dialysis catheter. Being observed to make sure that she receive immediate attention in case of worsening bleeding at site of injury. Neuro/Psych: Depression, anxiety, emotional lability Chronic peripheral neuropathy Restless legs syndrome Cardiac/Vascular: Using BiPAP regularly hoping to help tamponade the vascular injury (around junction of Left IJ and brachiocephalic vein). CT chest with IV contrast was interpreted as showing: "Moderate decrease in the amount of mediastinal hemorrhage since CT of January 12, 2025. Slight decrease in size and opacification of the outpouching/partially contained perforation of the left brachiocephalic vein prior CT." Respiratory: Mediastinal hematoma associated with vascular injury. Recent mediastinitis associated with infection at site of Right IJ dialysis catheter (removed) Minimal pneumomediastinum: possibly related to recent procedure or residual from recent mediastinitis Bilateral pleural effusions suspected on basis of missing HD sessions. Passive atelectasis associated with pleural effusions GI/Nutrition: Hypoalbuminemia: at least partly [id number] to recent systemic infection /RENAL/LYTES: ESRD on HD Previous LUE fistula non-functional Metabolic acidosis: will get Bicarbonate until dialysis resumed ENDO: Secondary hyperparathyroidism Hypoglycemia: resolved. Rheum/MS: SLE HEME/Onc: Iron deficiency: Iron supplementation suspended during treatment of infection (Mediastinitis). Chronic immune thrombocytopenia (ITP) ID: Cellulitis of chest wall Infection of dialysis vascular access Acute mediastinitis Elevated CRP, procalcitonin Continue Cefazolin for MSSA Immunocompromised (Plaquenil) Feeding/Fluids: Eating. No supplemental IV fluids Analgesia: PRN Hydromorphone Sedation: PRN Xanax DVT prophylaxis: SCDs. Chemoprophylaxis held for active bleeding Head-up: Not applicable Ulcer Prophylaxis: Not needed Glycemic Control: No issues. Sp. Br. Trial: Not applicable Bowel Care: Miralax Ind. Catheters: Left IJ HD catheter. Peripheral catheters Antibiotics: Cefazolin (MSSA) Code-Status: Full Code Disposition: Continue ICU monitoring I have personally spent 65 minutes of critical care time in the direct management of this patient. This is a life/limb threatening event. This includes time spent evaluating patient, direct bedside care, chart review, placing orders, interpretation of diagnostic studies, discussion with consultants, patient, and family members, as well as other required patient management activities. This time is exclusive of all separately billable procedures, and teaching time and separate from and in addition to any other critical care service time. Admission and Anticipated Discharge Date Admission Date: January 06, 2025 Subjective The patient is a very pleasant 49-year-old female who presented to the ED due to pain, swelling, and erythema at the site of her right chest wall dialysis catheter. She reported a history of chronic issues with her central venous catheter since its placement a year prior, including initial healing difficulties after a "flower" during insertion. She had been monitored by her dialysis nurse and had been healing well until approximately one week prior to presentation, when she began noticing increased drainage from the catheter site. The night before her ED visit, she experienced significant worsening of swelling and pain in the area after completing her dialysis session, with extension of swelling into her right lower neck, associated with pain on neck movement, odynophagia, chills, and a subjective fever. On physical examination, the right anterior chest, at the site of the central venous catheter, demonstrated a large area of erythema, swelling, and tenderness, with palpable fluctuance superior to the insertion site and diffuse swelling extending toward the clavicle and lower right neck. No active drainage was noted at the insertion site. CT of chest (without and with contrast) demonstrated extensive stranding and fluid adjacent to the right internal jugular dialysis catheter, with inflammation involving the right chest, lower neck, and mediastinum, consistent with cellulitis and developing mediastinitis. There was also myositis of the right sternocleidomastoid muscle and severe narrowing of the distal right internal jugular vein, raising concern for possible thrombus. No definite abscess or soft tissue gas was identified. She was started on broad-spectrum IV antibiotics (vancomycin and Zosyn), and vascular surgery was consulted. After multidisciplinary discussion, the plan was for urgent removal of the infected catheter in the operating room, with intraoperative findings of fat necrosis and purulent drainage from the catheter tract, and a small abscess cavity (1 x 2 cm, 34 mm deep) that was debrided. Cultures from the tract grew MSSA. Blood cultures remained negative. Antibiotics were narrowed to cefazolin. She was admitted to the ICU for airway monitoring and further management of mediastinitis, cellulitis, and catheter-associated infection. Today (01/12/2025), she underwent placement of a new left internal jugular tunneled dialysis catheter, complicated by a small venous perforation and mediastinal hematoma. The patient was offered transfer to a hospital with Thoracic Surgery coverage, but she refused. It was decided to transfer the patietn to ICU observation. She remained hemodynamically stable. Her hospital course was further complicated by emotional lability and depression, for which behavioral health was consulted. 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 faecalis and MSSA). She had documented allergies to cephalexin (rash), high-dose penicillin (renal failure), and Bactrim (rash), but tolerated ceftriaxone and ampicillin. Note from 01/12/2025: The patient denies dyspnea or chest pain at this time. Note from 01/13/2025: Patient denies dyspnea or chest pain at rest. Using BiPAP regularly hoping to help tamponade the vascular injury (around junction of Left IJ and brachiocephalic vein). CT chest with IV contrast was interpreted as showing "Moderate decrease in the amount of mediastinal hemorrhage since CT of January 12, 2025. Slight decrease in size and opacification of the outpouching/partially contained perforation of the left brachiocephalic vein prior CT." Also there were small bilateral pleural effusions, suspected on the basis of missing hemodialysis sessions. Patient seen by Nephrology. Will get Bicarb for acidosis, with plans for dialysis tomorrow if remains stable. Review of Systems Review of Systems: All systems reviewed & are unremarkable except as noted in HPI & below Physical Exam Physical Exam: General: In no acute distress, using Oxygenvia nasal cannula. Skin: Warm and dry to touch. Previous wounds on right upper chest covered with gauze. Site of recent insertion dialysis catheter on the Left with tenderness to touch. Neck: No palpable masses or adenopathy. Respiratory: Diffusely decreased breath sounds, no wheezing or crackles. No use of accessory muscles and no prolonged exhalation. Cardiac: Distant sounds, regular rhythm, no murmurs, no gallops, no rubs; could not appreciate JV pulse elevation. GI: Soft, nontender. Extremities No clubbing,no cyanosis,no edema. Neuro: No gross motor deficits. Seems appropriate. No facial-droop. Speech is clear. Results & Data Results & Data Vital Signs (Past 12 Hours) Vital Signs Temp Pulse Resp BP Pulse Ox O2 Del Method FiO2 01/13/25 14:03 93 H 15 99 21 01/13/25 11:00 147/89 H 01/13/25 11:00 147/89 H 01/13/25 11:00 147/89 H 01/13/25 11:00 147/89 H 01/13/25 11:00 81 5 L 100 01/13/25 10:00 88 16 96 01/13/25 10:00 171/105 H 01/13/25 10:00 171/105 H 01/13/25 10:00 171/105 H 01/13/25 10:00 171/105 H 01/13/25 09:00 84 12 97 01/13/25 09:00 132/90 01/13/25 09:00 132/90 01/13/25 09:00 132/90 01/13/25 09:00 132/90 01/13/25 09:00 132/90 01/13/25 08:35 36.9 C 01/13/25 08:25 BiPAP 01/13/25 08:00 156/93 H 01/13/25 08:00 156/93 H 01/13/25 08:00 156/93 H 01/13/25 08:00 156/93 H 01/13/25 08:00 91 H 18 156/93 H 97 BiPAP 01/13/25 08:00 156/93 H 01/13/25 08:00 156/93 H 01/13/25 08:00 156/93 H 01/13/25 08:00 156/93 H 01/13/25 08:00 82 12 99 01/13/25 07:02 79 15 100 21 01/13/25 07:00 78 14 99 01/13/25 07:00 156/99 H 01/13/25 07:00 156/99 H 01/13/25 07:00 156/99 H 01/13/25 07:00 156/99 H 01/13/25 07:00 156/99 H 01/13/25 06:00 76 12 100 01/13/25 06:00 134/85 01/13/25 05:00 78 17 98 01/13/25 05:00 151/94 H Laboratory Results 01/13/25 01/13/25 01/13/25 13:01 12:38 12:38 WBC RBC Hgb Hct MCV MCH MCHC RDW Std Deviation RDW Coeff of Negrito Plt Count MPV Sodium Potassium Chloride Carbon Dioxide Anion Gap BUN Creatinine Est Cr Clr Drug Dosing eGFR BUN/Creatinine Ratio Glucose POC Glucose 120 H 56 L* 56 L* Calcium 01/13/25 01/13/25 06:01 04:40 WBC 5.86 RBC 2.71 L Hgb 8.5 L Hct 25.2 L MCV 93.0 MCH 31.4 MCHC 33.7 RDW Std Deviation 48.3 H RDW Coeff of Negrito 14.1 Plt Count 123 L MPV 10.7 Sodium 131 L Potassium 4.6 Chloride 95 L Carbon Dioxide 16 L Anion Gap 20 H BUN 100 H Creatinine 17.66 H* D Est Cr Clr Drug Dosing 3.4 eGFR 2.17 BUN/Creatinine Ratio 5.7 L Glucose 57 L POC Glucose 129 H Calcium 7.9 L Diagnostic Findings Chest CT 01/13/25 07:00 CT OF THE CHEST WITH AND WITHOUT CONTRAST CLINICAL HISTORY: Evaluate mediastinal hematoma. COMPARISON STUDY: Chest CT and chest radiograph January 12, 2025. TECHNIQUE: Axial images of the chest were obtained before and after intravenous administration of 94 cc Optiray 320 IV. Sagittal and coronal reformats were viewed. A dose lowering technique was utilized adhering to the principles of ALARA. FINDINGS: Previous right internal jugular catheter tract site is unchanged in a ppearance since CT of January 12, 2025. Left internal jugular dual lumen catheter is in place. The tip remains within the SVC. Mediastinal hemorrhage has moderately decreased in amount since CT of January 12, 2025. An outpouching of contrast arising from the inferior aspect of the left brachiocephalic vein on image 82 of 269 has slightly decreased in size and opacification has diminished. This now measures 1.9 x 1.8 cm, previously 2.1 x 2 cm. Adjacent smaller outpouching on image 82 is similar to prior exam. Minimal pneumomediastinum has slightly decreased. Body wall edema, including lower neck and upper chest wall stranding has mildly increased. No well-defined fluid collections are present. Prominent bilateral retropectoral lymph nodes remain unchanged. Size of the heart is normal. Trace pericardial effusion is similar to prior exam. Small bilateral pleural effusions have slightly increased. Associated subpleural opacities favor atelectasis. There is no consolidation to suggest pneumonia. No pulmonary emboli are identified. Bilateral renal atrophy is incidentally noted within the visualized upper abdomen. IMPRESSION: 1. Moderate decrease in the amount of mediastinal hemorrhage since CT of January 12, 2025. Slight decrease in size and opacification of the outpouching/partially contained perforation of the left brachiocephalic vein prior CT. 2. Left internal jugular dual lumen catheter in place. Tip within the SVC. 3. Slight increase in diffuse body wall edema, including lower neck and upper chest wall stranding. 4. Slight increase in small bilateral pleural fusions. Associated subpleural opacities represent atelectasis. ACT 112: Negative or not required by law. Electronically signed by: Wilder Lloyd M.D. 01/13/2025 11:55 AM Medications Administered Home Medications Medication Instructions Recorded Confirmed Last Taken vit B complx, C-iron 8 mg-folic 1 tab PO QAM 11/29/22 01/06/25 09/04/23 09:00 acid 800 mcg-D3 1,000 unit-zinc tablet (ProRenal) Medical Marijuana 1 dose inhalation DIRECTED PRN 09/04/23 01/06/25 01/01/24 22:00 Pain bupropion HCl 150 mg tablet,12 hr 0 mg PO QAM 01/01/24 01/06/25 Unknown sustained-release (Wellbutrin SR) cinacalcet 30 mg tablet 0 mg PO .3X WEEK 01/23/24 01/06/25 Unknown alprazolam 0.25 mg tablet (Xanax) 0.25 mg PO DAILY PRN anxiety #30 03/19/24 01/06/25 Unknown tabs ondansetron 8 mg disintegrating 8 mg PO DAILY PRN nausea and 05/26/24 01/06/25 Unknown tablet vomiting 3 days #30 tabs hydrocodone 5 mg-acetaminophen 325 1 tab PO BID PRN severe pain #20 10/22/24 01/06/25 Unknown mg tablet tabs hydroxychloroquine 200 mg tablet 200 mg PO QAM #120 tabs 12/23/24 01/06/25 Unknown (Plaquenil) ferric citrate 210 mg iron tablet 210 mg PO TIDM 01/06/25 01/06/25 Unknown (Auryxia) midodrine 5 mg tablet 5 mg PO UD 01/06/25 01/06/25 Unknown sertraline 50 mg tablet 0 mg PO DAILY 01/06/25 01/06/25 Unknown Active Medications Generic Name Dose Route Start Last Admin Trade Name Freq PRN Reason Stop Dose Admin Acetaminophen 650 mg 01/06/25 23:56 01/07/25 00:11 Acetaminophen 325 Mg Tab PO 02/05/25 23:55 650 mg Q4H PRN Administration Pain or Fever Alprazolam 0.25 mg 01/07/25 09:10 01/13/25 15:12 Alprazolam 0.25 Mg Tablet PO 02/06/25 09:09 0.25 mg DAILY PRN Administration anxiety Bupropion HCl 150 mg 01/07/25 09:45 01/13/25 08:17 Bupropion Sr 150 Mg Tabcr PO 02/06/25 09:44 150 mg BID KAJAL Administration Cinacalcet 30 mg 01/07/25 09:45 01/13/25 14:56 Cinacalcet Hcl 30 Mg Tab PO 02/06/25 09:44 30 mg Q48H KAJAL Administration Dextrose 25 - 50 ml 01/13/25 05:36 01/13/25 12:40 Dextrose 50% 50 Ml Syringe IV 02/12/25 05:35 25 ml UD PRN Administration Hypoglycemia Protocol Protocol Ferric Citrate 210 mg 01/09/25 17:00 01/13/25 14:57 Ferric Citrate 210 Mg Tab PO 02/08/25 16:59 210 mg TIDM KAJAL Administration Gabapentin 100 mg 01/07/25 09:45 01/13/25 08:17 Gabapentin 100 Mg Cap PO 02/06/25 09:44 100 mg QAM KAJAL Administration Hydromorphone HCl 0.5 mg 01/06/25 17:17 01/13/25 15:12 Hydromorphone Inj 0.5 Mg/0.5 Ml Syr IV 01/20/25 17:16 0.5 mg Q6H PRN Administration Pain Hydroxychloroquine Sulfate 400 mg 01/07/25 09:00 01/10/25 08:48 Hydroxychloroquine Sulfate 200 Mg Tab PO 02/06/25 08:59 400 mg [id number] KAJAL Administration Hydroxychloroquine Sulfate 200 mg 01/08/25 09:00 01/13/25 08:17 Hydroxychloroquine Sulfate 200 Mg Tab PO 02/07/25 08:59 200 mg [id number]@0900 KAJAL Administration Cefazolin Sodium 1,000 mg in 7.5 mls @ 2.5 mls/min 01/08/25 10:00 01/12/25 21:54 Ancef 1000mg IV 02/03/25 23:59 2.5 mls/min QPM KAJAL Administration Ondansetron HCl 4 mg 01/11/25 11:06 01/11/25 11:20 Ondansetron Inj 2 Mg/Ml 2 Ml Vial IV 02/10/25 11:05 4 mg Q4H PRN Administration Nausea Polyethylene Glycol 17 gm 01/07/25 09:00 01/13/25 08:29 Polyethylene (Miralax) 17 Gm Pack PO 02/06/25 08:59 Not Given DAILY KAJAL Pregabalin 75 mg 01/07/25 21:00 01/12/25 21:54 Pregabalin 75 Mg Cap PO 02/06/25 20:59 75 mg HS KAJAL Administration Vitamin B Complex/Folic Acid 1 cap 01/07/25 09:00 01/13/25 08:17 Nephrocaps PO 02/06/25 08:59 1 cap QAM KAJAL Administration Coding Level of Care Code 52008 CRITICAL CARE 1ST 30-74M Diagnoses Mediastinal hematoma, initial encounter S27.892A Encounter type: initial encounter Lupus (systemic lupus erythematosus) M32.9 End stage renal disease N18.6 Thrombocytopenia D69.6 Time Spent (min) 65 (1) Mediastinal hematoma Encounter type: initial encounter Qualified Code(s): S27.892A - Contusion of other specified intrathoracic organs, initial encounter
[2025-01-13] MEDS: HEPARIN 100 UNIT/ML 5ML FLUSH FLUSH STA (19:28)
[2025-01-14 04:56] LABS: Hematocrit (blood only) 23.5 % (37.0-47.0); Hemoglobin 8.2 g/dL (12.0-16.0); Mean Corpuscular Hemoglobin 31.4 pg (25.0-34.0); Mean Corpuscular Volume 90.0 fL (80.0-100.0); Platelet Count 128 K/uL (130-400); RDW Standard Deviation 45.9 fL (36.4-46.3); Red Blood Count 2.61 M/uL (4.20-5.40); White Blood Count 6.76 K/ul (4.8-10.8)
[2025-01-14 05:19] LABS: Anion Gap 20.0 (3-11); Blood Urea Nitrogen 100.0 mg/dl (6-23); Calcium 7.9 mg/dl (8.6-10.3); Carbon Dioxide 19.0 mmol/L (21-32); Chloride 92.0 mmol/L (98-107); Creatinine Clr Calc Pharmacy 3.1 ml/min; Glucose 76.0 mg/dl (70-99(Fasting)); Magnesium 2.7 mg/dl (1.7-2.4); Potassium 4.8 mmol/L (3.5-5.1); Sodium 131.0 mmol/L (136-145)
[2025-01-14] MEDS ORDERED: SODIUM CHLORIDE 0.9% 1,000 ML IV PRN (07:00)
--- NOTE | 2025-01-14 07:42 | Vascular Surgery Progress Note ---
Date of Service January 14, 2025 Assessment & Plan (1) Central line insertion site infection: Plan: Overall doing well. Discussed with Dr. Russo yesterday. Would proceed with hemodialysis today. Can stop BiPAP. Admission and Anticipated Discharge Date Admission Date: January 06, 2025 Subjective Overall doing well. Very minimal chest pain - much improved. Tolerated BiPAP last night Physical Exam Physical Exam: CVL site clean/dry. Results & Data Vital Signs (Past 12 Hours) Vital Signs Temp Pulse Pulse Resp BP BP Pulse Ox 01/14/25 07:30 81 20 100 01/14/25 06:00 80 12 134/91 99 01/14/25 05:00 79 12 123/85 97 01/14/25 04:00 36.5 C 80 13 110/80 98 01/14/25 03:30 82 12 118/81 99 01/14/25 02:04 90 17 100 01/14/25 02:00 36.5 C 83 12 138/96 97 01/14/25 01:00 95 H 16 140/93 99 01/14/25 00:19 84 14 98 01/14/25 00:00 36.5 C 82 15 116/83 98 01/14/25 00:00 83 01/13/25 23:00 84 12 122/87 99 01/13/25 22:00 36.5 C 83 10 L 128/84 100 01/13/25 21:00 01/13/25 21:00 84 10 L 133/89 99 01/13/25 20:00 36.5 C 92 H 12 154/102 H 99 O2 Del Method FiO2 01/14/25 07:30 21 01/14/25 06:00 BiPAP 01/14/25 05:00 BiPAP 01/14/25 04:00 BiPAP 01/14/25 03:30 BiPAP 01/14/25 02:04 21 01/14/25 02:00 BiPAP 01/14/25 01:00 BiPAP 01/14/25 00:19 21 01/14/25 00:00 BiPAP 01/14/25 00:00 01/13/25 23:00 Room Air, BiPAP 01/13/25 22:00 Room Air, BiPAP 01/13/25 21:00 BiPAP 01/13/25 21:00 Room Air, BiPAP 01/13/25 20:00 Room Air, BiPAP PG Care Time/CCT Total # of Minutes Spent Total Time Spent with Patient: Total time spent is greater than 50% in coordination of care (as documented) at patient's floor/unit and/or counseling patient: (1) Central line insertion site infection Encounter type: initial encounter Qualified Code(s): T80.212A - Local infection due to central venous catheter, initial encounter
--- NOTE | 2025-01-14 08:54 | Nephrology Progress Note ---
Date of Service January 14, 2025 Assessment & Plan (1) End stage renal disease: Plan: * THC removed 01/06/25. Volume status and electrolyte balance remain acceptable at this time * New IJ THC placed 01/12/25 am. Procedure complicated by microperforation of brachiocephalic vein and mediastinal hematoma * 01/13/[address] revealed mediastinal hematoma was stable to mildly reduced in size * Will provide heparin free HD today. Will run Qb 200 cc/min and limit time to only 2 hrs due to elevated BUN. Orders have been entered into EMR and [facility] consultant HD RN updated * Will schedule next HD for am, again heparin free. * BMP, CBC qAM, reassess for HD in am (2) Infection of dialysis vascular access: Plan: * IJ THC removed 01/06 with debridement of right chest wall * IJ THC was culture positive for MSSA * Blood cultures x2 negative * 01/08/25 TTE: no vegetation * Patient remains on IV Cefazolin * ID financial services education consultant recommends midline catheter and daily IV cefazolin x4 weeks (3) Anemia in chronic kidney disease: Plan: * Hgb relatively stable at 8.2 (4) Systemic lupus erythematosus: Plan: * Maintained on hydroxychloroquine. (5) Secondary hyperparathyroidism of renal origin: Plan: * Continue calcitriol and cinacalcet per home dose. * Auryxia 1 tablet TID with meals. Admission and Anticipated Discharge Date Admission Date: January 06, 2025 Subjective Ms. Casillas was evaluated in the ICU this morning. She was off BiPAP breathing comfortably on RA. She reported only mild chest discomfort. She denied uremic symptoms Review of Systems Constitutional: no fever Eyes: no problem reported Ear, Nose, Mouth, Throat: no problem reported Respiratory: no dyspnea Cardiovascular: no chest pain and no edema Gastrointestinal: no abdominal pain, no nausea, no vomiting and no diarrhea/loose stools Physical Exam Constitutional: not in distress Eyes: PERRL, conjunctivae normal, anicteric sclerae ENMT: external ear and nose normal, oropharynx normal Neck: trachea midline, no thyromegaly Respiratory: normal respiratory effort, lungs clear to auscultation Cardiovascular: RRR, no murmur, no edema Gastrointestinal (Abdomen): normal bowel sounds, soft, nontender, no hepatosplenomegaly Musculoskeletal: Extremities: no cyanosis and no clubbing Skin: no rashes, warm and dry Neurologic: no focal motor deficits Results & Data Vital Signs (Past 12 Hours) Vital Signs Temp Pulse Pulse Resp BP BP Pulse Ox 01/14/25 08:00 01/14/25 08:00 36.8 C 86 14 138/93 97 01/14/25 07:30 81 20 100 01/14/25 07:00 82 7 L 122/88 97 01/14/25 07:00 122/88 01/14/25 06:01 134/91 01/14/25 06:01 134/91 01/14/25 06:01 134/91 01/14/25 06:01 134/91 01/14/25 06:01 134/91 01/14/25 06:00 84 20 99 01/14/25 06:00 80 12 134/91 99 01/14/25 05:00 79 12 123/85 97 01/14/25 04:00 36.5 C 80 13 110/80 98 01/14/25 03:30 82 12 118/81 99 01/14/25 02:04 90 17 100 01/14/25 02:00 36.5 C 83 12 138/96 97 01/14/25 01:00 95 H 16 140/93 99 01/14/25 00:19 84 14 98 01/14/25 00:00 36.5 C 82 15 116/83 98 01/14/25 00:00 83 01/13/25 23:00 84 12 122/87 99 01/13/25 22:00 36.5 C 83 10 L 128/84 100 01/13/25 21:00 01/13/25 21:00 84 10 L 133/89 99 O2 Del Method FiO2 01/14/25 08:00 Room Air 01/14/25 08:00 Room Air 01/14/25 07:30 21 01/14/25 07:00 BiPAP 01/14/25 07:00 01/14/25 06:01 01/14/25 06:01 01/14/25 06:01 01/14/25 06:01 01/14/25 06:01 01/14/25 06:00 01/14/25 06:00 BiPAP 01/14/25 05:00 BiPAP 01/14/25 04:00 BiPAP 01/14/25 03:30 BiPAP 01/14/25 02:04 21 01/14/25 02:00 BiPAP 01/14/25 01:00 BiPAP 01/14/25 00:19 21 01/14/25 00:00 BiPAP 01/14/25 00:00 01/13/25 23:00 Room Air, BiPAP 01/13/25 22:00 Room Air, BiPAP 01/13/25 21:00 BiPAP 01/13/25 21:00 Room Air, BiPAP Laboratory Results Laboratory Results - last 24 hr 01/13/25 01/13/25 01/13/25 12:38 12:38 13:01 WBC RBC Hgb Hct MCV MCH MCHC RDW Std Deviation RDW Coeff of Negrito Plt Count MPV Sodium Potassium Chloride Carbon Dioxide Anion Gap BUN Creatinine Est Cr Clr Drug Dosing eGFR BUN/Creatinine Ratio Glucose POC Glucose 56 L* 56 L* 120 H Calcium Phosphorus Magnesium 01/13/25 01/13/25 01/14/25 17:51 20:36 04:30 WBC 6.76 RBC 2.61 L Hgb 8.2 L Hct 23.5 L MCV 90.0 MCH 31.4 MCHC 34.9 RDW Std Deviation 45.9 RDW Coeff of Negrito 14.0 Plt Count 128 L MPV 10.9 Sodium 131 L Potassium 4.8 Chloride 92 L Carbon Dioxide 19 L Anion Gap 20 H BUN 100 H Creatinine 19.25 H* D Est Cr Clr Drug Dosing 3.1 eGFR 1.96 BUN/Creatinine Ratio 5.2 L Glucose 76 POC Glucose 91 89 Calcium 7.9 L Phosphorus 8.3 H Magnesium 2.7 H 01/14/25 07:41 WBC RBC Hgb Hct MCV MCH MCHC RDW Std Deviation RDW Coeff of Negrito Plt Count MPV Sodium Potassium Chloride Carbon Dioxide Anion Gap BUN Creatinine Est Cr Clr Drug Dosing eGFR BUN/Creatinine Ratio Glucose POC Glucose 105 H Calcium Phosphorus Magnesium Diagnostic Findings Laboratory Results - last 24 hr 01/13/25 01/13/25 01/13/25 12:38 12:38 13:01 WBC RBC Hgb Hct MCV MCH MCHC RDW Std Deviation RDW Coeff of Negrito Plt Count MPV Sodium Potassium Chloride Carbon Dioxide Anion Gap BUN Creatinine Est Cr Clr Drug Dosing eGFR BUN/Creatinine Ratio Glucose POC Glucose 56 L* 56 L* 120 H Calcium Phosphorus Magnesium 01/13/25 01/13/25 01/14/25 17:51 20:36 04:30 WBC 6.76 RBC 2.61 L Hgb 8.2 L Hct 23.5 L MCV 90.0 MCH 31.4 MCHC 34.9 RDW Std Deviation 45.9 RDW Coeff of Negrito 14.0 Plt Count 128 L MPV 10.9 Sodium 131 L Potassium 4.8 Chloride 92 L Carbon Dioxide 19 L Anion Gap 20 H BUN 100 H Creatinine 19.25 H* D Est Cr Clr Drug Dosing 3.1 eGFR 1.96 BUN/Creatinine Ratio 5.2 L Glucose 76 POC Glucose 91 89 Calcium 7.9 L Phosphorus 8.3 H Magnesium 2.7 H 01/14/25 07:41 WBC RBC Hgb Hct MCV MCH MCHC RDW Std Deviation RDW Coeff of Negrito Plt Count MPV Sodium Potassium Chloride Carbon Dioxide Anion Gap BUN Creatinine Est Cr Clr Drug Dosing eGFR BUN/Creatinine Ratio Glucose POC Glucose 105 H Calcium Phosphorus Magnesium PG Care Time/CCT Total # of Minutes Spent Total Time Spent with Patient: 50 minutes provided to review progress notes, laboratory data, interview and examine patient, discuss POC w/ primary service and surgery, place dialysis orders in EMR and notify [facility] consultant HD RN, order follow-up laboratory studies for am, update medical record. 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
--- NOTE | 2025-01-14 09:17 | Electrocardiogram Report ---
Test Reason : Blood Pressure : */* mmHG Vent. Rate : 84 BPM Atrial Rate : 84 BPM P-R Int : 174 ms QRS Dur : 82 ms QT Int : 374 ms P-R-T Axes : 74 70 73 degrees QTcB Int : 441 ms Normal sinus rhythm Poor R-wave progression ; consider anterior infarct, lead placement, or normal variant Abnormal ECG When compared with ECG of 08-Jan-2025 09:22, Premature atrial complexes are no longer Present Confirmed by Heriberto Roland ([id number]) on 01/14/2025 9:17:16 AM Referred By: REFERRED SELF Confirmed By: Heriberto Roland
[2025-01-14] MEDS: EPOETIN ALFA 10,000 UNITS/ML VIAL IV ONE (10:21)
--- NOTE | 2025-01-14 16:27 | Hospitalist Progress Note ---
Date of Service January 14, 2025 Assessment & Plan (1) Cellulitis of chest wall: (2) Infection of dialysis vascular access: (3) Acute mediastinitis: (4) Mediastinitis due to infection: (5) Central line insertion site infection: (6) Elevated troponin: Plan This is a 49 year old female with a PMH of ESRD on HD, SLE on plaquenil, HTN, anemia - coming in with venous catheter infection/cellulitis, mediastinitis, R SCM myositis Septic shock 2/2 central line associated infection with mediastinitis and right SCM myositis S/p infected tunneled catheter removal 01/09. pain improving, remains with erythema over the right chest wall and neck Midodrine continued Remains off vasopressors, downgraded Port cultures are positive for MSSA. Vancomycin and Zosyn have been discontinued. Patient has been transitioned to cefazolin renally dosed. - Blood cultures remain negative to date Limited TTE without evidence of any valvular involvement Given associated mediastinitis and MSSA associated line infection would favor at least 4-week antibiotic course of therapy. Generally given the extent of her disease would treat with IV. - ID has seen patient, final recs pending, continue cefazolin, serial inflammatory markers stable - Tunneled dialysis catheter placed 01/12 as above, in place and functional, no immediate need for dialysis per nephrology, plan for tomorrow morning - Continue cefazolin as above no changes at this time #Emotional lability/depression - Consult to BHU liaison per patient request. No current SI or decompensated symptoms - BHU liaison to see the patient on arrival to ICU - Will start mirtazapine 7.5 mg nightly tonight, continue wellbutrin ESRD on hemodialysis Nephrology following Goal for line holiday over the weekend. Next dialysis anticipated 01/10 or 01/11 with dialysis catheter placement 01/10. Volume status adequate. Potassium 4.3. Rising BUN/creatinine, monitor for acidemia. Clinically she feels well and asymptomatic other than some residual chest wall discomfort on 01/09 - Making a small amount of urine, tentative TDC placement first thing Friday AM - daily lytes - Dialysis tomorrow per nephrology, appreciate recommendations and management - 2 Hr run today 2Hr vs full run tomorrow, can DC if that run goes well. #Subcalvian Perforation -12/12: Vascular Surgery Notes, advised transport to [facility] for definitive vascular/cardiothoracic stabilization. Patient refused transfer, maintains demonstrated capacity to make this decision. Understands the risks. 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 Troponin 293, repeat 242 around admission in the setting of sepsis. Suspect demand and likely with some degree of impaired clearance. EKG normal sinus rhythm and no territorial ST/T wave changes - No further testing required at this time Chronic Thrombocytopenia -Continue monitoring, platelet count remained stable Chronic, immune. 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 Trend daily - Will continue to monitor Daily Acute on chronic anemia Hemoglobin fluctuating around 910. Remained stable Continue to monitor 2/2 underlying medical renal disease Ferric citrate continued both for anemia, and also as a phosphate binder - Stable, a.m. labs Anxiety/depression Alprazolam daily continued Bupropion 150 mg daily resumed, continued Sertraline 50 mg daily resumed, continued - See U consult as above DVT prophylaxis: -hold heparin for the short term, SCDs Admission and Anticipated Discharge Date Admission Date: January 06, 2025 Subjective Doing much better this morning. Just getting up to dialysis during my visit. Pain in her chest is largely completely resolved. Breathing is at its baseline although she does experience some tightness and head fog. Patient does report that this is symptoms she has had after missing dialysis in the past. Otherwise no new complaints or concerns. Following a renal diet but doing so very reluctantly. No problems with bowel function. Physical Exam Physical Exam: General: A&Ox3. NAD. Cooperative. HEENT: BiPAP in place, minimal leaks, atraumatic, normocephalic. Vision and hearing grossly intact. Pupils equal and reactive to light. TDC in upper left neck, CDI Chest: Dressing overlying prior port site C/D/I. No Erythema Pulm: CTAB A&P. -wheezes, -rales, -rhonchi. Symmetrical chest rise. No increase in work of breathing. No respiratory distress. Cardiac: RRR, -mrg. Radial pulses intact and symmetrical. Abdominal: Nontender, nondistended, soft. Extremities: Trace edema bilaterally, Warm, dry. Moves all extremities equally. Cap refill brisk Results & Data Results & Data Vital Signs (Past 12 Hours) Vital Signs Temp Pulse Pulse Resp BP BP Pulse Ox 01/14/25 15:11 01/14/25 14:00 145/103 H 01/14/25 14:00 145/103 H 01/14/25 14:00 92 H 16 96 01/14/25 13:30 91 H 18 98 01/14/25 13:00 130/96 01/14/25 13:00 130/96 01/14/25 13:00 130/96 01/14/25 13:00 130/96 01/14/25 13:00 130/96 01/14/25 13:00 92 H 10 L 99 01/14/25 12:30 91 H 29 H 88 L 01/14/25 12:30 141/97 H 01/14/25 12:30 141/97 H 01/14/25 12:30 141/97 H 01/14/25 12:30 141/97 H 01/14/25 12:30 141/97 H 01/14/25 12:15 96 H 22 100 01/14/25 12:02 88 17 100 01/14/25 12:00 36.6 C 01/14/25 12:00 142/105 H 01/14/25 12:00 142/105 H 01/14/25 12:00 142/105 H 01/14/25 12:00 142/105 H 01/14/25 12:00 142/105 H 01/14/25 11:54 90 18 99 01/14/25 11:47 90 16 98 01/14/25 11:32 85 16 96 01/14/25 11:30 122/91 01/14/25 11:30 122/91 01/14/25 11:30 122/91 01/14/25 11:30 122/91 01/14/25 11:30 122/91 01/14/25 11:29 90 16 01/14/25 11:20 36.6 C 82 106/69 01/14/25 11:17 85 9 L 95 01/14/25 11:16 106/69 01/14/25 11:16 106/69 01/14/25 11:16 106/69 01/14/25 11:16 106/69 01/14/25 11:16 106/69 01/14/25 11:14 85 14 100 01/14/25 11:02 82 6 L 100 01/14/25 11:00 99/76 L 01/14/25 11:00 99/76 L 01/14/25 11:00 99/76 L 01/14/25 11:00 99/76 L 01/14/25 11:00 99/76 L 01/14/25 11:00 81 99/76 L 01/14/25 10:59 84 10 L 100 01/14/25 10:47 88 2 L 99 01/14/25 10:46 104/86 01/14/25 10:46 104/86 01/14/25 10:46 104/86 01/14/25 10:46 104/86 01/14/25 10:46 104/86 01/14/25 10:44 95 H 15 94 01/14/25 10:32 80 0 L 99 01/14/25 10:30 119/91 01/14/25 10:30 119/91 01/14/25 10:30 119/91 01/14/25 10:30 119/91 01/14/25 10:30 119/91 01/14/25 10:30 86 119/91 01/14/25 10:29 90 8 L 92 01/14/25 10:17 90 13 98 01/14/25 10:15 119/87 01/14/25 10:15 119/87 01/14/25 10:15 119/87 01/14/25 10:15 119/87 01/14/25 10:15 119/87 01/14/25 10:14 84 4 L 96 01/14/25 10:02 87 20 97 01/14/25 10:00 119/92 01/14/25 10:00 119/92 01/14/25 10:00 119/92 01/14/25 10:00 119/92 01/14/25 10:00 119/92 01/14/25 10:00 80 119/92 01/14/25 09:59 86 15 99 01/14/25 09:45 124/91 01/14/25 09:45 124/91 01/14/25 09:45 124/91 01/14/25 09:45 124/91 01/14/25 09:45 124/91 01/14/25 09:30 86 136/98 01/14/25 09:16 91 H 138/81 01/14/25 09:15 86 01/14/25 09:11 36.7 C 90 01/14/25 09:11 147/99 H 01/14/25 09:11 147/99 H 01/14/25 09:11 147/99 H 01/14/25 09:11 147/99 H 01/14/25 09:11 147/99 H 01/14/25 09:09 87 24 100 01/14/25 09:00 86 17 128/91 98 01/14/25 08:00 01/14/25 08:00 36.8 C 86 14 138/93 97 01/14/25 07:30 81 20 100 01/14/25 07:00 82 7 L 122/88 97 01/14/25 07:00 122/88 01/14/25 06:01 134/91 01/14/25 06:01 134/91 01/14/25 06:01 134/91 01/14/25 06:01 134/91 01/14/25 06:01 134/91 01/14/25 06:00 84 20 99 01/14/25 06:00 80 12 134/91 99 01/14/25 05:00 79 12 123/85 97 O2 Del Method FiO2 01/14/25 15:11 Room Air 01/14/25 14:00 01/14/25 14:00 01/14/25 14:00 01/14/25 13:30 01/14/25 13:00 01/14/25 13:00 01/14/25 13:00 01/14/25 13:00 01/14/25 13:00 01/14/25 13:00 01/14/25 12:30 01/14/25 12:30 01/14/25 12:30 01/14/25 12:30 01/14/25 12:30 01/14/25 12:30 01/14/25 12:15 01/14/25 12:02 01/14/25 12:00 01/14/25 12:00 01/14/25 12:00 01/14/25 12:00 01/14/25 12:00 01/14/25 12:00 01/14/25 11:54 01/14/25 11:47 01/14/25 11:32 01/14/25 11:30 01/14/25 11:30 01/14/25 11:30 01/14/25 11:30 01/14/25 11:30 01/14/25 11:29 01/14/25 11:20 01/14/25 11:17 01/14/25 11:16 01/14/25 11:16 01/14/25 11:16 01/14/25 11:16 01/14/25 11:16 01/14/25 11:14 01/14/25 11:02 01/14/25 11:00 01/14/25 11:00 01/14/25 11:00 01/14/25 11:00 01/14/25 11:00 01/14/25 11:00 01/14/25 10:59 01/14/25 10:47 01/14/25 10:46 01/14/25 10:46 01/14/25 10:46 01/14/25 10:46 01/14/25 10:46 01/14/25 10:44 01/14/25 10:32 01/14/25 10:30 01/14/25 10:30 01/14/25 10:30 01/14/25 10:30 01/14/25 10:30 01/14/25 10:30 01/14/25 10:29 01/14/25 10:17 01/14/25 10:15 01/14/25 10:15 01/14/25 10:15 01/14/25 10:15 01/14/25 10:15 01/14/25 10:14 01/14/25 10:02 01/14/25 10:00 01/14/25 10:00 01/14/25 10:00 01/14/25 10:00 01/14/25 10:00 01/14/25 10:00 01/14/25 09:59 01/14/25 09:45 01/14/25 09:45 01/14/25 09:45 01/14/25 09:45 01/14/25 09:45 01/14/25 09:30 01/14/25 09:16 01/14/25 09:15 01/14/25 09:11 01/14/25 09:11 01/14/25 09:11 01/14/25 09:11 01/14/25 09:11 01/14/25 09:11 01/14/25 09:09 01/14/25 09:00 Room Air 01/14/25 08:00 Room Air 01/14/25 08:00 Room Air 01/14/25 07:30 21 01/14/25 07:00 BiPAP 01/14/25 07:00 01/14/25 06:01 01/14/25 06:01 01/14/25 06:01 01/14/25 06:01 01/14/25 06:01 01/14/25 06:00 01/14/25 06:00 BiPAP 01/14/25 05:00 BiPAP Laboratory Results 01/14/25 01/14/25 01/14/25 16:20 07:41 04:30 WBC 6.76 RBC 2.61 L Hgb 8.2 L Hct 23.5 L MCV 90.0 MCH 31.4 MCHC 34.9 RDW Std Deviation 45.9 RDW Coeff of Negrito 14.0 Plt Count 128 L MPV 10.9 Sodium 131 L Potassium 4.8 Chloride 92 L Carbon Dioxide 19 L Anion Gap 20 H BUN 100 H Creatinine 19.25 H* D Est Cr Clr Drug Dosing 3.1 eGFR 1.96 BUN/Creatinine Ratio 5.2 L Glucose 76 POC Glucose 112 H 105 H Calcium 7.9 L Phosphorus 8.3 H Magnesium 2.7 H 01/13/25 01/13/25 20:36 17:51 WBC RBC Hgb Hct MCV MCH MCHC RDW Std Deviation RDW Coeff of Negrito Plt Count MPV Sodium Potassium Chloride Carbon Dioxide Anion Gap BUN Creatinine Est Cr Clr Drug Dosing eGFR BUN/Creatinine Ratio Glucose POC Glucose 89 91 Calcium Phosphorus Magnesium PG Care Time/CCT Total # of Minutes Spent Total Time Spent with Patient: Total time spent is greater than 50% in coordination of care (as documented) at patient's floor/unit and/or counseling patient: Coding Level of Care Code 63002 SUB INP/OBS CARE 2/35MIN Diagnoses Cellulitis of chest wall L03.313 Infection of dialysis vascular access T82.7XXA Acute mediastinitis J98.51 Mediastinitis due to infection J98.51 Infection of central venous catheter insertion site, initial encounter T80.212A Encounter type: initial encounter Elevated troponin R79.89 (5) Central line insertion site infection Encounter type: initial encounter Qualified Code(s): T80.212A - Local infection due to central venous catheter, initial encounter
--- NOTE | 2025-01-14 16:45 | Critical Care Progress Note ---
Date of Service January 14, 2025 Assessment & Plan (1) Mediastinal hematoma: Plan: * Venous perforation around junction of Left IJ and Brachiocephalic Vein during insertion of dialysis catheter. * Patient tolerated dialysis well today. (2) Lupus (systemic lupus erythematosus): (3) End stage renal disease: (4) Thrombocytopenia: Plan Need for ICU: patient sustained vascular injury during insertion of dialysis catheter. Being observed to make sure that she receive immediate attention in case of worsening bleeding at site of injury. Neuro/Psych: Depression, anxiety, emotional lability Chronic peripheral neuropathy Restless legs syndrome Cardiac/Vascular: Using BiPAP regularly hoping to help tamponade the vascular injury (around junction of Left IJ and brachiocephalic vein). CT chest with IV contrast from 01/13/2025 was interpreted as showing: "Moderate decrease in the amount of mediastinal hemorrhage since CT of January 12, 2025. Slight decrease in size and opacification of the outpouching/partially contained perforation of the left brachiocephalic vein prior CT." Respiratory: Mediastinal hematoma associated with vascular injury. Recent mediastinitis associated with infection at site of Right IJ dialysis catheter (removed) Minimal pneumomediastinum: possibly related to recent procedure or residual from recent mediastinitis Bilateral pleural effusions suspected on basis of missing HD sessions. Passive atelectasis associated with pleural effusions GI/Nutrition: Hypoalbuminemia: at least partly [id number] to recent systemic infection /RENAL/LYTES: ESRD on HD Previous LUE fistula non-functional Tolerated dialysis well 05/14/2024 ENDO: Secondary hyperparathyroidism Rheum/MS: SLE HEME/Onc: Iron deficiency: Iron supplementation suspended during treatment of infection (Mediastinitis). Chronic immune thrombocytopenia (ITP) ID: Cellulitis of chest wall Infection of dialysis vascular access Acute mediastinitis Elevated CRP, procalcitonin Continue Cefazolin for MSSA Immunocompromised (Plaquenil) Feeding/Fluids: Eating. No supplemental IV fluids Analgesia: PRN Hydromorphone Sedation: PRN Xanax DVT prophylaxis: SCDs. Chemoprophylaxis held due to recent bleeding Head-up: Not applicable Ulcer Prophylaxis: Not needed Glycemic Control: No issues. Sp. Br. Trial: Not applicable Bowel Care: Miralax Ind. Catheters: Left IJ HD catheter. Peripheral catheters Antibiotics: Cefazolin (MSSA) Code-Status: Full Code Disposition: OK to downgrade from ICU [id number] Admission and Anticipated Discharge Date Admission Date: January 06, 2025 Subjective The patient is a very pleasant 49-year-old female who presented to the ED due to pain, swelling, and erythema at the site of her right chest wall dialysis catheter. She reported a history of chronic issues with her central venous catheter since its placement a year prior, including initial healing difficulties after a "flower" during insertion. She had been monitored by her dialysis nurse and had been healing well until approximately one week prior to presentation, when she began noticing increased drainage from the catheter site. The night before her ED visit, she experienced significant worsening of swelling and pain in the area after completing her dialysis session, with extension of swelling into her right lower neck, associated with pain on neck movement, odynophagia, chills, and a subjective fever. On physical examination, the right anterior chest, at the site of the central venous catheter, demonstrated a large area of erythema, swelling, and tenderness, with palpable fluctuance superior to the insertion site and diffuse swelling extending toward the clavicle and lower right neck. No active drainage was noted at the insertion site. CT of chest (without and with contrast) demonstrated extensive stranding and fluid adjacent to the right internal jugular dialysis catheter, with inflammation involving the right chest, lower neck, and mediastinum, consistent with cellulitis and developing mediastinitis. There was also myositis of the right sternocleidomastoid muscle and severe narrowing of the distal right internal jugular vein, raising concern for possible thrombus. No definite abscess or soft tissue gas was identified. She was started on broad-spectrum IV antibiotics (vancomycin and Zosyn), and vascular surgery was consulted. After multidisciplinary discussion, the plan was for urgent removal of the infected catheter in the operating room, with intraoperative findings of fat necrosis and purulent drainage from the catheter tract, and a small abscess cavity (1 x 2 cm, 34 mm deep) that was debrided. Cultures from the tract grew MSSA. Blood cultures remained negative. Antibiotics were narrowed to cefazolin. She was admitted to the ICU for airway monitoring and further management of mediastinitis, cellulitis, and catheter-associated infection. Today (01/12/2025), she underwent placement of a new left internal jugular tunneled dialysis catheter, complicated by a small venous perforation and mediastinal hematoma. The patient was offered transfer to a hospital with Thoracic Surgery coverage, but she refused. It was decided to transfer the patient to ICU observation. She remained hemodynamically stable. Her hospital course was further complicated by emotional lability and depression, for which behavioral health was consulted. 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 faecalis and MSSA). She had documented allergies to cephalexin (rash), high-dose penicillin (renal failure), and Bactrim (rash), but tolerated ceftriaxone and ampicillin. Note from 01/12/2025: The patient denies dyspnea or chest pain at this time. Note from 01/13/2025: Patient denies dyspnea or chest pain at rest. Using BiPAP regularly hoping to help tamponade the vascular injury (around junction of Left IJ and brachiocephalic vein). CT chest with IV contrast was interpreted as showing "Moderate decrease in the amount of mediastinal hemorrhage since CT of January 12, 2025. Slight decrease in size and opacification of the outpouching/partially contained perforation of the left brachiocephalic vein prior CT." Also there were small bilateral pleural effusions, suspected on the basis of missing hemodialysis sessions. Patient seen by Nephrology. Will get Bicarb for acidosis, with plans for dialysis tomorrow if remains stable. Note from 01/13/2025: Patient tolerated dialysis well today. Mild drop in H/H. Patient denies dyspnea or significant pain today. Wants to discuss her diet with her hospitalist because she wants to be on regular rather than renal diet. Review of Systems Review of Systems: All systems reviewed & are unremarkable except as noted in HPI & below Physical Exam Physical Exam: General: In no acute distress, breathing room-air. Skin: Warm and dry to touch. Previous wounds on right upper chest covered with gauze. Site of recent insertion dialysis catheter on the Left with tenderness to touch. Neck: No palpable masses or adenopathy. Respiratory: Diffusely decreased breath sounds, no wheezing or crackles. No use of accessory muscles and no prolonged exhalation. Cardiac: Distant sounds, regular rhythm, no murmurs, no gallops, no rubs; could not appreciate JV pulse elevation. GI: Soft, nontender. Extremities No cyanosis,no edema. Neuro: No gross motor deficits. Seems appropriate. No facial-droop. Speech is clear. Results & Data Results & Data Vital Signs (Past 12 Hours) Vital Signs Temp Pulse Pulse Resp BP BP Pulse Ox 01/14/25 16:30 140/108 H 01/14/25 16:30 140/108 H 01/14/25 16:30 140/108 H 01/14/25 16:30 140/108 H 01/14/25 16:30 140/108 H 01/14/25 16:30 92 H 22 99 01/14/25 16:01 145/114 H 01/14/25 16:01 145/114 H 01/14/25 16:01 145/114 H 01/14/25 16:01 145/114 H 01/14/25 16:01 145/114 H 01/14/25 16:00 103 H 15 01/14/25 16:00 36.5 C 01/14/25 15:30 147/97 H 01/14/25 15:30 147/97 H 01/14/25 15:30 147/97 H 01/14/25 15:30 147/97 H 01/14/25 15:30 147/97 H 01/14/25 15:30 94 H 21 98 01/14/25 15:11 01/14/25 15:00 147/102 H 01/14/25 15:00 95 H 31 H 91 01/14/25 14:30 121/82 01/14/25 14:30 94 H 21 98 01/14/25 14:00 145/103 H 01/14/25 14:00 145/103 H 01/14/25 14:00 145/103 H 01/14/25 14:00 92 H 16 96 01/14/25 13:30 91 H 18 98 01/14/25 13:00 130/96 01/14/25 13:00 130/96 01/14/25 13:00 130/96 01/14/25 13:00 130/96 01/14/25 13:00 130/96 01/14/25 13:00 92 H 10 L 99 01/14/25 12:30 91 H 29 H 88 L 01/14/25 12:30 141/97 H 01/14/25 12:30 141/97 H 01/14/25 12:30 141/97 H 01/14/25 12:30 141/97 H 01/14/25 12:30 141/97 H 01/14/25 12:15 96 H 22 100 01/14/25 12:02 88 17 100 01/14/25 12:00 36.6 C 01/14/25 12:00 142/105 H 01/14/25 12:00 142/105 H 01/14/25 12:00 142/105 H 01/14/25 12:00 142/105 H 01/14/25 12:00 142/105 H 01/14/25 11:54 90 18 99 01/14/25 11:47 90 16 98 01/14/25 11:32 85 16 96 01/14/25 11:30 122/91 01/14/25 11:30 122/91 01/14/25 11:30 122/91 01/14/25 11:30 122/91 01/14/25 11:30 122/91 01/14/25 11:29 90 16 01/14/25 11:20 36.6 C 82 106/69 01/14/25 11:17 85 9 L 95 01/14/25 11:16 106/69 01/14/25 11:16 106/69 01/14/25 11:16 106/69 01/14/25 11:16 106/69 01/14/25 11:16 106/69 01/14/25 11:14 85 14 100 01/14/25 11:02 82 6 L 100 01/14/25 11:00 99/76 L 01/14/25 11:00 99/76 L 01/14/25 11:00 99/76 L 01/14/25 11:00 99/76 L 01/14/25 11:00 99/76 L 01/14/25 11:00 81 99/76 L 01/14/25 10:59 84 10 L 100 01/14/25 10:47 88 2 L 99 01/14/25 10:46 104/86 01/14/25 10:46 104/86 01/14/25 10:46 104/86 01/14/25 10:46 104/86 01/14/25 10:46 104/86 01/14/25 10:44 95 H 15 94 01/14/25 10:32 80 0 L 99 01/14/25 10:30 119/91 01/14/25 10:30 119/91 01/14/25 10:30 119/91 01/14/25 10:30 119/91 01/14/25 10:30 119/91 01/14/25 10:30 86 119/91 01/14/25 10:29 90 8 L 92 01/14/25 10:17 90 13 98 01/14/25 10:15 119/87 01/14/25 10:15 119/87 01/14/25 10:15 119/87 01/14/25 10:15 119/87 01/14/25 10:15 119/87 01/14/25 10:14 84 4 L 96 01/14/25 10:02 87 20 97 01/14/25 10:00 119/92 01/14/25 10:00 119/92 01/14/25 10:00 119/92 01/14/25 10:00 119/92 01/14/25 10:00 119/92 01/14/25 10:00 80 119/92 01/14/25 09:59 86 15 99 01/14/25 09:45 124/91 01/14/25 09:45 124/91 01/14/25 09:45 124/91 01/14/25 09:45 124/91 01/14/25 09:45 124/91 01/14/25 09:30 86 136/98 01/14/25 09:16 91 H 138/81 01/14/25 09:15 86 01/14/25 09:11 36.7 C 90 01/14/25 09:11 147/99 H 01/14/25 09:11 147/99 H 01/14/25 09:11 147/99 H 01/14/25 09:11 147/99 H 01/14/25 09:11 147/99 H 01/14/25 09:09 87 24 100 01/14/25 09:00 86 17 128/91 98 01/14/25 08:00 01/14/25 08:00 36.8 C 86 14 138/93 97 01/14/25 07:30 81 20 100 01/14/25 07:00 82 7 L 122/88 97 01/14/25 07:00 122/88 01/14/25 06:01 13401/14/25 06:01 13401/14/25 06:01 13401/14/25 06:01 13401/14/25 06:01 13401/14/25 06:00 84 20 99 01/14/25 06:00 80 12 134/ 99 01/14/25 05:00 79 12 123/85 97 O2 Del Method FiO2 01/14/25 16:30 01/14/25 16:30 01/14/25 16:30 01/14/25 16:30 01/14/25 16:30 01/14/25 16:30 01/14/25 16:01 01/14/25 16:01 01/14/25 16:01 01/14/25 16:01 01/14/25 16:01 01/14/25 16:00 01/14/25 16:00 01/14/25 15:30 01/14/25 15:30 01/14/25 15:30 01/14/25 15:30 01/14/25 15:30 01/14/25 15:30 01/14/25 15:11 Room Air 01/14/25 15:00 01/14/25 15:00 Room Air 01/14/25 14:30 01/14/25 14:30 01/14/25 14:00 01/14/25 14:00 01/14/25 14:00 01/14/25 14:00 01/14/25 13:30 01/14/25 13:00 01/14/25 13:00 01/14/25 13:00 01/14/25 13:00 01/14/25 13:00 01/14/25 13:00 01/14/25 12:30 01/14/25 12:30 01/14/25 12:30 01/14/25 12:30 01/14/25 12:30 01/14/25 12:30 01/14/25 12:15 01/14/25 12:02 01/14/25 12:00 01/14/25 12:00 01/14/25 12:00 01/14/25 12:00 01/14/25 12:00 01/14/25 12:00 01/14/25 11:54 01/14/25 11:47 01/14/25 11:32 01/14/25 11:30 01/14/25 11:30 01/14/25 11:30 01/14/25 11:30 01/14/25 11:30 01/14/25 11:29 01/14/25 11:20 01/14/25 11:17 01/14/25 11:16 01/14/25 11:16 01/14/25 11:16 01/14/25 11:16 01/14/25 11:16 01/14/25 11:14 01/14/25 11:02 01/14/25 11:00 01/14/25 11:00 01/14/25 11:00 01/14/25 11:00 01/14/25 11:00 01/14/25 11:00 01/14/25 10:59 01/14/25 10:47 01/14/25 10:46 01/14/25 10:46 01/14/25 10:46 01/14/25 10:46 01/14/25 10:46 01/14/25 10:44 01/14/25 10:32 01/14/25 10:30 01/14/25 10:30 01/14/25 10:30 01/14/25 10:30 01/14/25 10:30 01/14/25 10:30 01/14/25 10:29 01/14/25 10:17 01/14/25 10:15 01/14/25 10:15 01/14/25 10:15 01/14/25 10:15 01/14/25 10:15 01/14/25 10:14 01/14/25 10:02 01/14/25 10:00 01/14/25 10:00 01/14/25 10:00 01/14/25 10:00 01/14/25 10:00 01/14/25 10:00 01/14/25 09:59 01/14/25 09:45 01/14/25 09:45 01/14/25 09:45 01/14/25 09:45 01/14/25 09:45 01/14/25 09:30 01/14/25 09:16 01/14/25 09:15 01/14/25 09:11 01/14/25 09:11 01/14/25 09:11 01/14/25 09:11 01/14/25 09:11 01/14/25 09:11 01/14/25 09:09 01/14/25 09:00 Room Air 01/14/25 08:00 Room Air 01/14/25 08:00 Room Air 01/14/25 07:30 21 01/14/25 07:00 BiPAP 01/14/25 07:00 01/14/25 06:01 01/14/25 06:01 01/14/25 06:01 01/14/25 06:01 01/14/25 06:01 01/14/25 06:00 01/14/25 06:00 BiPAP 01/14/25 05:00 BiPAP Laboratory Results 01/14/25 01/14/25 01/14/25 16:20 07:41 04:30 WBC 6.76 RBC 2.61 L Hgb 8.2 L Hct 23.5 L MCV 90.0 MCH 31.4 MCHC 34.9 RDW Std Deviation 45.9 RDW Coeff of Negrito 14.0 Plt Count 128 L MPV 10.9 Sodium 131 L Potassium 4.8 Chloride 92 L Carbon Dioxide 19 L Anion Gap 20 H BUN 100 H Creatinine 19.25 H* D Est Cr Clr Drug Dosing 3.1 eGFR 1.96 BUN/Creatinine Ratio 5.2 L Glucose 76 POC Glucose 112 H 105 H Calcium 7.9 L Phosphorus 8.3 H Magnesium 2.7 H 01/13/25 01/13/25 20:36 17:51 WBC RBC Hgb Hct MCV MCH MCHC RDW Std Deviation RDW Coeff of Negrito Plt Count MPV Sodium Potassium Chloride Carbon Dioxide Anion Gap BUN Creatinine Est Cr Clr Drug Dosing eGFR BUN/Creatinine Ratio Glucose POC Glucose 89 91 Calcium Phosphorus Magnesium Medications Administered Home Medications Medication Instructions Recorded Confirmed Last Taken vit B complx, C-iron 8 mg-folic 1 tab PO QAM 11/29/22 01/06/25 09/04/23 09:00 acid 800 mcg-D3 1,000 unit-zinc tablet (ProRenal) Medical Marijuana 1 dose inhalation DIRECTED PRN 09/04/23 01/06/25 01/01/24 22:00 Pain bupropion HCl 150 mg tablet,12 hr 0 mg PO QAM 01/01/24 01/06/25 Unknown sustained-release (Wellbutrin SR) cinacalcet 30 mg tablet 0 mg PO .3X WEEK 01/23/24 01/06/25 Unknown alprazolam 0.25 mg tablet (Xanax) 0.25 mg PO DAILY PRN anxiety #30 03/19/24 01/06/25 Unknown tabs ondansetron 8 mg disintegrating 8 mg PO DAILY PRN nausea and 05/26/24 01/06/25 Unknown tablet vomiting 3 days #30 tabs hydrocodone 5 mg-acetaminophen 325 1 tab PO BID PRN severe pain #20 10/22/24 01/06/25 Unknown mg tablet tabs hydroxychloroquine 200 mg tablet 200 mg PO QAM #120 tabs 12/23/24 01/06/25 Unknown (Plaquenil) ferric citrate 210 mg iron tablet 210 mg PO TIDM 01/06/25 01/06/25 Unknown (Auryxia) midodrine 5 mg tablet 5 mg PO UD 01/06/25 01/06/25 Unknown sertraline 50 mg tablet 0 mg PO DAILY 01/06/25 01/06/25 Unknown Active Medications Generic Name Dose Route Start Last Admin Trade Name Freq PRN Reason Stop Dose Admin Acetaminophen 650 mg 01/06/25 23:56 01/07/25 00:11 Acetaminophen 325 Mg Tab PO 02/05/25 23:55 650 mg Q4H PRN Administration Pain or Fever Alprazolam 0.25 mg 01/07/25 09:10 01/13/25 15:12 Alprazolam 0.25 Mg Tablet PO 02/06/25 09:09 0.25 mg DAILY PRN Administration anxiety Bupropion HCl 150 mg 01/07/25 09:45 01/14/25 08:01 Bupropion Sr 150 Mg Tabcr PO 02/06/25 09:44 150 mg BID KAJAL Administration Cinacalcet 30 mg 01/07/25 09:45 01/13/25 14:56 Cinacalcet Hcl 30 Mg Tab PO 02/06/25 09:44 30 mg Q48H KAJAL Administration Dextrose 25 - 50 ml 01/13/25 05:36 01/13/25 12:40 Dextrose 50% 50 Ml Syringe IV 02/12/25 05:35 25 ml UD PRN Administration Hypoglycemia Protocol Protocol Gabapentin 100 mg 01/07/25 09:45 01/14/25 08:01 Gabapentin 100 Mg Cap PO 02/06/25 09:44 100 mg QAM KAJAL Administration Hydromorphone HCl 0.5 mg 01/06/25 17:17 01/13/25 20:21 Hydromorphone Inj 0.5 Mg/0.5 Ml Syr IV 01/20/25 17:16 0.5 mg Q6H PRN Administration Pain Hydroxychloroquine Sulfate 400 mg 01/07/25 09:00 01/14/25 08:01 Hydroxychloroquine Sulfate 200 Mg Tab PO 02/06/25 08:59 400 mg [id number] KAJAL Administration Hydroxychloroquine Sulfate 200 mg 01/08/25 09:00 01/13/25 08:17 Hydroxychloroquine Sulfate 200 Mg Tab PO 02/07/25 08:59 200 mg [id number]@0900 KAJAL Administration Cefazolin Sodium 1,000 mg in 7.5 mls @ 2.5 mls/min 01/08/25 10:00 01/13/25 20:05 Ancef 1000mg IV 02/03/25 23:59 2.5 mls/min QPM KAJAL Administration Miscellaneous 1 each 01/13/25 21:00 01/14/25 16:26 Icu Protocol For Hyperglycemia N/A 01/15/25 20:59 Not Given ACHS KAJAL Ondansetron HCl 4 mg 01/11/25 11:06 01/13/25 20:31 Ondansetron Inj 2 Mg/Ml 2 Ml Vial IV 02/10/25 11:05 4 mg Q4H PRN Administration Nausea Polyethylene Glycol 17 gm 01/07/25 09:00 01/14/25 08:01 Polyethylene (Miralax) 17 Gm Pack PO 02/06/25 08:59 Not Given DAILY KAJAL Pregabalin 75 mg 01/07/25 21:00 01/13/25 20:05 Pregabalin 75 Mg Cap PO 02/06/25 20:59 75 mg HS KAJAL Administration Vitamin B Complex/Folic Acid 1 cap 01/07/25 09:00 01/14/25 08:01 Nephrocaps PO 02/06/25 08:59 1 cap QAM KAJAL Administration Coding Level of Care Code 82696 SUB INP/OBS CARE 2/35MIN Diagnoses Mediastinal hematoma, initial encounter S27.892A Encounter type: initial encounter Lupus (systemic lupus erythematosus) M32.9 End stage renal disease N18.6 Thrombocytopenia D69.6 Time Spent (min) 45 (1) Mediastinal hematoma Encounter type: initial encounter Qualified Code(s): S27.892A - Contusion of other specified intrathoracic organs, initial encounter
[2025-01-14] MEDS: MIRTAZAPINE TAB 15 MG TAB PO SCH (20:18)
[2025-01-15 06:36] LABS: Hematocrit (blood only) 22.8 % (37.0-47.0); Hemoglobin 7.9 g/dL (12.0-16.0); Mean Corpuscular Hemoglobin 31.5 pg (25.0-34.0); Mean Corpuscular Volume 90.8 fL (80.0-100.0); Platelet Count 140 K/uL (130-400); RDW Standard Deviation 46.9 fL (36.4-46.3); Red Blood Count 2.51 M/uL (4.20-5.40); White Blood Count 5.73 K/ul (4.8-10.8)
[2025-01-15] MEDS ORDERED: SODIUM CHLORIDE 0.9% 1,000 ML IV PRN (07:00)
[2025-01-15 07:18] LABS: Anion Gap 17.0 (3-11); Blood Urea Nitrogen 74.0 mg/dl (6-23); Calcium 8.2 mg/dl (8.6-10.3); Carbon Dioxide 20.0 mmol/L (21-32); Chloride 99.0 mmol/L (98-107); Creatinine Clr Calc Pharmacy 4.1 ml/min; Glucose 85.0 mg/dl (70-99(Fasting)); Potassium 4.3 mmol/L (3.5-5.1); Sodium 136.0 mmol/L (136-145)
--- NOTE | 2025-01-15 08:21 | Vascular Surgery Progress Note ---
Date of Service January 15, 2025 Assessment & Plan (1) Infection of dialysis vascular access: Plan: Management of initial infected dialysis catheter (now removed) per primary team. Left IJ dialysis catheter functioning well. No further intervention from my standpoint (although would continue to encourage her to consider AV fistula at some point). Admission and Anticipated Discharge Date Admission Date: January 06, 2025 Subjective Feeling much better this am. Virtually no chest pain. Tolerated dialysis yesterday uneventfully. Physical Exam Physical Exam: Catheter site clean. Results & Data Vital Signs (Past 12 Hours) Vital Signs Temp Pulse Pulse Pulse Resp BP Pulse Ox 01/15/25 07:45 36.8 C 93 H 20 113/72 94 01/15/25 04:35 37.2 C 90 17 102/68 92 01/14/25 23:04 92 H 01/14/25 22:04 36.7 C 92 H 16 153/97 H 98 01/14/25 22:00 O2 Del Method 01/15/25 07:45 Room Air 01/15/25 04:35 Room Air 01/14/25 23:04 01/14/25 22:04 Room Air 01/14/25 22:00 Room Air PG Care Time/CCT Total # of Minutes Spent Total Time Spent with Patient: Total time spent is greater than 50% in coordination of care (as documented) at patient's floor/unit and/or counseling patient:
[2025-01-15] MEDS: EPOETIN ALFA 10,000 UNITS/ML VIAL IV ONE (10:07)
--- NOTE | 2025-01-15 11:00 | Nephrology Progress Note ---
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 CT of chest showed extensive stranding and fluid adjacent to the right internal jugular dialysis catheter, inflammation of right chest, lower neck cellulitis and mediastinitis. Started on vancomycin and Zosyn and had urgent removal of the TDC in OR on 01/07/25, intraoperatively found to have fat necrosis and purulent drainage from the catheter tract, and a small abscess s/p debridement. Cx from TDC site grew MSSA, Blood Cx negative. Antibiotics changed to cefazolin and had a rt arm mid line placed. Had left IJ TDC placed on 01/12/2025), complicated by a small venous perforation and mediastinal hematoma, she was offered but refused transfer to a tertiary care facility with Thoracic Surgery coverage, remained hemodynamically stable in ICU. Repeat Chest CT on 01/13/25 showed significant improvement in size of hematoma. Hemoglobin has dropped slowly but no drastic drop in hemoglobin. Hemodynamically stable and overall feeling well. Had 2 hours dialysis yesterday tolerated well, currently having 3 hours dialysis, vital signs stable. --tolerating 3 h HD, BP acceptable --Epogen 30730 units with HD --continue phos binder, Nephrocaps and Sensipar --dose medications for eGFR <10 Admission and Anticipated Discharge Date Admission Date: January 06, 2025 Results & Data Vital Signs (Past 12 Hours) Vital Signs Temp Pulse Pulse Pulse Pulse Resp BP 01/15/25 10:30 82 111/80 01/15/25 10:00 82 141/92 H 01/15/25 09:30 85 122/92 01/15/25 09:16 84 128/91 01/15/25 09:10 36 C L 86 01/15/25 08:00 88 01/15/25 07:45 36.8 C 93 H 20 01/15/25 07:30 01/15/25 04:35 37.2 C 90 17 01/14/25 23:04 92 H BP Pulse Ox O2 Del Method 01/15/25 10:30 01/15/25 10:00 01/15/25 09:30 01/15/25 09:16 01/15/25 09:10 01/15/25 08:00 01/15/25 07:45 113/72 94 Room Air 01/15/25 07:30 Room Air 01/15/25 04:35 102/68 92 Room Air 01/14/25 23:04 PG Care Time/CCT Total # of Minutes Spent Total Time Spent with Patient: Total time spent is greater than 50% in coordination of care (as documented) at patient's floor/unit and/or counseling patient: Coding Level of Care Code 24614 SUB INP/OBS CARE MIN Diagnoses End stage renal disease N18.6 Anemia D64.9 Infection of dialysis vascular access T82.7XXA Mediastinal hematoma, initial encounter S27.892A Encounter type: initial encounter Acute mediastinitis J98.51 (4) Mediastinal hematoma Encounter type: initial encounter Qualified Code(s): S27.892A - Contusion of other specified intrathoracic organs, initial encounter
--- NOTE | 2025-01-15 11:04 | Nephrology Progress Note ---
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 CT of chest showed extensive stranding and fluid adjacent to the right internal jugular dialysis catheter, inflammation of right chest, lower neck cellulitis and mediastinitis. Started on vancomycin and Zosyn and had urgent removal of the TDC in OR on 01/07/25, intraoperatively found to have fat necrosis and purulent drainage from the catheter tract, and a small abscess s/p debridement. Cx from TDC site grew MSSA, Blood Cx negative. Antibiotics changed to cefazolin and had a rt arm mid line placed. Had left IJ TDC placed on 01/12/2025), complicated by a small venous perforation and mediastinal hematoma, she was offered but refused transfer to a tertiary care facility with Thoracic Surgery coverage, remained hemodynamically stable in ICU. Repeat Chest CT on 01/13/25 showed significant improvement in size of hematoma. Hemoglobin has dropped slowly but no drastic drop in hemoglobin. Hemodynamically stable and overall feeling well. Had 2 hours dialysis yesterday tolerated well, currently having 3 hours dialysis, vital signs stable. --tolerating 3 h HD, BP acceptable --Epogen 24431 units with HD --continue phos binder, Nephrocaps and Sensipar --dose medications for eGFR <10 Admission and Anticipated Discharge Date Admission Date: January 06, 2025 Subjective Dotty was seen and evaluated during dialysis this morning. Patient has been tolerating dialysis, denies any significant symptom except having some chest pain at catheter removal site, with deep breathing. Blood pressure staying relatively stable, tolerating UF. Slight drop in hemoglobin noted. Review of Systems Review of Systems: Detailed review of system was done and otherwise negative except mentioned above. Physical Exam Constitutional: WD/WN, vitals as above + ill appearing and + edematous; no acute distress Eyes: + anicteric sclerae Neck: left sided TDC Respiratory: no respiratory distress Auscultation: lungs clear to auscultation bilaterally Cardiovascular: Rate/Rhythm: regular rate and regular rhythm Heart Sounds: normal S1 and normal S2 Extremities: + vascular access device (Left IJ TDC); no edema Skin: + ecchymosis (in leg) Neurologic: no focal motor deficits Psychiatric: Orientation: alert and oriented x 3 Results & Data Vital Signs (Past 12 Hours) Vital Signs Temp Pulse Pulse Pulse Pulse Resp BP 01/15/25 10:30 82 111/80 01/15/25 10:00 82 141/92 H 01/15/25 09:30 85 122/92 01/15/25 09:16 84 128/91 01/15/25 09:10 36 C L 86 01/15/25 08:00 88 01/15/25 07:45 36.8 C 93 H 20 01/15/25 07:30 01/15/25 04:35 37.2 C 90 17 01/14/25 23:04 92 H BP Pulse Ox O2 Del Method 01/15/25 10:30 01/15/25 10:00 01/15/25 09:30 01/15/25 09:16 01/15/25 09:10 01/15/25 08:00 01/15/25 07:45 113/72 94 Room Air 01/15/25 07:30 Room Air 01/15/25 04:35 102/68 92 Room Air 01/14/25 23:04 PG Care Time/CCT Total # of Minutes Spent Total Time Spent with Patient: Total time spent is greater than 50% in coordination of care (as documented) at patient's floor/unit and/or counseling patient: Coding Level of Care Code 44959 SUB INP/OBS CARE 2/35MIN Diagnoses End stage renal disease N18.6 Anemia D64.9 Infection of dialysis vascular access T82.7XXA Mediastinal hematoma, initial encounter S27.892A Encounter type: initial encounter Acute mediastinitis J98.51 (4) Mediastinal hematoma Encounter type: initial encounter Qualified Code(s): S27.892A - Contusion of other specified intrathoracic organs, initial encounter
[2025-01-15] MEDS ORDERED: Nursing to Pharmacy Communication SCH (14:00)
--- NOTE | 2025-01-15 14:48 | Hospitalist Progress Note ---
Date of Service January 15, 2025 Assessment & Plan (1) Cellulitis of chest wall: (2) Infection of dialysis vascular access: (3) Acute mediastinitis: (4) Mediastinitis due to infection: (5) Central line insertion site infection: (6) Elevated troponin: Plan This is a 49 year old female with a PMH of ESRD on HD, SLE on plaquenil, HTN, anemia - coming in with venous catheter infection/cellulitis, mediastinitis, R SCM myositis Septic shock 2/2 central line associated infection with mediastinitis and right SCM myositis S/p infected tunneled catheter removal 01/09. pain improving, remains with erythema over the right chest wall and neck Midodrine continued Remains off vasopressors, downgraded Port cultures are positive for MSSA. Vancomycin and Zosyn have been discontinued. Patient has been transitioned to cefazolin renally dosed. - Blood cultures remain negative to date Limited TTE without evidence of any valvular involvement Given associated mediastinitis and MSSA associated line infection would favor at least 4-week antibiotic course of therapy. Generally given the extent of her disease would treat with IV. - ID has seen patient, final recs pending, continue cefazolin, serial inflammatory markers stable - Tunneled dialysis catheter placed 01/12 as above, in place and functional, no immediate need for dialysis per nephrology, plan for tomorrow morning - Continue cefazolin as above no changes at this time - See ID note for DC abx orders, sent o [facility] to start friday, likely DC mid-day tomorrow after dose #Emotional lability/depression - Consult to BHU liaison per patient request. No current SI or decompensated symptoms - BHU liaison to see the patient on arrival to ICU - tolerating mirtazapine 7.5 mg nightly, continue, titrate as outpatient ESRD on hemodialysis Nephrology following Goal for line holiday over the weekend. Next dialysis anticipated 01/10 or 01/11 with dialysis catheter placement 01/10. Volume status adequate. Potassium 4.3. Rising BUN/creatinine, monitor for acidemia. Clinically she feels well and asymptomatic other than some residual chest wall discomfort on 01/09 - Making a small amount of urine, tentative TDC placement first thing Friday AM - daily lytes - Dialysis tomorrow per nephrology, appreciate recommendations and management - 2 Hr run today 2Hr vs full run tomorrow, can DC if that run goes well. #Subcalvian Perforation -12/12: Vascular Surgery Notes, advised transport to [facility] in [place] for definitive vascular/cardiothoracic stabilization. Patient refused transfer, maintains demonstrated capacity to make this decision. Understands the risks. Sites rational reasons for declining transport -Transfer to ICU for close monitoring, repeat x-ray in hour to rule out pneu mothorax, repeat CT scan in the morning per vascular surgery to assess for stability, assess sooner if clinically she declines - Stable on repeat CT, no planned further eval per vascular SLE Patient reports she no longer wishes to take her Plaquenil Chronic peripheral neuropathy Suspected due to SLE versus microvascular disease Gabapentin was stopped as an outpatient and she was transitioned to pregabalin 75 mg daily Patient reports she was still taking gabapentin [employer] Continued on gabapentin 100 mg every morning, pregabalin at bedtime B12 normal - No changes Demand ischemia No ongoing chest pain. Troponin 293, repeat 242 around admission in the setting of sepsis. Suspect demand and likely with some degree of impaired clearance. EKG normal sinus rhythm and no territorial ST/T wave changes - No further testing required at this time Chronic Thrombocytopenia -Continue monitoring, platelet count remained stable Chronic, immune. 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 Trend daily - Will continue to monitor Daily Acute on chronic anemia Hemoglobin fluctuating around 910. Remained stable Continue to monitor 2/2 underlying medical renal disease Ferric citrate continued both for anemia, and also as a phosphate binder - Stable, a.m. labs Anxiety/depression Alprazolam daily continued Bupropion 150 mg daily resumed, continued Sertraline 50 mg daily resumed, continued - See BHU consult as above DVT prophylaxis: -hold heparin for the short term, SCDs Admission and Anticipated Discharge Date Admission Date: January 06, 2025 Subjective Doing okay this morning. Really hoping she could go home. Chest pain is nearly completely resolved. Slept okay last night. No side effects from the mirtazapine. Did okay with dialysis completed a full run of 2 hours which was planned. 1.7 L out total. We discussed her antibiotic regimen at home. Reviewed in the home health delivery of the cefazolin has not been finalized as of yet. Plan for antibiotics after dialysis today then midday tomorrow and then she can DC to resume Friday at home Physical Exam Physical Exam: General: A&Ox3. NAD. Cooperative. HEENT: BiPAP in place, minimal leaks, atraumatic, normocephalic. Vision and hearing grossly intact. Pupils equal and reactive to light. TDC in upper left neck, CDI Chest: Dressing overlying prior port site C/D/I. No Erythema Pulm: CTAB A&P. -wheezes, -rales, -rhonchi. Symmetrical chest rise. No increase in work of breathing. No respiratory distress. Cardiac: RRR, -mrg. Radial pulses intact and symmetrical. Abdominal: Nontender, nondistended, soft. Extremities: Trace edema bilaterally, Warm, dry. Moves all extremities equally. Cap refill brisk Results & Data Results & Data Vital Signs (Past 12 Hours) Vital Signs Temp Pulse Pulse Pulse Pulse Resp BP 01/15/25 12:30 36.9 C 78 01/15/25 12:00 90 95/73 L 01/15/25 11:30 90 131/83 01/15/25 11:00 79 99/51 L 01/15/25 10:30 82 111/80 01/15/25 10:00 82 141/92 H 01/15/25 09:30 85 122/92 01/15/25 09:16 84 128/91 01/15/25 09:10 36 C L 86 01/15/25 08:00 88 01/15/25 07:45 36.8 C 93 H 20 01/15/25 07:30 01/15/25 04:35 37.2 C 90 17 BP Pulse Ox O2 Del Method 01/15/25 12:30 141/87 H 01/15/25 12:00 01/15/25 11:30 01/15/25 11:00 01/15/25 10:30 01/15/25 10:00 01/15/25 09:30 01/15/25 09:16 01/15/25 09:10 01/15/25 08:00 01/15/25 07:45 113/72 94 Room Air 01/15/25 07:30 Room Air 01/15/25 04:35 102/68 92 Room Air Laboratory Results 01/15/25 01/15/25 01/14/25 07:44 05:35 20:25 WBC 5.73 RBC 2.51 L Hgb 7.9 L Hct 22.8 L MCV 90.8 MCH 31.5 MCHC 34.6 RDW Std Deviation 46.9 H RDW Coeff of Negrito 14.2 Plt Count 140 MPV 11.4 Sodium 136 Potassium 4.3 Chloride 99 Carbon Dioxide 20 L Anion Gap 17 H BUN 74 H D Creatinine 14.76 H* D Est Cr Clr Drug Dosing 4.1 eGFR 2.70 BUN/Creatinine Ratio 5.0 L Glucose 85 POC Glucose 113 H 121 H Calcium 8.2 L 01/14/25 16:20 WBC RBC Hgb Hct MCV MCH MCHC RDW Std Deviation RDW Coeff of Negrito Plt Count MPV Sodium Potassium Chloride Carbon Dioxide Anion Gap BUN Creatinine Est Cr Clr Drug Dosing eGFR BUN/Creatinine Ratio Glucose POC Glucose 112 H Calcium PG Care Time/CCT Total # of Minutes Spent Total Time Spent with Patient: Total time spent is greater than 50% in coordination of care (as documented) at patient's floor/unit and/or counseling patient: Coding Level of Care Code 59255 SUB INP/OBS CARE MIN Diagnoses Cellulitis of chest wall L03.313 Infection of dialysis vascular access T82.7XXA Acute mediastinitis J98.51 Mediastinitis due to infection J98.51 Infection of central venous catheter insertion site, initial encounter T80.212A Encounter type: initial encounter Elevated troponin R79.89 (5) Central line insertion site infection Encounter type: initial encounter Qualified Code(s): T80.212A - Local infection due to central venous catheter, initial encounter
--- NOTE | 2025-01-16 09:56 | Nephrology Progress Note ---
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 CT of chest showed extensive stranding and fluid adjacent to the right internal jugular dialysis catheter, inflammation of right chest, lower neck cellulitis and mediastinitis. Started on vancomycin and Zosyn and had urgent removal of the TDC in OR on 01/07/25, intraoperatively found to have fat necrosis and purulent drainage from the catheter tract, and a small abscess s/p debridement. Cx from TDC site grew MSSA, Blood Cx negative. Antibiotics changed to cefazolin and had a rt arm mid line placed. Had left IJ TDC placed on 01/12/2025), complicated by a small venous perforation and mediastinal hematoma, she was offered but refused transfer to a tertiary care facility with Thoracic Surgery coverage, remained hemodynamically stable in ICU. Repeat Chest CT on 01/13/25 showed significant improvement in size of hematoma. Hemoglobin has dropped slowly but no drastic drop in hemoglobin. Hemodynamically stable and overall feeling well. Had 3 hours dialysis yesterday tolerated well. Clinically seems slightly volume overloaded but no respiratory distress overall reports feeling much better. Blood pressure well-controlled. --If discharge anticipated later today, she will resume home dialysis from [facility], [place]. Otherwise we will plan for dialysis here tomorrow. Considering prolonged hospitalization, may need to adjust dry weight. --Epogen 02308 units given on 01/15/25 with HD --continue phos binder, Nephrocaps and Sensipar --dose medications for eGFR <10 --Waiting on arrangement of antibiotic to be given at home. Admission and Anticipated Discharge Date Admission Date: January 06, 2025 Subjective Dotty was seen and evaluated this morning. Overall doing well, denies any significant symptom but anxious to go home. Blood pressure fair. Review of Systems Review of Systems: Detailed review of system was done and otherwise negative except mentioned above. Physical Exam Constitutional: WD/WN, vitals as above no acute distress Eyes: + anicteric sclerae Neck: left sided TDC Respiratory: no respiratory distress Auscultation: lungs clear to auscultation bilaterally Cardiovascular: Rate/Rhythm: regular rate and regular rhythm Heart Sounds: normal S1 and normal S2 Extremities: + vascular access device (Left IJ TDC); no edema Neurologic: no focal motor deficits Psychiatric: Orientation: alert and oriented x 3 Results & Data Vital Signs (Past 12 Hours) Vital Signs Temp Pulse Pulse Resp BP BP Pulse Ox 01/16/25 08:00 82 01/16/25 07:19 36.7 C 87 16 116/74 95 01/16/25 06:55 01/16/25 03:10 36.7 C 83 17 103/70 94 01/15/25 23:10 36.7 C 85 20 117/78 95 01/15/25 22:39 88 O2 Del Method 01/16/25 08:00 01/16/25 07:19 Room Air 01/16/25 06:55 Room Air 01/16/25 03:10 Room Air 01/15/25 23:10 Room Air 01/15/25 22:39 PG Care Time/CCT Total # of Minutes Spent Total Time Spent with Patient: Total time spent is greater than 50% in coordination of care (as documented) at patient's floor/unit and/or counseling patient: Coding Level of Care Code 35364 SUB INP/OBS CARE 2/35MIN Diagnoses End stage renal disease N18.6 Anemia D64.9 Infection of dialysis vascular access T82.7XXA Mediastinal hematoma, initial encounter S27.892A Encounter type: initial encounter Acute mediastinitis J98.51 (4) Mediastinal hematoma Encounter type: initial encounter Qualified Code(s): S27.892A - Contusion of other specified intrathoracic organs, initial encounter
[2025-01-16 12:00] VITALS: BP 139/92; RESP 18; TEMP 97.9; O2SAT 96
--- NOTE | 2025-01-16 12:31 | Discharge Summary ---
Discharge Summary Date of Service January 16, 2025 Principal Dx & Hospital Course #1 = Principal Diagnosis (1) Cellulitis of chest wall: (2) Infection of dialysis vascular access: (3) Acute mediastinitis: (4) Mediastinitis due to infection: (5) Central line insertion site infection: (6) Elevated troponin: Plan This is a 49 year old female with a PMH of ESRD on HD, SLE on plaquenil, HTN, anemia - coming in with venous catheter infection/cellulitis, mediastinitis, R SCM myositis #Septic shock 2/2 central line associated infection with mediastinitis and right SCM myositis S/p infected tunneled catheter removal 01/09. pain improving, remains with erythema over the right chest wall and neck Midodrine continued Remains off vasopressors, downgraded Port cultures are positive for MSSA. Vancomycin and Zosyn have been discontinued. Patient has been transitioned to cefazolin renally dosed. - Blood cultures remain negative to date Limited TTE without evidence of any valvular involvement Given associated mediastinitis and MSSA associated line infection would favor at least 4-week antibiotic course of therapy. Generally given the extent of her disease would treat with IV. - ID has seen patient, final recs pending, continue cefazolin, serial inflammatory markers stable - Tunneled dialysis catheter placed 01/12 as above, in place and functional, no immediate need for dialysis per nephrology, plan for tomorrow morning - Continue cefazolin as above no changes at this time - See ID note for DC abx orders, sent to [facility] to start after home dialysis on Friday and continue daily until 02/02/25 #Emotional lability/depression - Consult to U liaison per patient request. No current SI or decompensated symptoms - U liaison to see the patient on arrival to ICU - tolerating mirtazapine 7.5 mg nightly, continue, titrate as outpatient - Gabapentin 100mg qAM and Lyrica 75 qHS ESRD on hemodialysis Nephrology following Go[place] for line holiday over the weekend. Next dialysis anticipated 01/10 or 01/11 with dialysis catheter placement 01/10. Volume status adequate. Potassium 4.3. Rising BUN/creatinine, monitor for acidemia. Clinically she feels well and asymptomatic other than some residual chest wall discomfort on 01/09 - Making a small amount of urine, tentative TDC placement first thing Friday AM - daily lytes - Dialysis tomorrow per nephrology, appreciate recommendations and management - Tolerating dialysis well the last 2 days prior to DC, resume home dialysis per prior schedule on Friday #Subcalvian Perforation -12/12: Vascular Surgery Notes, advised transport to [facility] for definitive vascular/cardiothoracic stabilization. Patient refused transfer, maintains demonstrated capacity to make this decision. Understands the risks. Sites rational reasons for declining transport -Transfer to ICU for close monitoring, repeat x-ray in hour to rule out pn eumothorax, repeat CT scan in the morning per vascular surgery to assess for stability, assess sooner if clinically she declines - Stable on repeat CT, no planned further eval per vascular - Resolved SLE Patient reports she no longer wishes to take her Plaquenil Chronic peripheral neuropathy Suspected due to SLE versus microvascular disease Gabapentin was stopped as an outpatient and she was transitioned to pregabalin 75 mg daily Patient reports she was still taking gabapentin [employer] Continued on gabapentin 100 mg every morning, pregabalin at bedtime B12 normal Demand ischemia No ongoing chest pain. Troponin 293, repeat 242 around admission in the setting of sepsis. Suspect demand and likely with some degree of impaired clearance. EKG normal sinus rhythm and no territorial ST/T wave changes - No further testing required at this time Chronic Thrombocytopenia -Continue monitoring, platelet count remained stable Chronic, immune. 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 Trend daily - Will continue to monitor Daily Acute on chronic anemia Hemoglobin fluctuating around 910. Remained stable Continue to monitor 2/2 underlying medical renal disease Ferric citrate continued both for anemia, and also as a phosphate binder - Stable, a.m. labs Anxiety/depression Alprazolam daily continued Bupropion 150 mg daily resumed, continued Sertraline 50 mg daily resumed, continued - See BHU consult as above DVT prophylaxis: -hold heparin for the short term, SCDs Discharge Exam VITALS: Reviewed. WEIGHT/BMI reviewed. GEN: Healthy appearing, well-developed, NAD. -Eyes: PERRL, EOMI. No discharge or redness; -Mouth and throat: MMM. Normal gums, mucosa, palate,. Good dentition. NECK: Supple, with no masses. CV: RRR, no m/r/g. LUNGS: CTAB, no w/r/c. ABD: Soft, NT/ND, NBS, no masses or organomegaly. : N/A SKIN: Warm, well perfused. No skin rashes or abnormal lesions. MSK: No deformities, Normal gait. EXT: No clubbing, cyanosis, or edema. NEURO: Ambulating with no limitations. Normal muscle strength and tone. No focal deficits. Discharge Plan Discharge Items Patient Disposition: Transfer Acute Care Hospital Reason For Visit: MEDIASTINITIS, VENOUS CATHETER INFECTION Discharge Diagnosis: Subclavian Perforation Condition on Discharge: Serious Health Concerns: -Continue the mirtazepine 7.5 at night, administer antibiotics after dialysis until 02/02/2025, follow-up with PCP in 1 week for repeat labs, to discuss medication management and to coordinate weekly lab testing -Start the cefazolin and take daily every day after dialysis until 02/02/2025. You will also need to have labs drawn weekly and those should be faxed to the infectious disease clinic per the discharge medication order Activity: As commented below Non-emergency contact: Primary Care Provider Call non-emergency contact if: you have any medication questions, your symptoms worsen and your pain is not controlled Follow-up/Referrals: Georgie Barrera MD [Primary Care Provider] - Diet: Dialysis Renal Addtl Attending Provider Instructions: See Vascular Surgery, Weekly CBC with diff, CMP weekly and fax results to [facility]: Clinic Address [address] [place] [address], Office (P) [phone]. Labs should be faxed to:ID office attention Rahel Mcclure [facility] [phone] Pending Studies at Discharge: No Stand-Alone Forms: My [facility] Skilled Items Patient informed of condition?: Yes DNR: No Discharge Level of Care: Other Communicable Disease: No Discharge Prognosis: Other Lines: Peripheral IV Urinary Catheter: Yes Medications and DC Order Prescriptions: New gabapentin 100 mg Capsule 100 mg PO QAM Qty: 30 0RF mirtazapine 15 mg Tablet 7.5 mg PO HS Qty: 30 0RF pregabalin [Lyrica] 75 mg Capsule 75 mg PO HS Qty: 30 0RF Continued ondansetron 8 mg tablet,disintegrating 8 mg PO DAILY PRN (Reason: nausea and vomiting) 3 Days Qty: 30 1RF Patient Comments: 01/06- last filled 06/14 29 30 day supply #30 hydroxychloroquine [Plaquenil] 200 mg tablet 200 mg PO QAM Qty: 120 0RF Rx Instructions: 2 p.o. every Friday and Friday and 1 p.o. daily all other days. ProRenal 8 mg iron-800 mcg-1,000 unit tablet 1 tab PO QAM Patient Comments: 01/06- otc unable to verify alprazolam [Xanax] 0.25 mg tablet 0.25 mg PO DAILY PRN (Reason: anxiety) Qty: 30 0RF Patient Comments: 01/06- last filled 03/19 30 day supply #30 hydrocodone-acetaminophen 5-325 mg tablet 1 tab PO BID PRN (Reason: severe pain) Qty: 20 0RF Patient Comments: 01/06- last filled 10/22 10 day supply #20 cinacalcet 30 mg tablet 0 mg PO .3X WEEK Patient Comments: 01/06- last filled 07/29 30 day supply #30 midodrine 5 mg tablet 5 mg PO UD ferric citrate [Auryxia] 210 mg iron tablet 210 mg PO TIDM sertraline 50 mg tablet 0 mg PO DAILY Patient Comments: 01/06- last filled 08/30 30 day supply #30 Medical Marijuana 1 dose inhalation DIRECTED PRN (Reason: Pain) Patient Comments: 01/06- unable to verify Rx Instructions: PER PT "USES 1-2 X DAILY" bupropion HCl [Wellbutrin SR] 150 mg tablet sustained-release 12 hr 0 mg PO QAM Patient Comments: 01/06- last filled 08/30 30 day supply #60 Discharge Orders: Discharge Order (Routine); Ordered 01/16/25 Ordered By: Andi Rodriguez/Other Patient Handouts: Central Line Infections Admission Data Admit Date/Time: 01/06/25 13:22 Attending Provider: Andi Villatoro Admit Provider: Magda Lew Primary Care Provider: Georgie Barrera Other Providers: [facility]; Magda Lew; Cristal Celeste Kevin C.; Jimmy Zheng; Cande iVcente; Syl Mojica; Perla Ramirez; Dexter Purcell; Kimmy Alexander; Laura Preston; Shyla Erazo; Wilfredo Loera; Aaliyah Hopkins; Tammie Campuzano; Arik Felix; Travis Ariza; Zoey Jacques; Emi Clay; Olman Bryant Hospital Stay Data Consultations 01/06/25 12:21 ED Decision to Admit Stat 01/06/25 12:50 Consult Vp Lab Stat 01/07/25 10:29 Consult Nephrology Routine 01/09/25 09:58 Consult Vascular Surgery Routine 01/10/25 10:00 Consult Infectious Diseases Routine 01/12/25 12:14 Radiology Transfer Of Images Stat 01/12/25 12:39 Consult Psychiatry Routine 01/12/25 13:04 Consult Vp Lab Stat Procedures Performed Operation Date: 01/12/25 07:30 Actual Procedures p PermCath Insertion,Left Jugular Approach,Ultrasound Localization of Right Internal Jugular Vein, Fluroscopy for Positioning(Left) - Jimmy Zheng MD Diagnostic Imagining Performed 01/06/25 09:06 CT chest without contrast [CT chest diagnostic wo con] Stat 01/06/25 10:55 CT chest diagnostic w con Stat 01/08/25 10:08 CT chest diagnostic wo con Urgent 01/12/25 07:16 EV cvc insrt tunnel wo prt/lithopone charger Routine US EV guide vascular access Routine 01/12/25 10:07 CT chest diagnostic w con Stat 01/13/25 07:00 CT chest with and without contrast [CT chest diagnostic wo/w con] Routine Pending Results Patient Have Any Pending Studies at Discharge: No Discharge Instructions Given to Patient (Per Discharging Provider) See Vascular Surgery, Weekly CBC with diff, CMP weekly and fax results to [facility]: Clinic Address [address] [place] [address], [place] [id number], Office (P) [phone]. Labs should be faxed to:ID office attention Rahel Billykins [facility] [phone] Total Time Total Time Spent Total Time Spent (In Minutes): 40 minutes spent at the bedside discussing results and modifications to care plan with patient. Arrangements for prescription on discharge. Reviewing new medications, discharge planning and follow-up coordination Coding Level of Care Code 14446 INP/OBS DISCH >30 MIN Diagnoses Cellulitis of chest wall L03.313 Infection of dialysis vascular access T82.7XXA Acute mediastinitis J98.51 Mediastinitis due to infection J98.51 Infection of central venous catheter insertion site, initial encounter T80.212A Encounter type: initial encounter Elevated troponin R79.89
[2025-01-16 13:00] VITALS: PULSE 90
== END 2025-01-16 13:50 | disposition short-term general hospital (02) | DRG 314 ==
LOC: ED 08:27 → 1E 13:22 → SUATTDRO 13:22 → 1E 01-08 13:42 → 2S 01-10 14:37 → 1E 01-12 13:49 → 2S 01-14 21:58

== ENCOUNTER 2025-02-19 10:53 | Inpatient (IN) ==
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
[2025-02-19] MEDS: ALBUT/IPRATROP 3MG/0.5MG NEB 3 ML VIAL NEB STA (11:31)
[2025-02-19 11:36] LABS: Hematocrit (blood only) 28.9 % (37.0-47.0); Hemoglobin 9.5 g/dL (12.0-16.0); Immature Granulocytes # (auto) 0.09 K/uL (0.01-0.20); Immature Granulocytes % (auto) 1.0 %; Mean Corpuscular Hemoglobin 31.6 pg (25.0-34.0); Mean Corpuscular Volume 96.0 fL (80.0-100.0); Platelet Count 110 K/uL (130-400); RDW Standard Deviation 53.8 fL (36.4-46.3); Red Blood Count 3.01 M/uL (4.20-5.40); White Blood Count 8.70 K/ul (4.8-10.8)
--- NOTE | 2025-02-19 12:06 | XRay Report ---
Clinical History: Shortness of breath Technique: A frontal view of the chest was obtained Findings: There are bilateral lower lobe opacities that could be due to either atelectasis or pneumonia. The heart size is within normal limits. No definite pneumothorax is seen. There are small bilateral pleural effusions No fracture is noted. There is a left jugular central venous line with its tip in the SVC Impression: 1. Small bilateral pleural effusions 2. Bilateral lower lobe opacities that could be due to either atelectasis or pneumonia ACT 112: Positive. There are findings on this exam that require communication between the performing entity and the patient following Patient Test Result Information Act ([place] ACT 112) guidelines. Electronically signed by Edward Snyder 02-19-2025 12:05 PM
[2025-02-19] MEDS ORDERED: HYDROCODONE/ACETAMOPHEN 5/325MG TAB PO PRN (12:08)
[2025-02-19] MEDS ORDERED: ACETAMINOPHEN 325 MG TAB PO PRN (12:11)
[2025-02-19 12:16] LABS: Alanine Aminotransferase 3.0 U/L (7-52); Albumin Globulin Ratio 1.2 (0.9-2); Albumin Level 3.7 gm/dl (3.4-5.0); Alkaline Phosphatase 84.0 U/L (34-104); Anion Gap 17.0 (3-11); Bilirubin,Total 0.4 mg/dl (0.2-1.0); Blood Urea Nitrogen 49.0 mg/dl (6-23); Calcium 7.6 mg/dl (8.6-10.3); Carbon Dioxide 21.0 mmol/L (21-32); Chloride 98.0 mmol/L (98-107); Creatinine Clr Calc Pharmacy 5.7 ml/min; Globulin 3.2 gm/dl (2.5-4.0); Glucose 97.0 mg/dl (70-99(Fasting)); Magnesium 2.1 mg/dl (1.7-2.4); Potassium 3.5 mmol/L (3.5-5.1); Sodium 136.0 mmol/L (136-145); Total Protein 6.9 gm/dl (6.0-8.3)
[2025-02-19 12:17] LABS: Influenza A virus by PCR Negative (Neg); Influenza B virus by PCR Negative (Neg); SARS CoV2 RNA(COVID-19) Ceph NEGATIVE (Negative)
[2025-02-19] MEDS ORDERED: SODIUM CHLORIDE 0.9% 1,000 ML IV PRN (12:32)
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
[2025-02-19] MEDS: ALTEPLASE, RECOMBINANT 1 MG/ML 2ML VIAL INSTIL ONE ×2 (12:52)
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
[2025-02-19] MEDS ORDERED: HEPARIN SOD 5,000 UNIT/0.5 ML VIAL SQ SCH ×2 (14:00→22:00)
[2025-02-19] MEDS: HEPARIN SOD (PORCINE) 1000 UNIT/ML IV SCH (14:27)
[2025-02-19] MEDS: HEPARIN SOD (PORCINE) 1000 UNIT/ML IV ONE (14:27)
[2025-02-19] MEDS: MIDODRINE HCL 2.5 MG TAB PO SCH (14:51)
[2025-02-19] MEDS: EPOETIN ALFA 10,000 UNITS/ML VIAL IV ONE (14:51)
[2025-02-19] MEDS: HEPARIN SOD 5,000 UNIT/0.5 ML VIAL SQ SCH (17:56)
[2025-02-19] MEDS: MIRTAZAPINE TAB 15 MG TAB PO SCH (20:56)
[2025-02-19] MEDS: PREGABALIN 75 MG CAP PO SCH (20:56)
[2025-02-20 06:59] LABS: Hematocrit (blood only) 27.8 % (37.0-47.0); Hemoglobin 9.0 g/dL (12.0-16.0); Mean Corpuscular Hemoglobin 31.7 pg (25.0-34.0); Mean Corpuscular Volume 97.9 fL (80.0-100.0); Platelet Count 124 K/uL (130-400); RDW Standard Deviation 55.6 fL (36.4-46.3); Red Blood Count 2.84 M/uL (4.20-5.40); White Blood Count 6.78 K/ul (4.8-10.8)
[2025-02-20 07:21] LABS: Alanine Aminotransferase 3.0 U/L (7-52); Albumin Globulin Ratio 1.1 (0.9-2); Albumin Level 3.4 gm/dl (3.4-5.0); Alkaline Phosphatase 75.0 U/L (34-104); Anion Gap 13.0 (3-11); Bilirubin,Total 0.4 mg/dl (0.2-1.0); Blood Urea Nitrogen 28.0 mg/dl (6-23); Calcium 7.4 mg/dl (8.6-10.3); Carbon Dioxide 23.0 mmol/L (21-32); Chloride 102.0 mmol/L (98-107); Creatinine Clr Calc Pharmacy 8.6 ml/min; Globulin 3.0 gm/dl (2.5-4.0); Glucose 89.0 mg/dl (70-99(Fasting)); Potassium 3.8 mmol/L (3.5-5.1); Sodium 138.0 mmol/L (136-145); Total Protein 6.4 gm/dl (6.0-8.3)
[2025-02-20] MEDS: GABAPENTIN 100 MG CAP PO SCH (08:47)
[2025-02-20] MEDS: SERTRALINE HCL 50 MG TABLET PO SCH (08:48)
[2025-02-20] MEDS ORDERED: NON-FORMULARY MEDICATION (Vit B,C-Iron Fum-Fa-D3-Zinc Ox [Prorenal] 8 mg iron-800 mcg-1,00 PO SCH (09:00)
--- NOTE | 2025-02-20 09:38 | Electrocardiogram Report ---
Test Reason : Blood Pressure : */* mmHG Vent. Rate : 98 BPM Atrial Rate : 98 BPM P-R Int : 142 ms QRS Dur : 76 ms QT Int : 260 ms P-R-T Axes : 20 48 71 degrees QTcB Int : 331 ms Normal sinus rhythm Low voltage QRS Cannot rule out Anterior infarct , age undetermined Abnormal ECG When compared with ECG of 12-Jan-2025 09:44, Nonspecific T wave abnormality, worse in Inferior leads Nonspecific T wave abnormality now evident in Anterolateral leads QT has shortened Confirmed by Abel Ocasio ([id number]) on 02/20/2025 9:38:10 AM Referred By: Confirmed By: Abel Ocasio
--- NOTE | 2025-02-20 10:17 | Nephrology Progress Note ---
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 Outpatient treatment modality is HHD. Patient was unable to dialyze at home 02/18/25 due to high pressure associated with her left IJ TCC * Cath-amado instilled prior to HD, but catheter still did not draw well from arterial port and had to be run reversed yesterday. 3.5 L UF obtained w/ HD yesterday * Will obtain follow up CXR this am * Plan next HD in am. Will advise HD staff assistant to cath-amado prior to treatment and again attempt to run A-->A. * BMP in am (2) Pleural effusion: Plan: * Clinically improved following 3.5 L UF yesterday * Serologic testing for influenza and RSV was negative on admission (3) Systemic lupus erythematosus: Plan: * Quiescent Admission and Anticipated Discharge Date Admission Date: February 19, 2025 Subjective Ms. Casillas was evaluated in her hospital room this morning. She was dialyzed yesterday for 3.5L UF. Post treatment plasma refill was negative. Unfortunately her dialysis catheter did not draw well from the arterial port and she was run reversed. Her primary concern this morning is exertional dyspnea Review of Systems Constitutional: no fever Eyes: no problem reported Ear, Nose, Mouth, Throat: no problem reported Respiratory: + cough and + dyspnea Cardiovascular: no chest pain Gastrointestinal: no abdominal pain, no vomiting and no diarrhea/loose stools Integumentary: no rash Neurologic: no problem reported Physical Exam Constitutional: not in distress Eyes: PERRL, conjunctivae normal, anicteric sclerae ENMT: external ear and nose normal, oropharynx normal Neck: trachea midline, no thyromegaly Respiratory: + cough; no respiratory distress Ausc ultation: lungs clear to auscultation bilaterally Cardiovascular: Rate/Rhythm: regular rate and regular rhythm Extremities: no edema (Trace pretibial pitting edema) Gastrointestinal (Abdomen): normal bowel sounds, soft, nontender, no hepatosplenomegaly Musculoskeletal: Extremities: no cyanosis and no clubbing Neurologic: no focal motor deficits Results & Data Vital Signs (Past 12 Hours) Vital Signs Temp Pulse Resp BP Pulse Ox O2 Del Method 02/20/25 07:07 36.9 C 76 16 116/85 97 Room Air 02/20/25 01:30 Room Air 02/19/25 23:05 37.0 C 100 H 18 118/80 91 Room Air Laboratory Results Laboratory Results - last 24 hr 02/19/25 02/19/25 02/19/25 11:22 11:29 17:55 WBC 8.70 RBC 3.01 L Hgb 9.5 L Hct 28.9 L MCV 96.0 MCH 31.6 MCHC 32.9 RDW Std Deviation 53.8 H RDW Coeff of Negrito 15.8 H Plt Count 110 L MPV 11.2 Immature Gran % (Auto) 1.0 Neut % (Auto) 86.2 Lymph % (Auto) 7.5 [place] % (Auto) 4.8 Eos % (Auto) 0.0 Baso % (Auto) 0.5 Neut # (Auto) 7.50 H Lymph # (Auto) 0.65 L [place] # (Auto) 0.42 Eos # (Auto) 0.00 Baso # (Auto) 0.04 Immature Gran # (Auto) 0.09 Sodium 136 Potassium 3.5 Chloride 98 Carbon Dioxide 21 Anion Gap 17 H BUN 49 H Creatinine 10.43 H* Est Cr Clr Drug Dosing 5.7 eGFR 4.07 BUN/Creatinine Ratio 4.7 L Glucose 97 Calcium 7.6 L Phosphorus 5.9 H Magnesium 2.1 Total Bilirubin 0.4 AST 12 L ALT 3 L Alkaline Phosphatase 84 Total Protein 6.9 Albumin 3.7 Globulin 3.2 Albumin/Globulin Ratio 1.2 Nasal Screen MRSA (PCR) Negative SARS-CoV-2 (PCR) NEGATIVE Influenza Type A (PCR) Negative Influenza Type B (PCR) Negative RSV (RT-PCR) Negative 02/20/25 06:26 WBC 6.78 RBC 2.84 L Hgb 9.0 L Hct 27.8 L MCV 97.9 MCH 31.7 MCHC 32.4 RDW Std Deviation 55.6 H RDW Coeff of Negrito 15.9 H Plt Count 124 L MPV 11.3 Immature Gran % (Auto) Neut % (Auto) Lymph % (Auto) [place] % (Auto) Eos % (Auto) Baso % (Auto) Neut # (Auto) Lymph # (Auto) [place] # (Auto) Eos # (Auto) Baso # (Auto) Immature Gran # (Auto) Sodium 138 Potassium 3.8 Chloride 102 Carbon Dioxide 23 Anion Gap 13 H BUN 28 H D Creatinine 6.90 H* D Est Cr Clr Drug Dosing 8.6 eGFR 6.68 BUN/Creatinine Ratio 4.1 L Glucose 89 Calcium 7.4 L Phosphorus Magnesium Total Bilirubin 0.4 AST 9 L ALT 3 L Alkaline Phosphatase 75 Total Protein 6.4 Albumin 3.4 Globulin 3.0 Albumin/Globulin Ratio 1.1 Nasal Screen MRSA (PCR) SARS-CoV-2 (PCR) Influenza Type A (PCR) Influenza Type B (PCR) RSV (RT-PCR) PG Care Time/CCT Total # of Minutes Spent Total Time Spent with Patient: 50 min provided to review progress notes, dialysis data, interview and examine patient, discuss POC w/ patient, order CXR, update medical record Coding Level of Care Code 78684 SUB INP/OBS CARE 3/50MIN Diagnoses End stage renal disease N18.6 Pleural effusion J90 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
--- NOTE | 2025-02-20 10:39 | Hospitalist Progress Note ---
Date of Service February 20, 2025 Assessment & Plan (1) Hemodialysis catheter malfunction: Plan: -nephrology attempting HD with existing catheter today -f/u as per nephrology for any catheter related studies or changes (2) Fluid overload: Plan: -pt complaining of continued SOB and wheezing -pt states symptoms have persisted despite dialysis -echo -cardiology consult to evaluation for possible contributed CHF (3) Depression: Plan: -buproprion -setraline -alprazolam Plan Heparin SQ for DVT px Admission and Anticipated Discharge Date Admission Date: February 19, 2025 Subjective Pt complaining of SOB, and "fluid in her chest". Review of Systems Review of Systems: CONST: Negative for fever, body aches and chills. HENT: Negative for neck pain/stiffness, headache, congestion, sore throat, swelling. EYES: Negative for discharge/pain or vision changes. RESP: Negative for cough/hemoptysis and shortness of breath. CV: Negative chest pain, difficulty breathing, palpitations. ABD: Negative pain, nausea, vomiting. : Negative increase frequency, dysuria, blood in urine or stool. MUSC: Negative for muscle aches, edema. SKIN: Negative rash, lesions/sores. NEURO: Negative headache, dizziness, weakness. Physical Exam Physical Exam: GENERAL APPEARANCE NAD, activity normal for age, well developed/ well nourished, no cyanosis, pallor, or diaphoresis. EYES lids/conjunctiva normal. EARS/NOSE/THROAT Mucous membranes moist, nares normal, lips/teeth normal uvula midline without oral pharyngeal erythema, exudate or swelling TMs normal bilaterally. No lymphangitis/lymphedema. HEAD/NECK normocephalic atraumatic, no facial trauma, neck is supple. RESPIRATORY respiratory effort normal, speaks in full sentences, no tripod position, no accessory muscle use. Lungs clear to auscultation without rhonchi, wheezes, rales CARDIAC Regular rate and rhythm, no edema. ABDOMINAL Soft, ND/NT. No evidence of fluid wave. No pulsatile masses on exam, rebound tenderness, Garza sign or pain over Mcburney's point. MUSCLES/EXTREMITIES No abnormal range of motion, no swelling. SKIN Warm, pink and dry. No rashes, dermatoses, petechiae or lesions. NEUROLOGICAL Speech is clear and appropriate. Normal level of consciousness. Gait and coordination are normal. 5/5 strength in all extremities. PSYCH Normal mood and affect. Judgement/competence is appropriate Results & Data Results & Data Vital Signs (Past 12 Hours) Vital Signs Temp Pulse Resp BP Pulse Ox O2 Del Method 02/20/25 07:07 36.9 C 76 16 116/85 97 Room Air 02/20/25 01:30 Room Air 02/19/25 23:05 37.0 C 100 H 18 118/80 91 Room Air PG Care Time/CCT Total # of Minutes Spent Total Time Spent with Patient: Total time spent is greater than 50% in coordination of care (as documented) at patient's floor/unit and/or counseling patient: Coding Level of Care Code 75489 SUB INP/OBS CARE 2/35MIN Diagnoses Hemodialysis catheter malfunction T82.41XA Encounter type: initial encounter Fluid overload E87.70 Moderate episode of recurrent major depressive disorder F33.1 Depression Type: major depressive disorder Major depression recurrence: recurrent Active/Remission status: currently active Major depression episode severity: moderate (1) Hemodialysis catheter malfunction Encounter type: initial encounter Qualified Code(s): T82.41XA - Breakdown (mechanical) of vascular dialysis catheter, initial encounter (3) Depression Depression Type: major depressive disorder Major depression recurrence: recurrent Active/Remission status: currently active Major depression episode severity: moderate Qualified Code(s): F33.1 - Major depressive disorder, recurrent, moderate
--- NOTE | 2025-02-20 14:14 | XRay Report ---
Technique: A frontal view of the chest was obtained Comparison is made to the prior examination dated 02/19/2025 Findings: There are bilateral lower lobe opacities that could be due to either atelectasis or pneumonia. The heart size is within normal limits. No definite pneumothorax is seen. There are bilateral small to moderate sized pleural effusions No fracture is noted. There is a left jugular central venous line with its tip in the SVC Impression: 1. Unchanged bilateral pleural effusions 2. Unchanged bilateral lower lobe opacities that could be due to either atelectasis or pneumonia ACT 112: Positive. There are findings on this exam that require communication between the performing entity and the patient following Patient Test Result Information Act ([place] ACT 112) guidelines. Electronically signed by Edward Snyder 02-20-2025 2:13 PM
[2025-02-21] MEDS ORDERED: SODIUM CHLORIDE 0.9% 1,000 ML IV PRN (07:00)
[2025-02-21 07:20] LABS: Anion Gap 13.0 (3-11); Blood Urea Nitrogen 35.0 mg/dl (6-23); Calcium 7.8 mg/dl (8.6-10.3); Carbon Dioxide 22.0 mmol/L (21-32); Chloride 101.0 mmol/L (98-107); Creatinine Clr Calc Pharmacy 6.7 ml/min; Glucose 89.0 mg/dl (70-99(Fasting)); Potassium 4.1 mmol/L (3.5-5.1); Sodium 136.0 mmol/L (136-145)
[2025-02-21] MEDS: ALTEPLASE, RECOMBINANT 1 MG/ML 2ML VIAL INSTIL ONE ×2 (08:00)
--- NOTE | 2025-02-21 09:07 | Nephrology Progress Note ---
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 Outpatient treatment modality is HHD. Patient was unable to dialyze at home 02/18/25 due to high pressure associated with her left IJ TCC * Cath-amado instilled prior to HD, but catheter still did not draw well from either port. Will provide HD today running catheter reversed * CXR shows bilateral pleural effusions. Will attempt 2 L UF * Will discuss TCC w/ vascular surgery to see if catheter needs to be changed * BMP in am (2) Pleural effusion: Plan: * Attempt 2 L UF w/ HD today * Serologic testing for influenza and RSV was negative on admission (3) Systemic lupus erythematosus: Plan: * Quiescent Admission and Anticipated Discharge Date Admission Date: February 19, 2025 Subjective Ms. Casillas was evaluated prior to HD this morning. Both the arterial and venous ports of her IJ TCC draw slowly both before and after Cath-Amado. Patient denies angina but still has HASSAN Review of Systems Constitutional: no fever Eyes: no problem reported Ear, Nose, Mouth, Throat: no problem reported Respiratory: + cough and + dyspnea Cardiovascular: no chest pain Gastrointestinal: no abdominal pain, no vomiting and no diarrhea/loose stools Integumentary: no rash Neurologic: no problem reported Physical Exam Constitutional: not in distress Eyes: PERRL, conjunctivae normal, anicteric sclerae ENMT: external ear and nose normal, oropharynx normal Neck: trachea midline, no thyromegaly Respiratory: + cough; no respiratory distress Ausc ultation: lungs clear to auscultation bilaterally and + diminished lung sounds (At bases bilaterally) Cardiovascular: Rate/Rhythm: regular rate and regular rhythm Extremities: no edema (Trace pretibial pitting edema) Gastrointestinal (Abdomen): normal bowel sounds, soft, nontender, no hepatosplenomegaly Musculoskeletal: Extremities: no cyanosis and no clubbing Neurologic: no focal motor deficits Results & Data Vital Signs (Past 12 Hours) Vital Signs Temp Pulse Resp BP Pulse Ox O2 Del Method 02/21/25 07:18 36.9 C 92 H 18 146/97 H 92 Room Air 02/20/25 22:58 36.6 C 93 H 18 144/95 H 94 Room Air Laboratory Results Laboratory Results - last 24 hr 02/21/25 06:11 Sodium 136 Potassium 4.1 Chloride 101 Carbon Dioxide 22 Anion Gap 13 H BUN 35 H Creatinine 8.87 H* D Est Cr Clr Drug Dosing 6.7 eGFR 4.94 BUN/Creatinine Ratio 3.9 L Glucose 89 Calcium 7.8 L PG Care Time/CCT Total # of Minutes Spent Total Time Spent with Patient: 50 min provided to review progress notes, interview and examine patient, consult vascular surgery, update medical record Coding Level of Care Code 49489 SUB INP/OBS CARE 3/50MIN Diagnoses End stage renal disease N18.6 Pleural effusion J90 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
--- NOTE | 2025-02-21 10:37 | Hospitalist Progress Note ---
Date of Service February 21, 2025 Assessment & Plan (1) Hemodialysis catheter malfunction: Plan: -cathflo used to gain access dialysis catheter -2nd HD session today -f/u as per nephrology and vascular if catheter requires change (2) Fluid overload: Plan: -pt complaining of continued SOB and wheezing -pt states symptoms have persisted despite dialysis -echo (3) Depression: Plan: -buproprion -setraline -alprazolam Plan Heparin SQ for DVT px Admission and Anticipated Discharge Date Admission Date: February 19, 2025 Subjective No events overnight. Pt resting in bed. Review of Systems Review of Systems: CONST: Negative for fever, body aches and chills. HENT: Negative for neck pain/stiffness, headache, congestion, sore throat, swelling. EYES: Negative for discharge/pain or vision changes. RESP: Negative for cough/hemoptysis and shortness of breath. CV: Negative chest pain, difficulty breathing, palpitations. ABD: Negative pain, nausea, vomiting. : Negative increase frequency, dysuria, blood in urine or stool. MUSC: Negative for muscle aches, edema. SKIN: Negative rash, lesions/sores. NEURO: Negative headache, dizziness, weakness. Physical Exam Physical Exam: GENERAL APPEARANCE NAD, activity normal for age, well developed/ well nourished, no cyanosis, pallor, or diaphoresis. EYES lids/conjunctiva normal. EARS/NOSE/THROAT Mucous membranes moist, nares normal, lips/teeth normal uvula midline without oral pharyngeal erythema, exudate or swelling TMs normal bilaterally. No lymphangitis/lymphedema. HEAD/NECK normocephalic atraumatic, no facial trauma, neck is supple. RESPIRATORY respiratory effort normal, speaks in full sentences, no tripod position, no accessory muscle use. Lungs clear to auscultation without rhonchi, wheezes, rales CARDIAC Regular rate and rhythm, no edema. ABDOMINAL Soft, ND/NT. No evidence of fluid wave. No pulsatile masses on exam, rebound tenderness, Garza sign or pain over Mcburney's point. MUSCLES/EXTREMITIES No abnormal range of motion, no swelling. SKIN Warm, pink and dry. No rashes, dermatoses, petechiae or lesions. NEUROLOGICAL Speech is clear and appropriate. Normal level of consciousness. Gait and coordination are normal. 5/5 strength in all extremities. PSYCH Normal mood and affect. Judgement/competence is appropriate Results & Data Results & Data Vital Signs (Past 12 Hours) Vital Signs Temp Pulse Resp BP Pulse Ox O2 Del Method 02/21/25 07:18 36.9 C 92 H 18 146/97 H 92 Room Air 02/20/25 22:58 36.6 C 93 H 18 144/95 H 94 Room Air PG Care Time/CCT Total # of Minutes Spent Total Time Spent with Patient: Total time spent is greater than 50% in coordination of care (as documented) at patient's floor/unit and/or counseling patient: Coding Level of Care Code 70176 SUB INP/OBS CARE 2/35MIN Diagnoses Hemodialysis catheter malfunction T82.41XA Encounter type: initial encounter Fluid overload E87.70 Moderate episode of recurrent major depressive disorder F33.1 Depression Type: major depressive disorder Major depression recurrence: recurrent Active/Remission status: currently active Major depression episode severity: moderate (1) Hemodialysis catheter malfunction Encounter type: initial encounter Qualified Code(s): T82.41XA - Breakdown (mechanical) of vascular dialysis catheter, initial encounter (3) Depression Depression Type: major depressive disorder Major depression recurrence: recurrent Active/Remission status: currently active Major depression episode severity: moderate Qualified Code(s): F33.1 - Major depressive disorder, recurrent, moderate
--- NOTE | 2025-02-21 10:53 | XCELERA ---
[id number]
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
[2025-02-21] MEDS: EPOETIN ALFA 10,000 UNITS/ML VIAL IV ONE (12:44)
[2025-02-21] MEDS: HEPARIN SOD (PORCINE) 1000 UNIT/ML IV SCH (13:03)
[2025-02-21] MEDS: HEPARIN SOD (PORCINE) 1000 UNIT/ML IV ONE (13:03)
[2025-02-21] MEDS: ALBUT/IPRATROP 3MG/0.5MG NEB 3 ML VIAL NEB STA (20:46)
[2025-02-22] MEDS: SODIUM CHLORIDE 0.9% 1,000 ML IV SCH (06:50)
[2025-02-22] MEDS ORDERED: DEXAMETHASONE SOD INJ 4 MG/ML VIAL ONE (07:06)
[2025-02-22] MEDS ORDERED: MIDAZOLAM HCL 1 MG/ML 2ML VIAL ONE ×2 (07:06→07:37)
[2025-02-22] MEDS ORDERED: PROPOFOL IV EMULSION 10 MG/ML 20 ML VIAL IV ONE (07:06)
[2025-02-22] MEDS ORDERED: ONDANSETRON INJ 2 MG/ML 2 ML VIAL ONE (07:06)
[2025-02-22] MEDS ORDERED: LIDOCAINE 2% 2 ML VIAL/AMP(20MG/ML) INFIL ONE (07:06)
[2025-02-22] MEDS ORDERED: DexMEDEtomidine HCL IV 100 MCG/ML VIAL IV ONE (07:07)
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
[2025-02-22] MEDS ORDERED: PROMETHAZINE HCL 6.25 MG in SODIUM CHLORIDE 0.9% 50 ML IV PRN (07:15)
[2025-02-22] MEDS ORDERED: ATROPINE SULFATE 0.1 MG/ML 10ML SYR IV PRN (07:15)
[2025-02-22] MEDS ORDERED: HYDROmorphone INJ 2 MG/ML SYR/VIAL IV PRN (07:15)
[2025-02-22] MEDS ORDERED: ONDANSETRON INJ 2 MG/ML 2 ML VIAL IV PRN (07:15)
--- NOTE | 2025-02-22 07:24 | History & Physical Bridge Note ---
Date of Service February 22, 2025 History & Physical Bridge Note I have examined the patient, reviewed the History & Physical and in the interval since the performance of the History & Physical I have noted the following changes of clinical significance: no changes noted. Plan for exchange of left tunneled central venous line, possible new tunneled central venous line this morning.
[2025-02-22] MEDS ORDERED: ceFAZolin 330 MG/ML 1 GM VIAL ONE ×2 (07:46)
[2025-02-22] MEDS ORDERED: PHENYLEPHRINE 100MCG/ML 5ML SYR ONE (07:58)
[2025-02-22] MEDS: LIDOCAINE 1% LOCAL 20 ML VIAL ONE (08:15)
[2025-02-22] MEDS: VISIPAQUE IV PRN (08:16)
--- NOTE | 2025-02-22 08:21 | Post Operative Brief Note ---
Immediate Post Op Note Date of Surgery February 22, 2025 Pre & Post Diagnosis Operation Date: 02/22/25 07:30 Pre-Op Diagnosis: Malfunctioning Catheter Post-Op Diagnosis: Malfunctioning Catheter I identified the patient and participated in the time-out.: Yes Procedure Operation Date: 02/22/25 07:30 Actual Procedures p Tunneled Hemodialysis Central Line Exchange, Venogram(Left) - Jimmy Zheng MD Surgeon Jimmy Zheng MD Pediatric Surgeon Dung Scott, RT Estimated Blood Loss 5 Findings Consistent with Post-Op Diagnosis Anesthesia Type MAC Complications none Disposition Accompanied Patient To Recovery: Yes Disposition: Recovery Room
--- NOTE | 2025-02-22 08:26 | Operative Report ---
PG Post Operative Report Pre & Post Diagnosis Operation Date: 02/22/25 07:30 Pre-Op Diagnosis: Malfunctioning Catheter Post-Op Diagnosis: Malfunctioning Catheter I identified the patient and participated in the time-out.: Yes Procedure Operation Date: 02/22/25 07:30 Actual Procedures p Tunneled Hemodialysis Central Line Exchange, Venogram(Left) - Jimmy Zheng MD Surgeon Jimmy Zheng MD Shotgun Shell Assembly Machine Adjuster Dung Scott, RT Estimated Blood Loss 5 Findings Consistent with Post-Op Diagnosis Specimens None Anesthesia Type MAC Complications none Disposition Accompanied Patient To Recovery: Yes Disposition: Recovery Room Indications 50yo with malfunctioning tunneled central venous line. Replacement requested. Risks/goals/alternatives discussed with patient who understands and wishes to proceed. Description of Procedure A time out was performed and the patient identified and the procedure verified. Monitored anesthetic care was provided by the anesthesia team. The patient received Ancef preoperatively. She has a documented allergy but has received Ancef previously without reaction. The left chest and the catheter were prepped and draped in the standard fashion. 1% lidocaine local anesthesia was used. Venography was performed via the catheter showing an intact central venous circulation. There was a <50% stenosis of the SVC which I chose not to treat. A Nielsen wire was inserted into the catheter and under fluoroscopic control guided into the right atrium. The existing catheter was mobilized and the cuff was freed up. The catheter was removed intact. A new 24cm GlidePath catheter was inserted over the wire to the RA/SVC junction under fluoroscopic control. The stylet and wire were removed and both lumens flushed and aspirated easily. They were then instilled with low dose heparin dwell. The cuff was placed approximately a cm into the tract. The catheter was secured to the skin with 3-0 Nylon. The patient was taken to the recovery room in stable condition having tolerated the procedure well without complication. I attest to the content of the Intraoperative Record and any orders documented therein. Any exceptions are noted below.
--- NOTE | 2025-02-22 08:51 | Nephrology Progress Note ---
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 Outpatient treatment modality is HHD. Patient was unable to dialyze at home 02/18/25 due to high pressure associated with her left IJ TCC. * L IJ TCC changed out over guidewire by Dr. Zheng this morning * CXR shows bilateral pleural effusions. Will provide 3 hrs HD today and attempt 2-3 L UF as guided by BP. Orders have been placed in EMR and HD RN updated * BMP in am, follow up CXR in am (2) Pleural effusion: Plan: * Attempt 2-3 L UF w/ HD today * Serologic testing for influenza and RSV was negative on admission (3) Systemic lupus erythematosus: Plan: * Quiescent Admission and Anticipated Discharge Date Admission Date: February 19, 2025 Subjective Ms. Casillas was evaluated in her hospital room this morning. She had her L IJ TCC changed out over a guide wire this morning. She currently denies fever, angina. She has mild HASSAN but reports that her cough has improved. Review of Systems Constitutional: no fever Eyes: no problem reported Ear, Nose, Mouth, Throat: no problem reported Respiratory: + dyspnea on exertion Cardiovascular: no chest pain Gastrointestinal: no abdominal pain, no vomiting and no diarrhea/loose stools Integumentary: no rash Neurologic: no problem reported Physical Exam Constitutional: not in distress Eyes: PERRL, conjunctivae normal, anicteric sclerae ENMT: external ear and nose normal, oropharynx normal Neck: trachea midline, no thyromegaly L IJ TCC with clean, dry dressing in place Respiratory: no respiratory distress Auscultation: + diminished lung sounds (At bases bilaterally) Cardiovascular: Rate/Rhythm: regular rate and regular rhythm Extremities: + edema (Trace pretibial pitting edema) no rub Gastrointestinal (Abdomen): normal bowel sounds, soft, nontender, no hepatosplenomegaly Musculoskeletal: Extremities: no cyanosis and no clubbing Neurologic: no focal motor deficits Results & Data Vital Signs (Past 12 Hours) Vital Signs Temp Pulse Pulse Resp BP Pulse Ox O2 Del Method 02/22/25 08:40 36.5 C 85 16 98/79 L 97 Nasal Cannula 02/22/25 08:30 88 16 99/80 L 96 Nasal Cannula 02/22/25 08:20 36.2 C L 96 H 14 100/77 93 Nasal Cannula 02/22/25 06:39 36.8 C 95 H 16 148/107 H 93 Room Air O2 Flow Rate 02/22/25 08:40 2 02/22/25 08:30 2 02/22/25 08:20 2 02/22/25 06:39 Laboratory Results Laboratory Results - last 24 hr 02/22/25 09:08 Sodium Pending Potassium Pending Chloride Pending Carbon Dioxide Pending Anion Gap Pending BUN Pending Creatinine Pending Est Cr Clr Drug Dosing Pending eGFR Pending BUN/Creatinine Ratio Pending Glucose Pending Calcium Pending PG Care Time/CCT Total # of Minutes Spent Total Time Spent with Patient: 50 min provided to review progress notes, interview and examine patient, confirm use of new catheter w/ vascular surgery, review CXR films, order HD and coordinate treatment w/ on-call HD RN, order am labs and follow up CXR, update medical record Coding Level of Care Code 22495 SUB INP/OBS CARE 3/50MIN Diagnoses End stage renal disease N18.6 Pleural effusion J90 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
--- NOTE | 2025-02-22 08:54 | Anesthesiology Progress Note ---
Date of Service February 22, 2025 Anesthesia Post Procedure Vital Signs Vital Signs: Temp Pulse Pulse Pulse Pulse Resp BP 02/22/25 08:40 36.5 C 85 16 02/22/25 08:30 88 16 02/22/25 08:20 36.2 C L 96 H 14 02/22/25 06:39 36.8 C 95 H 16 02/21/25 20:49 100 H 16 02/21/25 20:30 02/21/25 20:26 37.1 C 100 H 16 02/21/25 15:30 36.9 C 94 H 18 02/21/25 12:55 36.3 C L 82 02/21/25 12:49 69 129/100 02/21/25 12:30 82 106/91 02/21/25 12:00 93 H 133/99 02/21/25 11:30 80 146/100 H 02/21/25 11:00 87 155/104 H 02/21/25 10:30 91 H 155/105 H 02/21/25 10:03 90 150/108 H 02/21/25 09:50 36.0 C L 78 BP Pulse Ox O2 Del Method O2 Flow Rate 02/22/25 08:40 98/79 L 97 Nasal Cannula 2 02/22/25 08:30 99/80 L 96 Nasal Cannula 2 02/22/25 08:20 100/77 93 Nasal Cannula 2 02/22/25 06:39 148/107 H 93 Room Air 02/21/25 20:49 95 Room Air 02/21/25 20:30 Room Air 02/21/25 20:26 142/98 H 94 Room Air 02/21/25 15:30 136/91 93 Room Air 02/21/25 12:55 153/104 H 02/21/25 12:49 02/21/25 12:30 02/21/25 12:00 02/21/25 11:30 02/21/25 11:00 02/21/25 10:30 02/21/25 10:03 02/21/25 09:50 Transfer of Care Handoff Completed per policy Notes Mental Status: alert / awake / arousable and participated in evaluation Patient Amnestic to Procedure: Yes Nausea / Vomiting: adequately controlled Pain: adequately controlled Airway Patency, RR, SpO2: stable & adequate BP & HR: stable & adequate Hydration State: stable & adequate Anesthetic Complications: no major complications apparent
--- NOTE | 2025-02-22 09:06 | XRay Report ---
XR chest 1V portable CLINICAL HISTORY: s/p HD line exchange COMPARISON STUDY: Chest CT January 29, 2025. Chest radiograph February 20, 2025. FINDINGS: There is no pneumothorax. Dual lumen left internal jugular dialysis catheter is in place. T ip projects over the cavoatrial junction. Moderate bilateral pleural effusions with associated bibasi lar opacities persist. Pulmonary edema has slightly increased. Cardiomediastinal silhouette is stable . IMPRESSION: 1. Dual lumen left internal jugular hemodialysis catheter in place. No pneumothorax. 2. Persistent moderate bilateral pleural effusions with associated bibasilar opacities which favor at electasis. 3. Slight increase in pulmonary edema. ACT 112: Negative or not required by law. Electronically signed by: Wilder Lloyd M.D. 02/22/2025 9:05 AM
[2025-02-22 09:10] VITALS: RESP 16
[2025-02-22] MEDS: CLINDAMYCIN/D5W 900 MG/50 ML BAG IV ONE (09:39)
[2025-02-22 09:41] VITALS: O2SAT 97
--- NOTE | 2025-02-22 09:43 | Hospitalist Progress Note ---
Date of Service February 22, 2025 Assessment & Plan (1) Hemodialysis catheter malfunction: Plan: -cathflo used to gain access dialysis catheter -HD session -f/u as per nephrology -left tunnel cath exchange by vascular today (2) Fluid overload: Plan: -pt complaining of continued SOB and wheezing -pt states symptoms have persisted despite dialysis -echo (3) Depression: Plan: -buproprion -setraline -alprazolam Plan Heparin SQ for DVT px Admission and Anticipated Discharge Date Admission Date: February 19, 2025 Subjective Pt with tunnel cath change this am by vascular surgery. Review of Systems Review of Systems: CONST: Negative for fever, body aches and chills. HENT: Negative for neck pain/stiffness, headache, congestion, sore throat, swelling. EYES: Negative for discharge/pain or vision changes. RESP: Negative for cough/hemoptysis and shortness of breath. CV: Negative chest pain, difficulty breathing, palpitations. ABD: Negative pain, nausea, vomiting. : Negative increase frequency, dysuria, blood in urine or stool. MUSC: Negative for muscle aches, edema. SKIN: Negative rash, lesions/sores. NEURO: Negative headache, dizziness, weakness. Physical Exam Physical Exam: GENERAL APPEARANCE NAD, activity normal for age, well developed/ well nourished, no cyanosis, pallor, or diaphoresis. EYES lids/conjunctiva normal. EARS/NOSE/THROAT Mucous membranes moist, nares normal, lips/teeth normal uvula midline without oral pharyngeal erythema, exudate or swelling TMs normal bilaterally. No lymphangitis/lymphedema. HEAD/NECK normocephalic atraumatic, no facial trauma, neck is supple. RESPIRATORY respiratory effort normal, speaks in full sentences, no tripod position, no accessory muscle use. Lungs clear to auscultation without rhonchi, wheezes, rales CARDIAC Regular rate and rhythm, no edema. ABDOMINAL Soft, ND/NT. No evidence of fluid wave. No pulsatile masses on exam, rebound tenderness, Garza sign or pain over Mcburney's point. MUSCLES/EXTREMITIES No abnormal range of motion, no swelling. SKIN Warm, pink and dry. No rashes, dermatoses, petechiae or lesions. NEUROLOGICAL Speech is clear and appropriate. Normal level of consciousness. Gait and coordination are normal. 5/5 strength in all extremities. PSYCH Normal mood and affect. Judgement/competence is appropriate Results & Data Results & Data Vital Signs (Past 12 Hours) Vital Signs Temp Pulse Pulse Pulse Resp BP Pulse Ox 02/22/25 09:38 36.6 C 86 16 126/88 97 02/22/25 09:09 36.8 C 90 16 109/79 96 02/22/25 08:55 86 14 97/80 L 97 02/22/25 08:40 36.5 C 85 16 98/79 L 97 02/22/25 08:30 88 16 99/80 L 96 02/22/25 08:20 36.2 C L 96 H 14 100/77 93 02/22/25 06:39 36.8 C 95 H 16 148/107 H 93 O2 Del Method O2 Flow Rate 02/22/25 09:38 Room Air 02/22/25 09:09 Nasal Cannula 2 02/22/25 08:55 Nasal Cannula 2 02/22/25 08:40 Nasal Cannula 2 02/22/25 08:30 Nasal Cannula 2 02/22/25 08:20 Nasal Cannula 2 02/22/25 06:39 Room Air PG Care Time/CCT Total # of Minutes Spent Total Time Spent with Patient: Total time spent is greater than 50% in coordination of care (as documented) at patient's floor/unit and/or counseling patient: Coding Level of Care Code 56676 SUB INP/OBS CARE 2/35MIN Diagnoses Hemodialysis catheter malfunction T82.41XA Encounter type: initial encounter Fluid overload E87.70 Moderate episode of recurrent major depressive disorder F33.1 Depression Type: major depressive disorder Major depression recurrence: recurrent Active/Remission status: currently active Major depression episode severity: moderate (1) Hemodialysis catheter malfunction Encounter type: initial encounter Qualified Code(s): T82.41XA - Breakdown (mechanical) of vascular dialysis catheter, initial encounter (3) Depression Depression Type: major depressive disorder Major depression recurrence: recurrent Active/Remission status: currently active Major depression episode severity: moderate Qualified Code(s): F33.1 - Major depressive disorder, recurrent, moderate
[2025-02-22] MEDS ORDERED: SODIUM CHLORIDE 0.9% 1,000 ML IV PRN (09:47)
[2025-02-22 10:14] LABS: Anion Gap 12.0 (3-11); Blood Urea Nitrogen 25.0 mg/dl (6-23); Calcium 7.9 mg/dl (8.6-10.3); Carbon Dioxide 20.0 mmol/L (21-32); Chloride 106.0 mmol/L (98-107); Creatinine Clr Calc Pharmacy 8.7 ml/min; Glucose 93.0 mg/dl (70-99(Fasting)); Potassium 4.3 mmol/L (3.5-5.1); Sodium 138.0 mmol/L (136-145)
[2025-02-22] MEDS: EPOETIN ALFA 10,000 UNITS/ML VIAL IV ONE (13:36)
--- NOTE | 2025-02-22 13:54 | Communication Note ---
Date of Service: February 22, 2025 Pt's new hemodialysis catheter can be used for HD.
--- NOTE | 2025-02-22 14:58 | Discharge Summary ---
Discharge Summary Date of Service February 22, 2025 Principal Dx & Hospital Course #1 = Principal Diagnosis (1) Hemodialysis catheter malfunction: -cathflo used to gain access dialysis catheter -HD session -f/u as per nephrology -left tunnel cath exchange by vascular today (2) Fluid overload: -pt complaining of continued SOB and wheezing -pt states symptoms have persisted despite dialysis -echo (3) Depression: -buproprion -setraline -alprazolam Plan Heparin SQ for DVT px Admission HPI Per Admitting Provider Pt is a 50 y/o female with pmh of ESRD on HD 2nd to lupus nephritis who presents with difficulty access her left chest tunneled catheter and was unable to be dialyzed yesterday. Pt has a infection of a previous HD catheter which was placed on the right last month, which was removed. Her new HD was functioning well until yesterday. In the ER patient was seen by nephrology who recommended patient be admitted for reattempted access and HD session. l Discharge Exam GENERAL APPEARANCE NAD, activity normal for age, well developed/ well nourished, no cyanosis, pallor, or diaphoresis. EYES lids/conjunctiva normal. EARS/NOSE/THROAT Mucous membranes moist, nares normal, lips/teeth normal uvula midline without oral pharyngeal erythema, exudate or swelling TMs normal bilaterally. No lymphangitis/lymphedema. HEAD/NECK normocephalic atraumatic, no facial trauma, neck is supple. RESPIRATORY respiratory effort normal, speaks in full sentences, no tripod position, no accessory muscle use. Lungs clear to auscultation without rhonchi, wheezes, rales CARDIAC Regular rate and rhythm, no edema. ABDOMINAL Soft, ND/NT. No evidence of fluid wave. No pulsatile masses on exam, rebound tenderness, Garza sign or pain over Mcburney's point. MUSCLES/EXTREMITIES No abnormal range of motion, no swelling. SKIN Warm, pink and dry. No rashes, dermatoses, petechiae or lesions. NEUROLOGICAL Speech is clear and appropriate. Normal level of consciousness. Gait and coordination are normal. 5/5 strength in all extremities. PSYCH Normal mood and affect. Judgement/competence is appropriate Discharge Plan Discharge Items Patient Disposition: Home - Self-Care Reason For Visit: HD CATH MALFUNCTION Discharge Diagnosis: HD cath malfunction Condition on Discharge: Fair Activity: Resume your previous activity Non-emergency contact: Primary Care Provider Call non-emergency contact if: you have any medication questions Follow-up/Referrals: Georgie Barrera MD [Primary Care Provider] - Diet: Regular Addtl Attending Provider Instructions: Follow up with nephrology for HD Pending Studies at Discharge: No Stand-Alone Forms: My [facility] [place] Causes, Smoking Cessation Medications and DC Order Prescriptions: Continued ondansetron 8 mg tablet,disintegrating 8 mg PO DAILY PRN (Reason: nausea and vomiting) 3 Days Qty: 30 1RF Patient Comments: 02/19-- last filled 06/14 29 30 day supply #30 ProRenal 8 mg iron-800 mcg-1,000 unit tablet 1 tab PO QAM Patient Comments: 02/19- OTC/last filled 08/26 90 day supply #90 alprazolam [Xanax] 0.25 mg tablet 0.25 mg PO DAILY PRN (Reason: anxiety) Qty: 30 0RF Patient Comments: 02/19- last filled 03/19 30 day supply #30 hydrocodone-acetaminophen 5-325 mg tablet 1 tab PO BID PRN (Reason: severe pain) Qty: 20 0RF Patient Comments: 02/19- last filled 10/22 10 day supply #20 cinacalcet 30 mg tablet 0 mg PO .3X WEEK Patient Comments: 02/19- last filled 07/29 30 day supply #30 midodrine 5 mg tablet 5 mg PO UD ferric citrate [Auryxia] 210 mg iron tablet 210 mg PO TIDM sertraline 50 mg tablet 0 mg PO DAILY Patient Comments: 02/19-- last filled 08/30 30 day supply #30 gabapentin 100 mg Capsule 100 mg PO QAM Qty: 30 0RF mirtazapine 15 mg Tablet 7.5 mg PO HS Qty: 30 0RF pregabalin [Lyrica] 75 mg Capsule 75 mg PO HS Qty: 30 0RF Patient Comments: 02/19- written 11/25 30 day supply Medical Marijuana 1 dose inhalation DIRECTED PRN (Reason: Pain) Patient Comments: 02/19-unable to verify Rx Instructions: PER PT "USES 1-2 X DAILY" bupropion HCl [Wellbutrin SR] 150 mg tablet sustained-release 12 hr 0 mg PO QAM Patient Comments: 02/19- last filled 08/30 30 day supply #60 Admission Data Admit Date/Time: 02/19/25 12:11 Attending Provider: Gonzales Harden Admit Provider: Gonzales Harden Primary Care Provider: Georgie Barrera Other Providers: Anuj Russo; Farrukh Charles; Gonzales Harden; Jimmy Zheng Hospital Stay Data Consultations 02/19/25 11:35 Consult Nephrology Stat 02/19/25 12:00 ED Decision to Admit Stat 02/19/25 12:10 ED Decision to Admit Stat 02/19/25 12:11 Consult Nephrology Routine 02/21/25 10:15 Consult Vascular Surgery Routine Procedures Performed Operation Date: 02/22/25 07:30 Actual Procedures p Tunneled Hemodialysis Central Line Exchange, Venogram(Left) - Jimmy Zheng MD Diagnostic Imagining Performed 02/22/25 07:16 EV cvc replace tunnel wo pp Routine Pending Results Patient Have Any Pending Studies at Discharge: No Discharge Instructions Given to Patient (Per Discharging Provider) Follow up with nephrology for HD Total Time Total Time Spent Total Time Spent (In Minutes): 50 Coding Level of Care Code 85707 INP/OBS DISCH >30 MIN Diagnoses Hemodialysis catheter malfunction T82.41XA Encounter type: initial encounter Fluid overload E87.70 Moderate episode of recurrent major depressive disorder F33.1 Depression Type: major depressive disorder Major depression recurrence: recurrent Active/Remission status: currently active Major depression episode severity: moderate
[2025-02-22 15:22] VITALS: BP 120/88; PULSE 81; TEMP 97.7
== END 2025-02-22 18:31 | disposition home or self-care (01) | DRG 698 ==
LOC: ED 10:53 → EDINP 12:11 → 3N 12:34